=== PATIENT | male | born 1935 | race Caucasian/White ===

== ENCOUNTER 2016-04-21 09:26 | Inpatient (IN) | payer MEDICARE ==
[~2016-04-21] VITALS: Ht 172.7 cm; Wt 103.1 kg
[~2016-04-21 09:26] MED LIST: ACET-575 PO; AMLO10TA2 PO; AMLO10TA82 PO; ASP81CT PO; BENA20TA2 PO; BENA20TA72; BNZ20T PO; CARV6.252 PO; CIPR500T4 PO; CLCX200C; CLOP75TA PO; FLUT9.9S NS; FRSM40T; GLUC-116 PO; GLUC750T PO; HYDR-700 PO; LEVO50TA6 PO; LRT10T PO; LVT.05T PO; MMT17NA; MNTL10T PO; MULT-608 PO; OMEP-10 PO; PANT40TA3 PO; ROSU20TA14; ROSU20TA14 PO; SPIR1TAB PO; TAMS0.4C2 PO; TEMA30CA6; TMSL.4C PO
--- OUTSIDE RECORDS SUMMARY | 2016-04-21 09:32 | XMS REPORT | Continuity of Care Document ---
Author Author [facility] Organization [facility] Address Unknown Phone Unavailable Care Team Providers Care Food Service Helper Name Role Phone TAL MARINO MD PCP Insurance Providers Payer Name Policy Number Subscriber Name Relationship s Medicare [id number] Jose Nieto 18 Self / Same As Patient Blue Cross [facility] Supp [id number] Jose Nieto 18 Self / Same As Patient Advance Directives Directive Response Recorded Date/Time Advance Directives No 12/12/15 6:58am Organ Donor No 02/26/11 5:58am Resuscitation Status DNR-Pt Request 12/12/15 6:58am Chief Complaint and Reason for Visit Chief Complaint -Male Reason for Visit Urinary tract infection Problems Active Problems Medical Problem Onset Date Status Urinary tract infection Unknown Acute Medications Current Home Medications Medication Dose Units Route Directions Days/Qty Instructions Start Date Omeprazole 20 Mg 40 Mg Oral Daily 07/27/09 Carvedilol (Coreg) 6.25 Mg 12.5 Mg Oral Twice A Day 07/27/09 Tamsulosin Hcl 0.4 Mg 0.4 Mg Oral Bedtime 07/27/09 Mometasone Furoate 17 Gm 1 [place] Nasal As Directed 07/27/09 Aspirin 81 Mg 81 Mg Oral Bedtime 07/27/09 Hydroxyzine Hcl (Atarax) 25 Mg 25 Mg Oral Bedtime 07/27/09 Amlodipine Besylate (Norvasc 10 Mg) 10 Mg 1 Each Oral Daily 02/19/11 Montelukast Sodium 10 Mg 1 Tab Oral Daily as needed 02/19/11 Clopidogrel Bisulfate 75 Mg 1 Each Oral Daily 02/19/11 Levothyroxine Sodium (Levothroid) 50 Mcg 1 Each Oral Daily 02/19/11 Spironolact/Hydrochlorothiazid 1 Each 1 Each Oral Daily 02/19/11 Rosuvastatin Calcium 20 Mg 1 Each Oral Bedtime 02/19/11 Benazepril Hcl 20 Mg 1 Each Oral Bedtime 02/19/11 Glucosamine Sulfate 750 Mg 1,500 Mg Oral Daily 02/19/11 Multivitamins 1 Tab 1 Tab Oral Daily 02/19/11 Ciprofloxacin Hcl 500 Mg 500 Mg Oral Twice A Day 14 12/12/15 Past Home Medications Medication Directions Ordered Status Loratadine 10 Mg Tab, 1 Oral Daily 07/27/09 Discontinued Benazepril Hcl 20 Mg Tablet, Daily 07/27/09 Discontinued Celecoxib 200 Mg Capsule, Daily 07/27/09 Discontinued Furosemide 40 Mg Tab, Daily 07/27/09 Discontinued Rosuvastatin Calcium 20 Mg Tablet, Daily 07/27/09 Discontinued Temazepam 30 Mg Capsule, Bedtime 07/27/09 Discontinued Social History Social History Problem Response Recorded Date/Time Alcohol Use Denies Use 12/12/2015 6:58am Recreational Drug Use No 12/12/2015 6:58am Recent Foreign Travel No 12/12/2015 6:51am Recent Infectious Disease Exposure No 12/12/2015 6:51am Sexually Transmitted Disease No 12/12/2015 6:58am Smoking Status Never a Smoker 12/12/2015 6:58am Recent Hopitalizations No 12/12/2015 6:58am Sexually Transmitted Disease No 12/12/2015 6:58am Hx Sexually Transmitted Disorders No 02/26/2011 5:58am Query Response Start Date Stop Date Smoking Status Never a Smoker Hospital Discharge Instructions No hospital discharge instructions. Plan of Care Discharge Date 12/12/15 9:50am Disposition 01 HOME, SELF-CARE Condition at Discharge Stable Instructions/Education Provided Urinary Tract Infection in Men (ED) Forms Provided Local Medical Staff Listing Prescriptions See Medication Section Referrals TAL MARINO MD - Primary Care Physician MARLYS NEWSOME MD - Additional Instructions/Education All discharge instructions reviewed with patient and/or family. Voiced understanding. Follow-up with Dr. Newsome on Friday as scheduled. Return for worse pain, fever, vomiting, weakness, breathing problems or other concerns as needed. Take medications as directed. Functional Status No functional status results. Allergies, Adverse Reactions, Alerts Allergen Type Severity Reaction Status Last Updated SULFA Allergy Intermediate HIVES Active 07/27/09 Immunizations No immunization records. Vital Signs Acute Vital Signs Vital Response Date/Time Temperature (Fahrenheit) 98.0 degrees F (97.6 - 99.5) 12/12/2015 6:51am Temperature (Calculated Celsius) 36.09250 degrees C (36.4 - 37.5) 12/12/2015 6:51am Temperature Source Temporal 12/12/2015 6:51am Pulse Rate (adult) 88 bpm (60 - 90) 12/12/2015 6:51am Respiratory Rate 16 bpm (12 - 24) 12/12/2015 6:51am O2 Sat by Pulse Oximetry 93 % (88 - 100) 12/12/2015 6:51am Blood Pressure 178/78 mm Hg 12/12/2015 6:51am Blood Pressure Mean 111 mm Hg 12/12/2015 6:51am Pain Numeric Pain Scale 7 12/12/2015 7:18am Height (Feet) 5 feet 12/12/2015 6:51am Height (Inches) 8 inches 12/12/2015 6:51am Height (Calculated Centimeters) 172.768222 cm 12/12/2015 6:51am Weight (Pounds) 230 pounds 12/12/2015 6:51am Weight (Calculated Kilograms) 104.952905 kilograms 12/12/2015 6:51am Capillary Refill Capillary Refill Less Than 3 Seconds 12/12/2015 6:51am Height 5 ft 8 in Weight 230 lb Body Mass Index 35.0 kg/m^2 Results Laboratory Results Test Name Result Units Flags Reference Collection Date/Time Result Date/ Time Comments White Blood Count 6.8 10^3/uL 4.3-11.0 12/12/2015 7:05am 12/12/2015 7: 24am Red Blood Count 4.56 10^6/uL 4.35-5.85 12/12/2015 7:05am 12/12/2015 7: 24am Hemoglobin 14.4 G/DL 13.3-17.7 12/12/2015 7:05am 12/12/2015 7:24am Hematocrit 40 % 40-54 12/12/2015 7:05am 12/12/2015 7:24am Mean Corpuscular Volume 88 FL 80-99 12/12/2015 7:05am 12/12/2015 7: 24am Mean Corpuscular Hemoglobin 32 PG 25-34 12/12/2015 7:05am 12/12/2015 7: 24am Mean Corpuscular Hemoglobin Concent 36 G/DL 32-36 12/12/2015 7:05am 7:24am Red Cell Distribution Width 12.6 % 10.0-14.5 12/12/2015 7:05am 2015 7:24am Platelet Count 226 10^3/uL 130-400 12/12/2015 7:05am 12/12/2015 7:24am Mean Platelet Volume 8.9 FL 7.4-10.4 12/12/2015 7:05am 12/12/2015 7: 24am Neutrophils (%) (Auto) 55 % 42-75 12/12/2015 7:05am 12/12/2015 7:24am Lymphocytes (%) (Auto) 23 % 12-44 12/12/2015 7:05am 12/12/2015 7:24am Monocytes (%) (Auto) 19 % H 0-12 12/12/2015 7:05am 12/12/2015 7:24am Eosinophils (%) (Auto) 2 % 0-10 12/12/2015 7:05am 12/12/2015 7:24am Basophils (%) (Auto) 0 % 0-10 12/12/2015 7:05am 12/12/2015 7:24am Neutrophils # (Auto) 3.7 X 10^3 1.8-7.8 12/12/2015 7:05am 12/12/2015 7: 24am Lymphocytes # (Auto) 1.6 X 10^3 1.0-4.0 12/12/2015 7:05am 12/12/2015 7: 24am Monocytes # (Auto) 1.3 X 10^3 H 0.0-1.0 12/12/2015 7:05am 12/12/2015 7: 24am Eosinophils # (Auto) 0.2 10^3/uL 0.0-0.3 12/12/2015 7:05am 12/12/2015 7 :24am Basophils # (Auto) 0.0 10^3/uL 0.0-0.1 12/12/2015 7:05am 12/12/2015 7: 24am Neutrophils % (Manual) 49 % 12/12/2015 7:05am 12/12/2015 7:51am Band Neutrophils 0 % 12/12/2015 7:05am 12/12/2015 7:51am Lymphocytes % (Manual) 18 % 12/12/2015 7:05am 12/12/2015 7:51am Monocytes % (Manual) 12 % 12/12/2015 7:05am 12/12/2015 7:51am Eosinophils % (Manual) 6 % 12/12/2015 7:05am 12/12/2015 7:51am Basophils % (Manual) 0 % 12/12/2015 7:05am 12/12/2015 7:51am Reactive Lymphocytes 15 % 12/12/2015 7:05am 12/12/2015 7:51am Blood Morphology Comment NORMAL 12/12/2015 7:05am 12/12/2015 7: 51am Urine Color DANIEL * 12/12/2015 7:45am 12/12/2015 8:06am Urine Clarity CLEAR 12/12/2015 7:45am 12/12/2015 8:06am Urine pH 5 5-9 12/12/2015 7:45am 12/12/2015 8:06am Urine Specific [place] 1.020 1.016-1.022 12/12/2015 7:45am 2015 8:06am Urine Protein 3+ * NEGATIVE 12/12/2015 7:45am 12/12/2015 8:06am Urine Glucose (UA) NEGATIVE NEGATIVE 12/12/2015 7:45am 12/12/2015 8: 06am Urine RBC (Auto) 3+ * NEGATIVE 12/12/2015 7:45am 12/12/2015 8:06am Urine Ketones NEGATIVE NEGATIVE 12/12/2015 7:45am 12/12/2015 8:06am Urine Nitrite POSITIVE * NEGATIVE 12/12/2015 7:45am 12/12/2015 8:06am Urine Bilirubin 1+ * NEGATIVE 12/12/2015 7:45am 12/12/2015 8:08am ICTO TEST=NEG --- 12/12/15 0808 --- UR BILI previously reported as: 1+ * Urine Urobilinogen 1 MG/DL NORMAL 12/12/2015 7:45am 12/12/2015 8:06am Urine Leukocyte Esterase NEGATIVE NEGATIVE 12/12/2015 7:45am 2015 8:06am Urine RBC RARE /HPF 12/12/2015 7:45am 12/12/2015 8:06am Urine WBC RARE /HPF 12/12/2015 7:45am 12/12/2015 8:06am Urine Bacteria NEGATIVE /HPF 12/12/2015 7:45am 12/12/2015 8:06am Urine Squamous Epithelial Cells RARE /HPF 12/12/2015 7:45am 2015 8:06am Urine Crystals NONE /LPF 12/12/2015 7:45am 12/12/2015 8:06am Urine Casts NONE /LPF 12/12/2015 7:45am 12/12/2015 8:06am Urine Mucus NEGATIVE /LPF 12/12/2015 7:45am 12/12/2015 8:06am Urine Culture Indicated NO 12/12/2015 7:45am 12/12/2015 8:06am Sodium Level 127 MMOL/L L 135-145 12/12/2015 7:05am 12/12/2015 7:39am Potassium Level 4.4 MMOL/L 3.6-5.0 12/12/2015 7:05am 12/12/2015 7:39am Chloride Level 96 MMOL/L L 98-107 12/12/2015 7:05am 12/12/2015 7:39am Carbon Dioxide Level 20 MMOL/L L 21-32 12/12/2015 7:05am 12/12/2015 7: 39am Anion Gap 11 MMOL/L 5-14 12/12/2015 7:05am 12/12/2015 7:39am Blood Urea Nitrogen 7 MG/DL 7-18 12/12/2015 7:05am 12/12/2015 7:39am Creatinine 0.98 MG/DL 0.60-1.30 12/12/2015 7:05am 12/12/2015 7:39am BUN/Creatinine Ratio 7 12/12/2015 7:05am 12/12/2015 7:39am Estimat Glomerular Filtration Rate > 60 12/12/2015 7:05am 2015 7:39am GFR INTERPRETIVE DATA UNITS FOR ESTIMATED GFR (eGFR): mL/min/1.73 M2 REFERENCE RANGE FOR ESTIMATED GFR (eGFR) eGFR NORMAL eGFR >60 MODERATELY DECREASED eGFR 30-59 SEVERLY DECREASED eGFR 15-29 KIDNEY FAILURE <15 (OR DIALYSIS) Glucose Level 120 MG/DL H 70-105 12/12/2015 7:05am 12/12/2015 7:39am Calcium Level 9.0 MG/DL 8.5-10.1 12/12/2015 7:05am 12/12/2015 7:39am Total Bilirubin 0.6 MG/DL 0.1-1.0 12/12/2015 7:05am 12/12/2015 7:39am Alkaline Phosphatase 54 U/L 40-136 12/12/2015 7:05am 12/12/2015 7:39am Aspartate Amino Transf (AST/SGOT) 21 U/L 5-34 12/12/2015 7:05am 2015 7:39am Alanine Aminotransferase (ALT/SGPT) 17 U/L 0-55 12/12/2015 7:05am 12/11 7:39am Total Protein 5.9 G/DL L 6.4-8.2 12/12/2015 7:05am 12/12/2015 7:39am Albumin 3.7 G/DL 3.2-4.5 12/12/2015 7:05am 12/12/2015 7:39am C-Reactive Protein High Sensitivity 1.94 MG/DL H 0.00-0.50 12/12/2015 7: 05am 12/12/2015 7:39am Procedures No known history of procedures. Encounters Encounter Location Arrival/Admit Date Discharge/Depart Date Attending Provider Registered Emergency Room [facility] 12/12/15 6:47am SAM STAPLES MD Recent Diagnosis
[2016-04-21] MEDS ORDERED: VANCOMYCIN IV ADD-VANTAGE 1,000 MG in SODIUM CHLORIDE (ADD-VANTAGE) 250 ML IV ONE (10:00)
[2016-04-21] MEDS ORDERED: fentaNYL INJECTION 100 MCG/2 ML AMP IVP ONE (10:00)
--- NOTE | 2016-04-21 10:00 | ED Integumentary General ---
General Stated Complaint: R FOOT PAIN/SWELLING/REDNESS Source: patient, family Exam Limitations: no limitations History of Present Illness Time seen by provider: 09:57 Initial Comments This 81-year-old white male presents with a progressively red and swollen and painful right foot. The patient has noted ascending red streaks in his right calf. Patient has been going to wound care for the last 2 months for dressing changes. He is not on antibiotics. Patient suffers from severe peripheral vascular disease. He knows that he has essentially no effective circulation to his lower extremities despite multiple procedures. Allergies and Home Medications Allergies Uncoded Allergies: SULFA (Allergy, Intermediate, HIVES, 07/27/09) Home Medications Acetaminophen/Diphenhydramine 1 Each Tablet 1-2 TAB PO HS (Reported) Amlodipine Besylate 10 Mg Tablet 10 MG PO DAILY (Reported) Aspirin 81 Mg Chew 81 MG PO HS (Reported) Benazepril HCl 20 Mg Tablet 20 MG PO BID (Reported) Carvedilol 6.25 Mg Tablet 6.25 MG PO BID (Reported) Fluticasone Propionate 9.9 Ml [place].susp 2 SPRAYS NS DAILY PRN PRN RHINITIS ( Reported) Gluc/Josh-MSM#2/C/D3/Marcos/Born 1 Each Tablet 1 TAB PO DAILY (Reported) Levothyroxine Sodium 50 Mcg Tablet 50 MCG PO DAILY (Reported) Pantoprazole Sodium 40 Mg Tablet.dr 40 MG PO HS (Reported) Rosuvastatin Calcium 20 Mg Tablet 20 MG PO HS (Reported) Tamsulosin HCl 0.4 Mg Cap.er.24h 0.4 MG PO HS (Reported) Constitutional: chills fever EENTM: No ear pain, No vision loss Respiratory: No cough Cardiovascular: No chest pain Gastrointestinal: No abdominal pain, No diarrhea, No nausea, No vomiting Genitourinary: No dysuria, No frequency Musculoskeletal: No back pain, No gout, joint pain Skin: other (patient had erythema of his right great toe and right heel area.) Psychiatric/Neurological: No Symptoms Reported Endocrine: No Symptoms Reported Hematologic/Lymphatic: No Symptoms Reported Past Cnrobvl-Ikntxq-Mvrwvw Hx Patient Social History Recent Foreign Travel: No Contact w/Someone Who Travel: No Recent Hopitalizations: No Immunizations Up To Date Date of Pneumonia Vaccine: Nov 17, 2014 Date of Influenza Vaccine: Dec 01, 2015 Seasonal Allergies Seasonal Allergies: Yes Surgeries HX Surgeries: Yes (right carotid, right total knee, hernia repair, pvd, prostate seeds, ileost) Surgeries: Eye Surgery, Gallbladder, Orthopedic, Tonsillectomy Respiratory Hx Respiratory Disorders: Yes Respiratory Disorders: Asthma Cardiovascular Hx Cardiac Disorders: Yes Cardiac Disorders: Coronary Artery Disease, High Cholesterol, Hypertension Neurological Hx Neurological Disorders: Yes Neurological Disorders: Dementia, Neuropathy Reproductive System Hx Reproductive Disorders: No Sexually Transmitted Disease: No Genitourinary Hx Genitourinary Disorders: Yes (PROSTATE CA) Genitourinary Disorders: Prostate Problems Gastrointestinal Hx Gastrointestinal Disorders: Yes (ILEOSTOMY) Gastrointestinal Disorders: Abdominal Hernia, Colitis Musculoskeletal Hx Musculoskeletal Disorders: Yes (ARTHRITIS) Endocrine Hx Endocrine Disorders: Yes Endocrine Disorders: Hypothyroidsim, Diabetes, Non-Insulin dep HEENT HX ENT Disorders: No Cancer Hx Cancer: Yes Cancer: Prostate, Colon Psychosocial Hx Psychiatric Problems: No Integumentary HX Skin/Integumentary Disorder: No Blood Transfusions Hx Blood Disorders: No Reviewed Nursing Assessment Reviewed/Agree w Nursing PMH: Yes Family Medical History Significant Family History: No Pertinent Family Hx Family Medial History: BLOOD CLOT 19 FATHER BRAIN CANCER G8 SISTER SISTER BRAIN CANCER G8 SISTER SISTER Physical Exam Vital Signs Vital Sign - Last 12Hours 04/21/16 09:40 Temp 99.8 Pulse 102 B/P 134/102 Pulse Ox 97 Capillary Refill : General Appearance: WD/WN no apparent distress HEENT: normal ENT inspection Neck: normal inspection Cardiovascular: regular rate, rhythm other (patient demonstrates poor peripheral pulses.) Respiratory: chest non-tender lungs clear Gastrointestinal: normal bowel sounds non tender soft Extremities: inflammation (right foot and ankle with ascending lymphedema to the right calf) Neurologic/Psychiatric: no motor/sensory deficits alert Skin: other (there is marked erythema to the right great toe and right heel and there is sending lymphedema over the medial right calf.) Skin Problem Location: other (cellulitis right lower extremity) Skin Problem Character: erythema, warm Progress/Results/Core Measures Results/Orders Lab Results Laboratory Tests Test 04/21/16 10:30 Range/Units Basophils # (Auto) 0.0 0.0-0.1 10^3/uL Basophils (%) (Auto) 0 0-10 % Eosinophils # (Auto) 0.1 0.0-0.3 10^3/uL Eosinophils (%) (Auto) 1 0-10 % Hematocrit 35 L 40-54 % Hemoglobin 11.9 L 13.3-17.7 G/DL Lymphocytes # (Auto) 1.2 1.0-4.0 X 10^3 Lymphocytes (%) (Auto) 7 L 12-44 % Mean Corpuscular Hemoglobin 32 25-34 PG Mean Corpuscular Hemoglobin Concent 34 32-36 G/DL Mean Corpuscular Volume 97 80-99 FL Mean Platelet Volume 9.0 7.4-10.4 FL Monocytes # (Auto) 2.9 H 0.0-1.0 X 10^3 Monocytes (%) (Auto) 17 H 0-12 % Neutrophils # (Auto) 12.9 H 1.8-7.8 X 10^3 Neutrophils (%) (Auto) 75 42-75 % Platelet Count 239 130-400 10^3/uL Red Blood Count 3.67 L 4.35-5.85 10^6/uL Red Cell Distribution Width 14.9 H 10.0-14.5 % White Blood Count 17.2 H 4.3-11.0 10^3/uL My Orders Orders-MARBELLA MCCLAIN MD Hs C Reactive Protein (04/21/16 09:55) Cbc With Automated Diff (04/21/16 09:55) Comprehensive Metabolic Panel (04/21/16 09:55) Uric Acid (04/21/16 09:55) Foot, Right, 3 View (04/21/16 09:55) Fentanyl Injection (Sublimaze Injection (04/21/16 10:00) Vancomycin Iv Add-[place] (Vancomycin Iv (04/21/16 10:00) Ns Iv 1000 Ml (Sodium Chloride 0.9%) (04/21/16 10:00) Blood Culture (04/21/16 10:13) Lactic Acid Analyzer (04/21/16 10:13) Chest 1 View, Ap/Pa Only (04/21/16 10:37) Manual Differential (04/21/16 10:30) Vital Signs/I&O Vital Sign - Last 12Hours 04/21/16 09:40 Temp 99.8 Pulse 102 B/P 134/102 Pulse Ox 97 Progress Note : Time: 10:56 Progress Note The patient's white count was 17,000. A gram of vancomycin was ordered. Telephone consultation was undertaken with Dr. Mcclendon. Patient was admitted. Departure Communication Time/Spoke to Admitting Phy: 10:[address] Mcclendon. Impression Impression: Primary Impression: Cellulitis of right lower extremity Disposition: ADMITTED INPATIENT Condition: Improved Decision to Admit Reason: Admit from ER (General) Decision to Admit/Date: Apr 21, 2016 Time/Decision to Admit Time: 10:58 Departure-Patient Inst. Referrals: NO,LOCAL PHYSICIAN (PCP/Family) Primary Care Physician MARBELLA MCCLAIN MD Apr 21, 2016 10:00
[2016-04-21 10:42] LABS: BASOPHILS % (AUTO) 0 % (0-10); EOSINOPHILS # (AUTO) 0.1 10^3/uL (0.0-0.3); EOSINOPHILS % (AUTO) 1 % (0-10); LYMPHOCYTES # (AUTO) 1.2 X 10^3 (1.0-4.0); LYMPHOCYTES % (AUTO) 7 % (12-44); MEAN CORPUSCULAR HEMOGLOBIN 32 PG (25-34); MEAN CORPUSCULAR HGB CONC 34 G/DL (32-36); MEAN CORPUSCULAR VOLUME 97 FL (80-99); MONOCYTES # (AUTO) 2.9 X 10^3 (0.0-1.0); MONOCYTES % (AUTO) 17 % (0-12); NEUTROPHILS # (AUTO) 12.9 X 10^3 (1.8-7.8); NEUTROPHILS % (AUTO) 75 % (42-75); PLATELET COUNT 239 10^3/uL (130-400); RED BLOOD COUNT 3.67 10^6/uL (4.35-5.85); RED CELL DISTRIBUTION WIDTH 14.9 % (10.0-14.5); WHITE BLOOD COUNT 17.2 10^3/uL (4.3-11.0)
--- NOTE | 2016-04-21 10:55 | Diagnostic Imaging Report ---
EXAMINATION: Chest radiograph, portable AP view. DATE: 04/21/2016 at 1033 hours. INDICATION: 81-year-old male, fever and chills. COMPARISON: 12/16/2015. FINDINGS: Stable overall appearance of the cardiomediastinal silhouette. There are aortic calcifications. There are carotid vascular calcifications. There is stent graft material overlying the right neck and adjacent surgical clips. There is no identified pneumothorax. There is no large pleural effusion. There is nonspecific right parahilar airspace consolidation which is increased since the comparison exam. IMPRESSION: 1. Nonspecific right perihilar airspace consolidation increased since comparison exam which may relate to infiltrate and/or atelectasis. Dictated by: Dictated on workstation # [id number]
[2016-04-21 10:58] LABS: BAND NEUTROPHILS 12 %; BASOPHILS % (MANUAL) 0 %; EOSINOPHILS % (MANUAL) 1 %; LYMPHOCYTES % (MANUAL) 8 %; METAMYELOCYTES % 3 %; NEUTROPHILS % (MANUAL) 61 %
--- NOTE | 2016-04-21 10:58 | Diagnostic Imaging Report ---
EXAMINATION: Right foot, three views. COMPARISON: None. HISTORY: 81-year-old male, redness and swelling of the right foot. FINDINGS: There is a deformity of the distal diaphysis of the fifth metatarsal which appears chronic. There is at least partial bony callus bridging of the deformity. There is a calcaneal heel spur. There is pes planus. There is severe tibiotalar joint space loss. There is loss of identification of the normal morphology of the talus on the lateral view. There is mild degenerative type enthesopathy at the insertion of the Achilles tendon. The bones do appear demineralized. There is no aggressive cortical or otherwise noted bone destruction. There is no periosteal reaction. There is no radiopaque foreign body. There is a deformity of the distal fibula likely relating to sequela of prior fracture. IMPRESSION: 1. No radiographic evidence of osteomyelitis. 2. No radiopaque foreign body. 3. Chronic appearing abnormalities as described above. Dictated by: Dictated on workstation # [id number]
[2016-04-21 11:07] LABS: ALBUMIN 2.9 G/DL (3.2-4.5); BILIRUBIN,TOTAL 0.5 MG/DL (0.1-1.0); CALCIUM 9.4 MG/DL (8.5-10.1); CREATININE SERUM 1.24 MG/DL (0.60-1.30); POTASSIUM 4.5 MMOL/L (3.6-5.0); TOTAL PROTEIN 5.7 G/DL (6.4-8.2)
[2016-04-21 11:08] LABS: hs C REACTIVE PROTEIN 27.36 MG/DL (0.00-0.50)
[2016-04-21] MEDS: NS IV 1000 ML 1,000 ML IV SCH ×2 (11:58→21:32)
[2016-04-21] MEDS ORDERED: VANCOMYCIN 1 GM/NS 250 ML IVPB IV NR ×2 (15:11)
[2016-04-21] MEDS: fentaNYL INJECTION 100 MCG/2 ML AMP IV PRN (15:43)
[2016-04-21 16:00] VITALS: BP 112/56
[2016-04-21 20:00] VITALS: BP 111/54
[2016-04-21] MEDS: ACETAMINOPHEN 325 MG TABLET/CAPLET (TYLENOL) PO PRN (21:17)
[2016-04-22] VITALS (7 sets, daily range): BP systolic 110–143; BP diastolic 56–99
[2016-04-22] MEDS: NS IV 1000 ML 1,000 ML IV SCH ×2 (02:58→22:59)
[2016-04-22] MEDS: VANCOMYCIN 1 GM/NS 250 ML IVPB IV SCH ×4 (05:01→17:12)
[2016-04-22 05:16] LABS: BASOPHILS % (AUTO) 0 % (0-10); EOSINOPHILS # (AUTO) 0.1 10^3/uL (0.0-0.3); EOSINOPHILS % (AUTO) 0 % (0-10); LYMPHOCYTES # (AUTO) 1.2 X 10^3 (1.0-4.0); LYMPHOCYTES % (AUTO) 9 % (12-44); MEAN CORPUSCULAR HEMOGLOBIN 33 PG (25-34); MEAN CORPUSCULAR HGB CONC 34 G/DL (32-36); MEAN CORPUSCULAR VOLUME 97 FL (80-99); MEAN PLATELET VOLUME 8.9 FL (7.4-10.4); MONOCYTES # (AUTO) 2.2 X 10^3 (0.0-1.0); MONOCYTES % (AUTO) 16 % (0-12); NEUTROPHILS # (AUTO) 10.7 X 10^3 (1.8-7.8); NEUTROPHILS % (AUTO) 75 % (42-75); PLATELET COUNT 209 10^3/uL (130-400); RED CELL DISTRIBUTION WIDTH 14.7 % (10.0-14.5); WHITE BLOOD COUNT 14.1 10^3/uL (4.3-11.0)
[2016-04-22 05:42] LABS: ERYTHROCYTE SEDIMENTATION RATE 51 MM/HR (0-30)
[2016-04-22 05:43] LABS: ALANINE AMINOTRANSFERASE 13 U/L (0-55); ALBUMIN 2.6 G/DL (3.2-4.5); ANION GAP 10 MMOL/L (5-14); ASPARTATE AMINO TRANSFERASE 10 U/L (5-34); BILIRUBIN,TOTAL 0.5 MG/DL (0.1-1.0); BLOOD UREA NITROGEN 16 MG/DL (7-18); BUN/CREATININE RATIO 18; CALCIUM 8.9 MG/DL (8.5-10.1); CARBON DIOXIDE 17 MMOL/L (21-32); CHLORIDE 108 MMOL/L (98-107); CREATININE SERUM 0.87 MG/DL (0.60-1.30); GFR ESTIMATED > 60; GLUCOSE 117 MG/DL (70-105); POTASSIUM 4.1 MMOL/L (3.6-5.0); SODIUM 135 MMOL/L (135-145)
[2016-04-22] MEDS: fentaNYL INJECTION 100 MCG/2 ML AMP IV PRN ×2 (10:15→17:04)
[2016-04-22] MEDS ORDERED: ROSU40TA20 PO (10:59)
[2016-04-22] MEDS ORDERED: CLOP75TA69 PO (10:59)
--- NOTE | 2016-04-22 11:03 | History & Physical-Hospitalist ---
HPI History of Present Illness: HPI/Chief Complaint CC: Right foot cellulitis HPI: This is an 81yoWM pt known from prior admission for fever and UTI on with hx of severe JANIS, colitis requiring ileostomy, and prostate CA, that presents to ER with right lower extremity swelling and pain. Pt is on Vanc empirically, lab shows WBC improved from 17.2 to 14, Hgb 11, Na+ improved to 135 and Creat normal at 0.87. Pt had previous left leg surgery performed by Dr. Wright two weeks ago in [place], but developed cellulitis in right leg extremity. assistant director of security: RN states that pt is much improved. Pt has an incision in leg from previous operation. SW Review: Pt wishes to be DNR. Pt's PCP is Dr. Payan Patient Interview: Pt states that he recently had surgery on his left leg two weeks ago in [place] performed by Dr. Wright. Pt states that his toe is improved today, but still has some pain in his heel spur. Pt's heel spur has recently made it hard for pt to walk. Pt has not found a local specialist to work with heel spur. Pt sees Dr. Aguirre routinely, and sees a physician in [place] for primary care. Physical exam stable. Pt used O2 last night, but did not bring his CPAP to [facility]. Pt states that he sometimes uses the CPAP at home, but not every night. Pt has not been ambulating from bed to chair, but not more. Pt eating and drinking regularly. Plan: Stop IVF Bone scan Maintain ambulation Maintain Vanc Dr. Dover will see pt tomorrow morning Scribed by Maxim Graves under the direct supervision of Dr. Partida. Source: patient Exam Limitations: clinical condition (cognitive deficiency noted) Date Seen 04/22/16 Attending Physician Fernando Mcclendon MD PCP No,Local Physician Referring Physician Date of Admission Apr 21, 2016 at 11:23 Home Medications & Allergies Home Medications Reviewed patient Home Medication Reconciliation Form Allergies Coded Allergies: clindamycin (Verified Allergy, Unknown, 04/21/16) STATES HE CAN NOT TAKE IT Uncoded Allergies: SULFA (Allergy, Intermediate, HIVES, 07/27/09) Past Yrgpied-Kpqlax-Kwpxvx Hx Patient Social History Marrital Status: Employed/Student: retired Alcohol Use: Rarely Uses Recreational Drug Use: No Smoking Status: Never a Smoker Physical Abuse Screen: No Sexual Abuse: No Recent Foreign Travel: No Contact w/other who traveled: No Recent Hopitalizations: No Recent Infectious Disease Expo: No Immunizations Up To Date Date of Pneumonia Vaccine: Dec 12, 2015 Date of Influenza Vaccine: Dec 12, 2015 Seasonal Allergies Seasonal Allergies: Yes Surgeries HX Surgeries: Yes (right carotid, right total knee, hernia repair, pvd, prostate seeds, ileost) Surgeries: Eye Surgery, Gallbladder, Orthopedic, Tonsillectomy Respiratory Hx Respiratory Disorders: Yes Respiratory Disorders: COPD, Emphysema, Sleep Apnea Cardiovascular Hx Cardiovascular Disorders: Yes Cardiac Disorders: Coronary Artery Disease, High Cholesterol, Hypertension Neurological Hx Neurological Disorders: Yes Neurological Disorders: Dementia, Neuropathy Reproductive System Hx Reproductive Disorders: No Sexually Transmitted Disease: No HIV/AIDS: No Genitourinary Hx Genitourinary Disorders: Yes (PROSTATE CA) Genitourinary Disorders: Prostate Problems, Kidney Stones Gastrointestinal Hx Gastrointestinal Disorders: Yes (ILEOSTOMY) Gastrointestinal Disorders: Abdominal Hernia, Colitis, Gall Bladder Disease Musculoskeletal Hx Musculoskeletal Disorders: Yes (ARTHRITIS) Endocrine Hx Endocrine Disorders: Yes Endocrine Disorders: Hypothyroidsim, Diabetes, Non-Insulin dep HEENT HX ENT Disorders: No HEENT Disorders: Cataract Loss of Vision: Denies Hearing Impairment: Hard of Hearing Cancer Hx Cancer: Yes Cancer: Prostate, Stomach, Colon Psychosocial Hx Psychiatric Problems: No Integumentary HX Skin/Integumentary Disorder: No Blood Transfusions Hx Blood Disorders: No Adverse Reaction to a Blood Tr: No Reviewed Nursing Assessment Reviewed/Agree w Nursing PMH: Yes Family Medical History Significant Family History: No Pertinent Family Hx Family Hx: BLOOD CLOT 19 FATHER BRAIN CANCER G8 SISTER SISTER BRAIN CANCER G8 SISTER SISTER Review of Systems Constitutional: see HPI chills weakness EENTM: no symptoms reported Respiratory: no symptoms reported Cardiovascular: no symptoms reported Gastrointestinal: no symptoms reported Genitourinary: no symptoms reported Musculoskeletal: joint pain Skin: no symptoms reported Psychiatric/Neurological: Depressed All Other Systems Reviewed Negative Unless Noted: Yes Physical Exam Physical Exam Vital Signs Vital Sign - Last 12Hours 04/21/16 04/21/16 04/21/16 04/21/16 09:40 13:00 14:00 21:00 Temp 99.8 Pulse 102 Resp 18 B/P 134/102 Pulse Ox 97 O2 Delivery Room Air O2 Flow Rate 2.00 Capillary Refill : Less Than 3 Seconds General Appearance: No Apparent Distress WD/WN Chronically ill Eyes: Bilateral Eye Normal Inspection, Bilateral Eye PERRL HEENT: PERRL/EOMI Normal ENT Inspection Pharynx Normal Neck: Full Range of Motion Normal Inspection Non Tender Supple Carotid Bruit Respiratory: Chest Non Tender Lungs Clear Normal Breath Sounds No Accessory Muscle Use No Respiratory Distress Cardiovascular: Regular Rate, Rhythm No Edema No Gallop No JVD No Murmur Normal Peripheral Pulses Gastrointestinal: Normal Bowel Sounds No Organomegaly No Pulsatile Mass Non Tender Soft Back: Normal Inspection No CVA Tenderness No Vertebral Tenderness Extremity: Normal Capillary Refill Normal Inspection Normal Range of Motion ( except right ankle and foot with erythema that is much improved from admission but ammonia still operator to touch) Non Tender No Calf Tenderness No Pedal Edema Neurologic/Psychiatric: Alert Oriented x3 No Motor/Sensory Deficits Normal Mood/Affect Skin: Normal Color Warm/Dry Lymphatic: No Adenopathy Results Results/Procedures Lab Laboratory Tests 04/21/16 10:30 04/22/16 04:50 Assessment/Plan Admission Diagnosis Assessment: Right foot cellulitis with severe peripheral vascular disease ruling out osteomyelitis consulting podiatry w/leukocytosis History of COPD Severe sleep apnea requiring CPAP Chronic nasal congestion requiring Afrin and breathing easy strips History of prostate cancer Hypertension Hypothyroidism Cognitive decline Debility UTI hx Colitis requiring ileostomy hx Assessment and Plan Plan: Continue vancomycin since improving empirically Monitor labs Pain control Nuclear imaging scan and MRI to evaluate for OSTEOMYELITIS and consulting Dr. Dover Clinical Quality Measures DVT/VTE Risk/Contraindication: Risk Factor Score Per Nursin RFS Level Per Nursing on Admit: 3=High YAS PARTIDA DO Apr 22, 2016 11:03
[2016-04-22] MEDS: CATHETER FLUSH 10 ML SYR IV PRN (12:27)
[2016-04-22] MEDS: ENOXAPARIN 40 MG/0.4 ML (LOVENOX) SYR SC SCH (13:39)
[2016-04-22] MEDS: ACETAMINOPHEN 325 MG TABLET/CAPLET (TYLENOL) PO PRN ×2 (13:40→20:04)
[2016-04-22] MEDS ORDERED: TROUGH ORDER-PHARMACY XX NR (16:00)
[2016-04-22] MEDS ORDERED: NS IV 1000 ML 1,000 ML ONE (17:07)
[2016-04-22] MEDS: ALFUZOSIN HCL 10 MG TAB (UROXATRAL) PO SCH (18:12)
[2016-04-22] MEDS: CARVEDILOL 6.25 MG (COREG) TAB PO SCH (20:03)
[2016-04-22] MEDS: BENAZEPRIL 20 MG (LOTENSIN) TAB PO SCH (20:03)
[2016-04-22] MEDS: ASPIRIN 81 MG CHEW (CHILDREN'S ASA) PO SCH (20:04)
[2016-04-22] MEDS: PANTOPRAZOLE 40 MG (PROTONIX) TAB PO SCH (20:04)
[2016-04-22] MEDS: ATORVASTATIN 40 MG (LIPITOR) TABLET PO SCH (20:04)
[2016-04-22] MEDS ORDERED: ROSUVASTATIN 20 MG (CRESTOR) TABLET PO SCH (21:00)
[2016-04-22 22:27] LABS: BASOPHILS % (AUTO) 0 % (0-10); EOSINOPHILS # (AUTO) 0.1 10^3/uL (0.0-0.3); EOSINOPHILS % (AUTO) 1 % (0-10); LYMPHOCYTES % (AUTO) 8 % (12-44); MEAN CORPUSCULAR HEMOGLOBIN 33 PG (25-34); MEAN CORPUSCULAR HGB CONC 34 G/DL (32-36); MEAN CORPUSCULAR VOLUME 97 FL (80-99); MEAN PLATELET VOLUME 9.2 FL (7.4-10.4); MONOCYTES # (AUTO) 2.2 X 10^3 (0.0-1.0); MONOCYTES % (AUTO) 16 % (0-12); NEUTROPHILS # (AUTO) 10.2 X 10^3 (1.8-7.8); NEUTROPHILS % (AUTO) 75 % (42-75); PLATELET COUNT 206 10^3/uL (130-400); RED BLOOD COUNT 3.35 10^6/uL (4.35-5.85); RED CELL DISTRIBUTION WIDTH 14.5 % (10.0-14.5); WHITE BLOOD COUNT 13.6 10^3/uL (4.3-11.0)
[2016-04-22 22:47] LABS: ALANINE AMINOTRANSFERASE 11 U/L (0-55); ALBUMIN 2.6 G/DL (3.2-4.5); ANION GAP 11 MMOL/L (5-14); ASPARTATE AMINO TRANSFERASE 10 U/L (5-34); BILIRUBIN,TOTAL 0.4 MG/DL (0.1-1.0); BLOOD UREA NITROGEN 10 MG/DL (7-18); BUN/CREATININE RATIO 10; CALCIUM 8.7 MG/DL (8.5-10.1); CARBON DIOXIDE 16 MMOL/L (21-32); CHLORIDE 108 MMOL/L (98-107); CREATININE SERUM 1.01 MG/DL (0.60-1.30); GFR ESTIMATED > 60; GLUCOSE 163 MG/DL (70-105); SODIUM 135 MMOL/L (135-145); TOTAL PROTEIN 5.3 G/DL (6.4-8.2)
[2016-04-22] MEDS ORDERED: LEVOFLOXACIN 750 MG/150 ML IV 150 ML IV ONE (22:51)
[2016-04-22] MEDS: PIPERACILLIN SODIUM/TAZOBACTAM 4.5 GM in NS (IVPB) 100 ML IV SCH (22:55)
[2016-04-22] MEDS: IBUPROFEN TABLET 200 MG TAB PO PRN (22:56)
[2016-04-22] MEDS: RT-ALBUTEROL/IPRATROPIUM 3 ML (DUONEB) VIAL INH SCH (23:06)
[2016-04-22 23:27] LABS: BILIRUBIN,URINE NEGATIVE (NEGATIVE); KETONES,URINE NEGATIVE (NEGATIVE); LEUKOCYTE ESTERASE ,URINE NEGATIVE (NEGATIVE); NITRITE,URINE NEGATIVE (NEGATIVE); PH,URINE 5 (5-9); PROTEIN,URINE 1+ (NEGATIVE); UROBILINOGEN,URINE NORMAL (NORMAL)
[2016-04-23] MEDS: RT-ALBUTEROL/IPRATROPIUM 3 ML (DUONEB) VIAL INH SCH ×6 (02:52→22:00)
[2016-04-23 04:05] VITALS: BP 150/74
[2016-04-23] MEDS: VANCOMYCIN 1 GM/NS 250 ML IVPB IV SCH ×4 (04:13→17:00)
[2016-04-23 05:36] LABS: BASOPHILS % (AUTO) 0 % (0-10); EOSINOPHILS # (AUTO) 0.1 10^3/uL (0.0-0.3); EOSINOPHILS % (AUTO) 1 % (0-10); LYMPHOCYTES # (AUTO) 0.8 X 10^3 (1.0-4.0); LYMPHOCYTES % (AUTO) 7 % (12-44); MEAN CORPUSCULAR HEMOGLOBIN 32 PG (25-34); MEAN CORPUSCULAR HGB CONC 33 G/DL (32-36); MEAN CORPUSCULAR VOLUME 98 FL (80-99); MEAN PLATELET VOLUME 9.3 FL (7.4-10.4); MONOCYTES # (AUTO) 1.9 X 10^3 (0.0-1.0); MONOCYTES % (AUTO) 15 % (0-12); NEUTROPHILS % (AUTO) 78 % (42-75); PLATELET COUNT 191 10^3/uL (130-400); RED BLOOD COUNT 3.38 10^6/uL (4.35-5.85); RED CELL DISTRIBUTION WIDTH 14.6 % (10.0-14.5); WHITE BLOOD COUNT 12.9 10^3/uL (4.3-11.0)
[2016-04-23] MEDS: PIPERACILLIN SODIUM/TAZOBACTAM 4.5 GM in NS (IVPB) 100 ML IV SCH ×3 (06:01→21:29)
[2016-04-23 06:15] LABS: ALANINE AMINOTRANSFERASE 12 U/L (0-55); ALBUMIN 2.6 G/DL (3.2-4.5); ANION GAP 12 MMOL/L (5-14); ASPARTATE AMINO TRANSFERASE 13 U/L (5-34); BILIRUBIN,TOTAL 0.8 MG/DL (0.1-1.0); BLOOD UREA NITROGEN 10 MG/DL (7-18); BUN/CREATININE RATIO 9; CALCIUM 8.6 MG/DL (8.5-10.1); CARBON DIOXIDE 15 MMOL/L (21-32); CHLORIDE 109 MMOL/L (98-107); CREATININE SERUM 1.07 MG/DL (0.60-1.30); GFR ESTIMATED > 60; GLUCOSE 126 MG/DL (70-105); POTASSIUM 3.8 MMOL/L (3.6-5.0); SODIUM 136 MMOL/L (135-145); TOTAL PROTEIN 5.3 G/DL (6.4-8.2)
[2016-04-23 08:00] VITALS: BP 110/54
[2016-04-23] MEDS ORDERED: GADOBUTROL 10 MMOL/10 ML (GADAVIST) VIAL IV ONE (08:00)
--- NOTE | 2016-04-23 08:53 | Diagnostic Imaging Report ---
EXAMINATION: PA and lateral chest obtained at 1039h. INDICATION: Fever The heart size is at the upper limits of normal but stable when compared to 04/21/16. The previous study did show pneumonia/atelectasis in the right infrahilar region. On this exam the right infrahilar region does seem much better aerated. There is only a small amount of residual pneumonia/atelectasis still present in this area. The lateral view does suggest that there is also some fluid in each lung base. The lungs are otherwise clear. The mediastinum is not widened. The osseous structures are intact. IMPRESSION: The appearance of the chest has improved as the right lung base is better aerated. There is only a small amount of residual atelectasis/infiltrate in this area. Small bilateral pleural effusions are also noted. A followup exam should be considered for further study. Dictated by: Dictated on workstation # [id number]
--- NOTE | 2016-04-23 08:55 | Diagnostic Imaging Report ---
EXAMINATION: Three-phase Nuclear Medicine bone scan. INDICATION: Right foot pain. TECHNIQUE: The study was performed following administration of 26.7 mCi of 99M technetium MDP. Blood pool images of both feet were obtained. A delayed series was also performed. HISTORY: The plain film examination of the right foot performed on 04/21/2016 failed to show any sign of osteomyelitis. There were post traumatic changes involving the fifth metatarsal and the distal fibula. There was also severe degenerative disease of the ankle joint itself. FINDINGS: On this exam, there is intense uptake of the radiotracer about the right ankle joint. This could be secondary to the severe degenerative disease involving the ankle joint seen on the plain film exam. The possibility that there is an element of osteomyelitis present should also be considered. If further imaging is desired, then an MRI would be recommended. There is also a focal area of increased uptake involving the distal phalanx of the great toe. This also suggests osteomyelitis. There is no other abnormal uptake identified. The left foot is unremarkable. IMPRESSION: There are areas of abnormal uptake involving the ankle joint and the distal phalanx of the great toe. These findings are suspicious for osteomyelitis. An MRI would be recommended for further evaluation. Dictated by: Dictated on workstation # [id number]
[2016-04-23] MEDS ORDERED: FLUTICASONE NASAL SPRAY (FLONASE) 16 GM BTL NS PRN (09:00)
[2016-04-23] MEDS ORDERED: LEVOFLOXACIN 750 MG/150 ML IV 150 ML IV SCH (09:00)
--- NOTE | 2016-04-23 09:14 | Diagnostic Imaging Report ---
PROCEDURE: MRI right joint lower extremity with and without contrast. TECHNIQUE: A multiplanar/multisequence pre and post contrast-enhanced JEANNETTE of the right joint lower extremity was accomplished. INDICATION: Heel pain. COMPARISON: There are no previous MRI examinations available for comparison. HISTORY: The plain film examination of the right foot performed on 04/21/2016 noted severe degenerative disease involving the ankle joint. The Nuclear Medicine bone scan conducted on 04/22/2016 also noted diffusely abnormal uptake about the right ankle. FINDINGS: On the coronal T1 series of this exam, there is irregularity of the lateral aspect of the talus and there is diminished signal within the talus itself. Furthermore, there does appear to be enhancement along the lateral edge of the talus on the post contrast series and I do feel that there is an element of osteomyelitis present. There is also irregularity of the calcaneus along the medial aspect of the talonavicular articulation and I suspect that there is osteomyelitis of the calcaneus as well. A moderate joint effusion is also seen. 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 There is also subchondral cyst formation in the subarticular region of the distal tibia and distal fibula. The major ligaments and tendons appear to be intact. There is a small amount of fluid in the common peroneal sheath. This does suggest tenosynovitis. Also, there does appear to be edema/inflammation of the soft tissues along the inferior margin of the calcaneus near the attachment of the plantar fascia. The plantar fascia itself does not appear to be inflamed but the abnormal signal within the subcutaneous fat does suggest edema/inflammation. IMPRESSION: 1. The findings would be consistent with osteomyelitis of the lateral aspect of the talus and of the talocalcaneal articulation. There is also a moderate joint effusion present. 2. There is no acute bony abnormality identified. 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 There also appears to be fairly severe degenerative disease involving the ankle joint itself. 3. The major ligaments and tendons are intact. 4. There is edema/inflammation of the soft tissues along the inferior aspect of the calcaneus. There is no soft tissue mass or abscess identified in this area, however. Dictated by: Dictated on workstation # [id number]
[2016-04-23] MEDS: CLOPIDOGREL 75 MG (PLAVIX) TABLET PO SCH (09:15)
[2016-04-23] MEDS: BENAZEPRIL 20 MG (LOTENSIN) TAB PO SCH ×2 (09:15→21:23)
[2016-04-23] MEDS: CARVEDILOL 6.25 MG (COREG) TAB PO SCH ×2 (09:15→21:24)
[2016-04-23] MEDS: LEVOTHYROXINE 50 MCG (LEVOTHROID) TAB PO SCH (09:15)
[2016-04-23] MEDS: amLODIPine 10 MG (NORVASC) TAB PO SCH (09:16)
[2016-04-23] MEDS: ACETAMINOPHEN 325 MG TABLET/CAPLET (TYLENOL) PO PRN (09:20)
[2016-04-23] MEDS: NS IV 1000 ML 1,000 ML IV SCH ×2 (10:30→17:13)
--- NOTE | 2016-04-23 11:03 | Progress Note-Hospitalist ---
Progress Note HPI/CC on Admission CC: Right foot cellulitis HPI: This is an 81yoWM pt known from prior admission for fever and UTI on with hx of severe JANIS, colitis requiring ileostomy, and prostate CA, that presents to ER with right lower extremity swelling and pain. Pt is on Vanc empirically, lab shows WBC improved from 17.2 to 14, Hgb 11, Na+ improved to 135 and Creat normal at 0.87. Pt had previous left leg surgery performed by Dr. Wright two weeks ago in [place], but developed cellulitis in right leg extremity. lean manufacturing specialist: RN states that pt is much improved. Pt has an incision in leg from previous operation. SW Review: Pt wishes to be DNR. Pt's PCP is Dr. Payan Patient Interview: Pt states that he recently had surgery on his left leg two weeks ago in [place] performed by Dr. Wright. Pt states that his toe is improved today, but still has some pain in his heel spur. Pt's heel spur has recently made it hard for pt to walk. Pt has not found a local specialist to work with heel spur. Pt sees Dr. Aguirre routinely, and sees a physician in [place] for primary care. Physical exam stable. Pt used O2 last night, but did not bring his CPAP to [facility]. Pt states that he sometimes uses the CPAP at home, but not every night. Pt has not been ambulating from bed to chair, but not more. Pt eating and drinking regularly. Plan: Stop IVF Bone scan Maintain ambulation Maintain Vanc Dr. Dover will see pt tomorrow morning Scribed by Maxim Graves under the direct supervision of Dr. Partida. Progress Notes/Assess & Plan Date Seen 04/23/16 Admission Dx/Process Assessment: Right foot cellulitis with severe peripheral vascular disease ruling out osteomyelitis consulting podiatry w/leukocytosis History of COPD Severe sleep apnea requiring CPAP Chronic nasal congestion requiring Afrin and breathing easy strips History of prostate cancer Hypertension Hypothyroidism Cognitive decline Debility UTI hx Colitis requiring ileostomy hx Diagonsis/Assessment & Plan Chart Review: Ran fever last night that prompted call from RN and upon review of final CXR report and in light of fever, I assessed likely pneumonia in RLL so I broadened antibiotics and added Zosyn and Levaquin to the Vanc. MRI of the right foot showed osteomyelitis of heel. Bone scan confirmed findings of osteomyelitis matching MRI. WBC 12.9 from 17.2 CMP normal except albumin 2.6 Lactic acid normal at 1.09 last night Ua negative lean manufacturing specialist: RN states that pt is a hard stick, and requests a midline. Pt had MRI this morning. Patient Interview: Pt states that he feels much better today, and that he no longer feels feverish. Dr. Partida informs pt of osteomyelitis findings and treatment plans. Pt states that he has not seen Dr. Dover yet. Pt states that he has difficulty walking on his foot. Pt states that he has not received pain shots for his heel spur for a year, but used to receive them fairly regularly. Physical exam stable. No fever currently Pleasant, oriented 3 but poor recall, at bedside Regular rate and rhythm, clear to auscultation bilaterally but decreased in the right lower lobe No edema, improved right heel erythema Laboratory Tests 04/22/16 22:14 04/23/16 04:50 Assessment: Right foot cellulitis with severe peripheral vascular disease w/osteomyelitis on MRI and nuclear scan consulting podiatry Fever with hypoxia and progression of chest x-ray with infiltrate consistent with pneumonia placed on Zosyn and Levaquin in addition to Vanc History of COPD Severe sleep apnea requiring CPAP Chronic nasal congestion requiring Afrin and breathing easy strips History of prostate cancer Hypertension Hypothyroidism Cognitive decline Debility UTI hx Colitis requiring ileostomy hx Poor IV access requiring midline placement DVT prophylaxis with Lovenox Plan: Monitor labs Pain control Consult Dr. Dover regarding treatment of osteomyelitis Midline placement due to poor vascular access Zosyn, Levaquin, and Vanc Likely will need swing bed Scribed by Maxim Graves under the direct supervision of Dr. Partida. YAS PARTIDA DO Apr 23, 2016 11:03
[2016-04-23] MEDS: ENOXAPARIN 40 MG/0.4 ML (LOVENOX) SYR SC SCH (11:09)
[2016-04-23 12:00] VITALS: BP 122/76
[2016-04-23] MEDS: IBUPROFEN TABLET 200 MG TAB PO PRN (12:18)
[2016-04-23] MEDS: ONDANSETRON 4 MG/2 ML (SDV) Z0FRAN IVP PRN (13:12)
--- NOTE | 2016-04-23 13:21 | Physician Query ---
PQ-Intro New Diagnosis Admission/Discharge Admission Date: Apr 21, 2016 at 11:23 Discharge Date: The medical record reflects the following clinical scenario: History/Risk Factors: Osteomyelitis right heel and cellulitis right lower extremity. Clinical Findings: On admission- Chills, WBC 17.2 Bands 12, T 99.8, pulse 102. Treatment: IV Vancomycin/Podiatry consult. Question: What condition best reflects the above clinical scenario? Please document below. 1. Sepsis with acute osteomyelitis and cellulitis. 2. Sepsis with cellulitis and chronic osteomyelitis. 3. Acute osteomyelitis and cellulitis. 4. Chronic osteomyelitis and cellulits. 5. Unspecified osteomyelitis and cellulitis. 2. [list the diagnosis/condition already documented] 3. Other, with explanation of the clinical findings. 4. Clinically undetermined, no explanation for the clinical findings. PHYSICIAN RESPONSE What condition reflects above: 1 Please remember a lack of response to the above will prompt a phone page by [facility]/ coding staff. In responding to this query, please exercise your independent professional judgment. The purpose of this communication is to more accurately reflect the complexity of your patients condition. The fact that a question is asked does not imply that any particular answer is desired or expected. Thank you for your timely response to this clarification. Requestors name: Maty Hdz [facility] Phone # ext [phone] or [phone] THIS PHYSICIAN QUERY FORM IS A PERMANENT PART OF THE MEDICAL RECORD MATY HDZ Apr 23, 2016 13:21 YAS PARTIDA DO Apr 24, 2016 08:08
--- NOTE | 2016-04-23 13:39 | Physician Query ---
PQ-Further Specificity Admission/Discharge Admission Date: Apr 21, 2016 at 11:23 Discharge Date: The medical record reflects the following clinical scenario: History/Risk Factors: Severe peripheral vascular disease with history of multiple procedures. Clinical Findings: Per ED record:Poor peripheral pulse. He knows that he has essentially no effective circulation to his lower extremities despite multiple procedures. Treatment: Podiatry consult,Midline placement due to poor vascular access. Question: Can you further specify the etiology of the peripheral vascular disease per the clinical indicators above? Please document below. 1. Peripheral vascular disease due to arteriosclerosis of the extremities. 2. Peripheral vascular disease due to other etiology. Please specify. 3. Other, with explanation of the clinical findings. 4. Clinically undetermined, no explanation for the clinical findings. PHYSICIAN RESPONSE Can you specify per above: 1 Please remember a lack of response to the above will prompt a phone page by CDI/ coding staff. In responding to this query, please exercise your independent professional judgment. The purpose of this communication is to more accurately reflect the complexity of your patients condition. The fact that a question is asked does not imply that any particular answer is desired or expected. Thank you for your timely response to this clarification. Requestors name: Maty Hdz [facility] Phone # ext [phone] or [phone]. THIS PHYSICIAN QUERY FORM IS A PERMANENT PART OF THE MEDICAL RECORD MATY HDZ Apr 23, 2016 13:39 YAS PARTIDA DO Apr 24, 2016 08:08
[2016-04-23] MEDS ORDERED: TROUGH ORDER-PHARMACY XX NR (16:00)
[2016-04-23 16:43] VITALS: BP 110/67
[2016-04-23] MEDS: ALFUZOSIN HCL 10 MG TAB (UROXATRAL) PO SCH (17:13)
--- NOTE | 2016-04-23 18:37 | Consultation ---
History of Present Illness History of Present Illness Patient Consulted On(charissa/time) 04/23/16 18:30 Date of Admission History of Present Illness Pt has a chronic history of right great toe wound and then developed severe cellulitis chills and malaise. He was admitted and placed on Vancomycin. He is currently improving. Denies recent F/C/N/V. Allergies and Home Medications Allergies Coded Allergies: Sulfa (Sulfonamide Antibiotics) (Unverified Allergy, Intermediate, HIVES, 04/23/16) clindamycin (Verified Allergy, Unknown, 04/21/16) STATES HE CAN NOT TAKE IT Home Medications Acetaminophen/Diphenhydramine 1 Each Tablet 1-2 TAB PO HS PRN PRN PAIN (Reported ) Amlodipine Besylate 10 Mg Tablet 10 MG PO DAILY (Reported) Aspirin 81 Mg Chew 81 MG PO HS (Reported) Benazepril HCl 20 Mg Tablet 20 MG PO BID (Reported) Carvedilol 6.25 Mg Tablet 6.25 MG PO BID (Reported) Clopidogrel Bisulfate 75 Mg Tablet 75 MG PO DAILY (Reported) Fluticasone Propionate 9.9 Ml [place].susp 2 SPRAYS NS DAILY PRN PRN RHINITIS ( Reported) Gluc/Josh-MSM#2/C/D3/Marcos/Born 1 Each Tablet 1 TAB PO DAILY (Reported) Levothyroxine Sodium 50 Mcg Tablet 50 MCG PO DAILY (Reported) Pantoprazole Sodium 40 Mg Tablet.dr 40 MG PO HS (Reported) Rosuvastatin Calcium 40 Mg Tablet 20 MG PO HS (Reported) TAKES 1/2 (40MG) TABLET Tamsulosin HCl 0.4 Mg Cap.er.24h 0.4 MG PO HS (Reported) Past Qmccrry-Yvgnsz-Pufanj Hx Patient Social History Alcohol Use: Rarely Uses Recreational Drug Use: No Smoking Status: Never a Smoker Recent Foreign Travel: No Contact w/Someone Who Travel: No Recent Infectious Disease Expo: No Recent Hopitalizations: No Physical Abuse Screen: No Sexual Abuse: No Immunizations Up To Date PED Vaccines UTD: Yes Date of Pneumonia Vaccine: Dec 12, 2015 Date of Influenza Vaccine: Dec 12, 2015 Seasonal Allergies Seasonal Allergies: Yes Surgeries HX Surgeries: Yes (right carotid, right total knee, hernia repair, pvd, prostate seeds, ileost) Surgeries: Eye Surgery, Gallbladder, Orthopedic, Tonsillectomy Respiratory Hx Respiratory Disorders: Yes Respiratory Disorders: Asthma, Sleep Apnea Cardiovascular Hx Cardiac Disorders: Yes Cardiac Disorders: Coronary Artery Disease, High Cholesterol, Hypertension Neurological Hx Neurological Disorders: Yes Neurological Disorders: Dementia, Neuropathy Reproductive System Hx Reproductive Disorders: No Sexually Transmitted Disease: No HIV/AIDS: No Genitourinary Hx Genitourinary Disorders: Yes (PROSTATE CA) Genitourinary Disorders: Prostate Problems, Kidney Stones Gastrointestinal Hx Gastrointestinal Disorders: Yes (ILEOSTOMY) Gastrointestinal Disorders: Abdominal Hernia, Colitis, Gall Bladder Disease Musculoskeletal Hx Musculoskeletal Disorders: Yes (ARTHRITIS) Endocrine Hx Endocrine Disorders: Yes Endocrine Disorders: Hypothyroidsim, Diabetes, Non-Insulin dep HEENT HX ENT Disorders: No HEENT Disorders: Cataract Loss of Vision: Denies Hearing Impairment: Hard of Hearing Cancer Hx Cancer: Yes Cancer: Prostate, Stomach, Colon Psychosocial Hx Psychiatric Problems: No Integumentary HX Skin/Integumentary Disorder: No Blood Transfusions Hx Blood Disorders: No Adverse Reaction to a Blood Tr: No Reviewed Nursing Assessment Reviewed/Agree w Nursing PMH: Yes Family Medical History Significant Family History: No Pertinent Family Hx Family Medial History: BLOOD CLOT 19 FATHER BRAIN CANCER G8 SISTER SISTER BRAIN CANCER G8 SISTER SISTER Physical Exam-General Problems Physical Exam Vital Signs Vital Sign - Last 12Hours 04/21/16 04/21/16 04/21/16 04/21/16 09:40 13:00 14:00 21:00 Temp 99.8 Pulse 102 Resp 18 B/P 134/102 Pulse Ox 97 O2 Delivery Room Air O2 Flow Rate 2.00 Capillary Refill : Less Than 3 Seconds Extremities: other (RLE- Nonpalpable pulses noted, +erythema to the great toe and medial ankle, no pain to the ankle, severe arthritic changes noted to the ankle. ) Assessment/Plan Assessment/Plan Admission Diagnosis/Plan 1. Osteomyelitis Distal Phalanx Right Great Toe 2. 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 If cellulitis resolves consider PO vs IV abx for 4-6 weeks and wound care as out patient -If no improvement noted consider amputation of right great toe -Minimal concern for Osteomyelitis of the ankle and or calcaneus will follow - I will re-evaluate patient on AM and determine definitive plan at that time. Clinical Quality Measures DVT/VTE Risk/Contraindication: Risk Factor Score Per Nursin RFS Level Per Nursing on Admit: 3=High MIGUEL BYERS DPM Apr 23, 2016 18:37
[2016-04-23 20:50] VITALS: BP 122/68
[2016-04-23] MEDS: ATORVASTATIN 40 MG (LIPITOR) TABLET PO SCH (21:24)
[2016-04-23] MEDS: PANTOPRAZOLE 40 MG (PROTONIX) TAB PO SCH (21:25)
[2016-04-23] MEDS: ASPIRIN 81 MG CHEW (CHILDREN'S ASA) PO SCH (21:25)
[2016-04-23 23:30] VITALS: BP 121/62
[2016-04-24] MEDS: IBUPROFEN TABLET 200 MG TAB PO PRN ×2 (00:21→10:51)
[2016-04-24] MEDS: RT-ALBUTEROL/IPRATROPIUM 3 ML (DUONEB) VIAL INH SCH ×6 (02:00→22:00)
[2016-04-24 04:42] VITALS: BP 147/63
[2016-04-24 05:04] LABS: BASOPHILS % (AUTO) 0 % (0-10); EOSINOPHILS # (AUTO) 0.1 10^3/uL (0.0-0.3); EOSINOPHILS % (AUTO) 1 % (0-10); LYMPHOCYTES # (AUTO) 0.9 X 10^3 (1.0-4.0); LYMPHOCYTES % (AUTO) 7 % (12-44); MEAN CORPUSCULAR HEMOGLOBIN 33 PG (25-34); MEAN CORPUSCULAR HGB CONC 33 G/DL (32-36); MEAN CORPUSCULAR VOLUME 98 FL (80-99); MEAN PLATELET VOLUME 9.3 FL (7.4-10.4); MONOCYTES # (AUTO) 1.8 X 10^3 (0.0-1.0); MONOCYTES % (AUTO) 15 % (0-12); NEUTROPHILS # (AUTO) 9.3 X 10^3 (1.8-7.8); NEUTROPHILS % (AUTO) 77 % (42-75); PLATELET COUNT 181 10^3/uL (130-400); RED BLOOD COUNT 3.05 10^6/uL (4.35-5.85); RED CELL DISTRIBUTION WIDTH 14.5 % (10.0-14.5); WHITE BLOOD COUNT 12.1 10^3/uL (4.3-11.0)
[2016-04-24] MEDS: PIPERACILLIN SODIUM/TAZOBACTAM 4.5 GM in NS (IVPB) 100 ML IV SCH ×3 (05:10→21:45)
[2016-04-24 05:16] LABS: ALBUMIN 2.3 G/DL (3.2-4.5); BILIRUBIN,TOTAL 0.4 MG/DL (0.1-1.0); CALCIUM 8.2 MG/DL (8.5-10.1); CREATININE SERUM 1.19 MG/DL (0.60-1.30); POTASSIUM 4.1 MMOL/L (3.6-5.0); TOTAL PROTEIN 4.7 G/DL (6.4-8.2)
[2016-04-24] MEDS: NS IV 1000 ML 1,000 ML IV SCH ×2 (05:24→20:29)
[2016-04-24] MEDS: VANCOMYCIN 1 GM/NS 250 ML IVPB IV SCH ×2 (05:42)
[2016-04-24 08:00] VITALS: BP 139/73
[2016-04-24] MEDS: amLODIPine 10 MG (NORVASC) TAB PO SCH (10:41)
[2016-04-24] MEDS: LEVOTHYROXINE 50 MCG (LEVOTHROID) TAB PO SCH (10:41)
[2016-04-24] MEDS: CARVEDILOL 6.25 MG (COREG) TAB PO SCH ×2 (10:41→20:29)
[2016-04-24] MEDS: BENAZEPRIL 20 MG (LOTENSIN) TAB PO SCH ×2 (10:41→20:29)
[2016-04-24] MEDS: CLOPIDOGREL 75 MG (PLAVIX) TABLET PO SCH (10:41)
[2016-04-24] MEDS: ENOXAPARIN 40 MG/0.4 ML (LOVENOX) SYR SC SCH (10:51)
[2016-04-24] MEDS ORDERED: LEVOFLOXACIN 750 MG TAB (LEVAQUIN) PO SCH (11:00)
[2016-04-24 12:00] VITALS: BP 108/57
--- NOTE | 2016-04-24 12:02 | Progress Note-Hospitalist ---
Progress Note HPI/CC on Admission CC: Right foot cellulitis HPI: This is an 81yoWM pt known from prior admission for fever and UTI on with hx of severe JANIS, colitis requiring ileostomy, and prostate CA, that presents to ER with right lower extremity swelling and pain. Pt is on Vanc empirically, lab shows WBC improved from 17.2 to 14, Hgb 11, Na+ improved to 135 and Creat normal at 0.87. Pt had previous left leg surgery performed by Dr. Wright two weeks ago in [place], but developed cellulitis in right leg extremity. microbiology technician: RN states that pt is much improved. Pt has an incision in leg from previous operation. SW Review: Pt wishes to be DNR. Pt's PCP is Dr. Payan Patient Interview: Pt states that he recently had surgery on his left leg two weeks ago in [place] performed by Dr. Wright. Pt states that his toe is improved today, but still has some pain in his heel spur. Pt's heel spur has recently made it hard for pt to walk. Pt has not found a local specialist to work with heel spur. Pt sees Dr. Aguirre routinely, and sees a physician in [place] for primary care. Physical exam stable. Pt used O2 last night, but did not bring his CPAP to [facility]. Pt states that he sometimes uses the CPAP at home, but not every night. Pt has not been ambulating from bed to chair, but not more. Pt eating and drinking regularly. Plan: Stop IVF Bone scan Maintain ambulation Maintain Vanc Dr. Dover will see pt tomorrow morning Scribed by Maxim Graves under the direct supervision of Dr. Partida. Progress Notes/Assess & Plan Date Seen 04/24/16 Admission Dx/Process Assessment: Right foot cellulitis with severe peripheral vascular disease ruling out osteomyelitis consulting podiatry w/leukocytosis History of COPD Severe sleep apnea requiring CPAP Chronic nasal congestion requiring Afrin and breathing easy strips History of prostate cancer Hypertension Hypothyroidism Cognitive decline Debility UTI hx Colitis requiring ileostomy hx Diagonsis/Assessment & Plan Chart Review: Max fever 100.4 at midnight WBC 12.1 down from 12.9 Hgb 10 K+ 4.1 Creat 1.19 All Cx no growth including urine Pt continues on Zosyn and Vanc, on Lovenox for DVT prophylaxis Dr. Dover Review: Dr. Dover will is unsure regarding osteomyelitis test results, and will manage pt care moving forward. Patient Interview: Pt states that he feels very good today. Pt states that his pain is reduced today. Pt is breathing without complications. Physical exam stable. Pt reports having regular BMs. Dr. Partida discusses swingbed option with pt. No fever currently Pleasant, oriented 3 but poor recall Regular rate and rhythm, clear to auscultation bilaterally but decreased in the right lower lobe much improved No edema, improved right heel erythema Laboratory Tests 04/24/16 04:18 Assessment: Right foot cellulitis with severe peripheral vascular disease w/osteomyelitis on MRI and nuclear scan consulting podiatry Fever with hypoxia and progression of chest x-ray with infiltrate consistent with pneumonia placed on Zosyn and Levaquin in addition to Vanc History of COPD Severe sleep apnea requiring CPAP Chronic nasal congestion requiring Afrin and breathing easy strips History of prostate cancer Hypertension Hypothyroidism Cognitive decline Debility UTI hx Colitis requiring ileostomy hx Poor IV access requiring midline placement DVT prophylaxis with Lovenox Plan: Monitor labs Pain control Zosyn abx w/Vanc Likely will need swing bed Scribed by Maxim Graves under the direct supervision of Dr. Partida. YAS PARTIDA DO Apr 24, 2016 12:01 Scribed by Maxim Graves under the direct supervision of Dr. Partida. YAS PARTIDA DO Apr 24, 2016 12:01
[2016-04-24] MEDS: ONDANSETRON 4 MG/2 ML (SDV) Z0FRAN IVP PRN (12:57)
--- NOTE | 2016-04-24 13:44 | Pulmonary Consultation ---
History of Present Illness History of Present Illness Date of Consultation 04/24/16 13:43 Date of Admission History of Present Illness 81yo with hx of severe JANIS, colitis requiring ileostomy, and prostate CA presented to ED with RLE edema. I am consulted for pulmonary management. Allergies and Home Medications Allergies Coded Allergies: Sulfa (Sulfonamide Antibiotics) (Unverified Allergy, Intermediate, HIVES, 04/23/16) clindamycin (Verified Allergy, Unknown, 04/21/16) STATES HE CAN NOT TAKE IT Home Medications Acetaminophen/Diphenhydramine 1 Each Tablet, 1-2 TAB PO HS PRN for PAIN, ( Reported) Alprazolam 0.5 Mg Tablet, 0.5 MG PO Q6H PRN for anxiety for 30 Days Prescribed by: YAS PARTIDA on 04/29/16 1011 Amlodipine Besylate 10 Mg Tablet, 10 MG PO DAILY, (Reported) Aspirin 81 Mg Chew, 81 MG PO HS, (Reported) Carvedilol 6.25 Mg Tablet, 6.25 MG PO BID, (Reported) Clopidogrel Bisulfate 75 Mg Tablet, 75 MG PO DAILY, (Reported) Fentanyl Citrate 100 Mcg/2 Ml Soln, 50 MCG IV Q3H PRN for SEVERE PAIN, #30 Prescribed by: YAS PARTIDA on 04/29/16 1011 Fluticasone Propionate 9.9 Ml Davilla.susp, 2 SPRAYS NS DAILY PRN for RHINITIS, ( Reported) Gluc/Josh-MSM#2/C/D3/Marcos/Born 1 Each Tablet, 1 TAB PO DAILY, (Reported) Heparin Sodium,Porcine 5,000 Unit/1 Ml Vial, 5,000 UNITS SC Q8H for 90 Days, #90 Prescribed by: TK DELEON on 05/08/16 0833 Hydrocodone/Acetaminophen 1 Each Tablet, 1-2 TAB PO Q6HR PRN for MODERATE PAIN, #30 Prescribed by: YAS PARTIDA on 04/29/16 1011 Ipratropium/Albuterol Sulfate 3 Ml Ampul.neb, 3 ML INH RTQ4HR for 30 Days Prescribed by: YAS PARTIDA on 04/29/16 1011 Levothyroxine Sodium 50 Mcg Tablet, 50 MCG PO DAILY, (Reported) Magnesium Oxide 400 Mg Tablet, 400 MG PO BIDPC for 30 Days, #60 Prescribed by: TK DELEON on 05/08/16 0833 Pantoprazole Sodium 40 Mg Tablet.dr, 40 MG PO HS, (Reported) Tamsulosin HCl 0.4 Mg Cap.er.24h, 0.4 MG PO HS, (Reported) Past Wptmipd-Hdjgmu-Solgha Hx Patient Social History Alcohol Use: Rarely Uses Recreational Drug Use: No Smoking Status: Never a Smoker Recent Foreign Travel: No Contact w/Someone Who Travel: No Recent Infectious Disease Expo: No Recent Hopitalizations: No Physical Abuse Screen: No Sexual Abuse: No Immunizations Up To Date PED Vaccines UTD: Yes Date of Pneumonia Vaccine: Dec 12, 2015 Date of Influenza Vaccine: Dec 12, 2015 Seasonal Allergies Seasonal Allergies: Yes Surgeries HX Surgeries: Yes (right carotid, right total knee, hernia repair, pvd, prostate seeds, ileost) Surgeries: Eye Surgery, Gallbladder, Orthopedic, Tonsillectomy Respiratory Hx Respiratory Disorders: Yes Respiratory Disorders: Asthma, Sleep Apnea Cardiovascular Hx Cardiac Disorders: Yes Cardiac Disorders: Coronary Artery Disease, High Cholesterol, Hypertension Neurological Hx Neurological Disorders: Yes Neurological Disorders: Dementia, Neuropathy Reproductive System Hx Reproductive Disorders: No Sexually Transmitted Disease: No HIV/AIDS: No Genitourinary Hx Genitourinary Disorders: Yes (PROSTATE CA) Genitourinary Disorders: Prostate Problems, Kidney Stones Gastrointestinal Hx Gastrointestinal Disorders: Yes (ILEOSTOMY) Gastrointestinal Disorders: Abdominal Hernia, Colitis, Gall Bladder Disease Musculoskeletal Hx Musculoskeletal Disorders: Yes (ARTHRITIS) Endocrine Hx Endocrine Disorders: Yes Endocrine Disorders: Hypothyroidsim, Diabetes, Non-Insulin dep HEENT HX ENT Disorders: No HEENT Disorders: Cataract Loss of Vision: Denies Hearing Impairment: Hard of Hearing Cancer Hx Cancer: Yes Cancer: Prostate, Stomach, Colon Psychosocial Hx Psychiatric Problems: No Integumentary HX Skin/Integumentary Disorder: No Blood Transfusions Hx Blood Disorders: No Adverse Reaction to a Blood Tr: No Reviewed Nursing Assessment Reviewed/Agree w Nursing PMH: Yes Family Medical History Significant Family History: No Pertinent Family Hx Family Medial History: BLOOD CLOT 19 FATHER BRAIN CANCER G8 SISTER SISTER BRAIN CANCER G8 SISTER SISTER Exam Exam Vital Signs Date Time Temp Pulse Resp B/P Pulse Ox O2 Delivery O2 Flow Rate FiO2 04/24/16 10:28 95 04/24/16 08:00 98.2 74 20 139/73 96 Room Air 04/24/16 06:59 96 2.00 04/24/16 04:42 98.9 83 20 147/63 97 Nasal Cannula 2.00 04/24/16 01:23 99.8 04/24/16 01:23 99.8 04/24/16 00:21 100.4 04/24/16 00:21 100.4 04/23/16 23:30 99.7 85 22 121/62 95 Room Air 04/23/16 22:14 99.6 04/23/16 20:50 100.0 83 18 122/68 94 Room Air 04/23/16 20:50 Nasal Cannula 2.00 04/23/16 19:10 96 2.00 04/23/16 16:43 99.0 77 18 110/67 97 Room Air 04/23/16 14:56 96 2.00 I & O 04/24/16 07:00 Intake Total 3230 ml Output Total 2220 ml Balance 1010 ml General Appearance: No Apparent Distress, WD/WN, Chronically ill HEENT: PERRL/EOMI, Normal ENT Inspection, Pharynx Normal Neck: Full Range of Motion, Normal Inspection, Non Tender, Supple, Carotid Bruit Respiratory: Chest Non Tender, Lungs Clear, Normal Breath Sounds, No Accessory Muscle Use, No Respiratory Distress Cardiovascular: Regular Rate, Rhythm, No Edema, No Gallop, No JVD, No Murmur, Normal Peripheral Pulses Capillary Refill: Less Than 3 Seconds Gastrointestinal: normal bowel sounds, non tender, soft Extremity: Normal Capillary Refill, Normal Inspection, Normal Range of Motion ( except right ankle and foot with erythema that is much improved from admission but monitor and storage bin tender to touch), Non Tender, No Calf Tenderness, No Pedal Edema Neurologic/Psychiatric: Alert, Oriented x3, No Motor/Sensory Deficits, Normal Mood/Affect Skin: Normal Color, Warm/Dry Lymphatic: No Adenopathy Results Lab Laboratory Tests 04/22/16 22:14 04/23/16 04:50 04/24/16 04:18 Assessment/Plan Assessment/Plan Right foot cellulitis with PVD and osteomyelitis -Zosyn vancomycin COPD hx JANIS Clinical Quality Measures DVT/VTE Risk/Contraindication: Risk Factor Score Per Nursin RFS Level Per Nursing on Admit: 3=High PEBBLES BARRAZA DO Apr 24, 2016 13:44
[2016-04-24] MEDS: ACETAMINOPHEN 325 MG TABLET/CAPLET (TYLENOL) PO PRN (14:37)
[2016-04-24 16:29] VITALS: BP 115/58
[2016-04-24] MEDS: fentaNYL INJECTION 100 MCG/2 ML AMP IV PRN (17:30)
[2016-04-24] MEDS: ALFUZOSIN HCL 10 MG TAB (UROXATRAL) PO SCH (18:11)
[2016-04-24 20:28] VITALS: BP 131/65
[2016-04-24] MEDS: PANTOPRAZOLE 40 MG (PROTONIX) TAB PO SCH (20:29)
[2016-04-24] MEDS: ATORVASTATIN 40 MG (LIPITOR) TABLET PO SCH (20:29)
[2016-04-24] MEDS: ASPIRIN 81 MG CHEW (CHILDREN'S ASA) PO SCH (20:29)
[2016-04-25] VITALS: BP 121/58
[2016-04-25] MEDS: IBUPROFEN TABLET 200 MG TAB PO PRN ×2 (00:47→23:04)
[2016-04-25] MEDS: RT-ALBUTEROL/IPRATROPIUM 3 ML (DUONEB) VIAL INH SCH ×6 (02:00→22:00)
[2016-04-25] MEDS: ONDANSETRON 4 MG/2 ML (SDV) Z0FRAN IVP PRN ×2 (03:21→12:10)
[2016-04-25] MEDS: fentaNYL INJECTION 100 MCG/2 ML AMP IV PRN (03:21)
[2016-04-25] MEDS: ACETAMINOPHEN 325 MG TABLET/CAPLET (TYLENOL) PO PRN (03:38)
[2016-04-25 04:00] VITALS: BP 123/59
[2016-04-25] MEDS: VANCOMYCIN 1 GM/NS 250 ML IVPB IV SCH ×2 (05:24)
[2016-04-25] MEDS: PIPERACILLIN SODIUM/TAZOBACTAM 4.5 GM in NS (IVPB) 100 ML IV SCH ×3 (06:37→22:51)
[2016-04-25 06:53] LABS: BASOPHILS % (AUTO) 0 % (0-10); EOSINOPHILS # (AUTO) 0.1 10^3/uL (0.0-0.3); EOSINOPHILS % (AUTO) 1 % (0-10); LYMPHOCYTES # (AUTO) 0.9 X 10^3 (1.0-4.0); LYMPHOCYTES % (AUTO) 7 % (12-44); MEAN CORPUSCULAR HEMOGLOBIN 33 PG (25-34); MEAN CORPUSCULAR HGB CONC 33 G/DL (32-36); MEAN CORPUSCULAR VOLUME 99 FL (80-99); MEAN PLATELET VOLUME 8.5 FL (7.4-10.4); MONOCYTES # (AUTO) 1.7 X 10^3 (0.0-1.0); MONOCYTES % (AUTO) 13 % (0-12); NEUTROPHILS # (AUTO) 10.1 X 10^3 (1.8-7.8); NEUTROPHILS % (AUTO) 79 % (42-75); PLATELET COUNT 166 10^3/uL (130-400); RED BLOOD COUNT 2.94 10^6/uL (4.35-5.85); RED CELL DISTRIBUTION WIDTH 14.5 % (10.0-14.5); WHITE BLOOD COUNT 12.9 10^3/uL (4.3-11.0)
[2016-04-25 07:21] LABS: ALBUMIN 2.3 G/DL (3.2-4.5); BILIRUBIN,TOTAL 0.4 MG/DL (0.1-1.0); CALCIUM 8.4 MG/DL (8.5-10.1); CREATININE SERUM 1.19 MG/DL (0.60-1.30); TOTAL PROTEIN 4.8 G/DL (6.4-8.2)
--- NOTE | 2016-04-25 08:22 | Podiatry Progress Note ---
Standard Progress Note Progress Notes/Assess & Plan Progress/Assessment & Plan Pt doing well at Bedside. NAD, denies F/C/N/V, denies CP/SOB, Pt bumped 2nd toe and had bleeding from the wound last night RLE- right foot with wound to the distal aspect and +purulence noted, +probe to bone Final Diagnosis 1- Osteomyelitis RIght Great toe -Plan for amputation of the right great toe tomorrow AM. -Cont IV abx -NPO after midnight -Consent for amputation Right Great Toe MIGUEL BYERS DPM Apr 25, 2016 08:21
[2016-04-25] MEDS: amLODIPine 10 MG (NORVASC) TAB PO SCH (08:42)
[2016-04-25] MEDS: CARVEDILOL 6.25 MG (COREG) TAB PO SCH ×2 (08:42→21:02)
[2016-04-25] MEDS: CLOPIDOGREL 75 MG (PLAVIX) TABLET PO SCH (08:42)
[2016-04-25] MEDS: LEVOTHYROXINE 50 MCG (LEVOTHROID) TAB PO SCH (08:42)
[2016-04-25] MEDS: BENAZEPRIL 20 MG (LOTENSIN) TAB PO SCH ×2 (08:56→21:06)
[2016-04-25] MEDS: NS IV 1000 ML 1,000 ML IV SCH ×2 (10:43→22:52)
--- NOTE | 2016-04-25 10:55 | Pulmonary Progress Note ---
Subjective Subjective/Events-last exam No complications noted. Exam Exam Vital Signs Date Time Temp Pulse Resp B/P Pulse Ox O2 Delivery O2 Flow Rate FiO2 04/25/16 10:35 93 2.00 04/25/16 08:44 97.4 04/25/16 07:11 94 04/25/16 04:00 98.5 87 20 123/59 93 Nasal Cannula 2.00 04/25/16 02:47 98.5 04/25/16 00:47 100.5 04/25/16 00:00 100.3 90 20 121/58 95 NIV/CPAP 04/24/16 20:30 Nasal Cannula 2.00 04/24/16 20:28 99.3 85 20 131/65 94 Room Air 04/24/16 19:01 92 04/24/16 16:29 99.0 68 18 115/58 94 Room Air 04/24/16 12:00 98.4 79 20 108/57 93 Room Air I & O 04/25/16 07:00 Intake Total 2330 ml Output Total 2225 ml Balance 105 ml General Appearance: No Apparent Distress, WD/WN, Chronically ill HEENT: PERRL/EOMI, Normal ENT Inspection, Pharynx Normal Neck: Full Range of Motion, Normal Inspection, Non Tender, Supple, Carotid Bruit Respiratory: Chest Non Tender, Lungs Clear, Normal Breath Sounds, No Accessory Muscle Use, No Respiratory Distress Cardiovascular: Regular Rate, Rhythm, No Edema, No Gallop, No JVD, No Murmur, Normal Peripheral Pulses Capillary Refill: Less Than 3 Seconds Gastrointestinal: normal bowel sounds, non tender, soft Extremity: Normal Capillary Refill, Normal Inspection, Normal Range of Motion ( except right ankle and foot with erythema that is much improved from admission but [employer] to touch), Non Tender, No Calf Tenderness, No Pedal Edema Neurologic/Psychiatric: Alert, Oriented x3, No Motor/Sensory Deficits, Normal Mood/Affect Skin: Normal Color, Warm/Dry Lymphatic: No Adenopathy Results Lab Laboratory Tests 04/24/16 04:18 04/25/16 06:48 Assessment/Plan Assessment/Plan Right foot cellulitis with PVD and osteomyelitis and PNA -Zosyn vancomycin COPD hx -SVNs JANIS Clinical Quality Measures DVT/VTE Risk/Contraindication: Risk Factor Score Per Nursin RFS Level Per Nursing on Admit: 3=High PEBBLES BARRAZA 9, 2017 10:55
--- NOTE | 2016-04-25 11:11 | Progress Note-Hospitalist ---
Progress Note HPI/CC on Admission CC: Right foot cellulitis HPI: This is an 81yoWM pt known from prior admission for fever and UTI on with hx of severe JANIS, colitis requiring ileostomy, and prostate CA, that presents to ER with right lower extremity swelling and pain. Pt is on Vanc empirically, lab shows WBC improved from 17.2 to 14, Hgb 11, Na+ improved to 135 and Creat normal at 0.87. Pt had previous left leg surgery performed by Dr. Wright two weeks ago in [place], but developed cellulitis in right leg extremity. 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 Pt has an incision in leg from previous operation. SW Review: Pt wishes to be DNR. Pt's PCP is Dr. Payan Patient Interview: Pt states that he recently had surgery on his left leg two weeks ago in [place] performed by Dr. Wright. Pt states that his toe is improved today, but still has some pain in his heel spur. Pt's heel spur has recently made it hard for pt to walk. Pt has not found a local specialist to work with heel spur. Pt sees Dr. Aguirre routinely, and sees a physician in [place] for primary care. Physical exam stable. Pt used O2 last night, but did not bring his CPAP to [facility]. Pt states that he sometimes uses the CPAP at home, but not every night. Pt has not been ambulating from bed to chair, but not more. Pt eating and drinking regularly. Plan: Stop IVF Bone scan Maintain ambulation Maintain Vanc Dr. Dover will see pt tomorrow morning Scribed by Maxim Graves under the direct supervision of Dr. Partida. Progress Notes/Assess & Plan Date Seen 04/25/16 Admission Dx/Process Assessment: Right foot cellulitis with severe peripheral vascular disease ruling out osteomyelitis consulting podiatry w/leukocytosis History of COPD Severe sleep apnea requiring CPAP Chronic nasal congestion requiring Afrin and breathing easy strips History of prostate cancer Hypertension Hypothyroidism Cognitive decline Debility UTI hx Colitis requiring ileostomy hx Diagonsis/Assessment & Plan Chart Review: Max fever 100.3 WBC 12.[address] Dover will take pt to surgery to remove right great toe and flush. Patient Interview: Dr. Partida discusses toe amputation with pt. Pt states that he is breathing well. Physical exam stable. Pt reports having regular BMs. No fever currently Pleasant, oriented 3 but poor recall Regular rate and rhythm, clear to auscultation bilaterally but decreased in the right lower lobe much improved No edema, improved right heel erythema Laboratory Tests 04/25/16 06:48 Assessment: Right foot cellulitis with severe peripheral vascular disease w/osteomyelitis on MRI and nuclear scan consulting podiatry and he will remove right great toe and flush and I&D Fever with hypoxia and progression of chest x-ray with infiltrate consistent with pneumonia placed on Zosyn and Levaquin in addition to Vanc History of COPD Severe sleep apnea requiring CPAP Chronic nasal congestion requiring Afrin and breathing easy strips History of prostate cancer Hypertension Hypothyroidism Cognitive decline Debility UTI hx Colitis requiring ileostomy hx Poor IV access requiring midline placement DVT prophylaxis with Lovenox Plan: Right great toe amputation to be performed by Dr. Dover tomorrow Monitor labs Pain control Zosyn abx w/Vanc Likely will need swing bed Scribed by Maxim Graves under the direct supervision of Dr. Partida. YAS PARTIDA DO Apr 25, 2016 11:11
[2016-04-25 12:00] VITALS: BP 143/65
[2016-04-25] MEDS: ENOXAPARIN 40 MG/0.4 ML (LOVENOX) SYR SC SCH (12:09)
[2016-04-25] MEDS ORDERED: LIDOCAINE 1% 10 MG/ML 0.2 ML SYR (FOR IV START) IJ ONE (14:15)
[2016-04-25 16:05] VITALS: BP 130/73
[2016-04-25] MEDS: HYDROcodone/APAP 5 MG/325 MG (LORTAB) TAB PO PRN (16:18)
[2016-04-25] MEDS: ALFUZOSIN HCL 10 MG TAB (UROXATRAL) PO SCH (18:10)
[2016-04-25 20:00] VITALS: BP_SYST 116; BP_SYST 122; BP_DIAS 61; BP_DIAS 74
[2016-04-25] MEDS: PANTOPRAZOLE 40 MG (PROTONIX) TAB PO SCH (21:02)
[2016-04-25] MEDS: ASPIRIN 81 MG CHEW (CHILDREN'S ASA) PO SCH (21:02)
[2016-04-25] MEDS: ATORVASTATIN 40 MG (LIPITOR) TABLET PO SCH (21:02)
[2016-04-26] VITALS: BP 124/68
[2016-04-26] MEDS: RT-ALBUTEROL/IPRATROPIUM 3 ML (DUONEB) VIAL INH SCH ×6 (02:00→22:00)
[2016-04-26 04:00] VITALS: BP 127/75
[2016-04-26 05:19] LABS: BASOPHILS % (AUTO) 0 % (0-10); EOSINOPHILS # (AUTO) 0.1 10^3/uL (0.0-0.3); EOSINOPHILS % (AUTO) 1 % (0-10); LYMPHOCYTES % (AUTO) 9 % (12-44); MEAN CORPUSCULAR HEMOGLOBIN 33 PG (25-34); MEAN CORPUSCULAR HGB CONC 33 G/DL (32-36); MEAN CORPUSCULAR VOLUME 99 FL (80-99); MONOCYTES # (AUTO) 1.6 X 10^3 (0.0-1.0); MONOCYTES % (AUTO) 13 % (0-12); NEUTROPHILS # (AUTO) 9.3 X 10^3 (1.8-7.8); NEUTROPHILS % (AUTO) 77 % (42-75); PLATELET COUNT 186 10^3/uL (130-400); RED BLOOD COUNT 2.98 10^6/uL (4.35-5.85); RED CELL DISTRIBUTION WIDTH 14.5 % (10.0-14.5); WHITE BLOOD COUNT 12.1 10^3/uL (4.3-11.0)
[2016-04-26 05:38] LABS: ALBUMIN 2.2 G/DL (3.2-4.5); BILIRUBIN,TOTAL 0.3 MG/DL (0.1-1.0); CALCIUM 8.6 MG/DL (8.5-10.1); CREATININE SERUM 1.27 MG/DL (0.60-1.30); TOTAL PROTEIN 4.9 G/DL (6.4-8.2)
[2016-04-26] MEDS ORDERED: VANCOMYCIN 1 GM/NS 250 ML IVPB IV SCH ×2 (06:00)
[2016-04-26] MEDS ORDERED: VANCOMYCIN 1000 MG/VIAL ONE (06:35)
[2016-04-26] MEDS ORDERED: NS (IVPB) 250 ML ONE (06:36)
[2016-04-26] MEDS: PIPERACILLIN SODIUM/TAZOBACTAM 4.5 GM in NS (IVPB) 100 ML IV SCH ×3 (06:47→21:21)
[2016-04-26] MEDS: CARVEDILOL 6.25 MG (COREG) TAB PO SCH ×2 (06:49→21:21)
[2016-04-26] MEDS: CATHETER FLUSH 10 ML SYR IV PRN (07:03)
[2016-04-26] MEDS ORDERED: BUPIVACAINE 0.5% 30 ML (SENSORCAINE) VIAL ONE (07:11)
[2016-04-26] MEDS ORDERED: fentaNYL INJECTION 100 MCG/2 ML AMP ONE (07:25)
[2016-04-26] MEDS ORDERED: VANCOMYCIN 500 MG/NS 100 ML IVPB IV NR ×2 (07:29)
[2016-04-26 08:00] VITALS: BP 145/68
[2016-04-26] MEDS ORDERED: LACTATED RINGERS 1,000 ML IV PRN (08:00)
[2016-04-26] MEDS ORDERED: FAMOTIDINE 20MG/2ML IV (PEPCID) IV ONE (08:00)
[2016-04-26] MEDS ORDERED: proPOfol 200 MG/20 ML (DIPRIVAN) VIAL IV ONE (08:14)
[2016-04-26] MEDS: amLODIPine 10 MG (NORVASC) TAB PO SCH (08:23)
[2016-04-26] MEDS: BENAZEPRIL 20 MG (LOTENSIN) TAB PO SCH ×2 (08:23→21:21)
[2016-04-26] MEDS: CLOPIDOGREL 75 MG (PLAVIX) TABLET PO SCH (08:23)
[2016-04-26] MEDS: LEVOTHYROXINE 50 MCG (LEVOTHROID) TAB PO SCH (08:23)
--- NOTE | 2016-04-26 08:42 | Progress Note-Post Operative ---
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
--- NOTE | 2016-04-26 10:08 | OPERATIVE REPORT ---
PROCEDURE PHYSICIAN: MIGUEL BYERS DATE OF PROCEDURE: 04/26/2016 SURGEON: [employer] THERAPEUTIC MENTOR: None PREOPERATIVE DIAGNOSIS: Osteomyelitis of the right great toe. POSTOPERATIVE DIAGNOSIS: Osteomyelitis of the right great toe. PROCEDURE PERFORMED: Amputation of right great toe. ANESTHESIA: Monitored anesthetic care with local anesthesia HEMOSTASIS: Pneumatic ankle tourniquet at 250 mmHg BLOOD LOSS: Minimal. MATERIALS USED: 3-0 nylon. PREOPERATIVE INJECTABLES: 10 mL 0.50% Marcaine plain. COMPLICATIONS: None. INDICATIONS FOR THE PROCEDURE: The patient Caleb Nieto is an 81-year-old male with history of osteomyelitis of the distal phalanx of his right great toe. He has exhausted all conservative measures and now surgical intervention. He signed a consent prior to be being taken back to OR. DESCRIPTION OF THE PROCEDURE: Under mild sedation, the patient was brought to the operating room and placed on the operating table in the supine position. Following administration of general anesthesia a pneumatic tourniquet was placed on the right lower extremity. The right lower extremity was scrubbed, prepped and draped in an aseptic manner. A proper timeout was performed. The right lower extremity was identified as surgical site. Next, two similar elliptical incisions were made around the great toe. The incision was dissected down to the level of metatarsophalangeal joint and the metatarsophalangeal joint was disarticulated. The toe was passed from surgical field. The wound was flushed with copious amounts of normal saline and the skin was reapproximated and closed using 3-0 nylon. The patient tolerated the procedure and anesthesia well. He was transferred from OR to recovery with vital signs stable, neurovascular status intact to right lower extremity. Job ID: [id number] Dictated Date: 04/26/2016 08:20:22 [employer]rop Farm Workers Date: 04/26/2016 09:58:38 / frieda
[2016-04-26] MEDS: HYDROcodone/APAP 5 MG/325 MG (LORTAB) TAB PO PRN (10:13)
[2016-04-26 12:00] VITALS: BP 153/70
[2016-04-26] MEDS: ENOXAPARIN 40 MG/0.4 ML (LOVENOX) SYR SC SCH (12:53)
[2016-04-26] MEDS: NS IV 1000 ML 1,000 ML IV SCH (13:30)
--- NOTE | 2016-04-26 13:46 | Progress Note-Hospitalist ---
Progress Note HPI/CC on Admission CC: Right foot cellulitis HPI: This is an 81yoWM pt known from prior admission for fever and UTI on with hx of severe JANIS, colitis requiring ileostomy, and prostate CA, that presents to ER with right lower extremity swelling and pain. Pt is on Vanc empirically, lab shows WBC improved from 17.2 to 14, Hgb 11, Na+ improved to 135 and Creat normal at 0.87. Pt had previous left leg surgery performed by Dr. Wright two weeks ago in [place], but developed cellulitis in right leg extremity. 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 Pt has an incision in leg from previous operation. SW Review: Pt wishes to be DNR. Pt's PCP is Dr. Payan Patient Interview: Pt states that he recently had surgery on his left leg two weeks ago in [place] performed by Dr. Wright. Pt states that his toe is improved today, but still has some pain in his heel spur. Pt's heel spur has recently made it hard for pt to walk. Pt has not found a local specialist to work with heel spur. Pt sees Dr. Aguirre routinely, and sees a physician in [place] for primary care. Physical exam stable. Pt used O2 last night, but did not bring his CPAP to [facility]. Pt states that he sometimes uses the CPAP at home, but not every night. Pt has not been ambulating from bed to chair, but not more. Pt eating and drinking regularly. Plan: Stop IVF Bone scan Maintain ambulation Maintain Vanc Dr. Dover will see pt tomorrow morning Scribed by Maxim Graves under the direct supervision of Dr. Partida. Progress Notes/Assess & Plan Date Seen 04/26/16 Admission Dx/Process Assessment: Right foot cellulitis with severe peripheral vascular disease ruling out osteomyelitis consulting podiatry w/leukocytosis History of COPD Severe sleep apnea requiring CPAP Chronic nasal congestion requiring Afrin and breathing easy strips History of prostate cancer Hypertension Hypothyroidism Cognitive decline Debility UTI hx Colitis requiring ileostomy hx Diagonsis/Assessment & Plan Patient had an uneventful right great toe amputation and flushing And she is on antibiotics Updated patient and family regarding the plan for disposition on Friday rehabilitation versus home health Vitals stable Pleasant, oriented 3 but poor recall Regular rate and rhythm, clear to auscultation bilaterally improved No edema, right foot dressing intact Laboratory Tests 04/26/16 05:01 Assessment: Right foot cellulitis with severe peripheral vascular disease w/osteomyelitis on MRI and nuclear scan consulting podiatry and s/p Amputation of right great toe today POD #0 Fever with hypoxia and progression of chest x-ray with infiltrate consistent with pneumonia placed on Zosyn and Levaquin in addition to Vanc History of COPD Severe sleep apnea requiring CPAP Chronic nasal congestion requiring Afrin and breathing easy strips History of prostate cancer Hypertension Hypothyroidism Cognitive decline Debility UTI hx Colitis requiring ileostomy hx Poor IV access requiring midline placement DVT prophylaxis with Lovenox Plan: s/p right great toe amputation by Dr. Dover t Monitor labs Pain control Zosyn abx w/Vanc Likely will need swing bed Scribed by Maxim Graves under the direct supervision of Dr. Partida. YAS PARTIDA DO Apr 26, 2016 13:46
[2016-04-26] MEDS: ONDANSETRON 4 MG/2 ML (SDV) Z0FRAN IVP PRN (14:26)
[2016-04-26 16:25] VITALS: BP 161/92
[2016-04-26] MEDS: ALFUZOSIN HCL 10 MG TAB (UROXATRAL) PO SCH (18:30)
[2016-04-26 20:10] VITALS: BP 146/67
[2016-04-26] MEDS: ATORVASTATIN 40 MG (LIPITOR) TABLET PO SCH (21:21)
[2016-04-26] MEDS: ASPIRIN 81 MG CHEW (CHILDREN'S ASA) PO SCH (21:21)
[2016-04-26] MEDS: PANTOPRAZOLE 40 MG (PROTONIX) TAB PO SCH (21:22)
[2016-04-26] MEDS: ACETAMINOPHEN 325 MG TABLET/CAPLET (TYLENOL) PO PRN (21:22)
[2016-04-27] VITALS: BP 124/60
[2016-04-27] MEDS: RT-ALBUTEROL/IPRATROPIUM 3 ML (DUONEB) VIAL INH SCH ×5 (02:00→22:00)
[2016-04-27 04:00] VITALS: BP 133/64
[2016-04-27] MEDS: PIPERACILLIN SODIUM/TAZOBACTAM 4.5 GM in NS (IVPB) 100 ML IV SCH ×3 (05:21→21:02)
[2016-04-27] MEDS: NS IV 1000 ML 1,000 ML IV SCH (05:21)
[2016-04-27 05:35] LABS: BASOPHILS % (AUTO) 0 % (0-10); EOSINOPHILS # (AUTO) 0.1 10^3/uL (0.0-0.3); EOSINOPHILS % (AUTO) 1 % (0-10); LYMPHOCYTES # (AUTO) 1.2 X 10^3 (1.0-4.0); LYMPHOCYTES % (AUTO) 8 % (12-44); MEAN CORPUSCULAR HEMOGLOBIN 32 PG (25-34); MEAN CORPUSCULAR HGB CONC 33 G/DL (32-36); MEAN CORPUSCULAR VOLUME 98 FL (80-99); MEAN PLATELET VOLUME 9.1 FL (7.4-10.4); MONOCYTES # (AUTO) 1.6 X 10^3 (0.0-1.0); MONOCYTES % (AUTO) 11 % (0-12); NEUTROPHILS # (AUTO) 11.5 X 10^3 (1.8-7.8); NEUTROPHILS % (AUTO) 80 % (42-75); PLATELET COUNT 200 10^3/uL (130-400); RED BLOOD COUNT 3.01 10^6/uL (4.35-5.85); RED CELL DISTRIBUTION WIDTH 14.4 % (10.0-14.5); WHITE BLOOD COUNT 14.3 10^3/uL (4.3-11.0)
[2016-04-27 05:52] LABS: ALBUMIN 2.2 G/DL (3.2-4.5); BILIRUBIN,TOTAL 0.3 MG/DL (0.1-1.0); CALCIUM 8.5 MG/DL (8.5-10.1); CREATININE SERUM 1.23 MG/DL (0.60-1.30); POTASSIUM 5.6 MMOL/L (3.6-5.0); TOTAL PROTEIN 5.5 G/DL (6.4-8.2)
[2016-04-27 08:00] VITALS: BP 160/81
--- NOTE | 2016-04-27 08:38 | Anesthesia-General Post-Op ---
MAC Patient Condition Mental Status/LOC: Same as Preop Cardiovascular: Satisfactory Nausea/Vomiting: Absent Respiratory: Satisfactory Pain: Controlled Complications: Absent Post Op Complications Complications None Follow Up Care/Instructions Patient Instructions None needed. Anesthesiology Discharge Order Discharge Order Patient is doing well, no complaints, stable vital signs, no apparent adverse anesthesia problems. No complications reported per nursing. PEDRO LUIS GUZMAN CRNA Apr 27, 2016 08:38
[2016-04-27] MEDS: CARVEDILOL 6.25 MG (COREG) TAB PO SCH ×2 (08:47→21:04)
[2016-04-27] MEDS: LEVOTHYROXINE 50 MCG (LEVOTHROID) TAB PO SCH (08:47)
[2016-04-27] MEDS: CLOPIDOGREL 75 MG (PLAVIX) TABLET PO SCH (08:47)
[2016-04-27] MEDS: BENAZEPRIL 20 MG (LOTENSIN) TAB PO SCH (08:47)
[2016-04-27] MEDS: amLODIPine 10 MG (NORVASC) TAB PO SCH (08:48)
[2016-04-27] MEDS: VANCOMYCIN 1250 MG/NS 250 ML IVPB IV SCH ×2 (08:48)
[2016-04-27] MEDS ORDERED: SOD POLYSTERENE 15 GM/60 ML (KAYEXALATE) UNIT DOSE PO NR (10:45)
--- NOTE | 2016-04-27 10:47 | Progress Note-Hospitalist ---
Progress Note HPI/CC on Admission CC: Right foot cellulitis HPI: This is an 81yoWM pt known from prior admission for fever and UTI on with hx of severe JANIS, colitis requiring ileostomy, and prostate CA, that presents to ER with right lower extremity swelling and pain. Pt is on Vanc empirically, lab shows WBC improved from 17.2 to 14, Hgb 11, Na+ improved to 135 and Creat normal at 0.87. Pt had previous left leg surgery performed by Dr. Wright two weeks ago in [place], but developed cellulitis in right leg extremity. 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 Pt has an incision in leg from previous operation. SW Review: Pt wishes to be DNR. Pt's PCP is Dr. Payan Patient Interview: Pt states that he recently had surgery on his left leg two weeks ago in [place] performed by Dr. Wright. Pt states that his toe is improved today, but still has some pain in his heel spur. Pt's heel spur has recently made it hard for pt to walk. Pt has not found a local specialist to work with heel spur. Pt sees Dr. Aguirre routinely, and sees a physician in [place] for primary care. Physical exam stable. Pt used O2 last night, but did not bring his CPAP to [facility]. Pt states that he sometimes uses the CPAP at home, but not every night. Pt has not been ambulating from bed to chair, but not more. Pt eating and drinking regularly. Plan: Stop IVF Bone scan Maintain ambulation Maintain Vanc Dr. Dover will see pt tomorrow morning Scribed by Maxim Graves under the direct supervision of Dr. Partida. Progress Notes/Assess & Plan Date Seen 04/27/16 Admission Dx/Process Assessment: Right foot cellulitis with severe peripheral vascular disease ruling out osteomyelitis consulting podiatry w/leukocytosis History of COPD Severe sleep apnea requiring CPAP Chronic nasal congestion requiring Afrin and breathing easy strips History of prostate cancer Hypertension Hypothyroidism Cognitive decline Debility UTI hx Colitis requiring ileostomy hx Diagonsis/Assessment & Plan Patient doing well overall and is at the bedside Overall his severe debility preclude a very poor prognosis long-term but will support this patient anyway we possibly can to improve outcome Having no pain and willing to get up and around in a wheelchair We'll plan for disposition on Friday Noted elevated potassium of unknown source so will hold NAVI inhibitor and give one dose of Kayexalate Vitals stable Pleasant, oriented 3 but poor recall Regular rate and rhythm, clear to auscultation bilaterally improved No edema, right foot dressing intact Laboratory Tests 04/27/16 05:25 Assessment: Right foot cellulitis with severe peripheral vascular disease w/osteomyelitis on MRI and nuclear scan consulting podiatry and s/p Amputation of right great toe today POD #0 Fever with hypoxia and progression of chest x-ray with infiltrate consistent with pneumonia placed on Zosyn and Levaquin in addition to Vanc History of COPD Severe sleep apnea requiring CPAP Chronic nasal congestion requiring Afrin and breathing easy strips History of prostate cancer Hypertension Hypothyroidism Cognitive decline Debility UTI hx Colitis requiring ileostomy hx Poor IV access requiring midline placement DVT prophylaxis with Lovenox Peripheral vascular disease requiring Plavix after stents placed Hyperkalemia of unknown source holding NAVI inhibitor and giving one dose of Kayexalate Plan: s/p right great toe amputation by Dr. Dover POD #1 Monitor labs Pain control Zosyn abx w/Vanc Likely will need swing bed versus inpatient rehabilitation versus [place] YAS PARTIDA DO Apr 27, 2016 10:47
[2016-04-27] MEDS: ENOXAPARIN 40 MG/0.4 ML (LOVENOX) SYR SC SCH (11:30)
[2016-04-27 12:00] VITALS: BP 145/69
[2016-04-27 16:00] VITALS: BP 156/79
[2016-04-27] MEDS: ALFUZOSIN HCL 10 MG TAB (UROXATRAL) PO SCH (17:38)
[2016-04-27] MEDS: ACETAMINOPHEN 325 MG TABLET/CAPLET (TYLENOL) PO PRN ×2 (17:38→23:57)
[2016-04-27] MEDS: HYDROcodone/APAP 5 MG/325 MG (LORTAB) TAB PO PRN (19:02)
[2016-04-27 20:00] VITALS: BP 132/74
[2016-04-27] MEDS: IBUPROFEN TABLET 200 MG TAB PO PRN (21:03)
[2016-04-27] MEDS: PANTOPRAZOLE 40 MG (PROTONIX) TAB PO SCH (21:04)
[2016-04-27] MEDS: ASPIRIN 81 MG CHEW (CHILDREN'S ASA) PO SCH (21:04)
[2016-04-27] MEDS: ATORVASTATIN 40 MG (LIPITOR) TABLET PO SCH (21:04)
[2016-04-28] VITALS: BP 132/74
[2016-04-28] MEDS: RT-ALBUTEROL/IPRATROPIUM 3 ML (DUONEB) VIAL INH SCH ×6 (01:40→22:00)
[2016-04-28 05:34] LABS: BASOPHILS % (AUTO) 0 % (0-10); EOSINOPHILS # (AUTO) 0.1 10^3/uL (0.0-0.3); EOSINOPHILS % (AUTO) 1 % (0-10); LYMPHOCYTES % (AUTO) 7 % (12-44); MEAN CORPUSCULAR HEMOGLOBIN 32 PG (25-34); MEAN CORPUSCULAR HGB CONC 33 G/DL (32-36); MEAN CORPUSCULAR VOLUME 98 FL (80-99); MONOCYTES # (AUTO) 1.5 X 10^3 (0.0-1.0); MONOCYTES % (AUTO) 10 % (0-12); NEUTROPHILS % (AUTO) 82 % (42-75); PLATELET COUNT 199 10^3/uL (130-400); RED BLOOD COUNT 3.04 10^6/uL (4.35-5.85); RED CELL DISTRIBUTION WIDTH 14.3 % (10.0-14.5); WHITE BLOOD COUNT 14.6 10^3/uL (4.3-11.0)
[2016-04-28] MEDS: PIPERACILLIN SODIUM/TAZOBACTAM 4.5 GM in NS (IVPB) 100 ML IV SCH ×3 (05:37→23:31)
[2016-04-28 05:57] LABS: ALBUMIN 2.2 G/DL (3.2-4.5); BILIRUBIN,TOTAL 0.4 MG/DL (0.1-1.0); CALCIUM 8.7 MG/DL (8.5-10.1); CREATININE SERUM 1.32 MG/DL (0.60-1.30); POTASSIUM 3.7 MMOL/L (3.6-5.0); TOTAL PROTEIN 4.8 G/DL (6.4-8.2)
[2016-04-28 08:00] VITALS: BP 138/60
[2016-04-28] MEDS: amLODIPine 10 MG (NORVASC) TAB PO SCH (08:12)
[2016-04-28] MEDS: LEVOTHYROXINE 50 MCG (LEVOTHROID) TAB PO SCH (08:12)
[2016-04-28] MEDS: VANCOMYCIN 1250 MG/NS 250 ML IVPB IV SCH ×2 (08:12)
[2016-04-28] MEDS: CARVEDILOL 6.25 MG (COREG) TAB PO SCH ×2 (08:13→21:10)
[2016-04-28] MEDS: CLOPIDOGREL 75 MG (PLAVIX) TABLET PO SCH (08:13)
--- NOTE | 2016-04-28 13:03 | Progress Note-Hospitalist ---
Progress Note HPI/CC on Admission CC: Right foot cellulitis HPI: This is an 81yoWM pt known from prior admission for fever and UTI on with hx of severe JANIS, colitis requiring ileostomy, and prostate CA, that presents to ER with right lower extremity swelling and pain. Pt is on Vanc empirically, lab shows WBC improved from 17.2 to 14, Hgb 11, Na+ improved to 135 and Creat normal at 0.87. Pt had previous left leg surgery performed by Dr. Wright two weeks ago in [place], but developed cellulitis in right leg extremity. 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 Pt has an incision in leg from previous operation. SW Review: Pt wishes to be DNR. Pt's PCP is Dr. Payan Patient Interview: Pt states that he recently had surgery on his left leg two weeks ago in [place] performed by Dr. Wright. Pt states that his toe is improved today, but still has some pain in his heel spur. Pt's heel spur has recently made it hard for pt to walk. Pt has not found a local specialist to work with heel spur. Pt sees Dr. Aguirre routinely, and sees a physician in [place] for primary care. Physical exam stable. Pt used O2 last night, but did not bring his CPAP to [facility] [place]. Pt states that he sometimes uses the CPAP at home, but not every night. Pt has not been ambulating from bed to chair, but not more. Pt eating and drinking regularly. Plan: Stop IVF Bone scan Maintain ambulation Maintain Vanc Dr. Dover will see pt tomorrow morning Scribed by Maxim Graves under the direct supervision of Dr. Partida. Progress Notes/Assess & Plan Date Seen 04/28/16 Admission Dx/Process Assessment: Right foot cellulitis with severe peripheral vascular disease ruling out osteomyelitis consulting podiatry w/leukocytosis History of COPD Severe sleep apnea requiring CPAP Chronic nasal congestion requiring Afrin and breathing easy strips History of prostate cancer Hypertension Hypothyroidism Cognitive decline Debility UTI hx Colitis requiring ileostomy hx Diagonsis/Assessment & Plan Patient doing well overall and is at the bedside Overall his severe debility preclude a very poor prognosis long-term but will support this patient anyway we possibly can to improve outcome Having no pain and willing to get up and around in a wheelchair We'll plan for disposition on Friday to inpatient rehabilitation or [place]? Noted elevated potassium of unknown source so will hold NAVI inhibitor and give one dose of Kayexalate yesterday Vitals stable Pleasant, oriented 3 but poor recall Regular rate and rhythm, clear to auscultation bilaterally improved, diminished BS No edema, right foot dressing intact Laboratory Tests 04/28/16 04:52 Assessment: Right foot cellulitis with severe peripheral vascular disease w/osteomyelitis on MRI and nuclear scan consulting podiatry and s/p Amputation of right great toe Friday POD #2 Fever with hypoxia and progression of chest x-ray with infiltrate consistent with pneumonia placed on Zosyn and Levaquin in addition to Vanc History of COPD Severe sleep apnea requiring CPAP Chronic nasal congestion requiring Afrin and breathing easy strips History of prostate cancer Hypertension Hypothyroidism Cognitive decline Debility UTI hx Colitis requiring ileostomy hx Poor IV access requiring midline placement DVT prophylaxis with Lovenox Peripheral vascular disease requiring Plavix after stents placed Hyperkalemia of unknown source holding NAVI inhibitor and giving one dose of Kayexalate Plan: s/p right great toe amputation by Dr. Dover POD #3 Monitor labs Pain control Zosyn abx w/Vanc Likely will need swing bed versus inpatient rehabilitation versus [place] Prognosis is poor YAS PARTIDA DO Apr 28, 2016 13:02
[2016-04-28] MEDS: ENOXAPARIN 40 MG/0.4 ML (LOVENOX) SYR SC SCH (13:04)
[2016-04-28 14:00] VITALS: BP 174/71
[2016-04-28] MEDS ORDERED: ALPRAZolam 0.5 MG (XANAX) TAB ONE (14:49)
[2016-04-28] MEDS: ACETAMINOPHEN 325 MG TABLET/CAPLET (TYLENOL) PO PRN (14:54)
[2016-04-28] MEDS ORDERED: ALPRAZolam 0.5 MG (XANAX) TAB PO PRN (15:00)
[2016-04-28 16:00] VITALS: BP 146/67
--- NOTE | 2016-04-28 17:06 | Progress Note-Standard ---
Standard Progress Note Progress Notes/Assess & Plan Progress/Assessment & Plan Ortho / Podiatry progress note. Nursing called re activity, dressing and bathing orders. I Ok'ed cover dressing and shower, ambulate with walker touch wt bear on right. S- no complaint O- dressing off, rt great toe incision well approximated, slight sanguinous drainage, no gross infection. Plantar and medial heel with edema and ecchymosis , likely post op. A- Stable after rt great toe amputation. P- start daily dressing changes, adaptic and Kerlix and one 2 or 3 inch lisa. Note: I was on this unit yesterday and asked if there were any patients to see and the nurse said they checked and there were none. I discussed patient rounding coverage with Livan Bright and we will set up a more efficient system in the future. CARROLL REYNA MD Apr 28, 2016 17:06
[2016-04-28] MEDS: ALFUZOSIN HCL 10 MG TAB (UROXATRAL) PO SCH (18:35)
[2016-04-28 20:00] VITALS: BP 142/74
[2016-04-28] MEDS: ATORVASTATIN 40 MG (LIPITOR) TABLET PO SCH (21:10)
[2016-04-28] MEDS: ASPIRIN 81 MG CHEW (CHILDREN'S ASA) PO SCH (21:10)
[2016-04-28] MEDS: PANTOPRAZOLE 40 MG (PROTONIX) TAB PO SCH (21:10)
[2016-04-29] VITALS: BP 143/74
[2016-04-29] MEDS: RT-ALBUTEROL/IPRATROPIUM 3 ML (DUONEB) VIAL INH SCH ×3 (01:56→10:59)
[2016-04-29 04:00] VITALS: BP 135/64
[2016-04-29] MEDS: PIPERACILLIN SODIUM/TAZOBACTAM 4.5 GM in NS (IVPB) 100 ML IV SCH (05:37)
[2016-04-29] MEDS ORDERED: TROUGH ORDER-PHARMACY XX ONE (07:00)
[2016-04-29 07:11] LABS: BASOPHILS % (AUTO) 0 % (0-10); EOSINOPHILS # (AUTO) 0.1 10^3/uL (0.0-0.3); EOSINOPHILS % (AUTO) 1 % (0-10); LYMPHOCYTES # (AUTO) 1.5 X 10^3 (1.0-4.0); LYMPHOCYTES % (AUTO) 8 % (12-44); MEAN CORPUSCULAR HEMOGLOBIN 32 PG (25-34); MEAN CORPUSCULAR HGB CONC 33 G/DL (32-36); MEAN CORPUSCULAR VOLUME 98 FL (80-99); MEAN PLATELET VOLUME 9.1 FL (7.4-10.4); MONOCYTES # (AUTO) 1.6 X 10^3 (0.0-1.0); MONOCYTES % (AUTO) 8 % (0-12); NEUTROPHILS # (AUTO) 16.1 X 10^3 (1.8-7.8); NEUTROPHILS % (AUTO) 83 % (42-75); PLATELET COUNT 239 10^3/uL (130-400); RED BLOOD COUNT 3.35 10^6/uL (4.35-5.85); RED CELL DISTRIBUTION WIDTH 14.5 % (10.0-14.5); WHITE BLOOD COUNT 19.3 10^3/uL (4.3-11.0)
[2016-04-29 07:26] LABS: ALBUMIN 2.5 G/DL (3.2-4.5); BILIRUBIN,TOTAL 0.3 MG/DL (0.1-1.0); CALCIUM 8.9 MG/DL (8.5-10.1); CREATININE SERUM 1.31 MG/DL (0.60-1.30); POTASSIUM 3.9 MMOL/L (3.6-5.0); TOTAL PROTEIN 5.3 G/DL (6.4-8.2)
[2016-04-29 07:42] LABS: ANISOCYTOSIS SLIGHT; BAND NEUTROPHILS 3 %; BASOPHILS % (MANUAL) 0 %; EOSINOPHILS % (MANUAL) 0 %; LYMPHOCYTES % (MANUAL) 13 %; NEUTROPHILS % (MANUAL) 75 %
[2016-04-29 08:00] VITALS: BP 126/58
[2016-04-29] MEDS: CLOPIDOGREL 75 MG (PLAVIX) TABLET PO SCH (08:30)
[2016-04-29] MEDS: CARVEDILOL 6.25 MG (COREG) TAB PO SCH (08:30)
[2016-04-29] MEDS: amLODIPine 10 MG (NORVASC) TAB PO SCH (08:30)
[2016-04-29] MEDS: LEVOTHYROXINE 50 MCG (LEVOTHROID) TAB PO SCH (08:30)
[2016-04-29] MEDS: HYDROcodone/APAP 5 MG/325 MG (LORTAB) TAB PO PRN (08:31)
--- NOTE | 2016-04-29 09:27 | Physical Therapy Evaluation ---
PT Evaluation-General Medical Diagnosis Admission Date Apr 21, 2016 at 11:23 Medical Diagnosis: Cellulitis right foot Onset Date: Apr 21, 2016 Therapy Diagnosis Therapy Diagnosis: generalized weakness and debility Height/Weight Height (Feet): 5 Height (Inches): 8.00 Weight (Pounds): 227 Weight (Ounces): 6.0 Precautions Precautions/Isolations: Fall Prevention, Standard Precautions Weight Bear Status Weight Bearing Restriction: Touch Toe Bearing Location Restriction: RT FOOT Comments surgical shoe in place Medical History Pertinent Medical History: Arthritis, CAD, COPD, DM, Dementia, HTN, Hypothroidism, Neuropathy Additional Medical History heel spur right foot; uses CPAP at home Current History s/p right great toe amputation Reviewed History: Yes Social History Home: Single Level Current Living Status: Spouse Entry Into Home: Level Entry Prior/Core FIM Prior Level of Function Functional [place] Measure 0=Not Assessed/NA 4=Minimal Assistance 1=Total Assistance 5=Supervision or Setup 2=Maximal Assistance 6=Modified [place] 3=Moderate Assistance 7=Complete [place] Bed Mobility: 5 Transfers (B,C,W/C) (FIM): 5 Gait: 5 spouse is primary caregiver PT Evaluation-Current Subjective Patient is in bed and spouse is present. Patient agrees to PT. Pain Numeric Pain Scale: 5-Moderate Pain Location: Right Location Body Site: Foot Pain Description: Ache, Pressure Objective Patient Orientation: Confused Problem Solving: Poor Attachments: IV ROM/Strength ROM Lower Extremities bilateral LE WFL Strenght Lower Extremities right knee flexion/extension 3/5; hip flexion 3/5 ankle dorsi/plantarflexion 2/ 5 (due to pain and immobility PLOF) left knee flexion/extension 4/5; hip flexion 4/5; ankle dorsi/plantarflexion 4/5 Integumentary/Posture Integumentary right great toe amputation Bowel Incontinence: No Bladder Incontinence: No Posture WNL Neuromuscular (Tone, Coordination, Reflexes) diminished coordination due to diminished proprioception from neuropathy Sensory Vision: Wears Glasses Hearing: Functional Sensation Right Lower Extremit: Impaired Sensation Left Lower Extremity: Impaired Transfers Functional [place] Measure 0=Not Assessed/NA 4=Minimal Assistance 1=Total Assistance 5=Supervision or Setup 2=Maximal Assistance 6=Modified [place] 3=Moderate Assistance 7=Complete [place] Transfers (B, C, W/C) (FIM): 4 Scootin Rollin Supine to/from Sit: 4 Sit to/from Stand: 4 Gait Mode of Locomotion: Walk Anticipated Mode of Locomotion: Walk Gait (FIM): 1 Distance (FIM): 1=up to 49 ft Distance: 25' x 2 Gait Level of Assist: 4 Gait Persons Needed: 1 Gait Assistive Device: FWW Comments/Gait Description difficulty maintaining TTWB right foot Balance Sitting Static: Fair Sitting Dynamic: Fair Standing Static: Fair Standing Dynamic: Fair Assessment/Needs 81 y.o. male, will benefit from skilled PT to address functional strength and mobility to improve current LOF. Patient is limited by right foot pain, decreases strength and mobility, and confusion. Rehab Potential: Fair Post Rehab Potential-Barriers: infection PT Fdc Goals Fdc Goals PT Auto Roller Goals Time Frame: May 13, 2016 Transfers (B,C,W/C) (FIM): 5 Gait (FIM): 2 Gait distance (FIM): 7=509-42 ft Distance: 125' Gait Level of Assist: 5 Gait Assistive Device: FWW (TTWB right foot) PT Plan Problem List Problem List: Activity Tolerance, Functional Strength, Safety, Balance, Gait, Transfer, Bed Mobility Treatment/Plan Treatment Plan: Continue Plan of Care Treatment Plan: Bed Mobility, Education, Functional Activity [place], Functional Strength, Gait, Safety, Therapeutic Exercise, Transfers Treatment Duration: May 13, 2016 # of days/week 5-6 Visits Per Week: 5-6 Pt/Family Agrees w/Plan: Yes Safety Risks/Education Patient Education: Gait Training (TTWB right foot), Safety Issues Teaching Recipient: Patient, Family Teaching Methods: Discussion Response to Teaching: Verbalize Understanding, Return Demonstration, Reinforcement Needed Discharge Recommendations Therapy D/C Recommendations: Snf (TCU/NH) Time/GCodes Time In: 830 Time Out: 855 Total Billed Treatment Time: 25 Total Billed Treatment 1 visit EVHigh 25 min CLAUDIA MAYFIELD PT Apr 29, 2016 09:27
[2016-04-29] MEDS: VANCOMYCIN 1250 MG/NS 250 ML IVPB IV SCH ×2 (10:02)
[2016-04-29] MEDS ORDERED: FNT.05A2 IV (10:11)
[2016-04-29] MEDS ORDERED: ALPR0.5T7 PO (10:11)
[2016-04-29] MEDS ORDERED: ENOX40DI8 SC (10:11)
[2016-04-29] MEDS ORDERED: IPRA3AMP INH (10:11)
[2016-04-29] MEDS ORDERED: HYDR-3812 PO (10:11)
--- NOTE | 2016-04-29 10:16 | Discharge Summary-Hospitalist ---
Diagnosis/Chief Complaint Date of Admission Apr 21, 2016 at 11:23 Date of Discharge Discharge Date: Apr 29, 2016 Admission Diagnosis Assessment: Right foot cellulitis with severe peripheral vascular disease ruling out osteomyelitis consulting podiatry w/leukocytosis History of COPD Severe sleep apnea requiring CPAP Chronic nasal congestion requiring Afrin and breathing easy strips History of prostate cancer Hypertension Hypothyroidism Cognitive decline Debility UTI hx Colitis requiring ileostomy hx Discharge Diagnosis Assessment: Right foot cellulitis with severe peripheral vascular disease w/osteomyelitis on MRI and nuclear scan consulting podiatry and s/p Amputation of right great toe Friday POD #3 Fever with hypoxia and progression of chest x-ray with infiltrate consistent with pneumonia placed on Zosyn and Levaquin in addition to Vanc completed antibiotics History of COPD Severe sleep apnea requiring CPAP Chronic nasal congestion requiring Afrin and breathing easy strips History of prostate cancer Hypertension Hypothyroidism Cognitive decline Debility UTI hx Colitis requiring ileostomy hx Poor IV access requiring midline placement DVT prophylaxis with Lovenox Peripheral vascular disease requiring Plavix after stents placed Hyperkalemia of unknown source holding NAVI inhibitor and giving one dose of Kayexalate Patient doing well overall and is at the bedside Overall his severe debility preclude a very poor prognosis long-term but will support this patient anyway we possibly can to improve outcome Having no pain and willing to get up and around in a wheelchair We'll plan for disposition on Friday to inpatient rehabilitation or [place]? Noted elevated potassium of unknown source so will hold NAVI inhibitor and give one dose of Kayexalate yesterday Vitals stable Pleasant, oriented 3 but poor recall Regular rate and rhythm, clear to auscultation bilaterally improved, diminished BS No edema, right foot dressing intact Laboratory Tests 04/28/16 04:52 Assessment: Right foot cellulitis with severe peripheral vascular disease w/osteomyelitis on MRI and nuclear scan consulting podiatry and s/p Amputation of right great toe Friday POD #2 Fever with hypoxia and progression of chest x-ray with infiltrate consistent with pneumonia placed on Zosyn and Levaquin in addition to Vanc History of COPD Severe sleep apnea requiring CPAP Chronic nasal congestion requiring Afrin and breathing easy strips History of prostate cancer Hypertension Hypothyroidism Cognitive decline Debility UTI hx Colitis requiring ileostomy hx Poor IV access requiring midline placement DVT prophylaxis with Lovenox Peripheral vascular disease requiring Plavix after stents placed Hyperkalemia of unknown source holding NAVI inhibitor and giving one dose of Kayexalate Plan: s/p right great toe amputation by Dr. Dover POD #3 Monitor labs Pain control Zosyn abx w/Vanc Likely will need swing bed versus inpatient rehabilitation versus [place] Prognosis is poor Reason Hospital Visit/Course CC: Right foot cellulitis HPI: This is an 81yoWM pt known from prior admission for fever and UTI on with hx of severe JANIS, colitis requiring ileostomy, and prostate CA, that presents to ER with right lower extremity swelling and pain. Pt is on Vanc empirically, lab shows WBC improved from 17.2 to 14, Hgb 11, Na+ improved to 135 and Creat normal at 0.87. Pt had previous left leg surgery performed by Dr. Wright two weeks ago in [place], but developed cellulitis in right leg extremity. 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 Pt has an incision in leg from previous operation. SW Review: Pt wishes to be DNR. Pt's PCP is Dr. Payan Patient Interview: Pt states that he recently had surgery on his left leg two weeks ago in [place] performed by Dr. Wright. Pt states that his toe is improved today, but still has some pain in his heel spur. Pt's heel spur has recently made it hard for pt to walk. Pt has not found a local specialist to work with heel spur. Pt sees Dr. Aguirre routinely, and sees a physician in [place] for primary care. Physical exam stable. Pt used O2 last night, but did not bring his CPAP to [facility]. Pt states that he sometimes uses the CPAP at home, but not every night. Pt has not been ambulating from bed to chair, but not more. Pt eating and drinking regularly. Plan: Stop IVF Bone scan Maintain ambulation Maintain Vanc Dr. Dover will see pt tomorrow morning Scribed by Maxim Graves under the direct supervision of Dr. Partida. Note from 04/29/16: Patient doing as well as he can although low-grade fever and elevated white count is concerning but I have no source and at this time we are at a crossroads and inpatient rehabilitation is a reasonable option but if he feels that and continues to decline he will be a hospice candidate. Family and patient seemed to be reasonable but unable to really solve all of his medical issues in order to improve his prognosis which remains poor long-term. He is tolerating albuterol treatments in addition to maintaining DVT prophylaxis and pain is controlled. Alprazolam was required due to severe anxiety and agitation and that'll calm yesterday with good results. Overall his prognosis is poor but unable to improve upon any of his medical issues at this current time. Antibiotics monitor labs monitor fever and if continues to decline will deem hospice candidate. Fever 100.9, pleasant, up in chair, at bedside, chronically ill Regular rate and rhythm, coarse breath sounds but improved from prior exam No edema Laboratory Tests 04/29/16 07:01 Hospital course: Patient was admitted for right foot cellulitis that resulted in osteomyelitis diagnosed of the great toe the podiatry amputated without difficulty. He was maintained on vancomycin and Zosyn for fever that resulted in chest x-ray revealing infiltrate with exacerbation of COPD the responded to breathing treatments and oxygen supplementation. Overall his prognosis remains very poor long-term but inpatient rehabilitation was willing to accept him to try to improve his status but if do declines he will be a hospice candidate. Discharge Summary Discharge Physical Examination Allergies: Coded Allergies: Sulfa (Sulfonamide Antibiotics) (Unverified Allergy, Intermediate, HIVES, 04/23/16) clindamycin (Verified Allergy, Unknown, 04/21/16) STATES HE CAN NOT TAKE IT Vitals & I&Os Vital Signs Date Time Temp Pulse Resp B/P Pulse Ox O2 Delivery O2 Flow Rate FiO2 04/29/16 09:10 99.1 04/29/16 08:00 90 20 126/58 93 Room Air 04/29/16 04:00 3.00 Hospital Course Labs (last 24 hrs) Laboratory Tests 04/29/16 07:01: Alanine Aminotransferase (ALT/SGPT) 9, Albumin 2.5L, Alkaline Phosphatase 52, Anion Gap 12, Anisocytosis SLIGHT, Aspartate Amino Transf (AST/SGOT) 14, BUN/ Creatinine Ratio 11, Band Neutrophils 3, Basophils # (Auto) 0.0, Basophils % ( Manual) 0, Basophils (%) (Auto) 0, Blood Urea Nitrogen 14, Calcium Level 8.9, Carbon Dioxide Level 17L, Chloride Level 106, Creatinine 1.31H, Eosinophils # ( Auto) 0.1, Eosinophils % (Manual) 0, Eosinophils (%) (Auto) 1, Estimat Glomerular Filtration Rate 52, Glucose Level 108H, Hematocrit 33L, Hemoglobin 10.8L, Lymphocytes # (Auto) 1.5, Lymphocytes % (Manual) 13, Lymphocytes (%) ( Auto) 8L, Mean Corpuscular Hemoglobin 32, Mean Corpuscular Hemoglobin Concent 33 , Mean Corpuscular Volume 98, Mean Platelet Volume 9.1, Monocytes # (Auto) 1.6H , Monocytes % (Manual) 9, Monocytes (%) (Auto) 8, Neutrophils # (Auto) 16.1H, Neutrophils % (Manual) 75, Neutrophils (%) (Auto) 83H, Platelet Count 239, Potassium Level 3.9, Red Blood Count 3.35L, Red Cell Distribution Width 14.5, Sodium Level 135, Total Bilirubin 0.3, Total Protein 5.3L, Vancomycin Level Trough 19.4, White Blood Count 19.3H Microbiology 04/22/16 Blood Culture - Final, Complete No growth 04/26/16 MRSA Screen - Final, Complete MRSA not isolated 04/22/16 Urine Culture - Final, Complete NO GROWTH Pending Labs Laboratory Tests 04/29/16 07:01: Alanine Aminotransferase (ALT/SGPT) 9, Albumin 2.5, Alkaline Phosphatase 52, Anion Gap 12, Anisocytosis SLIGHT, Aspartate Amino Transf (AST/SGOT) 14, BUN/ Creatinine Ratio 11, Band Neutrophils 3, Basophils # (Auto) 0.0, Basophils % ( Manual) 0, Basophils (%) (Auto) 0, Blood Urea Nitrogen 14, Calcium Level 8.9, Carbon Dioxide Level 17, Chloride Level 106, Creatinine 1.31, Eosinophils # ( Auto) 0.1, Eosinophils % (Manual) 0, Eosinophils (%) (Auto) 1, Estimat Glomerular Filtration Rate 52, Glucose Level 108, Hematocrit 33, Hemoglobin 10.8 , Lymphocytes # (Auto) 1.5, Lymphocytes % (Manual) 13, Lymphocytes (%) (Auto) 8 , Mean Corpuscular Hemoglobin 32, Mean Corpuscular Hemoglobin Concent 33, Mean Corpuscular Volume 98, Mean Platelet Volume 9.1, Monocytes # (Auto) 1.6, Monocytes % (Manual) 9, Monocytes (%) (Auto) 8, Neutrophils # (Auto) 16.1, Neutrophils % (Manual) 75, Neutrophils (%) (Auto) 83, Platelet Count 239, Potassium Level 3.9, Red Blood Count 3.35, Red Cell Distribution Width 14.5, Sodium Level 135, Total Bilirubin 0.3, Total Protein 5.3, Vancomycin Level Trough 19.4, White Blood Count 19.3 Discharge Home Medications: Active Scripts Active Alprazolam 0.5 Mg Tablet 0.5 Mg PO Q6H PRN 30 Days Hydrocodon -Acetaminophen 5-325 (Hydrocodone/Acetaminophen) 1 Each Tablet 1-2 Tab PO Q6HR PRN Fentanyl 0.05 mg/ml Ampul (Fentanyl Citrate) 100 Mcg/2 Ml Soln 50 Mcg IV Q3H PRN Enoxaparin Sodium 40 Mg/0.4 Ml Syringe 40 Mg SC Q24H 30 Days Iprat-Albut 0.5-3(2.5) mg/3 ml (Ipratropium/Albuterol Sulfate) 3 Ml Ampul.neb 3 Ml INH RTQ4HR 30 Days Reported Plavix (Clopidogrel Bisulfate) 75 Mg Tablet 75 Mg PO DAILY Rosuvastatin Calcium 40 Mg Tablet 20 Mg PO HS TAKES 1/2 (40MG) TABLET Acetaminophen Pm Caplet (Acetaminophen/Diphenhydramine) 1 Each Tablet 1-2 Tab PO HS PRN Tamsulosin HCl 0.4 Mg Cap.er.24h 0.4 Mg PO HS Pantoprazole Sodium 40 Mg Tablet.dr 40 Mg PO HS Levothyroxine Sodium 50 Mcg Tablet 50 Mcg PO DAILY Flonase Allergy Relief (Fluticasone Propionate) 9.9 Ml [place].susp 2 Sprays NS DAILY PRN Carvedilol 6.25 Mg Tablet 6.25 Mg PO BID Benazepril HCl 20 Mg Tablet 20 Mg PO BID Amlodipine Besylate 10 Mg Tablet 10 Mg PO DAILY Vaohgydtya-Ydqlhgdhptf-FYM Tab (Gluc/Josh-MSM#2/C/D3/Marcos/Born) 1 Each Tablet 1 Tab PO DAILY Aspirin 81 Mg Chew Tab (Aspirin) 81 Mg Chew 81 Mg PO HS Instructions to patient/family Please see electonic discharge instructions given to patient. Clinical Quality Measures DVT/VTE Risk/Contraindication: Risk Factor Score Per Nursin RFS Level Per Nursing on Admit: 3=High YAS PARTIDA DO Apr 29, 2016 10:16
[2016-04-29] MEDS: ENOXAPARIN 40 MG/0.4 ML (LOVENOX) SYR SC SCH (11:38)
[2016-04-29 12:00] VITALS: BP 119/57
[2016-04-29 14:05] VITALS: BP 119/57
[2016-05-08] MEDS ORDERED: HEPA500017 SC (08:33)
[2016-05-08] MEDS ORDERED: MAGN400T6 PO (08:33)
[2016-06-20] MEDS ORDERED: HYDR-3812 PO (08:31)
[2016-06-20] MEDS ORDERED: DOXY100T2 PO (08:31)
== END 2016-04-29 13:00 | DRG 853 ==
LOC: EDUNIT# 09:26 → ER 09:28 → 4TH 11:23
PROVIDERS: ADMIT Internal Medicine; ATTEND Internal Medicine
PROC: 0Y6P0Z0 Detachment at Right 1st Toe, Complete, Open Approach (ICD-10-PCS; principal; 2016-04-26 07:45)
DX: A41.9 Sepsis, unspecified organism (principal); E11.69 Type 2 diabetes mellitus with other specified complication; M86.171 Other acute osteomyelitis, right ankle and foot; L03.115 Cellulitis of right lower limb; L03.031 Cellulitis of right toe; I70.203 Unspecified atherosclerosis of native arteries of extremities, bilateral legs; J44.0 Chronic obstructive pulmonary disease with (acute) lower respiratory infection; J18.9 Pneumonia, unspecified organism; Z66 Do not resuscitate; C18.9 Malignant neoplasm of colon, unspecified; C16.9 Malignant neoplasm of stomach, unspecified; E87.5 Hyperkalemia; M19.071 Primary osteoarthritis, right ankle and foot; E11.40 Type 2 diabetes mellitus with diabetic neuropathy, unspecified; G47.33 Obstructive sleep apnea (adult) (pediatric); J45.909 Unspecified asthma, uncomplicated; C61 Malignant neoplasm of prostate; I25.10 Atherosclerotic heart disease of native coronary artery without angina pectoris; I10 Essential (primary) hypertension; I89.0 Lymphedema, not elsewhere classified; F32.9 Major depressive disorder, single episode, unspecified; E03.9 Hypothyroidism, unspecified; F03.90 Unspecified dementia, unspecified severity, without behavioral disturbance, psychotic disturbance, mood disturbance, and anxiety; E78.00 Pure hypercholesterolemia, unspecified; Z93.2 Ileostomy status; Z96.651 Presence of right artificial knee joint
CPT/HCPCS: 36415; 71010; 71020; 73630; 73723; 78315; 80053; 80202; 81000; 83605; 84550; 85007; 85025; 85027; 85652; 86141; 87040; 87081; 87088; 87804; 94640; 94664; 94760; 96361; 96365; 96375

== ENCOUNTER 2016-04-29 12:35 | Inpatient (IN) | payer MEDICARE ==
[~2016-04-29] VITALS: Ht 172.7 cm; Wt 102.1 kg
[~2016-04-29 12:35] MED LIST changes: +ALPR0.5T7 PO; +CLOP75TA69 PO; +ENOX40DI8 SC; +FNT.05A2 IV; +HYDR-3812 PO; +IPRA3AMP INH; +ROSU40TA20 PO
--- OUTSIDE RECORDS SUMMARY | 2016-04-29 14:18 | XMS REPORT | Continuity of Care Document ---
Author Author [facility] Organization [facility] Address Unknown Phone Unavailable Care Team Providers Care Home Service Demonstrator Name Role Phone NO, LOCAL PHYSICIAN PCP Unavailable Insurance Providers Payer Name Policy Number Subscriber Name Relationship s Medicare [id number] Jose Nieto 18 Self / Same As Patient [employer] [facility] Supp [id number] Jose Nieto 18 Self / Same As Patient Advance Directives Directive Response Recorded Date/Time Advance Directives Yes 04/29/16 1:36pm Health Care Power of Pig Lead Melter Helper Robby CORDERO-- 04/29/16 1:36pm Organ Donor No 04/29/16 1:36pm Resuscitation Status DNR-Pt Request 04/21/16 1:25pm Chief Complaint and Reason for Visit Chief Complaint CELLULITUS RIGHT LOWER EXTREMIDY Reason for Visit Urinary tract infection Problems Active Problems Medical Problem Onset Date Status Cellulitis of right lower extremity Unknown Acute Hyponatremia Unknown Acute Prostatitis syndrome Unknown Acute RESPIRATORY FAILURE, UNSP, UNSP W HYPOXIA OR HYPERCAPNIA Unknown Acute Urinary tract infection Unknown Acute Medications Current Home Medications Medication Dose Units Route Directions Days/Qty Instructions Start Date Aspirin 81 Mg 81 Mg Oral Bedtime 07/27/09 Gluc/Josh-Msm#2/C/D3/Marcos/Born 1 Each 1 Tab Oral Daily 12/15/15 Amlodipine Besylate 10 Mg 10 Mg Oral Daily 12/15/15 Carvedilol 6.25 Mg 6.25 Mg Oral Twice A Day 12/15/15 Fluticasone Propionate 9.9 Ml 2 Sprays Nasal Daily as needed for Rhinitis 12/15/15 Levothyroxine Sodium 50 Mcg 50 Mcg Oral Daily 12/15/15 Pantoprazole Sodium 40 Mg 40 Mg Oral Bedtime 12/15/15 Tamsulosin Hcl 0.4 Mg 0.4 Mg Oral Bedtime 12/15/15 Acetaminophen/Diphenhydramine 1 Each 1-2 Tab Oral Bedtime as needed for Pain 12/15/15 Rosuvastatin Calcium 40 Mg 20 Mg Oral Bedtime TAKES 1/2 (40MG) TABLET 04/22/16 Clopidogrel Bisulfate 75 Mg 75 Mg Oral Daily 04/22/16 Ipratropium/Albuterol Sulfate (Duoneb) 3 Ml 3 Ml Inhalation Respiratory Every Four Hours 30 Days 04/29/16 Enoxaparin Sodium 40 Mg/0.4 Ml 40 Mg Subcutaneously Every 24 Hours 30 Days 04/29/16 Fentanyl Citrate 100 Mcg/2 Ml 50 Mcg Intraven Every 3 Hours as needed for Severe Pain 30 04/29/16 Hydrocodone/Acetaminophen 1 Each 1-2 Tab Oral Give Every 6 Hr On Schedule as needed for Moderate Pain 30 04/29/16 Alprazolam 0.5 Mg 0.5 Mg Oral Every 6 Hours as needed for Anxiety 30 Days 04/29/16 Past Home Medications Medication Directions Ordered Status Omeprazole 20 Mg Capsule.dr, 40 Mg Oral Daily 07/27/09 Discontinued Carvedilol (Coreg) 6.25 Mg Tablet, 12.5 Mg Oral Twice A Day 07/27/09 Discontinued Loratadine 10 Mg Tab, 1 Oral Daily 07/27/09 Discontinued Benazepril Hcl 20 Mg Tablet, Daily 07/27/09 Discontinued Celecoxib 200 Mg Capsule, Daily 07/27/09 Discontinued Furosemide 40 Mg Tab, Daily 07/27/09 Discontinued Rosuvastatin Calcium 20 Mg Tablet, Daily 07/27/09 Discontinued Tamsulosin Hcl 0.4 Mg Cap, 0.4 Mg Oral Bedtime 07/27/09 Discontinued Temazepam 30 Mg Capsule, Bedtime 07/27/09 Discontinued Mometasone Furoate 17 Gm [place], 1 [place] Nasal As Directed 07/27/09 Discontinued Hydroxyzine Hcl (Atarax) 25 Mg Tablet, 25 Mg Oral Bedtime 07/27/09 Discontinued Amlodipine Besylate (Norvasc 10 Mg) 10 Mg Tablet, 1 Each Oral Daily 02/19/11 Discontinued Montelukast Sodium 10 Mg Tablet, 1 Tab Oral Daily as needed 02/19/11 Discontinued Clopidogrel Bisulfate 75 Mg Tablet, 1 Each Oral Daily 02/19/11 Discontinued Levothyroxine Sodium (Levothroid) 50 Mcg Tablet, 1 Each Oral Daily 02/19/11 Discontinued Spironolact/Hydrochlorothiazid 1 Each Tablet, 1 Each Oral Daily 02/19/11 Discontinued Rosuvastatin Calcium 20 Mg Tablet, 20 Mg Oral Bedtime 02/19/11 Discontinued Benazepril Hcl 20 Mg Tablet, 1 Each Oral Bedtime 02/19/11 Discontinued Glucosamine Sulfate 750 Mg Tablet, 1500 Mg Oral Daily 02/19/11 Discontinued Multivitamins 1 Tab Tablet, 1 Tab Oral Daily 02/19/11 Discontinued Ciprofloxacin Hcl 500 Mg Tablet, 500 Mg Oral Twice A Day 12/12/15 Discontinued Ciprofloxacin Hcl 500 Mg Tablet, 500 Mg Oral Twice A Day 12/15/15 Discontinued Benazepril Hcl 20 Mg Tablet, 20 Mg Oral Twice A Day 12/15/15 Discontinued Social History Social History Problem Response Recorded Date/Time Alcohol Use Rarely Uses 04/21/2016 1:09pm Recreational Drug Use No 04/21/2016 1:09pm Recent Foreign Travel No 04/21/2016 1:28pm Recent Infectious Disease Exposure No 04/21/2016 1:28pm Sexually Transmitted Disease No 04/21/2016 1:09pm HIV/AIDS No 04/21/2016 1:09pm Smoking Status Never a Smoker 04/21/2016 1:08pm Recent Hopitalizations No 04/21/2016 1:09pm Sexually Transmitted Disease No 04/21/2016 1:09pm Hx Sexually Transmitted Disorders No 02/26/2011 5:58am Query Response Start Date Stop Date Smoking Status Never a Smoker Hospital Discharge Instructions No hospital discharge instructions. Plan of Care Discharge Date 04/29/16 1:00pm Disposition 09 ADMITTED INPATIENT Instructions/Education Provided Hospital-Acquired Pneumonia Prescriptions See Medication Section Care Plan and Goals Functional Status Query Response Date Recorded Patient Orientation Confused April 29, 2016 9:31am Patient Orientation Person Place Time Situation April 29, 2016 2:08pm Comprehension Ability Understands Concepts April 25, 2016 8:45am Allergies, Adverse Reactions, Alerts Allergen Type Severity Reaction Status Last Updated Sulfa (Sulfonamide Antibiotics) ([id number]) Allergy Intermediate HIVES Active 04/23/16 Clindamycin Allergy Unknown Active 04/21/16 Immunizations No immunization records. Vital Signs Acute Vital Signs Vital Response Date/Time Temperature (Fahrenheit) 97.5 degrees F (97.6 - 99.5) 04/29/2016 2:05pm Temperature (Calculated Celsius) 36.94895 degrees C (36.4 - 37.5) 04/29/2016 12:00pm Temperature Source Tympanic 04/29/2016 2:05pm Pulse Rate (adult) 85 bpm (60 - 90) 04/29/2016 2:05pm Respiratory Rate 20 bpm (12 - 24) 04/29/2016 2:05pm O2 Sat by Pulse Oximetry 36 % (88 - 100) 04/29/2016 2:05pm Blood Pressure 119/57 mm Hg 04/29/2016 2:05pm Blood Pressure Mean 77 mm Hg 04/29/2016 12:00pm Pain Numeric Pain Scale 3 04/29/2016 2:05pm Height (Feet) 5 feet 04/29/2016 2:00pm Height (Inches) 8.00 inches 04/29/2016 2:00pm Height (Calculated Centimeters) 172.071262 cm 04/29/2016 2:00pm Weight (Pounds) 225 pounds 04/29/2016 2:00pm Weight (Ounces) 0.0 oz 04/29/2016 2:00pm Weight (Calculated Grams) 603519.28 gm 04/29/2016 2:00pm Weight (Calculated Kilograms) 102.250237 kilograms 04/29/2016 2:00pm Calculated BMI 34.2 04/29/2016 2:00pm Capillary Refill Capillary Refill Less Than 3 Seconds 04/29/2016 8:30am Results Laboratory Results Test Name Result Units Flags Reference Collection Date/Time Result Date/ Time Comments White Blood Count 19.3 10^3/uL H 4.3-11.0 04/29/2016 7:01am 04/29/2016 7: 17am Red Blood Count 3.35 10^6/uL L 4.35-5.85 04/29/2016 7:01am 04/29/2016 7: 17am Hemoglobin 10.8 G/DL L 13.3-17.7 04/29/2016 7:01am 04/29/2016 7:17am Hematocrit 33 % L 40-54 04/29/2016 7:04/29/2016 7:17am Mean Corpuscular Volume 98 FL 80-99 04/29/2016 7:04/29/2016 7: 17am Mean Corpuscular Hemoglobin 32 PG 25-34 04/29/2016 7:04/29/2016 7: 17am Mean Corpuscular Hemoglobin Concent 33 G/DL 32-36 04/29/2016 7: 7:17am Red Cell Distribution Width 14.5 % 10.0-14.5 04/29/2016 7:2016 7:17am Platelet Count 239 10^3/uL 130-400 04/29/2016 7:04/29/2016 7:17am Mean Platelet Volume 9.1 FL 7.4-10.4 04/29/2016 7:04/29/2016 7: 17am Neutrophils (%) (Auto) 83 % H 42-75 04/29/2016 7:04/29/2016 7:17am Lymphocytes (%) (Auto) 8 % L 12-44 04/29/2016 7:04/29/2016 7:17am Monocytes (%) (Auto) 8 % 0-12 04/29/2016 7:04/29/2016 7:17am Eosinophils (%) (Auto) 1 % 0-10 04/29/2016 7:04/29/2016 7:17am Basophils (%) (Auto) 0 % 0-10 04/29/2016 7:04/29/2016 7:17am Neutrophils # (Auto) 16.1 X 10^3 H 1.8-7.8 04/29/2016 7:04/29/2016 7 :17am Lymphocytes # (Auto) 1.5 X 10^3 1.0-4.0 04/29/2016 7:04/29/2016 7: 17am Monocytes # (Auto) 1.6 X 10^3 H 0.0-1.0 04/29/2016 7:04/29/2016 7: 17am Eosinophils # (Auto) 0.1 10^3/uL 0.0-0.3 04/29/2016 7:2017 7 :17am Basophils # (Auto) 0.0 10^3/uL 0.0-0.1 04/29/2016 7:01am 04/29/2016 7: 17am Neutrophils % (Manual) 75 % 04/29/2016 7:01am 04/29/2016 7:42am Band Neutrophils 3 % 04/29/2016 7:01am 04/29/2016 7:42am Lymphocytes % (Manual) 13 % 04/29/2016 7:01am 04/29/2016 7:42am Monocytes % (Manual) 9 % 04/29/2016 7:01am 04/29/2016 7:42am Eosinophils % (Manual) 0 % 04/29/2016 7:04/29/2016 7:42am Basophils % (Manual) 0 % 04/29/2016 7:04/29/2016 7:42am Metamyelocytes % 3 % 04/21/2016 10:30am 04/21/2016 10:59am Blood Morphology Comment NORMAL 04/21/2016 10:30am 04/21/2016 10: 59am Anisocytosis SLIGHT 04/29/2016 7:01am 04/29/2016 7:42am Erythrocyte Sedimentation Rate 51 MM/HR H 0-30 04/22/2016 4:50am 2016 5:42am Urine Color YELLOW 04/22/2016 11:20pm 04/22/2016 11:38pm Urine Clarity VERY CLOUDY * 04/22/2016 11:20pm 04/22/2016 11:38pm Urine pH 5 5-9 04/22/2016 11:20pm 04/22/2016 11:38pm Urine Specific [place] 1.020 1.016-1.022 04/22/2016 11:20pm 2016 11:38pm Urine Protein 1+ * NEGATIVE 04/22/2016 11:20pm 04/22/2016 11:38pm Urine Glucose (UA) NEGATIVE NEGATIVE 04/22/2016 11:20pm 04/22/2016 11 :38pm Urine RBC (Auto) 1+ * NEGATIVE 04/22/2016 11:20pm 04/22/2016 11:38pm Urine Ketones NEGATIVE NEGATIVE 04/22/2016 11:20pm 04/22/2016 11: 38pm Urine Nitrite NEGATIVE NEGATIVE 04/22/2016 11:20pm 04/22/2016 11: 38pm Urine Bilirubin NEGATIVE NEGATIVE 04/22/2016 11:20pm 04/22/2016 11: 38pm Urine Urobilinogen NORMAL MG/DL NORMAL 04/22/2016 11:20pm 04/22/2016 11 :38pm Urine Leukocyte Esterase NEGATIVE NEGATIVE 04/22/2016 11:20pm 2016 11:38pm Urine RBC RARE /HPF 04/22/2016 11:20pm 04/22/2016 11:38pm Urine WBC 2-5 /HPF 04/22/2016 11:20pm 04/22/2016 11:38pm Urine Bacteria LARGE /HPF * 04/22/2016 11:20pm 04/22/2016 11:38pm Urine Squamous Epithelial Cells NONE /HPF 04/22/2016 11:20pm 2016 11:38pm Urine Crystals PRESENT /LPF * 04/22/2016 11:20pm 04/22/2016 11:38pm Urine Amorphous Sediment MOD INOCENCIA URATES /LPF * 04/22/2016 11:20pm 07/2016 11:38pm Urine Casts PRESENT /LPF 04/22/2016 11:20pm 04/22/2016 11:38pm Urine Granular Casts 5-10 /LPF * 04/22/2016 11:20pm 04/22/2016 11:38pm Urine Mucus SMALL /LPF * 04/22/2016 11:20pm 04/22/2016 11:38pm Urine Culture Indicated YES 04/22/2016 11:20pm 04/22/2016 11:38pm Sodium Level 135 MMOL/L 135-145 04/29/2016 7:01am 04/29/2016 7:30am Potassium Level 3.9 MMOL/L 3.6-5.0 04/29/2016 7:01am 04/29/2016 7:30am Chloride Level 106 MMOL/L 98-107 04/29/2016 7:01am 04/29/2016 7:30am Carbon Dioxide Level 17 MMOL/L L 21-32 04/29/2016 7:01am 04/29/2016 7: 30am Anion Gap 12 MMOL/L 5-14 04/29/2016 7:01am 04/29/2016 7:30am Blood Urea Nitrogen 14 MG/DL 7-18 04/29/2016 7:0104/29/2016 7:30am Creatinine 1.31 MG/DL H 0.60-1.30 04/29/2016 7:0104/29/2016 7:30am BUN/Creatinine Ratio 11 04/29/2016 7:0104/29/2016 7:30am Estimat Glomerular Filtration Rate 52 04/29/2016 7:0104/29/2016 7:30am GFR INTERPRETIVE DATA UNITS FOR ESTIMATED GFR (eGFR): mL/min/1.73 M2 REFERENCE RANGE FOR ESTIMATED GFR (eGFR) eGFR NORMAL eGFR >60 MODERATELY DECREASED eGFR 30-59 SEVERLY DECREASED eGFR 15-29 KIDNEY FAILURE <15 (OR DIALYSIS) Glucose Level 108 MG/DL H 70-105 04/29/2016 7:0104/29/2016 7:30am Uric Acid 9.0 MG/DL H 2.6-7.2 04/21/2016 10:30am 04/21/2016 11:08am Calcium Level 8.9 MG/DL 8.5-10.1 04/29/2016 7:04/29/2016 7:30am Total Bilirubin 0.3 MG/DL 0.1-1.0 04/29/2016 7:0104/29/2016 7:30am Alkaline Phosphatase 52 U/L 40-136 04/29/2016 7:04/29/2016 7:30am Aspartate Amino Transf (AST/SGOT) 14 U/L 5-34 04/29/2016 7:012016 7:30am Alanine Aminotransferase (ALT/SGPT) 9 U/L 0-55 04/29/2016 7:2016 7:30am Total Protein 5.3 G/DL L 6.4-8.2 04/29/2016 7:0104/29/2016 7:30am Albumin 2.5 G/DL L 3.2-4.5 04/29/2016 7:0104/29/2016 7:30am Lactic Acid Level 1.09 MMOL/L 0.50-2.00 04/22/2016 10:14pm 04/22/2016 10:44pm Lactic acid levels can appear lower than actual values in patients receiving NAC (N-Acetyl Cysteine). C-Reactive Protein High Sensitivity 27.36 MG/DL H 0.00-0.50 04/21/2016 10: 30am 04/21/2016 11:08am Vancomycin Level Trough 19.4 UG/ML 10.0-20.0 04/29/2016 7:01am 2016 7:32am Microbiology Results Procedure Source Result Collection Date/Time Result Date/Time Blood Culture Peripheral, Lt Hand No growth 04/21/2016 10:30am 04/22/2016 2 :45pm Blood Culture Peripheral, Rt Hand No growth 04/21/2016 10:50am 04/22/2016 2 :45pm Blood Culture Peripheral, Lt Ac No growth 04/22/2016 10:20pm 04/23/2016 10: 37am Blood Culture Peripheral, Rt Ac No growth 04/22/2016 10:14pm 04/23/2016 10: 37am Urine Culture Urine, Clean Catch NO GROWTH 04/22/2016 11:20pm 04/23/2016 2: 07pm MRSA Screen Nasal MRSA not isolated 04/26/2016 1:00am 04/27/2016 12:41pm Procedures Procedure Status Date Provider(s) Amputation of toe Completed 04/26/16 MIGUEL BYERS DPM Tracing only of electrocardiogram Active 04/25/16 TRACY AUSTIN CRNA Encounters Encounter Location Arrival/Admit Date Discharge/Depart Date Attending Provider Discharged Inpatient [facility] 04/21/16 11:23am 1:00pm ELIDIA LOVE MD Recent Diagnosis Urinary tract infection
[2016-04-29] MEDS ORDERED: ACETAMINOPHEN 325 MG TABLET/CAPLET (TYLENOL) PO PRN (14:45)
[2016-04-29] MEDS ORDERED: FLUTICASONE NASAL SPRAY (FLONASE) 16 GM BTL NS PRN (14:45)
[2016-04-29] MEDS ORDERED: ALPRAZolam 0.5 MG (XANAX) TAB PO PRN (14:45)
[2016-04-29] MEDS ORDERED: IBUPROFEN TABLET 200 MG TAB PO PRN (14:45)
[2016-04-29] MEDS ORDERED: diphenhydrAMINE 25 MG TAB (BENADRYL) PO PRN (14:45)
--- NOTE | 2016-04-29 14:53 | Occupational Therapy Eval ---
OT Evaluation-General/PLF Medical Diagnosis Admission Date Apr 29, 2016 at 13:00 Medical Diagnosis: Amputation R great toe, osteomyelitis Onset Date: Apr 21, 2016 Therapy Diagnosis Therapy Diagnosis: weakness, decr self care, decr act tolerance, decr funct mobility Height/Weight Height (Feet): 5 Height (Inches): 8.00 Weight (Pounds): 225 Weight (Ounces): 0.0 Precautions Precautions/Isolations: Fall Prevention, Standard Precautions, Pressure Ulcer Weight Bear Status Weight Bearing Restriction: Touch Toe Bearing Location Restriction: R LE Referral Physician: Rigo Referral Reason: Evaluation/Treatment Medical History Pertinent Medical History: Arthritis, CAD, COPD, DM, Dementia, HTN, Hypothroidism, Neuropathy, Prostate CA, PVD Additional Medical History R carotid surgery, R TKA, iliostomy, prostate surgery, asthma, emphysema, sleep apnea, cognitive decline, colon cancer, abdominal hernia, colitis, [place] Current History Admitted with R foot pain and swelling, cellulitis. Dx with osteomyelitis R great toe. Great toe amputated 04-26-16 Social History Home: Single Level Current Living Status: Spouse Entry Into Home: Level Entry ADL-Prior Level of Function ADL PLOF Comments Pt reported that he had been able to manage all of his basic self care needs prior to admission except that his has been putting sock and shoe on his R foot for some time. 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 Pain in R foot reported as 6/ 10 but not described. Appearance Alert, cooperative Mental Status/Objective Patient Orientation: Person, Place, Situation Comprehension: 5 Expression: 5 Social Interaction: 5 Problem Solvin (Difficulty managing oxygen when donning shirt) Attachments: Central Line, Colostomy/Ileostomy, Oxygen, Other-See Comments ( walker shoe R ) Current Glasses/Contacts: Yes Hearing Aids: Yes (R ear) Dentures/Partials: Yes (wears uppers regularly) Hand Dominance: Right Upper Extremity ROM Grossly WFL bilat Upper Extremity Coordination Grossly WFL Upper Extremity Strength Grossly 4/5 bilat Edema: No UE edema noted ADL-Treatment ADL-Current Pt's ileostomy bag leaked and he needed help to wash pamela area and bottom. Skin in front pamela was red, raw and scrotum was edematous and red. Also with red rash on bottom up to waist. Nursing notified and looked at areas. Zinc oxide applied to raw areas with nursing OK. Pt's changed his ileostomy bag. Pt was able to stand at least 1 minutes when transferring from bed to w/c and pulling pants up, using FWW Functional [place] Measure 0=Not Assessed/NA 4=Minimal Assistance 1=Total Assistance 5=Supervision or Setup 2=Maximal Assistance 6=Modified [place] 3=Moderate Assistance 7=Complete IndependenceIRFPAI Quality Coding Scale 6 Independent with activity with or without an assistive device 5 Patient requires set up or clean up by helper. Patient completes activity by themselves 4 Supervision or touching assist (CGA). [place] provide cues , steadying assist 3 The helper provides less than half the effort to complete the activity 2 The helper provides more than half the effort to complete the activity 1 Dependent. The helper does all the effort to complete an activity 7 Patient refused to complete or attempt activity 9 The patient did not perform the activity before the current illness or injury 88 Not attempted due to Medical conditions or safety concerns Eating (FIM): 6 (There are foods he cannot eat if he doesn't have his dentures in. Able to open packages and get food to mouth without help) Eating (QC): 6 Upper Body Dressing (FIM): 5 (Skilled cues to manage oxygen tubing, supervision ) Upper Body Dressing (QC): 4 (supervision) Lower Body Dressing (FIM): 3 (Help to get both feet into pants and to pull pants up over feet. SBA to pull pants up over hips while standing, FWW. ) Lower Body Dressing (QC): 3 On/Off Footwear (QC): 1 Transfers (B, C, W/C) (FIM): 4 (Physical assist for hand placement, for sit to stand and stand to sit, FWW. Pt educ for modified technique of rolling toward side and pushing up with arm to get out of bed. Pt walked CGA, FWW a few steps to w/c from bed and he may be putting too much weight on R foot. ) Pt has ileostomy and doesn't use toilet much except to empty ileostomy bag. Has been using urinal. Other Treatments Pt and education on rehab process and goals for OT, with their agreement. Education OT Patient Education: Modified ADL techniques, Purpose of tx/functional activities, Reviewed precautions, Rehab process, Safety issues, Transfer techniques, Use of adapted equipment Teaching Recipient: Patient, Family Teaching Methods: Demonstration, Discussion Response to Teaching: Verbalize Understanding, Return Demonstration, Reinforcement Needed OT Short Term Goals Short Term Goals Time Frame: May 06, 2016 Lower Body Dressing(FIM): 4 Toilet/Commode Transfer(FIM): 5 Shower Transfer(FIM): 5 1=Demonstrate adherence to instructed precautions during ADL tasks. 2=Patient will verbalize/demonstrate understanding of assistive devices/ modifications for ADL. 3=Patient will improve strength/tolerance for activity to enable patient to perform ADL's. OT Railroad Track Mechanic Goals Detention Goals Time Frame: May 20, 2016 Eating (FIM): 6 Eating (QC): 6 Groomin Oral Hygiene (QC): 6 Bathing(FIM): 6 Shower/Bathe Self (QC): 6 Upper Body Dressing(FIM): 6 Upper Body Dressing (QC): 6 Lower Body Dressing(FIM): 6 Lower Body Dressing (QC): 6 On/Off Footwear (QC): 6 Toileting(FIM): 6 Toileting Hygiene (QC): 6 Toilet/Commode Transfer(FIM): 6 Toilet/Commode Transfer (QC): 6 Shower Transfer(FIM): 6 Pt will increase bilat UE strength to 5/5 as needed for self care and transfers Additional Goals: 2-Verbalize Understanding, 3-ImproveStrength/[place] 1=Demonstrate adherence to instructed precautions during ADL tasks. 2=Patient will verbalize/demonstrate understanding of assistive devices/ modifications for ADL. 3=Patient will improve strength/tolerance for activity to enable patient to perform ADL's. OT Education/Plan Problem List/Assessment Assessment: Decreased Activ Tolerance (O2 at night but on at 2L/min today), Decreased Safety Aware, Decreased UE Strength, Dependent Transfers, Impaired Bed Mobility, Impaired Cognition, Impaired Funct Balance, Impaired Self-Care Skills Pt would benefit from skilled OT to increase his independence in basic self care to allow him to return to his home safely after R great toe amputation. Discharge Recommendations Plan/Recommendations: Continue POC Therapy D/C Recommendations: Home w/ Family Support Treatment Plan/Plan of Care Treatment,Training & Education: Yes Patient would benefit from OT for education, treatment and training to promote independence in ADL's, mobility, safety and/or upper extremity function for ADL' s. Plan of Care: ADL Retraining, Functional Mobility, Group Exercise/Act as Ind ( educaiton, exercise, activity tolerance, memory, problem solving), UE Funct Exercise/Act, UE Neuromus Re-Ed/Coord Treatment Duration: May 20, 2016 # of days/week 5-6 Visits Per Week: 10-11 Minutes/Day (M-F): 75-90 Minutes/Day (Sat/Gu[place]): PRN Agreement: Yes Rehab Potential: Good Time/GCodes Start Time: 13:00 Stop Time: 14:25 Total Time Billed (hr/min): 85 Billed Treatment Time visit, 15 evaluation high intensity, ADL 70 minutes CRISTA BARBOSA OT Apr 29, 2016 14:53
--- NOTE | 2016-04-29 15:06 | ST Cognitive Linguistic Eval ---
Speech Evaluation-General Therapy Diagnosis Therapy Diagnosis: Mild Cognitive Impairment Precautions Precautions/Isolations: Fall Prevention, Standard Precautions, Pressure Ulcer Referral Referring Physician: Dr. Elvis Sierra Reason for Referral: Evaluation/Treatment Cognitive Evaluation Medical History Pertinent Medical History: Arthritis, CAD, COPD, DM, Dementia, HTN, Hypothroidism, Neuropathy Reviewed History: Yes Speech PLF-Current Status Prior Level of Function The patient reported baseline difficulties with word-finding and memory. The patient denied changes of these difficulties throughout his hospitalization, however, stated he would be interested in learning strategies for improvement of these areas. Subjective The patient was recently admitted to [facility] following an amputation. The patient greeted the clinician appropriately and agreed to participate in the cognitive screen on this date. Language Eval: Auditory Comprehends Simple Yes/No Ques: Functional Indent/Objects Multiple Barger: Functional Ident/Pics in Multiple Barger: Functional Follows 1-Step Commands: Functional Follows Complex Directions: Mild (Repetition required for increased accuracy.) Follows General Conversations: Mild (Intermittent repetition required which may be secondary to reduced hearing.) Language Eval: Verbal Language Completes Spontaneous Greeting: Functional Produces Auto, Serial Info: Mild Imitates Simple Words/Phrases: Functional Word Finding: Mild Requests Basic Needs: Functional States Basic Personal Info: Functional Expresses Complex Ideas: Mild Cognitive Patient Orientation The patient was oriented to month, day, date, year, and location. Objective Cognitive Domain Attention: WNL Memory: Mild Problem Solving: Mild Objective Impression The patient demonstrated a mild cognitive impairment, specifically in the area of memory (immediate and delayed recall). While the patient reported his cognitive functions are at baseline, he is interested in learning new strategies for functional improvement. Communication/Social Cognition Comprehension: 3 Expression: 4 Social Interaction: 5 Problem Solvin Memory: 3 Speech Patient Assess Expression of Ideas/Wants: Exhibits (3) Understanding Vebal Content: Usually Understands (3) Brief Interview-Mental Status: Yes Repetition of Three Words: Three (3) Temporal Orientation: Year: Correct (3) Temporal Orientation: Month: Accurate within 5 days(2) Temporal Orientation: Day: Correct (1) Recall : Wear to say "Sock": No, could not recall (0) Recall : Color: Yes, no cue required (2) Recall : Bed: No, could not recall (0) Speech Short Term Goals Short Term Goals Short Term Goals 1. The patient will demonstrate and recall two functional memory strategies for use at home, independently. 2. The patient will demonstrate 90% accuracy with functional safety problem solving, independently. 3. The patient will demonstrated 80% accuracy with structured word-finding tasks. Time Frame-STG: Two Weeks Speech Options Advisor Goals Intermediate Goals 1. The patient will demonstrated improved cognitive linguistic function for increased safety and function with ADL's. Time Frame: Three Weeks Comprehension: 4 Expression: 4 Social Interaction: 5 Problem Solvin Memory: 4 Speech-Plan Treatment Plan Speech Therapy Treatment Plan: Continue Plan of Care Continue skilled speech therapy to target functional memory strategies and word- finding. Treatment Duration: May 27, 2016 # of days/week Four to Five. Visits Per Week: Four to five. Rehab Potential: Guarded Safety Risks/Education Teaching Recipient: Patient, Significant Other Teaching Methods: Discussion Response to Teaching: Verbalize Understanding Education Topics Provided: Plan of Care, Results, Recommendations Time Speech Therapy Time In: 14:27 Speech Therapy Time Out: 14:42 Total Billed Time: 15 Billed Treatment Time 1, CADEN CARDOZA Apr 29, 2016 15:06
[2016-04-29 16:00] VITALS: BP 135/75
--- NOTE | 2016-04-29 16:06 | Physical Therapy Evaluation ---
PT Evaluation-General Medical Diagnosis Admission Date Apr 29, 2016 at 13:00 Medical Diagnosis: Amputation R great toe, osteomyelitis Onset Date: Apr 21, 2016 Therapy Diagnosis Therapy Diagnosis: impaired mobility, strength, enduance, balance Height/Weight Height (Feet): 5 Height (Inches): 8.00 Weight (Pounds): 225 Weight (Ounces): 0.0 Precautions Precautions/Isolations: Fall Prevention, Standard Precautions, Pressure Ulcer Weight Bear Status Weight Bearing Restriction: Touch Toe Bearing Location Restriction: R LE Referral Physician: Rigo Reason for Referral: Evaluation/Treatment Medical History Pertinent Medical History: Arthritis, CAD, COPD, DM, Dementia, HTN, Hypothroidism, Neuropathy, Prostate CA, PVD Additional Medical History heel spur right foot; uses CPAP at home Current History amputation of right great toe Reviewed History: Yes Social History Home: Single Level Current Living Status: Spouse Entry Into Home: Level Entry Prior/Core FIM Prior Level of Function Functional [place] Measure 0=Not Assessed/NA 4=Minimal Assistance 1=Total Assistance 5=Supervision or Setup 2=Maximal Assistance 6=Modified [place] 3=Moderate Assistance 7=Complete [place] Bed Mobility: 5 Transfers (B,C,W/C) (FIM): 5 Gait: 5 spouse is primary caregiver, uses both a single point cane and walker but primarily the cane PT Evaluation-Current Subjective Patient sitting in wheelchair pre tx, agrees to PT, states he has pain of 7/10 in right foot due to amputation. Pt/Family Goals to be able to go home and help take care of himself Objective Patient Orientation: Person, Place, Situation Attachments: Oxygen ROM/Strength ROM Lower Extremities generally limited Strenght Lower Extremities right lower extremity hip flexion 3/5, knee flexion 3+/5, knee extension 3+/5, ankle not tested - left lower extremity hip flexion 4-/5, knee flexion 4/5, knee extension 4/5, dorsiflexion 4/5 Integumentary/Posture Bowel Incontinence: No Bladder Incontinence: No Neuromuscular (Tone, Coordination, Reflexes) decreased coordination in both lower extremities Sensory Vision: Wears Glasses Hand Dominance: Right Sensation Right Lower Extremit: Impaired Sensation Left Lower Extremity: Impaired Sensation Lower Extremities Patient has no light touch sensation in right foot and decreased in the lower leg, left leg has decreased sensation Transfers Functional [place] Measure 0=Not Assessed/NA 4=Minimal Assistance 1=Total Assistance 5=Supervision or Setup 2=Maximal Assistance 6=Modified [place] 3=Moderate Assistance 7=Complete IndependenceIRFPAI Quality Coding Scale 6 Independent with activity with or without an assistive device 5 Patient requires set up or clean up by helper. Patient completes activity by themselves 4 Supervision or touching assist (CGA). Fleming provide cues , steadying assist 3 The helper provides less than half the effort to complete the activity 2 The helper provides more than half the effort to complete the activity 1 Dependent. The helper does all the effort to complete an activity 7 Patient refused to complete or attempt activity 9 The patient did not perform the activity before the current illness or injury 88 Not attempted due to Medical conditions or safety concerns Transfers (B, C, W/C) (FIM): 3 Scootin Rollin Roll Left to Right (QC): 4 Supine to/from Sit: 3 Sit to/from Stand: 4 bed t/f WC(FIM only if WC use): 3 Sit to Lying (QC): 4 Lying to Sitting/Side of Bed(Q: 3 Sit to Stand (QC): 4 Chair/Xea-dg-Vfnjf Xfer(QC): 3 Car Transfer (QC): 88 Patient performs bed mobility with SBA except for supine to sit which he needs min assist, he performs a stand pivot transfer with min assist, and needs min assist to stand from low surfaces Gait Does the Patient Walk?: Yes Mode of Locomotion: Walk Anticipated Mode of Locomotion: Walk Gait (FIM): 1 Walk 10 feet (QC): 4 Walk 50 ft with 2 Turns(QC): 88 Walk 150 ft (QC): 88 Walking 10ft/uneven surface-QC: 88 Distance: 10'x2 Gait Level of Assist: 4 Gait Persons Needed: 1 Gait Assistive Device: FWW Comments/Gait Description Patient ambulates 10' with a rolling walker with CGA, cues for safety and direction, slow, antalgic, not compliant with his weight bearing status Wheelchair Training Does the Pt Use a Wheelchair?: Yes Wheelchair (FIM): 4 Distance: 150'x2 Wheelchair Level of Assist: 4 Wheel 50 ft with 2 turns (QC): 3 Wheel 150 ft (QC): 3 Type of Wheelchair: Manual Patient is min assist for wheelchair mobility due to occasionally needing assist when turning around obstacles or doors Stairs If not tested on admit;explain Not performed due to safety reasons, patient is not strong enough to even attempt one step. Balance Sitting Static: Normal Sitting Dynamic: Normal Standing Static: Poor Standing Dynamic: Poor Picking up an Object (QC): 88 Treatment NuStep 10 min level 3 Assessment/Needs Patient has impairments in general mobility, strength, endurance, balance. He gets SOB very easily and needs frequent rest breaks to recover. Rehab Potential: Poor Post Rehab Potential-Barriers: Patient's pulmonary function is going to be a large barrier to progressing PT Short Term Goals Short Term Goals Time Frame: May 06, 2016 Transfers (B,C,W/C) (FIM): 4 (CGA) Gait (FIM): 2 Gait Distance Comment: 50' Gait Level of Assist: 4 (CGA) Gait Assistive Device: FWW PT [place] Goals Group Home Goals PT Group Home Goals Time Frame: May 20, 2016 Transfers (B,C,W/C) (FIM): 5 Sit to Lying (QC): 4 Lying-Sitting on Side/Bed(QC): 4 Sit to Stand (QC): 4 Rollin Roll Left to Right (QC): 4 Chair/Jby-jc-Zwgik Xfer(QC): 4 Car Transfer (QC): 4 Gait (FIM): 5 Distance: 150' Walk 10 feet (QC): 4 Walk 10ft-Uneven Surface(QC): 4 Walk 50ft with 2 Turns (QC): 4 Walk 150 ft (QC): 4 Gait Level of Assist: 5 Gait Assistive Device: FWW Wheelchair (FIM): 6 Distance: 150' Wheel 50 feet with 2 turns (QC: 6 PT Plan Problem List Problem List: Activity Tolerance, Functional Strength, Safety, Balance, Gait, Transfer, Bed Mobility, ROM Treatment/Plan Treatment Plan: Continue Plan of Care Treatment Plan: Bed Mobility, Education, Functional Activity [place], Functional Strength, Group Therapy, Gait, Safety, Therapeutic Exercise, Transfers Treatment Duration: May 20, 2016 # of days/week 5-6 Visits Per Week: 10-11 Minutes/Day (M-F): 60-90 Minutes/Day (Sat/Guerrero): 15-30 Pt/Family Agrees w/Plan: Yes Safety Risks/Education Patient Education: Gait Training, Transfer Techniques, Correct Positioning, W/ C Management, Safety Issues Teaching Recipient: Patient Teaching Methods: Demonstration, Discussion Response to Teaching: Reinforcement Needed Discharge Recommendations Plan Patient will perform bed mobility and transfer training, balance and endurance training, functional strengthening, stair training, gait training, education, to improve functional mobility and independence at home. Therapy D/C Recommendations: Home w/ Family Support, [facility] (TCU/[facility]) Time/GCodes Time In: 1442 Time Out: 1602 Total Billed Treatment Time: 80 Total Billed Treatment 1 visit EVM 15 min [facility] 15 min FA 15 min GT 35 min SHUN MULLINS PT Apr 29, 2016 16:06
[2016-04-29] MEDS: ALFUZOSIN HCL 10 MG TAB (UROXATRAL) PO SCH (17:31)
[2016-04-29] MEDS: HYDROcodone/APAP 5 MG/325 MG (LORTAB) TAB PO PRN (17:32)
[2016-04-29] MEDS: RT-ALBUTEROL/IPRATROPIUM 3 ML (DUONEB) VIAL INH SCH ×2 (18:00→22:00)
[2016-04-29] MEDS ORDERED: VANCOMYCIN INJECTION 1,000 MG in NS (IVPB) 250 ML IV SCH (18:15)
--- NOTE | 2016-04-29 18:19 | Podiatry Progress Note ---
Standard Progress Note Progress Notes/Assess & Plan Progress/Assessment & Plan Pt seen at BS, increased erythema and pain to the Right ankle. Complains of low grade fevers today. Increased WBC today. RLE- wound edges well intact to the amputation site, hyperemia noted to the incision, increased erythema to the medial ankle noted with skin sloughing and serous drainage, + fluctuance noted to medial ankle Final Diagnosis POD #3 Right Great Toe Amputation Cellulitis right ankle -Restart Vancomycin -Repeat MRI Right Ankle -Consider I&D Right Ankle pending MRI results -Pt made aware that he is very high risk and may require BK amputation if he is nonhealing. MIGUEL BYERS DPM Apr 29, 2016 18:19
[2016-04-29 18:34] VITALS: BP 123/72
[2016-04-29] MEDS: CARVEDILOL 6.25 MG (COREG) TAB PO SCH (20:23)
[2016-04-29] MEDS: ATORVASTATIN 40 MG (LIPITOR) TABLET PO SCH (20:23)
[2016-04-29] MEDS: BENAZEPRIL 20 MG (LOTENSIN) TAB PO SCH (20:23)
[2016-04-29] MEDS: PANTOPRAZOLE 40 MG (PROTONIX) TAB PO SCH (20:23)
[2016-04-29] MEDS: ASPIRIN 81 MG CHEW (CHILDREN'S ASA) PO SCH (20:23)
[2016-04-30] MEDS: RT-ALBUTEROL/IPRATROPIUM 3 ML (DUONEB) VIAL INH SCH ×6 (02:00→22:00)
[2016-04-30 05:20] VITALS: BP 111/69
[2016-04-30 06:04] LABS: BASOPHILS % (AUTO) 0 % (0-10); EOSINOPHILS # (AUTO) 0.3 10^3/uL (0.0-0.3); EOSINOPHILS % (AUTO) 1 % (0-10); LYMPHOCYTES # (AUTO) 1.7 X 10^3 (1.0-4.0); LYMPHOCYTES % (AUTO) 8 % (12-44); MEAN CORPUSCULAR HEMOGLOBIN 32 PG (25-34); MEAN CORPUSCULAR HGB CONC 33 G/DL (32-36); MEAN CORPUSCULAR VOLUME 97 FL (80-99); MEAN PLATELET VOLUME 9.1 FL (7.4-10.4); MONOCYTES % (AUTO) 9 % (0-12); NEUTROPHILS # (AUTO) 17.8 X 10^3 (1.8-7.8); NEUTROPHILS % (AUTO) 82 % (42-75); PLATELET COUNT 328 10^3/uL (130-400); RED BLOOD COUNT 2.74 10^6/uL (4.35-5.85); RED CELL DISTRIBUTION WIDTH 14.3 % (10.0-14.5); WHITE BLOOD COUNT 21.8 10^3/uL (4.3-11.0)
[2016-04-30] MEDS: LEVOTHYROXINE 50 MCG (LEVOTHROID) TAB PO SCH ×2 (06:17→20:54)
[2016-04-30] MEDS: HYDROcodone/APAP 5 MG/325 MG (LORTAB) TAB PO PRN ×3 (06:18→22:14)
[2016-04-30 06:30] LABS: ALBUMIN 2.4 G/DL (3.2-4.5); BILIRUBIN,TOTAL 0.4 MG/DL (0.1-1.0); CALCIUM 8.9 MG/DL (8.5-10.1); CREATININE SERUM 1.93 MG/DL (0.60-1.30)
[2016-04-30] MEDS: BENAZEPRIL 20 MG (LOTENSIN) TAB PO SCH ×2 (08:27→20:35)
[2016-04-30] MEDS: amLODIPine 10 MG (NORVASC) TAB PO SCH (08:27)
[2016-04-30] MEDS: CARVEDILOL 6.25 MG (COREG) TAB PO SCH ×2 (08:27→20:35)
[2016-04-30] MEDS: CLOPIDOGREL 75 MG (PLAVIX) TABLET PO SCH (08:27)
[2016-04-30] MEDS: fluCOnazole (DIFLUCAN) 100 MG TAB PO SCH (08:27)
[2016-04-30] MEDS: VANCOMYCIN INJECTION 1,250 MG in NS (IVPB) 250 ML IV SCH (08:27)
--- NOTE | 2016-04-30 08:45 | Diagnostic Imaging Report ---
PROCEDURE: MRI right joint lower extremity without contrast. TECHNIQUE: A multiplanar/multisequence noncontrast enhanced MRI of the right lower extremity was accomplished. INDICATION: Followup for abscess. COMPARISON: 04/23/2016. FINDINGS: The chronic end-stage degenerative changes along the talotibial joint and the talocalcaneal joint are again noted. Edema along the lateral aspect of the talus is unchanged. The marrow signal throughout has not changed since the previous exam. There has been development of diffuse subcutaneous edema, consistent with cellulitis. There is a fluid collection now present in the soft tissues along the posterior calcaneus on the plantar surface. This measures approximately 3 x 1.5 cm. The adjacent calcaneal marrow signal is normal. The tendons and ligaments remain intact. IMPRESSION: 1. Development of subcutaneous edema, consistent with cellulitis, throughout the ankle. There is a loculated fluid collection developing posterior to the calcaneus on the plantar surface measuring 3 x 1.5 cm. 2. The marrow signal is unchanged within the ankle. The edematous changes along the lateral talus are unchanged. These may represent chronic degenerative osteoarthritic changes as opposed to osteomyelitis. Clinical correlation and followup are recommended. Dictated by: Dictated on workstation # [id number]
--- NOTE | 2016-04-30 09:10 | Progress Note-Hospitalist ---
Progress Note Progress Notes/Assess & Plan Date Seen 04/30/16 Diagonsis/Assessment & Plan I did speak to podiatry last night in depth and vancomycin was restarted due to the elevated white count and fever. MRI noted with loculated fluid patient likely needs a BKA I had an in-depth conversation with the outside the room after I saw the patient in the prognosis is so dismal that I will have palliative care nurse see him evaluate the case because patient is a hospice candidate with or without BKA Patient is unable to really surmount any type of effort to overcome and recover Acute renal failure is complicating the issue in addition he just completed antibiotics for the pneumonia for 7 days of aggressive IV antibiotic therapy and that is only going to be temporary Very difficult situation and considering his dementia is quite severe and worsening to the point that the is resolved that this will be the end of his life and they agreed for fci placement regardless of which direction we go DO NOT RESUSCITATE will be maintained Febrile 100.4, Chronically ill, decline, recall very poor Regular rate and rhythm, coarse breath sounds all taylor but no tachypnea Right foot dressing in place Laboratory Tests 04/30/16 05:50 Assessment: Right foot cellulitis with severe peripheral vascular disease w/osteomyelitis on MRI and nuclear scan podiatry on board and s/p Amputation of right great toe Friday POD #4 but now w/fever and loculation on MRI likely will need BKA to resolve but now end of life with ARF likely unrecoverable Fever with hypoxia and progression of chest x-ray with infiltrate consistent with pneumonia placed on Zosyn and Levaquin in addition to Vanc completed antibiotics History of COPD Severe sleep apnea requiring CPAP Chronic nasal congestion requiring Afrin and breathing easy strips History of prostate cancer Hypertension Hypothyroidism Cognitive decline Debility UTI hx Colitis requiring ileostomy hx Poor IV access requiring midline placement DVT prophylaxis with Lovenox Peripheral vascular disease requiring Plavix after stents placed Hyperkalemia of unknown source holding NAVI inhibitor and giving one dose of Kayexalate Plan: Patient status is unrecoverable after extensive an in-depth evaluation of the case Palliative care consult Likely will need discharge to fci on hospice for end-of-life care I think it's futile for the discomfort of a BKA if the end result is not been to be any much more improved than a hospice candidate that he is currently I will confer with podiatry YAS PARTIDA DO Apr 30, 2016 09:10
[2016-04-30] MEDS: ENOXAPARIN 40 MG/0.4 ML (LOVENOX) SYR SC SCH (10:33)
--- NOTE | 2016-04-30 11:03 | HISTORY AND PHYSICAL ---
DATE OF ADMISSION: 04/29/2016 CHIEF COMPLAINT: Difficulty with walking. HISTORY OF PRESENT ILLNESS: The patient is an 81-year-old male who presented at [facility] ED on 04/21 with complaints of redness, swelling, pain, right foot. The patient went on to have amputation of the right toe with Dr. Jazzmine DPM secondary to osteomyelitis of the distal phalanx. 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 The patient had been modified independent with a roll aid or walker prior to this but now requires assistance for his ADLs and mobility skills and is referred to Inpatient Rehabilitation Unit at this time. 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 He has a bath chair, grab bars, after school coordinator, shower hose mine surveyor and toilet riser at home. He has an ileostomy and he needs help to wash his pamela area. He is modified independent for her eating. Min assist for upper body dressing. Mod assist for lower body dressing. Min assist for transfers. He is min assist for ambulation short distances with a front wheel walker. Dr. Dover has reassess him this evening due to leukocytosis associated with low-grade fever and increased tenderness in the right ankle; an MRI has been ordered of the right leg in the a.m. PAST MEDICAL HISTORY: 1. Obstructive sleep apnea. 2. Prostate cancer. 3. Coronary artery disease. 4. Lymphedema. 5. Depression. 6. Hypercholesteremia. 7. Hypertension. 8. Colitis. PAST SURGICAL HISTORY: 1. Status post ileostomy, remote for treatment of colitis. 2. Abdominal hernia repair. 3. He has had prostate seeds implanted for prostate cancer. 4. Cataract extraction. 5. Cholecystectomy. 6. Tonsillectomy. 7. Multiple interventions peripheral vascular disease. He has had a stent recently for circulatory issues of the left lower extremity with DR Del Foss. 8. Coronary stent ALLERGIES: 1. SULFA. 2. CLINDAMYCIN. FAMILY HISTORY: Noncontributory. SOCIAL HISTORY: Retired, lives with spouse in [place], [place]. Dr. Brina Persaud was his PCP. He is to see Dr. Kevin Payan as a new patient upon discharge from here. Hospitalist service has been managing the patient here along with Dr. Dover. REVIEW OF SYSTEMS: Ten-point review of systems significant for tenderness. Pain right foot, numbness both feet. MEDICATIONS: 1. Lovenox 40 mg subcutaneous daily. 2. Plavix 75 mg p.o. daily. 3. Amlodipine 10 mg p.o. daily. 4. Diflucan 100 mg p.o. daily for perineal rash. 5. The patient also has a rash on his back and Benadryl p.r.n. hydrocortisone cream has been ordered. 6. Levothyroxine 50 mcg p.o. daily. 7. Vancomycin IV daily started by Dr. Dover today. 8. Coreg 6.25 mg p.o. b.i.d. 9. Protonix 40 mg p.o. at bedtime. 10. ASA 81 mg p.o. at bedtime. 11. Lotensin 20 mg p.o. b.i.d. 12. Lipitor 40 mg p.o. at bedtime. 13. Uroxatral 10 mg p.o. daily. 14. DuoNeb treatments q. 4 hours . 15. Lortab 5, 1 to 2 tablets p.o. q.6 hours p.r.n. moderate pain. 16. Tylenol 650 mg p.o. 650 mg q.4 hours p.r.n. fever or mild pain. 17. Ibuprofen 400 mg p.o. q.6 hours p.r.n. mild pain. 18. Xanax 0.5 mg p.o. q.6 hours p.r.n. anxiety. 19. Flonase 2 sprays daily p.r.n. rhinitis 20. Benadryl 25 mg ordered today q.6 hours p.r.n. itch. PHYSICAL EXAMINATION: Physical examination is significant for a pleasant male, appearing his stated age, sitting in wheelchair in no acute distress. VITAL SIGNS: Blood pressure is 123/72, respirations 16, pulse 78, temperature of 100.1, O2 sat 94% on 2 liters of O2 by nasal cannula. HEENT: Vision, speech, hearing, grossly intact. O2 by nasal cannula in place. No oral lesion is noted. NECK: Supple without mass. HEART: Regular rhythm. CHEST: Clear. ABDOMEN: Obese, soft, nontender. Bowel sounds present ileostomy is functioning. EXTREMITIES: The patient has the right foot NAVI wrapped, left foot trace edema. There is mild tenderness and swelling in the right ankle and calf with associated erythema. MUSCULOSKELETAL: The patient has functional active range of motion in both upper extremities. Left lower extremity. The right lower extremity functional proximally. Distal limited due to swelling and pain. NEUROLOGICAL: He has a decreased sensation to touch both feet, right more than left. Cognition grossly intact. SKIN: He has an erythematous rash over the back. He has a fungal appearing rash in the perineal area. IMPRESSION: 1. Ambulatory dysfunction secondary to diabetic foot ulcer, status post amputation right great with apparent worsening of symptoms associated with low-grade fever and leukocytosis with a white count today is 19.3; awaiting further imaging studies and treatment by podiatry in a.m. 2. Fever associated with above. 3. Postoperative anemia. 4. Peripheral neuropathy. 5. History of diabetes mellitus. 6. COPD on inhalers. 7. Hypothyroidism on replacement. 8. History of prostate cancer, status post treatment with seeds. 9. Status post stenting left leg for peripheral vascular disease outside facility. 10. Obstructive sleep apnea. 11. Primary osteoarthritis, right ankle and foot. 12. Atherosclerotic heart disease. 13. Depression, on medication. 14. Hypercholesteremia, on statin. 15. Ileostomy status due to history of colitis. 16. Dermatitis involving the back. 17. Fungal groin rash. PLAN: The patient will comprehensive program of inpatient rehabilitation with a goal of maximizing level of functional dependence prior to discharge home with spouse and home health care. The patient will have PT/OT 90 minutes per day, each discipline 5 days week for gait strengthening, conditioning, ADLs, any patient/family/caregiver training necessary, any adaptive equipment and training necessary. Speech therapy do cognitive assessment and treat as indicated. Rehabilitation nursing assist with bowel, bladder, skin, wound care, medication administration, pain management. Follow-up labs in a.m. follow-up Dr. Dover and hospitalist service as per their schedules. Follow-up regarding MRI of the right lower extremity in a.m. tare worker to assist with discharge planning, community reentry. Follow-up with respiratory therapy regarding treatments and monitoring O2 sats and O2 administration. ESTIMATED LENGTH OF STAY: Two weeks. PROGNOSIS: Rehab prognosis appears guarded somewhat at this point due to possible revision surgery of the right lower extremity due to his low-grade fever possible cellulitis/osteomyelitis. Continue current antibiotics. DIET: Regular for now. Check to see what his fasting blood sugar is in a.m. CODE STATUS: Do Not Resuscitate. His fasting blood glucose this morning was only mildly elevated at 108, although his creatinine was 1.31 C-reactive protein 27.36 on 04/21/16, elevated. Magnesium was low at 1.4. POST ADMISSION PHYSICIAN ASSESSMENT: The preadmission screen unfortunately does not entirely correlate with the post admission assessment due to the patient's leukocytosis associated with low grade fever and apparent worsening of his right lower extremity infection. The patient appears to be willing to participate in 3 hours of therapy a day. I am uncertain if he will be able to tolerate it from a medical and surgical standpoint due to the above. Hopefully the situation will be resolved quickly and we were able to move, the patient will be able to more fully benefit from the 3 hours of therapy a day. He has a reasonable discharge plan thus far, a supportive family and reasonable discharge rehabilitation goals which would be for him to be modified independent to supervision for ADLs and mobility skills at the wheelchair level as necessary if he is unable to tolerate or unable to bear weight on his right lower extremity. He has various comorbidities that need to be closely monitored with medications and treatments adjusted on a daily basis as needed. These include his apparent worsening infection in his right lower extremity, his peripheral vascular disease, his obstructive sleep apnea and coronary artery disease. Barriers for discharge for this patient who is reported to have been modified independent prior to all this are for him to be modified independent to supervision for ADLs and mobility skills prior to discharge home with family and home health services with good wound healing and viable residual limb. Risks for this patient include: 1. Prior amputation level for this patient. The patient may require vascular surgery consult to outside hospital. 2. Falls. 3. Fracture. 4. DVT. 5. Pulmonary embolism. 6. Urinary retention. 7. UTI. 8. Respiratory infection. 9. Aspiration. We will continue Lovenox for now, for DVT prophylaxis. Will most likely have to be held if the patient has revision surgery. Job ID: [id number] Dictated Date: 04/29/2016 20:39:37 Respiratory Care Technician Date: 04/30/2016 10:25:11/frieda SALAS
--- NOTE | 2016-04-30 13:06 | PM & R (SOAP) Progress Note ---
Subjective Subjective/Events-last exam Patient was seen in his room earlier today Case discussed with RN Appreciate DR Alex foster and DR France note Patients family has requested a consult with DR Meg leyva further recs in treatment of cellulitis,Patients fever down with with Antibiotics Patient missing some therapies today due to medical issues. Review of Systems Musculoskeletal: : foot pain Neurological: : Numbness: Weakness Objective Exam Last Set of Vital Signs Vital Signs Date Time Temp Pulse Resp B/P Pulse Ox O2 Delivery O2 Flow Rate FiO2 04/30/16 10:11 95 2.00 04/30/16 09:20 Nasal Cannula 04/30/16 05:20 99.8 89 16 111/69 Capillary Refill : I&O Bad tableGeneral: Alert, Cooperative, No Acute Distress HEENT: Atraumatic, PERRLA, EOMI, Mucous Memb Moist/[place] Neck: Supple, No JVD Lungs: Clear to Auscultation Heart: Regular Rate Abdomen: Normal Bowel Sounds, Soft, No Tenderness Extremities: Other (rt foot wrapped) Neuro: Other (mild cognitive impairment in memory as per ST Apparently chronic) Results Lab Laboratory Tests 04/30/16 05:50: Alanine Aminotransferase (ALT/SGPT) 8, Albumin 2.4L, Alkaline Phosphatase 60, Anion Gap 12, Aspartate Amino Transf (AST/SGOT) 16, BUN/Creatinine Ratio 11, Basophils # (Auto) 0.0, Basophils (%) (Auto) 0, Blood Urea Nitrogen 22H, Calcium Level 8.9, Carbon Dioxide Level 19L, Chloride Level 102, Creatinine 1.93H, Eosinophils # (Auto) 0.3, Eosinophils (%) (Auto) 1, Estimat Glomerular Filtration Rate 33, Glucose Level 94, Hematocrit 27L, Hemoglobin 8.7L, Lymphocytes # (Auto) 1.7, Lymphocytes (%) (Auto) 8L, Mean Corpuscular Hemoglobin 32, Mean Corpuscular Hemoglobin Concent 33, Mean Corpuscular Volume 97, Mean Platelet Volume 9.1, Monocytes # (Auto) 2.0H, Monocytes (%) (Auto) 9, Neutrophils # (Auto) 17.8H, Neutrophils (%) (Auto) 82H, Platelet Count 328, Potassium Level 4.0, Red Blood Count 2.74L, Red Cell Distribution Width 14.3, Sodium Level 133L, Total Bilirubin 0.4, Total Protein 5.0L, White Blood Count 21.8H Assessment/Plan Assessment s/p rt great toe amputation DR Dover DPM due to PVD with associated Infection Low grade fever due to cellulitis responding to antibiotics JANIS Mild cognitive impairment DNR status HTN S/P ileostomy remote for treatment of colitis Depression Plan Awaiting DR Milian opinion Patient may best be served by going to a OSH that has A vascular Surgeon and an Infectious Disease Specialist available. Discussed case with PRIMITIVO HUDSON and Gas Cutter RONI ISLAS MD Apr 30, 2016 13:06
--- NOTE | 2016-04-30 14:43 | Physical Therapy Daily Note ---
PT Daily Note-Current Subjective Pt is recliner back in recliner with feet up and propped on pillow upon arrival. Dr. Dover has arrived and is visiting with nurse and family in regards to what they want to do in regards to medical concerns. Pt reluctantly agrees to PT. Pt does state he doesn't really want to but I will if he has to. PT explained pt's right to refuse as well as benefit of Therapy. Pain Numeric Pain Scale: 8 Location: Right Location Body Site: Foot Pain Description: Stabbing Mental Status Patient Orientation: Person Attachments: Oxygen Transfers Functional [place] Measure 0=Not Assessed/NA 4=Minimal Assistance 1=Total Assistance 5=Supervision or Setup 2=Maximal Assistance 6=Modified [place] 3=Moderate Assistance 7=Complete IndependenceIRFPAI Quality Coding Scale 6 Independent with activity with or without an assistive device 5 Patient requires set up or clean up by helper. Patient completes activity by themselves 4 Supervision or touching assist (CGA). [place] provide cues , steadying assist 3 The helper provides less than half the effort to complete the activity 2 The helper provides more than half the effort to complete the activity 1 Dependent. The helper does all the effort to complete an activity 7 Patient refused to complete or attempt activity 9 The patient did not perform the activity before the current illness or injury 88 Not attempted due to Medical conditions or safety concerns Weight Bearing Weight Bearing Restriction: Touch Toe Bearing Location Restriction: R LE Exercises Supine Ex: Ankle pumps, Straight leg raise (Assisted pt in lifting to reposition legs on pillow) Supine Reps: 20 Treatments Pt was hard to keep awake during tx but gave permission to PT to talk to pt's son. PT was asked the benefit for Therapy if pt was to have all "these medical issues". PT explained finding balance between Quality of Life and Prolonging Life based on what family decided to do medically. PT attempted to lower pt's legs to put pt in seated position but pt voiced sharp increase in pain and asked to raise legs back up. Pt attempted AP & SLR in supine although hard to keep pt awake. Pt and family are awaiting Dr Weaver consult for 2nd opion to decide what to do next. Pt is left with all needs met at end of tx. Assessment Current Status: Poor Progress Pt is not motivated and ongoing medical concerns hampering tx. Pt just wants to sleep and is hard to keep awake. Per Gluing Pressman after Dr Weaver visit, Pt will have surgery tomorrow with Dr Dover to address ongoing medical concern with R foot. PT Short Term Goals Short Term Goals Time Frame: May 06, 2016 Transfers (B,C,W/C) (FIM): 4 (CGA) Gait (FIM): 2 Gait Distance Comment: 50' Gait Level of Assist: 4 (CGA) Gait Assistive Device: FWW Wheelchair Distance: 150'x2 PT Intermediate Goals Intermediate Goals PT Quantitative Consultant Goals Time Frame: May 20, 2016 Transfers (B,C,W/C) (FIM): 5 Sit to Lying (QC): 4 Lying-Sitting on Side/Bed(QC): 4 Sit to Stand (QC): 4 Rollin Roll Left to Right (QC): 4 Chair/Iaz-wy-Rcbmd Xfer(QC): 4 Car Transfer (QC): 4 Gait (FIM): 5 Distance: 150' Walk 10 feet (QC): 4 Walk 10ft-Uneven Surface(QC): 4 Walk 50ft with 2 Turns (QC): 4 Walk 150 ft (QC): 4 Gait Level of Assist: 5 Gait Assistive Device: FWW Wheelchair (FIM): 6 Distance: 150' Wheel 50 feet with 2 turns (QC: 6 PT Plan Problem List Problem List: Activity Tolerance, Functional Strength, Safety, Balance, Gait, Transfer Treatment/Plan Treatment Plan: Continue Plan of Care Treatment Plan: Bed Mobility, Education, Functional Activity [place], Functional Strength, Group Therapy, Gait, Safety, Therapeutic Exercise, Transfers Treatment Duration: May 20, 2016 Visits Per Week: 10-11 Minutes/Day (M-F): 60-90 Minutes/Day (Sat/Gu[place]ro): 15-30 Safety Risks/Education Patient Education: Correct Positioning, Safety Issues Teaching Recipient: Patient, Family Teaching Methods: Discussion Response to Teaching: Verbalize Understanding Time/GCodes Time In: 1115 Time Out: 1145 Total Billed Treatment Time: 30 Total Billed Treatment visit, EX (10m) & FA (20m) LJ FINK PTA Apr 30, 2016 14:43
--- NOTE | 2016-04-30 14:45 | Speech Therapy Daily Note ---
Speech Daily Progress Note Subjective The patient was seated upright in recliner upon entrance. The patient greeted the clinician and agreed to participate in language therapy on this date. Objective Word-Finding: The patient was provided a letter and cues for the patient to identify the specific word. The patient demonstrated moderate difficulty with this task, demonstrating 60% accuracy and requiring moderate clinician verbal cueing throughout. To note, the patient displayed fatigue throughout the session , intermittently closing eyes and requiring gentle verbal prompts for alertness. Assessment Assessment Current Status: Fair Progress Treatment Plan Continue Plan of Care Communication Comprehension: 3 Expression: 4 Social Cognition Social Interaction: 4 Problem Solvin Memory: 3 Speech Short Term Goals Short Term Goals Short Term Goals 1. The patient will demonstrate and recall two functional memory strategies for use at home, independently. 2. The patient will demonstrate 90% accuracy with functional safety problem solving, independently. 3. The patient will demonstrated 80% accuracy with structured word-finding tasks. Time Frame-STG: Two Weeks Speech Assisted Goals Assisted Goals 1. The patient will demonstrated improved cognitive linguistic function for increased safety and function with ADL's. Time Frame: Three Weeks Comprehension: 4 Expression: 4 Social Interaction: 5 Problem Solvin Memory: 4 Speech-Plan Treatment Plan Speech Therapy Treatment Plan: Continue Plan of Care Continue skilled speech therapy to target functional word-finding, problem solving and memory. Treatment Duration: May 27, 2016 # of days/week Four to five. Visits Per Week: Four to five. Rehab Potential: Poor Safety Risks/Education Teaching Recipient: Patient Teaching Methods: Discussion Response to Teaching: Verbalize Understanding Education Topics Provided: Plan of Care Time Speech Therapy Time In: 10:30 Speech Therapy Time Out: 11:00 Total Billed Time: 30 Billed Treatment Time JoséPARAM ELIZABETH [facility]Apr 30, 2016 14:45
--- NOTE | 2016-04-30 14:49 | Occupational Ther Daily Note ---
OT Current Status-Daily Note Subjective Pt seen in room, up in bed, distracted by medical issues and decisions. No pain mentioned. Appearance Alert, cooperative, distracted Mental Status/Objective Patient Orientation: Person Functional [place] Measure 0=Not Assessed/NA 4=Minimal Assistance 1=Total Assistance 5=Supervision or Setup 2=Maximal Assistance 6=Modified [place] 3=Moderate Assistance 7=Complete [place] ADL-Treatment Pt and making decisions regarding medical care of R foot. Functional [place] Measure 0=Not Assessed/NA 4=Minimal Assistance 1=Total Assistance 5=Supervision or Setup 2=Maximal Assistance 6=Modified [place] 3=Moderate Assistance 7=Complete IndependenceIRFPAI Quality Coding Scale 6 Independent with activity with or without an assistive device 5 Patient requires set up or clean up by helper. Patient completes activity by themselves 4 Supervision or touching assist (CGA). [place] provide cues , steadying assist 3 The helper provides less than half the effort to complete the activity 2 The helper provides more than half the effort to complete the activity 1 Dependent. The helper does all the effort to complete an activity 7 Patient refused to complete or attempt activity 9 The patient did not perform the activity before the current illness or injury 88 Not attempted due to Medical conditions or safety concerns Grooming (FIM): 5 (Setup to shave and comb hair, clean dentures, wash face and hands. In w/c at sink) Oral Hygiene (QC): 5 Bathing (FIM): 4 (Sponge bath. pt stood to have pamela and bottom cleaned and barrier cream aplied, FWW. Skinis less today.) Bathing Location: L Arm, R Arm, L Upper Leg, R Upper Leg, L Lower Leg ( including foot), R Lower Leg (including foot) (foot is wrapped), Chest, Abdomen Shower/Bathe Self (QC): 3 Upper Body (FIM): 5 Lower Body Dressing (FIM): 3 (Able to remove and apply slipper sock on L foot with much difficulty, becoming SOA. Not able to put newman shoe on R foot. Able to get pants up and down over bottom, standing SBA FWW.) Toileting (FIM): 4 (Pt uses urinal but is not able to empty it. His typically empties his ileostomy bag and changes it. ) Toileting Hygiene (QC): 3 Toilet/Commode Transfer (FIM): 0 (Does not occur. He has iliostomy bag and uses urinal) Toilet Transfer (QC): 9 Shower Transfer(FIM): 0 (Pt declined shower today due to distraction from medical issues) Pt transferred back to recliner, CGA, FWW. Skilled cues to be sure walker is in correct position before sitting down. More difficulty getting out of bed than recliner due to gel mattress. At end of tx, pt left up in recliner, legs elevated, all needs met. Education OT Patient Education: Purpose of tx/functional activities, Reviewed precautions , Safety issues, Transfer techniques Teaching Recipient: Patient, Family Teaching Methods: Discussion Response to Teaching: Verbalize Understanding, Return Demonstration, Reinforcement Needed OT Short Term Goals Short Term Goals Time Frame: May 06, 2016 Lower Body Dressing(FIM): 4 Transfers (B,C,W/C) (FIM): 4 (CGA) Toilet/Commode Transfer(FIM): 5 Shower Transfer(FIM): 5 1=Demonstrate adherence to instructed precautions during ADL tasks. 2=Patient will verbalize/demonstrate understanding of assistive devices/ modifications for ADL. 3=Patient will improve strength/tolerance for activity to enable patient to perform ADL's. OT Usp Goals Usp Goals Time Frame: May 20, 2016 Eating (FIM): 6 Eating (QC): 6 Groomin Oral Hygiene (QC): 6 Bathing(FIM): 6 Shower/Bathe Self (QC): 6 Upper Body Dressing(FIM): 6 Upper Body Dressing (QC): 6 Lower Body Dressing(FIM): 6 Lower Body Dressing (QC): 6 On/Off Footwear (QC): 6 Toileting(FIM): 6 Toileting Hygiene (QC): 6 Toilet/Commode Transfer(FIM): 6 Toilet/Commode Transfer (QC): 6 Shower Transfer(FIM): 6 Comprehension(FIM): 4 Expression (FIM): 4 Social Interaction(FIM): 5 Problem Solving(FIM): 4 Memory(FIM): 4 Pt will increase bilat UE strength to 5/5 as needed for self care and transfers Additional Goals: 2-Verbalize Understanding, 3-ImproveStrength/[place] 1=Demonstrate adherence to instructed precautions during ADL tasks. 2=Patient will verbalize/demonstrate understanding of assistive devices/ modifications for ADL. 3=Patient will improve strength/tolerance for activity to enable patient to perform ADL's. OT Education/Plan Problem List/Assessment Pt would benefit from skilled OT to increase his independence in basic self care to allow him to return to his home safely after R great toe amputation. Discharge Recommendations Plan/Recommendations: Continue POC Treatment Plan/Plan of Care Patient would benefit from OT for education, treatment and training to promote independence in ADL's, mobility, safety and/or upper extremity function for ADL' s. Plan of Care: ADL Retraining, Functional Mobility, Group Exercise/Act as Ind ( educaiton, exercise, activity tolerance, memory, problem solving), UE Funct Exercise/Act, UE Neuromus Re-Ed/Coord Treatment Duration: May 20, 2016 Visits Per Week: 10-11 Minutes/Day (M-F): 75-90 Minutes/Day (Sat/Gu[place]ro): PRN Agreement: Yes Rehab Potential: Poor Time/GCodes Start Time: 08:30 Stop Time: 09:30 Total Time Billed (hr/min): 60 Billed Treatment Time laura maloney, 60 minutes ADL CRISTA BARBOSA OT Apr 30, 2016 14:49
--- NOTE | 2016-04-30 15:53 | Therapy Group Daily Note ---
Therapy Daily Group Note Exercises LE Seated Exercise, UE Exercise, Other (Memorization) Other/Notes Pt was brought to Group in recliner due to ongoing medical concerns. Pt participated in PT/OT group which consists of Introduction (Name, Where you are from & Favorite Place to Visit), Socialization, Memorization Activity, UE/LE Seated Ex as well as Words of [place] and Encouragement. Pt had difficulty staying awake during Group due to his lack of rest/sleep last night and stress from ongoing medical decisions. Pt would participate when asked but hard to keep awake while others sharing during Group. Pt returned to room to rest at end of tx with all needs met. Start Time: 13:00 Stop Time: 14:10 Total Billed Treatment Time: 70 Total Billed Treatment 1,GRP ALEKSLJ DANDY OPERATOR Apr 30, 2016 15:53
[2016-04-30] MEDS: ALFUZOSIN HCL 10 MG TAB (UROXATRAL) PO SCH (17:10)
[2016-04-30 18:14] VITALS: BP 122/68
[2016-04-30] MEDS: ATORVASTATIN 40 MG (LIPITOR) TABLET PO SCH (20:35)
[2016-04-30] MEDS: HYDROCORTISONE/PRAM 1% CREAM 30 GM TUBE TOP SCH (20:35)
[2016-04-30] MEDS: PANTOPRAZOLE 40 MG (PROTONIX) TAB PO SCH (20:35)
[2016-04-30] MEDS: ASPIRIN 81 MG CHEW (CHILDREN'S ASA) PO SCH (20:53)
[2016-05-01] MEDS: RT-ALBUTEROL/IPRATROPIUM 3 ML (DUONEB) VIAL INH SCH ×4 (02:00→14:00)
[2016-05-01 05:23] VITALS: BP 116/68
--- NOTE | 2016-05-01 07:26 | Progress Note-Hospitalist ---
Progress Note Progress Notes/Assess & Plan Date Seen 05/01/16 Diagonsis/Assessment & Plan PATIENT SCHEDULED FOR DRAINAGE OF LOCULATED FLUID BY PODIATRY TODAY WHICH SEEMS REASONABLE BUT LIKELY WILL REQUIRE BKA ULTIMATELY PATIENT VERY COARSE AND WHEEZING EVEN NOW ON BREATHING TREATMENTS SO SUSPECT RESPIRATORY INSUFFICIENCY POSTOP WI'LL PLACE HIM ON HOSPITALIST SERVICE ON FOURTH FLOOR POSTOP AND THEN ORGANIZED [facility] AT DISCHARGE Febrile 99, Chronically ill, decline, recall very poor, at bedside Regular rate and rhythm, coarse breath sounds all taylor but no tachypnea Right foot dressing in place Assessment: Right foot cellulitis with severe peripheral vascular disease w/osteomyelitis on MRI and nuclear scan podiatry on board and s/p Amputation of right great toe POD #5 but now w/fever and loculation on MRI so I&D today attempting to resolve before BKA entertained Fever with hypoxia and progression of chest x-ray with infiltrate consistent with pneumonia placed on Zosyn and Levaquin in addition to Vanc completed antibiotics now w/continued coarse BS History of COPD Severe sleep apnea requiring CPAP Chronic nasal congestion requiring Afrin and breathing easy strips History of prostate cancer Hypertension Hypothyroidism Cognitive decline Debility UTI hx Colitis requiring ileostomy hx Poor IV access requiring midline placement DVT prophylaxis with Lovenox Peripheral vascular disease requiring Plavix after stents placed Hyperkalemia of unknown source holding NAVI inhibitor and giving one dose of Kayexalate Plan: Patient status is unrecoverable after extensive an in-depth evaluation of the case but still will proceed with I&D today then move to 4th floor to begin process of NH placement on skilled for slow recovery is able to recover Palliative care consult Likely will need discharge to [facility] on hospice for end-of-life care Check labs in YAS Perkins DO May 01, 2016 07:26
--- NOTE | 2016-05-01 07:50 | CONSULTATION REPORT ---
DATE OF CONSULTATION: 04/30/2016 REFERRING PHYSICIAN: REASON FOR CONSULTATION: A second opinion for right foot abscess. HISTORY: The patient is an 81-year-old gentleman with multiple medical problems who underwent a right great toe amputation by Dr. Dover late last week. He was found to have increasing erythema and fluctuance. MRI revealed a fluid collection in the right heel region. PAST MEDICAL HISTORY: Significant for vascular occlusion of the right lower extremity; although, I do not have that report available. The patient also has had pneumonia with acute renal failure and has dementia. I was asked to provide a second opinion by the family with understanding of the providers as well as the family that I would not take over care of this patient. They understood this. His right foot demonstrates ecchymosis diffusely. His suture line is intact family history though erythematous. No gross discharge is noted. There was fluctuance about the right heel. He has poor capillary refill. IMPRESSION: Dysvascular right lower extremity with soft tissue abscess. PLAN: I had a lengthy discussion with the patient's and son. As I see it, there were 3 options which are to do nothing as option 1. I explained the risk of this is that he could develop sepsis. Option 2, would be to do what Dr. Dover as scheduled, which is an irrigation and debridement of the soft tissue fluid collection with a wound VAC placement. The advantages of this are it is less stress for the patient surgically. This can address has localized infection but will not address the dysvascular nature of his foot. They understood that in addition, if this did not heal, then a higher amputation would be required, which would be the 3rd option of a below-knee amputation. The risk of that is that the healing of the wound, as well as the large amount of blood loss and stressful surgery as compared to a localized irrigation and debridement. Explained to them that there are no easily answers in this situation, that due to his multiple medical problems, that there are risks and benefits of all 3 options. I believe they are going to continue with the plan for irrigation and debridement tomorrow. The son asked about a vascular procedure and I explained at this point that there is nothing that would be of benefit in that regard. Thank you for the consultation. Job ID: [id number] Dictated Date: 04/30/2016 14:31:19 Entry Specialist Date: 05/01/2016 07:43:30/bhavna
--- NOTE | 2016-05-01 08:56 | PM & R (SOAP) Progress Note ---
Subjective Subjective/Events-last exam Patient was seen in his room with family bedside. Appreciate DR Johnson note Patient to have I&D rt foot and then have disposition from there Objective Exam Last Set of Vital Signs Vital Signs Date Time Temp Pulse Resp B/P Pulse Ox O2 Delivery O2 Flow Rate FiO2 05/01/16 06:23 93 2.00 05/01/16 05:23 99.2 84 16 116/68 Nasal Cannula Capillary Refill : I&O Intake and Output 05/01/16 00:00 Intake Total 1210 ml Output Total 850 ml Balance 360 ml Intake Oral 1210 ml Stool Total 850 ml # Voids 3 General: Alert, Cooperative, No Acute Distress HEENT: Atraumatic, PERRLA, EOMI, Mucous Memb Moist/Anselmo Neck: Supple, No JVD Lungs: Clear to Auscultation Heart: Regular Rate Abdomen: Normal Bowel Sounds, Soft, No Tenderness Extremities: Other ( and quite tender) Neuro: Other (mild cognitive impairment in memory as per ST Apparently chronic) Results Lab Laboratory Tests 04/30/16 05:50: Alanine Aminotransferase (ALT/SGPT) 8, Albumin 2.4L, Alkaline Phosphatase 60, Anion Gap 12, Aspartate Amino Transf (AST/SGOT) 16, BUN/Creatinine Ratio 11, Basophils # (Auto) 0.0, Basophils (%) (Auto) 0, Blood Urea Nitrogen 22H, Calcium Level 8.9, Carbon Dioxide Level 19L, Chloride Level 102, Creatinine 1.93H, Eosinophils # (Auto) 0.3, Eosinophils (%) (Auto) 1, Estimat Glomerular Filtration Rate 33, Glucose Level 94, Hematocrit 27L, Hemoglobin 8.7L, Lymphocytes # (Auto) 1.7, Lymphocytes (%) (Auto) 8L, Mean Corpuscular Hemoglobin 32, Mean Corpuscular Hemoglobin Concent 33, Mean Corpuscular Volume 97, Mean Platelet Volume 9.1, Monocytes # (Auto) 2.0H, Monocytes (%) (Auto) 9, Neutrophils # (Auto) 17.8H, Neutrophils (%) (Auto) 82H, Platelet Count 328, Potassium Level 4.0, Red Blood Count 2.74L, Red Cell Distribution Width 14.3, Sodium Level 133L, Total Bilirubin 0.4, Total Protein 5.0L, White Blood Count 21.8H Assessment/Plan Assessment s/p rt great toe amputation DR Dover DPM due to PVD with associated Infection Low grade fever due to cellulitis responding to antibiotics JANIS Mild cognitive impairment DNR status HTN S/P ileostomy remote for treatment of colitis Depression Plan F/U with Hospitalist and DPM re plan-I believe that the patient is still scheduled for I&D /revision of rt great toe amputation Patient may best be served by going to a OSH that has A vascular Surgeon and an Infectious Disease Specialist available.unless family /patient requesting palliative care only Discussed case with IIRU SW today Patient most likely be discharged from IRU today either way. RONI ISLAS MD May 01, 2016 08:56
[2016-05-01] MEDS: HYDROCORTISONE/PRAM 1% CREAM 30 GM TUBE TOP SCH ×2 (09:00→09:48)
[2016-05-01] MEDS: amLODIPine 10 MG (NORVASC) TAB PO SCH (09:00)
[2016-05-01] MEDS: BENAZEPRIL 20 MG (LOTENSIN) TAB PO SCH (09:00)
[2016-05-01] MEDS: fluCOnazole (DIFLUCAN) 100 MG TAB PO SCH (09:00)
[2016-05-01] MEDS: CLOPIDOGREL 75 MG (PLAVIX) TABLET PO SCH (09:00)
[2016-05-01] MEDS ORDERED: morphine INJ 4 MG/ML 1 ML (VIAL/SYRINGE) ONE (09:11)
[2016-05-01] MEDS ORDERED: morphine INJ 4 MG/ML 1 ML (VIAL/SYRINGE) IVP PRN (09:15)
[2016-05-01] MEDS: VANCOMYCIN INJECTION 1,250 MG in NS (IVPB) 250 ML IV SCH (09:24)
--- NOTE | 2016-05-01 09:25 | Occ Therapy Progress Note ---
Therapy Progress Note 0920 Pt was getting morphine for pain control and nursing suggested OT try back later this am when pt won't be so sleepy and pain will be better under control. visit CRISTA BARBOSA OT May 01, 2016 09:25
[2016-05-01 09:26] VITALS: BP 111/58
--- NOTE | 2016-05-01 10:22 | Speech Therapy Progress Note ---
Therapy Progress Note The patient's therapy is currently on hold pending an upcoming surgery procedure. If appropriate, therapy may be resumed following. Thank you. CADEN MORENO May 01, 2016 10:22
[2016-05-01] MEDS: ENOXAPARIN 40 MG/0.4 ML (LOVENOX) SYR SC SCH (11:00)
[2016-05-01] MEDS: CARVEDILOL 6.25 MG (COREG) TAB PO SCH (11:52)
--- NOTE | 2016-05-01 13:14 | Occupational Ther Daily Note ---
OT Current Status-Daily Note Subjective Pt seen in room, up in bed, agreeable to OT. Awake and pain managed Mental Status/Objective Functional [place] Measure 0=Not Assessed/NA 4=Minimal Assistance 1=Total Assistance 5=Supervision or Setup 2=Maximal Assistance 6=Modified [place] 3=Moderate Assistance 7=Complete [place] ADL-Treatment Pt transitioned from supine to sit EOB with min assist (skilled cues for sequencing and technique). Difficulty scooting to edge but was able to do it. Pt stood min assist, FWW, to push pants down and needed min help to take them off. Pt washed and dried all parts except lower legs, pamela and bottom (due to surgical prep, he was assisted in cleaning pamela area to get barrier cream off). Pt also rolled side to side to assist with changing pad in bed. Pt left up in bed, all needs met. Functional [place] Measure 0=Not Assessed/NA 4=Minimal Assistance 1=Total Assistance 5=Supervision or Setup 2=Maximal Assistance 6=Modified [place] 3=Moderate Assistance 7=Complete IndependenceIRFPAI Quality Coding Scale 6 Independent with activity with or without an assistive device 5 Patient requires set up or clean up by helper. Patient completes activity by themselves 4 Supervision or touching assist (CGA). [place] provide cues , steadying assist 3 The helper provides less than half the effort to complete the activity 2 The helper provides more than half the effort to complete the activity 1 Dependent. The helper does all the effort to complete an activity 7 Patient refused to complete or attempt activity 9 The patient did not perform the activity before the current illness or injury 88 Not attempted due to Medical conditions or safety concerns Bathing (FIM): 3 Lower Body Dressing (FIM): 4 Transfers (B, C, W/C) (FIM): 4 OT Short Term Goals Short Term Goals Time Frame: May 06, 2016 Lower Body Dressing(FIM): 4 Transfers (B,C,W/C) (FIM): 4 (CGA) Toilet/Commode Transfer(FIM): 5 Shower Transfer(FIM): 5 1=Demonstrate adherence to instructed precautions during ADL tasks. 2=Patient will verbalize/demonstrate understanding of assistive devices/ modifications for ADL. 3=Patient will improve strength/tolerance for activity to enable patient to perform ADL's. OT Chief Pharmacist Goals Chief Pharmacist Goals Time Frame: May 20, 2016 Eating (FIM): 6 Eating (QC): 6 Groomin Oral Hygiene (QC): 6 Bathing(FIM): 6 Shower/Bathe Self (QC): 6 Upper Body Dressing(FIM): 6 Upper Body Dressing (QC): 6 Lower Body Dressing(FIM): 6 Lower Body Dressing (QC): 6 On/Off Footwear (QC): 6 Toileting(FIM): 6 Toileting Hygiene (QC): 6 Toilet/Commode Transfer(FIM): 6 Toilet/Commode Transfer (QC): 6 Shower Transfer(FIM): 6 Comprehension(FIM): 4 Expression (FIM): 4 Social Interaction(FIM): 5 Problem Solving(FIM): 4 Memory(FIM): 4 Pt will increase bilat UE strength to 5/5 as needed for self care and transfers Additional Goals: 2-Verbalize Understanding, 3-ImproveStrength/[place] 1=Demonstrate adherence to instructed precautions during ADL tasks. 2=Patient will verbalize/demonstrate understanding of assistive devices/ modifications for ADL. 3=Patient will improve strength/tolerance for activity to enable patient to perform ADL's. OT Education/Plan Problem List/Assessment Pt would benefit from skilled OT to increase his independence in basic self care to allow him to return to his home safely after R great toe amputation. Discharge Recommendations Plan/Recommendations: Continue POC Treatment Plan/Plan of Care Patient would benefit from OT for education, treatment and training to promote independence in ADL's, mobility, safety and/or upper extremity function for ADL' s. Plan of Care: ADL Retraining, Functional Mobility, Group Exercise/Act as Ind ( educaiton, exercise, activity tolerance, memory, problem solving), UE Funct Exercise/Act, UE Neuromus Re-Ed/Coord Treatment Duration: May 20, 2016 Visits Per Week: 10-11 Minutes/Day (M-F): 75-90 Minutes/Day (Sat/Guerrero): PRN Agreement: Yes Rehab Potential: Poor Time/GCodes Start Time: 11:45 Stop Time: 12:13 Total Time Billed (hr/min): 28 Billed Treatment Time visit, 28 minutes ADL CRISTA BARBOSA OT May 01, 2016 13:14
[2016-05-01 13:58] VITALS: BP 116/67
[2016-05-01] MEDS ORDERED: fentaNYL INJECTION 100 MCG/2 ML AMP ONE (14:11)
[2016-05-01] MEDS ORDERED: SEVOFLURANE (ULTANE) 15 ML INHAL SOLN ONE (14:49)
[2016-05-01] MEDS ORDERED: PHENYLEPHRINE 100 MCG/ML 10 ML (ANESTHESIA) SYR ONE ×2 (14:49→15:01)
[2016-05-01] MEDS ORDERED: ONDANSETRON 4 MG/2 ML (SDV) Z0FRAN ONE (14:49)
[2016-05-01] MEDS ORDERED: LIDOCAINE PF 2% 10 ML (XYLOCAINE) AMP ONE (14:49)
[2016-05-01] MEDS ORDERED: LACTATED RINGERS 1,000 ML IV ONE (14:49)
[2016-05-01] MEDS ORDERED: proPOfol 200 MG/20 ML (DIPRIVAN) VIAL IV ONE (14:49)
--- NOTE | 2016-05-01 15:25 | Progress Note-Post Operative ---
Post-Operative Progess Note Group Leader [employer] Processing none Pre-Operative Diagnosis Abscess Right Foot Post-Operative Diagnosis same Post-Op Procedure Note Date of Procedure: May 01, 2016 Name of Procedure: I&D Right Foot Anesthesia Type General Estimated blood loss (mL): 50cc Packing: Iodoform Packing Specimen(s) collected Cultures taken purulence RLE Approx 20cc purulence expressed from the RLE. MIGUEL BYERS DPM May 01, 2016 15:24
--- NOTE | 2016-05-01 15:28 | Therapy Team Discharge Summary ---
Therapy Discharge Summary Discharge Recommendations Date of Discharge Therapy D/C Recommendations: Home w/ Family Support, Custodial (TCU/NH) Physical Therapy Patient came to rehab following amputation R great toe, osteomyelitis. Upon evaluation patient performed bed mobility with SBA except for supine to sit which was min assist, ambulated 10' with a rolling walker with CGA, and could propel a manual wheelchair 150' with min assist. Patient has not met any of his custodial goals and has had no changes in functional mobility. He has barely been able to participate in therapy at all. Patient had to go back to surgery due to medical complications and will be discharged from this facility due to those same complications. Patient will be discharged from PT at this time. PT Usp Goals Usp Goals PT Usp Goals Time Frame: May 20, 2016 Transfers (B,C,W/C) (FIM): 5 Roll Left to Right (QC): 4 Sit to Lying (QC): 4 Lying-Sitting on Side/Bed(QC): 4 Sit to Stand (QC): 4 Chair/Qnw-uw-Ottta Xfer(QC): 4 Car Transfer (QC): 4 Gait (FIM): 5 Distance: 150' Walk 10 feet (QC): 4 Walk 10ft-Uneven Surface(QC): 4 Walk 50ft with 2 Turns (QC): 4 Walk 150 ft (QC): 4 Gait Level of Assist: 5 Gait Assistive Device: FWW Wheelchair (FIM): 6 Distance: 150' Wheel 50 feet with 2 turns (QC: 6 OT Usp Goals Usp Goals Time Frame: May 20, 2016 Eating (FIM): 6 Eating (QC): 6 Oral Hygiene (QC): 6 Grooming(FIM): 6 Bathing(FIM): 6 Shower/Bathe Self (QC): 6 Upper Body Dressing(FIM): 6 Upper Body Dressing (QC): 6 Lower Body Dressing(FIM): 6 Lower Body Dressing (QC): 6 On/Off Footwear (QC): 6 Toileting(FIM): 6 Toileting Hygiene (QC): 6 Toilet/Commode Transfer(FIM): 6 Toilet/Commode Transfer (QC): 6 Shower Transfer(FIM): 6 Comprehension(FIM): 4 Expression (FIM): 4 Social Interaction(FIM): 5 Problem Solving(FIM): 4 Memory(FIM): 4 Pt will increase bilat UE strength to 5/5 as needed for self care and transfers Additional Goals: 2-Verbalize Understanding, 3-ImproveStrength/[place] 1=Demonstrate adherence to instructed precautions during ADL tasks. 2=Patient will verbalize/demonstrate understanding of assistive devices/ modifications for ADL. 3=Patient will improve strength/tolerance for activity to enable patient to perform ADL's. Speech Usp Goals Usp Goals 1. The patient will demonstrated improved cognitive linguistic function for increased safety and function with ADL's. Time Frame: Three Weeks Comprehension: 4 Expression: 4 Social Interaction: 5 Problem Solvin Memory: 4 SHUN MULLINS PT May 01, 2016 15:28
[2016-05-01] MEDS ORDERED: PIPERACILLIN/TAZOBACTAM 4.5 GM/NS 100 ML IV NR ×2 (15:45)
--- NOTE | 2016-05-01 19:04 | Individualized Plan of Care ---
Individualized Plan of Care Rehab Nursing IPOC Order Admission Date Apr 29, 2016 at 13:00 Current Orders Nursing Communication (Pt.Care (05/01/16 07:26) Consult Physician (05/01/16 08:26) Social Service (05/01/16 08:26) Morphine Injection (Morphine Injection (05/01/16 09:15) Morphine Injection (Morphine Injection (05/01/16 09:11) Trough Order (Trough Order-Pharmacy Orde (05/02/16 07:00) Vancomycin,Trough (05/02/16 07:00) Nursing Communication (Pt.Care (05/01/16 11:41) Fentanyl Injection (Sublimaze Injection (05/01/16 14:11) Propofol Injection (Diprivan Injection) (05/01/16 14:49) Ondansetron Injection (Zofran Injectio (05/01/16 14:49) Lidocaine 2% Pf 10 Ml (Xylocaine 2% Pf) (05/01/16 14:49) Phenylephrine Anesthesia Syr (Raman-Syneph (05/01/16 14:49) Sevoflurane (15 Min) Inhal Jasmina (Ultane ( (05/01/16 14:49) Lactated Ringers (Lr 1000 Ml Iv Solution (05/01/16 14:49) Phenylephrine Anesthesia Syr (Raman-Syneph (05/01/16 15:01) Piperacillin Sodium/Tazobactam (Zosyn Vi (05/01/16 22:00) Heart Healthy (05/01/16 Dinner) Piperacillin Sodium/Tazobactam (Zosyn Vi (05/01/16 15:45) Rehab Nursing Orders: Diseage Management, Edu in Press Rel Techn, Hydration Management, Nutrition Management, Pain Management Toilet every (bladder): (hrs): q2 hours while awake Other Nursing Orders: Pain management IV med administration PT IPOC Problem List: Activity Tolerance, Functional Strength, Safety, Balance, Gait, Transfer Treatment Plan: Modify Plan, see comments Bed Mobility, Education, Functional Activity [place], Functional Strength, Group Therapy, Gait, Safety, Therapeutic Exercise, Transfers Treatment Duration: May 20, 2016 Visits Per Week: 10-11 Minutes/Day (M-F): 60-90 Minutes/Day (Sat/Guerrero): 15-30 OT IPOC Problems: Decreased Activ Tolerance (O2 at night but on at 2L/min today), Decreased Safety Aware, Decreased UE Strength, Dependent Transfers, Impaired Bed Mobility, Impaired Cognition, Impaired Funct Balance, Impaired Self-Care Skills OT Problems Pt would benefit from skilled OT to increase his independence in basic self care to allow him to return to his home safely after R great toe amputation. Plan of Care: ADL Retraining, Functional Mobility, Group Exercise/Act as Ind ( educaiton, exercise, activity tolerance, memory, problem solving), UE Funct Exercise/Act, UE Neuromus Re-Ed/Coord Treatment Duration: May 20, 2016 Visits Per Week: 10-11 Minutes/Day (M-F): 75-90 Minutes/Day (Sat/Guerrero): PRN ST IPOC Speech Therapy Treatment Plan: Continue Plan of Care Treatment Duration: May 27, 2016 Visits Per Week: Four to five. Minutes/Day (M-F): 30-45 Physician IPOC Medical Issues being managed closely and that require the 24 hour availability of a physician: cellulitis rt leg Medical Issues: DVT Prophylaxis, Falls Precautions, Fluid/Electrolyte/ Nutrition Balance, Infection Protection, Pain Management, Wound Care, Other ( List) (as per above) Brief Synthesis of Preadmission Screen, Post-Admission Evaluation, and Therapy Evaluations:81 yo male with severe PVD rt leg s/p grt toe amputation referred to IRU who unfortunately developed cellulitis and worsening pain more proximally in that leg Case discussed with patients family and DPM has arranged for I&D rt foot with wound vac placed Family has decide on placemnt at [facility] for ongoing conservative care.The patient is a DNR and has mild dementia and he has various comorbidities which might make major surgery such as a RT BKA high risk.Thus the patient discharged from IRU today and postop will go to 4TH floor prior to transfer to a SNU for ongoing care. Medical Prognosis: Guarded Anticipated Length of Stay: 3-15-17 Rehab Goals Therapies d/cd at this time until further eval postop for which he may have ongoing therapies at receiving SNU as indicated Anticipated discharge destinat: Back to Surgical floor and then to [place] RONI ISLAS MD May 01, 2016 19:04
[2016-05-01] MEDS ORDERED: PIPERACILLIN SODIUM/TAZOBACTAM 4.5 GM in NS (IVPB) 100 ML IV SCH (22:00)
[2016-05-02] MEDS ORDERED: TROUGH ORDER-PHARMACY XX NR (07:00)
--- NOTE | 2016-05-02 11:38 | Therapy Team Discharge Summary ---
Therapy Discharge Summary Discharge Recommendations Date of Discharge May 01, 2016 at 14:00 Therapy D/C Recommendations: Home w/ Family Support, Longterm (TCU/NH) Speech-Language Pathology The patient was recently admitted to [facility] Rehabilitation Unit following the amputation of his right toe. Upon admission, the patient demonstrated mild to moderate cognitive impairments, as well as, intermittent word-finding difficulties. Skilled speech therapy focused on functional memory strategies and word-finding exercises. Due to complications, the patient was required to return to surgery from a debridement procedure and transferred to the acute floor. As the patient spent a limited time on the rehabilitation floor, the goals placed by speech pathology were not met. The patient will be discharged from speech services at this time. PT Fpc Goals Pony Roll Finisher Goals PT Pony Roll Finisher Goals Time Frame: May 20, 2016 Transfers (B,C,W/C) (FIM): 5 Roll Left to Right (QC): 4 Sit to Lying (QC): 4 Lying-Sitting on Side/Bed(QC): 4 Sit to Stand (QC): 4 Chair/Jyi-dd-Ctikb Xfer(QC): 4 Car Transfer (QC): 4 Gait (FIM): 5 Distance: 150' Walk 10 feet (QC): 4 Walk 10ft-Uneven Surface(QC): 4 Walk 50ft with 2 Turns (QC): 4 Walk 150 ft (QC): 4 Gait Level of Assist: 5 Gait Assistive Device: FWW Wheelchair (FIM): 6 Distance: 150' Wheel 50 feet with 2 turns (QC: 6 OT Pony Roll Finisher Goals Pony Roll Finisher Goals Time Frame: May 20, 2016 Eating (FIM): 6 Eating (QC): 6 Oral Hygiene (QC): 6 Grooming(FIM): 6 Bathing(FIM): 6 Shower/Bathe Self (QC): 6 Upper Body Dressing(FIM): 6 Upper Body Dressing (QC): 6 Lower Body Dressing(FIM): 6 Lower Body Dressing (QC): 6 On/Off Footwear (QC): 6 Toileting(FIM): 6 Toileting Hygiene (QC): 6 Toilet/Commode Transfer(FIM): 6 Toilet/Commode Transfer (QC): 6 Shower Transfer(FIM): 6 Comprehension(FIM): 4 Expression (FIM): 4 Social Interaction(FIM): 5 Problem Solving(FIM): 4 Memory(FIM): 4 Pt will increase bilat UE strength to 5/5 as needed for self care and transfers Additional Goals: 2-Verbalize Understanding, 3-ImproveStrength/[place] 1=Demonstrate adherence to instructed precautions during ADL tasks. 2=Patient will verbalize/demonstrate understanding of assistive devices/ modifications for ADL. 3=Patient will improve strength/tolerance for activity to enable patient to perform ADL's. Speech Pony Roll Finisher Goals Pony Roll Finisher Goals 1. The patient will demonstrated improved cognitive linguistic function for increased safety and function with ADL's. Time Frame: Three Weeks Comprehension: 4 (NOT MET) Expression: 4 (NOT MET) Social Interaction: 5 (NOT MET) Problem Solvin (NOT MET) Memory: 4 (NOT MET) CADEN MORENO May 02, 2016 11:38
[2016-05-08] MEDS ORDERED: MAGN400T6 PO (08:33)
[2016-05-08] MEDS ORDERED: HEPA500017 SC (08:33)
--- NOTE | 2016-05-14 13:26 | DISCHARGE SUMMARY ---
DATE OF ADMISSION: 04/29/2016 DATE OF DISCHARGE: 05/01/2016 HISTORY OF PRESENT ILLNESS: The patient is an 81-year-old male who presented to [facility] ED on 04/21 with complaints of redness, swelling, pain right foot. The patient went on to have amputation of the right great toe with Dr. Jazzmine DPM secondary to osteomyelitis of the distal phalanx. 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 The patient had been modified independent with a Rollator walker prior to this but now requires assistance for his ADLs and mobility skills and was referred to Inpatient Rehabilitation Unit. 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 He has various DME at home. He has a supportive family. 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 He has mild memory impairment. His PCP had been Dr. Gonsalves in [place], who has since moved. Hospital service has been managing his care here along with Dr. Dover. He is a DNR. PAST MEDICAL HISTORY: 1. JANIS. 2. Prostate cancer. 3. Coronary artery disease. 4. Lymphedema. 5. Depression. 6. Hypercholesterolemia. 7. Hypertension. 8. Colitis, status post ileostomy remote for treatment of colitis. 9. Abdominal hernia repair. 10. He has had prostate seeds implanted for prostate cancer. 11. Cataract extraction. 12. Cholecystectomy. 13. Tonsillectomy. 14. Multiple interventions for peripheral vascular disease. 15. He has had a stent recently for circulatory issues of the left leg with Cori Orantesplin. 16. He has had coronary stent apparently Dr. Mathis has told him and the family in the past that his right leg is not appropriate for any further stenting, to improve the circulation. MEDICAL COURSE: The patient had a fever upon admission to rehab unit, unfortunately with leukocytosis. The patient was seen by Dr. Dover and Dr. Danielle. The patient was started on IV antibiotics. MRI of the right leg revealed findings suggestive of cellulitis. Dr. Dover and Dr. Danielle discussed the case with the patient and his family. The patient's family member requested Dr. Weaver to assess patient as well. Dr. Weaver did so and recommended 3 options; he could do nothing or to the go ahead with incision and drainage and wound VAC placement Dr. Dover or possible higher amputation with a surgeon. The patient's family elected for the incision and drainage with Dr. Dover and application of wound VAC more conservative care. It might be difficult for patient to tolerate a major surgery, at this time. On 05/01, the patient was transferred back to medical floor. Temperature was 99, pulse 103, respirations 20, blood pressure 116/67. O2 sat 97% on 2 liters of O2. CBC on 04/30 showed WBC elevated at 21.4, RBC 2.74, hemoglobin and hematocrit 8.7/27, platelet count 328,000. Chemistry on 04/30 showed serum sodium 133, carbon dioxide 19, BUN 22, creatinine 1.93, total protein 5, albumin 2.4. Dr. Danielle noted on 04/30 the fever and hypoxia and progression of chest x-ray with infiltrate consistent with pneumonia. The patient placed on Zosyn and Levaquin in addition to vancomycin. Also severe sleep apnea requiring CPAP with a history of COPD, chronic nasal congestion requiring Afrin and breathing easy strips. as well as his other multiple comorbidities, with poor IV access requiring mid line placement. The patient was on Lovenox for DVT prophylaxis and remained on Plavix after having stents placed for peripheral vascular disease. He was also noted to have hypokalemia of unknown source with the NAVI inhibitor now being inhibited and one dose of Kayexalate provided with normalized serum potassium on 4.0 on 04/30. The patient was noted to have a rash on his back and was provided with Benadryl capsules and hydrocortisone cream for that. REHABILITATION COURSE: The patient's brief stay and medical complications limited his progress with therapies. Speech therapy noted upon admission, the patient demonstrated mild to moderate cognitive impairments associated with intermittent word finding difficulties. As the patient's spent a limited time of the rehab floor, the goals placed by speech therapy were not met. PT notes upon evaluation, the patient performed bed mobility with standby assist to min assist, ambulate 10 feet with a wheeled walker with contact guard and could propel the manual wheelchair 50 feet with min assist. He has not been any of his long-term goals and has had no change of functional ability to do his brevity of his stay and medical complications. OT notes that he remains set up for grooming. Min assist for bathing, set up for upper body dressing. Mod assist for lower body dressing. DISCHARGE INSTRUCTIONS: The patient is discharged back to medical floor for I\T\D and wound VAC placement Dr. Dover, right great toe. The patient will follow-up with Dr. Dover and Dr. Danielle as per their schedules. Continue current diet. The patient was provided with morphine IV for enhanced pain control prior to transfer. DISCHARGE MEDICATIONS: 1. Continue with piperacillin, vancomycin and morphine. 2. Lovenox is on hold. 3. Plavix 75 mg p.o. daily, on hold. 4. Amlodipine 10 mg p.o. daily. 5. Levothyroxine 50 mcg p.o. daily. 6. Coreg 6.25 mg p.o. b.i.d. 7. Protonix 40 mg at bedtime. 8. ASA 81 mg p.o. daily. 9. Lotensin 20 mg p.o. b.i.d. 10. Uroxatral 10 mg p.o. daily. 11. Duo-neb treatments q.4 hours. 12. O2 by nasal cannula 2 L/min to maintain stats more than 92%. 13. Lortab 5, 1 to 2 tablets p.o. hours p.r.n. moderate pain. 14. Xanax 0.5 mg p.o. q.6 hours p.r.n. anxiety. 15. Flonase 2 sprays daily p.r.n. rhinitis. DISCHARGE DIAGNOSES: 1. Rehabilitation ambulatory dysfunction secondary to diabetic foot ulcer status post amputation right great toe. 2. Spreading cellulitis possibly osteomyelitis, right foot and ankle now on IV antibiotics to have I\T\D of right foot with wound VAC placed with associated low-grade fever and leukocytosis. 3. Postoperative anemia. 4. Peripheral neuropathy. 5. COPD on inhalers. 6. Hypothyroidism on replacement. 7. History of prostate cancer, status post treatment with seeds. 8. Status post stenting left leg for peripheral vascular disease outside facility. 9. Severe peripheral vascular disease, right leg. 10. Obstructive sleep apnea on CPAP. 11. Primary osteoarthritis right ankle and foot. 12. Atherosclerotic heart disease. 13. Depression, on medication. 14. Hypercholesteremia, on statin. 15. Ileostomy status due to history of colitis. 16. Dermatitis involving the back, treated. 17. Fungal groin rash, treated. 18. Hypokalemia, treated. 19. Mild hyponatremia. 20. Hypoalbuminemia. 21. Probable mild dementia. 22. DVT prophylaxis on Lovenox subcutaneous, now on hold due to pending surgery. 23. Chronic nasal congestion requiring Afrin and breathing easy strips. 24. Hypoxia with pneumonic infiltrate consistent with pneumonia placed on antibiotics, improving. CONDITION AT DISCHARGE: Unimproved but stable. PROGNOSIS: Rehab prognosis appears somewhat guarded at this point. Hopefully the current plan of care will treat, at least temporarily, until he is stabilized for consideration of more major surgery at a later time for limb salvage. Job ID: [id number] Dictated Date: 05/14/2016 11:34:02 [employer] Manager Consultant Date: 05/14/2016 13:01:57/indigo
[2016-06-20] MEDS ORDERED: HYDR-3812 PO (08:31)
[2016-06-20] MEDS ORDERED: DOXY100T2 PO (08:31)
== END 2016-05-01 14:00 | disposition short-term general hospital (02) | DRG 559 ==
PROVIDERS: ADMIT Physical Medicine & Rehabilitation; ATTEND Physical Medicine & Rehabilitation
DX: Z47.81 Encounter for orthopedic aftercare following surgical amputation (principal); Z89.411 Acquired absence of right great toe; L03.115 Cellulitis of right lower limb; E11.51 Type 2 diabetes mellitus with diabetic peripheral angiopathy without gangrene; N17.9 Acute kidney failure, unspecified; J18.9 Pneumonia, unspecified organism; Z66 Do not resuscitate; G31.84 Mild cognitive impairment of uncertain or unknown etiology; J44.9 Chronic obstructive pulmonary disease, unspecified; G47.33 Obstructive sleep apnea (adult) (pediatric); I25.10 Atherosclerotic heart disease of native coronary artery without angina pectoris; I10 Essential (primary) hypertension; E78.00 Pure hypercholesterolemia, unspecified; F32.9 Major depressive disorder, single episode, unspecified; D64.9 Anemia, unspecified; E03.9 Hypothyroidism, unspecified; M19.071 Primary osteoarthritis, right ankle and foot; L30.9 Dermatitis, unspecified; B36.9 Superficial mycosis, unspecified; Z95.820 Peripheral vascular angioplasty status with implants and grafts; Z85.46 Personal history of malignant neoplasm of prostate; Z93.2 Ileostomy status
CPT/HCPCS: 36415; 73721; 80053; 85025; 94640; 94760

== ENCOUNTER 2016-05-01 13:30 | Inpatient (IN) | payer MEDICARE ==
[~2016-05-01] VITALS: Ht 172.7 cm; Wt 102.1 kg
[2016-05-01] MEDS ORDERED: fentaNYL INJECTION 100 MCG/2 ML AMP INJ ONE (14:11)
--- NOTE | 2016-05-01 14:30 | Progress Note-Pre Operative ---
Pre-Operative Progress Note H&P Reviewed The H&P was reviewed, patient examined and no changes noted. Date H&P Reviewed: May 01, 2016 Time H&P Reviewed: 02:29 Pre-Operative Diagnosis: Abscess Right Foot MIGUEL BYERS DPM May 01, 2016 14:30
[2016-05-01] MEDS ORDERED: ONDANSETRON 4 MG/2 ML (SDV) Z0FRAN IV ONE (14:49)
[2016-05-01] MEDS ORDERED: proPOfol 200 MG/20 ML (DIPRIVAN) VIAL IV ONE (14:49)
[2016-05-01] MEDS ORDERED: PHENYLEPHRINE 100 MCG/ML 10 ML (ANESTHESIA) SYR IV ONE (14:49)
[2016-05-01] MEDS ORDERED: SEVOFLURANE (ULTANE) 15 ML INHAL SOLN INH ONE (14:49)
[2016-05-01] MEDS ORDERED: LIDOCAINE PF 2% 10 ML (XYLOCAINE) AMP INJ ONE (14:49)
[2016-05-01] MEDS ORDERED: LACTATED RINGERS 1,000 ML IV ONE (14:49)
--- OUTSIDE RECORDS SUMMARY | 2016-05-01 15:15 | XMS REPORT | Continuity of Care Document ---
Author Author [facility] Organization [facility] Address Unknown Phone Unavailable Care Team Providers Care Advertising Copywriter Name Role Phone NO, LOCAL PHYSICIAN PCP Unavailable Insurance Providers Payer Name Policy Number Subscriber Name Relationship s Medicare [id number] Jose Nieto 18 Self / Same As Patient [employer] [facility] Supp [id number] Jose Nieto 18 Self / Same As Patient Advance Directives Directive Response Recorded Date/Time Advance Directives Yes 04/29/16 1:36pm Health Care Power of Hide Worker Robby CORDERO-- 04/29/16 1:36pm Organ Donor No [...] Bedtime 07/27/09 Discontinued Mometasone Furoate 17 Gm [place], 1 [place] Nasal As Directed 07/27/09 Discontinued Hydroxyzine Hcl [...] Reaction Status Last Updated Sulfa (Sulfonamide Antibiotics) ([id number]) Allergy Intermediate HIVES Active 04/23/16 Clindamycin Allergy Unknown Active 04/21/16 Immunizations No immunization records. Vital Signs Acute Vital Signs Vital Response Date/Time Temperature (Fahrenheit) 97.5 degrees F (97.6 - 99.5) 04/29/2016 2:05pm Temperature (Calculated Celsius) 36.74477 degrees C (36.4 - 37.5) 04/29/2016 12:00pm [...] 8.00 inches 04/29/2016 2:00pm Height (Calculated Centimeters) 172.712803 cm 04/29/2016 2:00pm Weight (Pounds) 225 pounds 04/29/2016 2:00pm Weight (Ounces) 0.0 oz 04/29/2016 2:00pm Weight (Calculated Grams) 588252.28 gm 04/29/2016 2:00pm Weight (Calculated Kilograms) 102.489741 kilograms 04/29/2016 2:00pm Calculated BMI 34.2 04/29/2016 [...] 5-9 04/22/2016 11:20pm 04/22/2016 11:38pm Urine Specific [place] 1.020 1.016-1.022 04/22/2016 11:20pm 2016 11:38pm Urine [...] Discharge/Depart Date Attending Provider Discharged Inpatient [facility] 04/21/16 11:23am 1:00pm ELIDIA LOVE MD Recent Diagnosis Urinary tract infection
--- OUTSIDE RECORDS SUMMARY | 2016-05-01 15:16 | XMS REPORT | Continuity of Care Document ---
Author Author [facility] Organization [facility] Address Unknown Phone Unavailable Care Team Providers Care Boom Truck Driver Name Role Phone NO, LOCAL PHYSICIAN PCP Unavailable Insurance Providers Payer Name Policy Number Subscriber Name Relationship s Medicare [id number] Jose Nieto 18 Self / Same As Patient Blue Cross [facility] Supp [id number] Jose Nieto 18 Self / Same As Patient Advance Directives Directive Response Recorded Date/Time Advance Directives Yes 04/29/16 1:36pm Health Care Power of Foundry Worker Robby CORDERO-- 04/29/16 1:36pm Organ Donor [...] Bedtime 07/27/09 Discontinued Mometasone Furoate 17 Gm [place], 1 [place] Nasal As Directed 07/27/09 Discontinued Hydroxyzine Hcl [...] Reaction Status Last Updated Sulfa (Sulfonamide Antibiotics) ([id number]) Allergy Intermediate HIVES Active 04/23/16 Clindamycin Allergy Unknown Active 04/21/16 Immunizations No immunization records. Vital Signs Acute Vital Signs Vital Response Date/Time Temperature (Fahrenheit) 97.5 degrees F (97.6 - 99.5) 04/29/2016 2:05pm Temperature (Calculated Celsius) 36.76335 degrees C (36.4 - 37.5) 04/29/2016 12:00pm [...] 8.00 inches 04/29/2016 2:00pm Height (Calculated Centimeters) 172.359122 cm 04/29/2016 2:00pm Weight (Pounds) 225 pounds 04/29/2016 2:00pm Weight (Ounces) 0.0 oz 04/29/2016 2:00pm Weight (Calculated Grams) 032425.28 gm 04/29/2016 2:00pm Weight (Calculated Kilograms) 102.294460 kilograms 04/29/2016 2:00pm Calculated BMI 34.2 04/29/2016 [...] 5-9 04/22/2016 11:20pm 04/22/2016 11:38pm Urine Specific [place] 1.020 1.016-1.022 04/22/2016 11:20pm 2016 11:38pm Urine [...] Discharge/Depart Date Attending Provider Discharged Inpatient [facility] 04/21/16 11:23am 1:00pm ELIDIA LOVE MD Recent Diagnosis Urinary tract infection
[2016-05-01] MEDS ORDERED: morphine INJ 10 MG/ML 1ML (SYR OR VIAL) IVP PRN (15:30)
[2016-05-01] MEDS ORDERED: MEPERIDINE (DEMEROL) INJ 50 MG/ML IVP PRN (15:30)
[2016-05-01] MEDS ORDERED: ONDANSETRON 4 MG/2 ML (SDV) Z0FRAN ONE (15:41)
[2016-05-01] MEDS ORDERED: ONDANSETRON 4 MG/2 ML (SDV) Z0FRAN IVP PRN (16:00)
[2016-05-01] MEDS ORDERED: morphine INJ 10 MG/ML 1ML (SYR OR VIAL) ONE (16:04)
[2016-05-01 16:50] VITALS: BP 124/84
[2016-05-01] MEDS ORDERED: CATHETER FLUSH 10 ML SYR IV PRN (18:00)
[2016-05-01] MEDS ORDERED: morphine INJ 4 MG/ML 1 ML (VIAL/SYRINGE) IV PRN (18:00)
[2016-05-01] MEDS ORDERED: RX-HYDROCODONE/APAP 5/325 MG #4 TAB PK PO PRN (18:45)
[2016-05-01] MEDS ORDERED: ACETAMINOPHEN 325 MG TABLET/CAPLET (TYLENOL) PO PRN (18:45)
[2016-05-01] MEDS: NS IV 1000 ML 1,000 ML IV SCH (18:52)
[2016-05-01] MEDS: RT-ALBUTEROL/IPRATROPIUM 3 ML (DUONEB) VIAL INH SCH (19:02)
[2016-05-01] MEDS ORDERED: HYDROcodone/APAP 5 MG/325 MG (LORTAB) TAB PO PRN (19:30)
[2016-05-01] MEDS ORDERED: PIPERACILLIN/TAZOBACTAM 4.5 GM/NS 100 ML IV NR ×2 (19:30)
[2016-05-01 20:00] VITALS: BP 83/47
[2016-05-01 21:00] VITALS: BP 94/52
[2016-05-01] MEDS ORDERED: TAMSULOSIN 0.4 MG (FLOMAX) CAP PO SCH (21:00)
[2016-05-01] MEDS: CARVEDILOL 6.25 MG (COREG) TAB PO SCH (21:00)
[2016-05-01] MEDS: PANTOPRAZOLE 40 MG (PROTONIX) TAB PO SCH (21:39)
[2016-05-01] MEDS: ASPIRIN 81 MG CHEW (CHILDREN'S ASA) PO SCH (21:39)
[2016-05-02] VITALS: BP 89/54
[2016-05-02] MEDS: RT-ALBUTEROL/IPRATROPIUM 3 ML (DUONEB) VIAL INH SCH ×7 (00:39→22:00)
[2016-05-02] MEDS: CATHETER FLUSH 10 ML SYR IV SCH ×4 (01:25→22:00)
[2016-05-02] MEDS: HYDROcodone/APAP 5 MG/325 MG (LORTAB) TAB PO PRN ×4 (01:28→19:07)
[2016-05-02 04:00] VITALS: BP 116/69
[2016-05-02] MEDS ORDERED: PIPERACILLIN SODIUM/TAZOBACTAM 4.5 GM in NS (IVPB) 100 ML IV SCH (04:00)
[2016-05-02] MEDS ORDERED: NS IV 1000 ML 1,000 ML IV ONE (04:15)
[2016-05-02] MEDS: NS IV 1000 ML 1,000 ML IV SCH ×2 (04:45→11:21)
[2016-05-02] MEDS: LEVOTHYROXINE 50 MCG (LEVOTHROID) TAB PO SCH (06:29)
[2016-05-02] MEDS ORDERED: TROUGH ORDER-PHARMACY XX NR (07:00)
[2016-05-02 07:46] LABS: BASOPHILS # (AUTO) 0.1 10^3/uL (0.0-0.1); BASOPHILS % (AUTO) 0 % (0-10); EOSINOPHILS # (AUTO) 0.2 10^3/uL (0.0-0.3); EOSINOPHILS % (AUTO) 2 % (0-10); LYMPHOCYTES # (AUTO) 1.3 X 10^3 (1.0-4.0); LYMPHOCYTES % (AUTO) 9 % (12-44); MEAN CORPUSCULAR HEMOGLOBIN 32 PG (25-34); MEAN CORPUSCULAR HGB CONC 32 G/DL (32-36); MEAN CORPUSCULAR VOLUME 99 FL (80-99); MEAN PLATELET VOLUME 9.1 FL (7.4-10.4); MONOCYTES # (AUTO) 1.8 X 10^3 (0.0-1.0); MONOCYTES % (AUTO) 12 % (0-12); NEUTROPHILS # (AUTO) 11.7 X 10^3 (1.8-7.8); NEUTROPHILS % (AUTO) 78 % (42-75); PLATELET COUNT 401 10^3/uL (130-400); RED BLOOD COUNT 2.76 10^6/uL (4.35-5.85); RED CELL DISTRIBUTION WIDTH 14.6 % (10.0-14.5); WHITE BLOOD COUNT 15.1 10^3/uL (4.3-11.0)
[2016-05-02 08:00] VITALS: BP 108/68
[2016-05-02] MEDS ORDERED: VANCOMYCIN INJECTION 1,250 MG in NS (IVPB) 250 ML IV SCH (08:00)
[2016-05-02 08:12] LABS: ALBUMIN 2.3 G/DL (3.2-4.5); BILIRUBIN,TOTAL 0.2 MG/DL (0.1-1.0); CALCIUM 8.4 MG/DL (8.5-10.1); CREATININE SERUM 2.96 MG/DL (0.60-1.30); POTASSIUM 4.3 MMOL/L (3.6-5.0)
--- NOTE | 2016-05-02 08:21 | Podiatry Progress Note ---
Standard Progress Note Progress Notes/Assess & Plan Progress/Assessment & Plan Pt doing well at BS feeling much better today, decreased pain to the RLE. Right foot improving flushed and packed today decrease swelling decrease erythema no purulence today Final Diagnosis POD #1 I&D Right foot -cont broad spectrum abx -await final cultures -Plan 6 weeks IV abx on D/C -Flush and pack daily -NWB RLE MIGUEL BYERS DPM May 02, 2016 08:21
[2016-05-02] MEDS: CLOPIDOGREL 75 MG (PLAVIX) TABLET PO SCH (08:42)
[2016-05-02] MEDS: CARVEDILOL 6.25 MG (COREG) TAB PO SCH ×2 (08:43→21:00)
[2016-05-02] MEDS: amLODIPine 10 MG (NORVASC) TAB PO SCH (08:43)
[2016-05-02] MEDS: fentaNYL INJECTION 100 MCG/2 ML AMP IV PRN ×2 (10:04→19:06)
--- NOTE | 2016-05-02 10:23 | Progress Note-Hospitalist ---
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 RN help BP meds this morning. Patient Interview: Pt received pain medicine around 9am, but is in pain currently at 10am. Dr. Danielle discusses creatinine levels and kidney function with pt and family. Physical exam stable. Plan: Pain management Scribed by Maxim Graves under the direct supervision of Dr. Danielle. YAS DANIELLE DO May 02, 2016 10:23
[2016-05-02] MEDS ORDERED: ENOXAPARIN 40 MG/0.4 ML (LOVENOX) SYR SC SCH (11:00)
[2016-05-02] MEDS ORDERED: ENOXAPARIN 30 MG/0.3 ML (LOVENOX) SYR SC SCH (11:00)
--- NOTE | 2016-05-02 11:02 | History & Physical-Hospitalist ---
HPI History of Present Illness: HPI/Chief Complaint CC: Debility following right foot surgery with acute renal failure and respiratory insufficiency HPI: This is an 81-year-old white male that was transferred from acute rehabilitation after undergoing exploration of the right foot by podiatry yesterday for IV antibiotics and close monitoring. He did have hypotension last night that resolved with 1 L of fluid given we'll maintain normal saline at 100 mL an hour. Patient remains having a very poor prognosis long-term but it appears that the family felt like I presented everything into much of the dire status so they would like to transfer care to Dr. Kevin serrano whom they were going to establish with once discharged home but he is had a very long recovery and long hospital course precluding him from establish with him as an outpatient so we will work through that and provide any support the patient needs in order to please him with their choice of medical provider. His creatinine rise has caused renal dosed antibiotics and will closely monitor in the meantime. 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 RN help BP meds this morning. Patient Interview: Pt received pain medicine around 9am, but is in pain currently at 10am. Dr. Partida discusses creatinine levels and kidney function with pt and family. Physical exam stable. Plan: Pain management Scribed by Maxim Graves under the direct supervision of Dr. Partida. Source: patient, family, RN/MD Date Seen 05/02/16 Attending Physician Pio Dover Dpm PCP No,Local Physician Referring Physician Date of Admission May 02, 2016 at 08:39 Home Medications & Allergies Home Medications Reviewed patient Home Medication Reconciliation Form Allergies Coded Allergies: Sulfa (Sulfonamide Antibiotics) (Unverified Allergy, Intermediate, HIVES, 04/23/16) clindamycin (Verified Allergy, Unknown, 04/21/16) STATES HE CAN NOT TAKE IT Past Fvbevix-Bvnecg-Kshtaf Hx Patient Social History Marrital Status: Employed/Student: retired Alcohol Use: Denies Use Recreational Drug Use: No Smoking Status: Former Smoker Physical Abuse Screen: No Sexual Abuse: No Recent Foreign Travel: No Contact w/other who traveled: No Recent Hopitalizations: No Recent Infectious Disease Expo: No Immunizations Up To Date Date of Pneumonia Vaccine: Dec 12, 2015 Date of Influenza Vaccine: Dec 12, 2015 Seasonal Allergies Seasonal Allergies: Yes Surgeries HX Surgeries: Yes (right carotid, right total knee, hernia repair, pvd, prostate seeds, ileost) Surgeries: Eye Surgery, Gallbladder, Orthopedic, Tonsillectomy Respiratory Hx Respiratory Disorders: Yes Respiratory Disorders: COPD, Emphysema, Pneumonia, Sleep Apnea Cardiovascular Hx Cardiovascular Disorders: Yes Cardiac Disorders: Coronary Artery Disease, High Cholesterol, Hypertension Neurological Hx Neurological Disorders: Yes Neurological Disorders: Dementia, Neuropathy Reproductive System Hx Reproductive Disorders: No Sexually Transmitted Disease: No HIV/AIDS: No Genitourinary Hx Genitourinary Disorders: Yes (PROSTATE CA) Genitourinary Disorders: Prostate Problems, Kidney Stones, Renal Failure Gastrointestinal Hx Gastrointestinal Disorders: Yes (ILEOSTOMY) Gastrointestinal Disorders: Abdominal Hernia, Colitis, Gall Bladder Disease Musculoskeletal Hx Musculoskeletal Disorders: Yes (ARTHRITIS) Musculoskeletal Disorders: Chronic Back Pain Endocrine Hx Endocrine Disorders: Yes Endocrine Disorders: Hypothyroidsim, Diabetes, Non-Insulin dep HEENT HX ENT Disorders: No HEENT Disorders: Cataract Loss of Vision: Denies Hearing Impairment: Hard of Hearing Cancer Hx Cancer: Yes Cancer: Prostate, Stomach, Colon Psychosocial Hx Psychiatric Problems: No Integumentary HX Skin/Integumentary Disorder: No Blood Transfusions Hx Blood Disorders: No Adverse Reaction to a Blood Tr: No Family Medical History Significant Family History: No Pertinent Family Hx Family Hx: BLOOD CLOT 19 FATHER BRAIN CANCER G8 SISTER SISTER BRAIN CANCER G8 SISTER SISTER Review of Systems Constitutional: see HPI weakness EENTM: no symptoms reported Respiratory: cough Cardiovascular: no symptoms reported Gastrointestinal: nausea Genitourinary: no symptoms reported Musculoskeletal: back pain joint pain Skin: no symptoms reported Psychiatric/Neurological: Depressed All Other Systems Reviewed Negative Unless Noted: Yes Physical Exam Physical Exam Vital Signs Vital Sign - Last 12Hours 05/01/16 16:50 Temp 100.4 Pulse 89 Resp 16 B/P 124/84 Pulse Ox 98 O2 Delivery Nasal Cannula O2 Flow Rate 4.00 Capillary Refill : General Appearance: WD/WN Chronically ill Moderate Distress (due to pain and right foot) Obese Other (end-stage appearance) Eyes: Bilateral Eye Normal Inspection, Bilateral Eye PERRL HEENT: PERRL/EOMI Normal ENT Inspection Pharynx Normal Neck: Full Range of Motion Normal Inspection Non Tender Supple Carotid Bruit Respiratory: Chest Non Tender No Accessory Muscle Use No Respiratory Distress Crackles Decreased Breath Sounds Wheezing Cardiovascular: Regular Rate, Rhythm No Edema No Gallop No JVD No Murmur Normal Peripheral Pulses Gastrointestinal: Normal Bowel Sounds No Organomegaly No Pulsatile Mass Non Tender Soft Back: Normal Inspection No CVA Tenderness No Vertebral Tenderness Extremity: Normal Capillary Refill Normal Inspection Normal Range of Motion ( Limited due to right foot surgery) Non Tender No Calf Tenderness No Pedal Edema Neurologic/Psychiatric: Alert No Motor/Sensory Deficits Normal Mood/Affect Other (confusion noted but subtle) Skin: Normal Color Warm/Dry Lymphatic: No Adenopathy Results Results/Procedures Lab Laboratory Tests 05/02/ 07:37 Assessment/Plan Admission Diagnosis Assessment: Right foot cellulitis with severe peripheral vascular disease w/osteomyelitis on MRI s/p podiatry consultation and s/p amputation of right great toe POD #4 now s/p I&D Dr Dover POD # 1 Acute hypotension resolved with 1 L of IV fluid bolus last night Fever with hypoxia and progression of chest x-ray with infiltrate consistent with pneumonia placed on Zosyn in addition to Vanc completed antibiotics for that ailment but then required same antibiotic coverage for foot issue History of COPD Severe sleep apnea requiring CPAP Chronic nasal congestion requiring Afrin and breathing easy strips History of prostate cancer Hypertension Hypothyroidism Cognitive decline Debility UTI hx Colitis requiring ileostomy hx Poor IV access requiring midline placement DVT prophylaxis with Lovenox Peripheral vascular disease requiring Plavix after stents placed Hyperkalemia due to acute renal insufficiency holding NAVI inhibitor and s/p one dose of Kayexalate Assessment and Plan Plan: Inquire with Dr. Kevin Payan whether he accepts the patient on his service to establish care since his hospital course is been some lengthy is precluded him from doing this as an outpatient Monitor renal function closely along with pulmonary status considering both have declined significantly even though patient maintain on aggressive and partial antibiotics Continue breathing treatments DVT prophylaxis with Lovenox Plavix for severe PVD Poor prognosis but will support the patient in anyway possible but family does not feel status is as dire as presented so will support with all means possible Clinical Quality Measures DVT/VTE Risk/Contraindication: Risk Factor Score Per Nursin RFS Level Per Nursing on Admit: 4+=Very High YAS PARTIDA DO May 02, 2016 11:02
[2016-05-02 12:00] VITALS: BP 102/46
[2016-05-02] MEDS: ALPRAZolam 0.5 MG (XANAX) TAB PO PRN (12:54)
--- NOTE | 2016-05-02 14:48 | Anesthesia-General Post-Op ---
General Patient Condition Mental Status/LOC: Same as Preop Cardiovascular: Satisfactory Nausea/Vomiting: Absent Respiratory: Satisfactory Pain: Controlled Complications: Absent Post Op Complications Complications None Follow Up Care/Instructions Patient Instructions None needed. Anesthesia/Patient Condition Patient Condition Patient is doing well, no complaints, stable vital signs, no apparent adverse anesthesia problems. No complications reported per nursing. LUZ MARIA BOWENS CRNA May 02, 2016 14:48
[2016-05-02 16:20] VITALS: BP 111/67
[2016-05-02] MEDS: PIPERACILLIN SODIUM/TAZOBACTAM 4.5 GM in NS (IVPB) 100 ML IV SCH (16:42)
[2016-05-02] MEDS: ALFUZOSIN HCL 10 MG TAB (UROXATRAL) PO SCH (18:04)
[2016-05-02 19:40] VITALS: BP 135/70
[2016-05-02] MEDS ORDERED: methylPREDNISolone 40 MG/ML (Solu-MEDROL) VIAL IV ONE (20:45)
[2016-05-02] MEDS: PANTOPRAZOLE 40 MG (PROTONIX) TAB PO SCH (21:28)
[2016-05-02] MEDS: ASPIRIN 81 MG CHEW (CHILDREN'S ASA) PO SCH (21:28)
[2016-05-03] VITALS: BP 102/66
[2016-05-03] MEDS: NS IV 1000 ML 1,000 ML IV SCH ×3 (01:13→20:41)
[2016-05-03] MEDS: RT-ALBUTEROL/IPRATROPIUM 3 ML (DUONEB) VIAL INH SCH ×6 (02:00→22:00)
[2016-05-03 04:00] VITALS: BP 100/55
[2016-05-03] MEDS: PIPERACILLIN SODIUM/TAZOBACTAM 4.5 GM in NS (IVPB) 100 ML IV SCH ×2 (04:16→16:10)
[2016-05-03] MEDS: CATHETER FLUSH 10 ML SYR IV SCH ×3 (04:24→21:51)
[2016-05-03] MEDS: LEVOTHYROXINE 50 MCG (LEVOTHROID) TAB PO SCH (05:52)
[2016-05-03] MEDS ORDERED: TROUGH ORDER-PHARMACY XX NR (06:00)
[2016-05-03 06:30] LABS: BASOPHILS % (AUTO) 0 % (0-10); EOSINOPHILS % (AUTO) 0 % (0-10); LYMPHOCYTES # (AUTO) 0.5 X 10^3 (1.0-4.0); LYMPHOCYTES % (AUTO) 3 % (12-44); MEAN CORPUSCULAR HEMOGLOBIN 32 PG (25-34); MEAN CORPUSCULAR HGB CONC 33 G/DL (32-36); MEAN CORPUSCULAR VOLUME 98 FL (80-99); MEAN PLATELET VOLUME 9.1 FL (7.4-10.4); MONOCYTES # (AUTO) 0.3 X 10^3 (0.0-1.0); MONOCYTES % (AUTO) 2 % (0-12); NEUTROPHILS % (AUTO) 96 % (42-75); PLATELET COUNT 472 10^3/uL (130-400); RED BLOOD COUNT 2.84 10^6/uL (4.35-5.85); RED CELL DISTRIBUTION WIDTH 14.2 % (10.0-14.5); WHITE BLOOD COUNT 17.8 10^3/uL (4.3-11.0)
[2016-05-03 06:43] LABS: NEUTROPHILS % (MANUAL) 90 %
[2016-05-03 06:44] LABS: ANISOCYTOSIS SLIGHT; BAND NEUTROPHILS 4 %; BASOPHILS % (MANUAL) 0 %; CRENATED RBC SLIGHT; EOSINOPHILS % (MANUAL) 0 %; LYMPHOCYTES % (MANUAL) 3 %; POIKILOCYTOSIS SLIGHT; POLYCHROMASIA SLIGHT
[2016-05-03 07:10] LABS: ALBUMIN 2.4 G/DL (3.2-4.5); BILIRUBIN,TOTAL 0.2 MG/DL (0.1-1.0); CALCIUM 8.5 MG/DL (8.5-10.1); CREATININE SERUM 2.63 MG/DL (0.60-1.30); MAGNESIUM 1.2 MG/DL (1.8-2.4); POTASSIUM 4.9 MMOL/L (3.6-5.0); TOTAL PROTEIN 5.4 G/DL (6.4-8.2)
[2016-05-03 08:00] VITALS: BP 106/63
[2016-05-03] MEDS: MAGNESIUM 1 GM/100 ML IVPB 100 ML IV SCH ×2 (08:41→09:54)
[2016-05-03] MEDS: CLOPIDOGREL 75 MG (PLAVIX) TABLET PO SCH (08:41)
[2016-05-03] MEDS: CARVEDILOL 6.25 MG (COREG) TAB PO SCH ×2 (09:00→20:42)
[2016-05-03] MEDS: amLODIPine 10 MG (NORVASC) TAB PO SCH (09:00)
[2016-05-03 12:00] VITALS: BP 95/52
[2016-05-03] MEDS: HYDROcodone/APAP 5 MG/325 MG (LORTAB) TAB PO PRN ×2 (12:09→20:48)
--- NOTE | 2016-05-03 12:10 | Podiatry Progress Note ---
Standard Progress Note Progress Notes/Assess & Plan Progress/Assessment & Plan Pt doing well at BS feeling much better today, decreased pain to the RLE. Right foot improving flushed and packed today decrease swelling decrease erythema no purulence today Final Diagnosis POD # 2 I&D Right Foot -increased Leucocytosis noted, clinically foot is improved no evidence of further abscess formation. -Increased Creat today- elevated Vanco Trough, defer to medicine for abx mgt -Cultures +MRSA, will need 6 weeks of IV abx -NWB RLE -Cont flush/pack daily. MIGUEL BYERS DPM May 03, 2016 12:10
[2016-05-03 15:45] VITALS: BP 125/59
[2016-05-03 16:13] LABS: ALBUMIN 2.2 G/DL (3.2-4.5); CALCIUM 8.2 MG/DL (8.5-10.1); CREATININE SERUM 2.36 MG/DL (0.60-1.30); PHOSPHORUS 3.7 MG/DL (2.3-4.7); POTASSIUM 4.4 MMOL/L (3.6-5.0)
[2016-05-03] MEDS: ALFUZOSIN HCL 10 MG TAB (UROXATRAL) PO SCH (17:31)
[2016-05-03] MEDS ORDERED: MAGNESIUM 1 GM/100 ML IVPB 100 ML IV ONE (19:00)
[2016-05-03 19:20] VITALS: BP 112/66
--- NOTE | 2016-05-03 19:30 | Progress Note (SOAP) ---
Subjective Subjective 81-year-old male being treated for right great toe osteomyelitis and right foot infection. Patient's stay is complicated by acute respiratory distress secondary to pneumonia and COPD. Also patient has acute kidney failure with associated hyponatremia and hypomagnesemia. Complicating his kidney function is patient's osteomyelitis and right foot infection is due to MRSA requiring vancomycin. Patient was originally admitted on 04.22.2016 for the right foot infection. He was transferred to rehabilitation earlier this week but developed a fever and appeared to acutely worsen so he is back to inpatient status. On 05/02/16, Patient's family was dissatisfied with their care and requested transfer of care from the Hospitalist service. The patient and family members are hopeful for a recovery back to baseline. Case management is involved for placement as patient will need rehab as well as 6 weeks of IV antibiotics. Patient reports he feels better compared to yesterday and agrees. I switch patient's Lovenox to heparin yesterday to decrease kidney insult. We'll continue inpatient status for further management and will keep family updated of new findings. It is possible hospice is warranted given all of his comorbidities. Will continue to care for patient. Review of Systems General: No Chills, No Night Sweats HEENT: No Head Aches, No Visual Changes Pulmonary: No Dyspnea, No Cough Cardiovascular: No: Chest Pain, Palpitations Gastrointestinal: No: Abdominal Pain, Nausea, Vomiting Genitourinary: No Dysuria Musculoskeletal: No: neck pain, other Neurological: : WeaknessNo: Numbness All Other Systems Reviewed All Other Systems Reviewed: Yes Objective Exam Vital Signs Vital Signs Date Time Temp Pulse Resp B/P Pulse Ox O2 Delivery O2 Flow Rate FiO2 05/03/16 15:45 98.8 82 18 125/59 92 Nasal Cannula 4.00 05/03/16 14:17 91 4.00 05/03/16 12:00 98.1 70 20 95/52 95 Nasal Cannula 4.00 05/03/16 11:18 93 4.00 05/03/16 08:45 91 Nasal Cannula 4.00 05/03/16 08:00 97.6 91 20 106/63 95 Nasal Cannula 4.00 05/03/16 06:32 91 4.00 05/03/16 04:00 97.4 103 20 100/55 94 Nasal Cannula 4.00 05/03/16 02:35 4.00 05/03/16 00:00 98.4 79 24 102/66 96 NIV/CPAP 05/02/16 22:35 97 4.00 05/02/16 20:00 Nasal Cannula 4.00 I & O 05/03/16 07:00 Intake Total 889 ml Output Total 1825 ml Balance -936 ml General Appearance: No Apparent Distress WD/WN Chronically ill (improved today.) Obese Eyes: Bilateral Eye Normal Inspection, Bilateral Eye PERRL HEENT: PERRL/EOMI Neck: Full Range of Motion Normal Inspection Non Tender Supple Respiratory: Chest Non Tender No Accessory Muscle Use No Respiratory Distress Decreased Breath Sounds Cardiovascular: Regular Rate, Rhythm Gastrointestinal: Normal Bowel Sounds Non Tender (right ileostomy) Soft Rectal: Deferred Back: No Vertebral Tenderness Extremity: Normal Capillary Refill Non Tender No Calf Tenderness Pedal Edema ( trace) Other (right foot wrapped) Neurologic/Psychiatric: Alert Normal Mood/Affect Other (confusion noted but subtle) Skin: Normal Color Warm/Dry Lymphatic: No Adenopathy Results Lab Laboratory Tests 05/03/16 06:14: Alanine Aminotransferase (ALT/SGPT) 6, Albumin 2.4L, Alkaline Phosphatase 68, Anion Gap 12, Anisocytosis SLIGHT, Aspartate Amino Transf (AST/SGOT) 17, BUN/ Creatinine Ratio 14, Band Neutrophils 4, Basophils # (Auto) 0.0, Basophils % ( Manual) 0, Basophils (%) (Auto) 0, Blood Urea Nitrogen 36H, Calcium Level 8.5, Carbon Dioxide Level 14L, Chloride Level 104, Creatinine 2.63H, Crenated Cell SLIGHT, Eosinophils # (Auto) 0.0, Eosinophils % (Manual) 0, Eosinophils (%) ( Auto) 0, Estimat Glomerular Filtration Rate 23, Glucose Level 150H, Hematocrit 28L, Hemoglobin 9.1L, Lymphocytes # (Auto) 0.5L, Lymphocytes % (Manual) 3, Lymphocytes (%) (Auto) 3L, Magnesium Level 1.2L, Mean Corpuscular Hemoglobin 32 , Mean Corpuscular Hemoglobin Concent 33, Mean Corpuscular Volume 98, Mean Platelet Volume 9.1, Monocytes # (Auto) 0.3, Monocytes % (Manual) 3, Monocytes ( %) (Auto) 2, Neutrophils # (Auto) 17.0H, Neutrophils % (Manual) 90, Neutrophils (%) (Auto) 96H, Platelet Count 472H, Poikilocytosis SLIGHT, Polychromasia SLIGHT , Potassium Level 4.9, Red Blood Count 2.84L, Red Cell Distribution Width 14.2, Sodium Level 130L, Total Bilirubin 0.2, Total Protein 5.4L, Toxic Granulation 1+ , Vancomycin Level Trough 26.7*H, White Blood Count 17.8H 05/03/16 15:53: Albumin 2.2L, Anion Gap 10, BUN/Creatinine Ratio 17, Blood Urea Nitrogen 39H, Calcium Level 8.2L, Carbon Dioxide Level 15L, Chloride Level 104, Creatinine 2.36H, Estimat Glomerular Filtration Rate 26, Glucose Level 218H, Magnesium Level 1.6L, Potassium Level 4.4, Sodium Level 129L, Phosphorus Level 3.7 Microbiology 05/01/16 Gram Stain - Final, Resulted 05/01/16 Anaerobic Culture - Preliminary, Resulted No anaerobes isolated 05/01/16 Surgical Culture - Preliminary, Resulted Staphylococcus Aureus Assessment/Plan Assessment/Plan Assessment/Plan 81 yo M MRSA right foot infection- vancomycin- trough is high- holding- repeating trough --s/p amputation of right great toe for osteomyelitis- 04/26/16, now s/p I&D 05/02/16 -Dr Dover Podiatry- notes improvement today in his right foot. Acute Kidney failure- Cr improved, IVF NS- monitor lytes and Cr/GFR- low threshold for transfer if dialysis looks imminent. - avoid nephrotoxic agents (NSAIDS, contrast) - unfortunately pt has MRSA- on vancomycin. 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 Acute hypoxic respiratory failure-due to COPD, pneumonia- baseline oxygen 2L, currently on 4L- stable. on zosyn- peripheral vascular disease- plavix hypothyroidism- cont levothyroxine hypomagnesemia- replacing prn h/o colitis-- requiring ileostomy- stable- DVT ppx heparin (stopped lovenox due to kidney failure) Dispo: monitoring kidney function- starting to improve- checking Urine Na if >20 , FeNa >1 likely hypovolemic hypotonic hyponatremia- should improve as kidneys recover- continue NS IVF. Problems: Clinical Quality Measures DVT/VTE Risk/Contraindication: Risk Factor Score Per Nursin RFS Level Per Nursing on Admit: 4+=Very High TK DELEON MD May 03, 2016 19:29 TK DELEON MD May 03, 2016 19:29 TK DELEON MD May 03, 2016 19:29
[2016-05-03] MEDS: PANTOPRAZOLE 40 MG (PROTONIX) TAB PO SCH (20:41)
[2016-05-03] MEDS: ASPIRIN 81 MG CHEW (CHILDREN'S ASA) PO SCH (20:42)
[2016-05-04] VITALS (7 sets, daily range): BP systolic 103–126; BP diastolic 51–60
[2016-05-04] MEDS: RT-ALBUTEROL/IPRATROPIUM 3 ML (DUONEB) VIAL INH SCH ×6 (02:00→22:00)
[2016-05-04] MEDS: PIPERACILLIN SODIUM/TAZOBACTAM 4.5 GM in NS (IVPB) 100 ML IV SCH ×2 (03:33→16:40)
[2016-05-04] MEDS: LEVOTHYROXINE 50 MCG (LEVOTHROID) TAB PO SCH (06:15)
[2016-05-04] MEDS: CATHETER FLUSH 10 ML SYR IV SCH ×3 (06:15→22:00)
[2016-05-04] MEDS: NS IV 1000 ML 1,000 ML IV SCH ×3 (07:47→20:44)
[2016-05-04 08:24] LABS: BASOPHILS % (AUTO) 0 % (0-10); EOSINOPHILS # (AUTO) 0.1 10^3/uL (0.0-0.3); EOSINOPHILS % (AUTO) 0 % (0-10); LYMPHOCYTES # (AUTO) 0.6 X 10^3 (1.0-4.0); LYMPHOCYTES % (AUTO) 5 % (12-44); MEAN CORPUSCULAR HEMOGLOBIN 32 PG (25-34); MEAN CORPUSCULAR HGB CONC 33 G/DL (32-36); MEAN CORPUSCULAR VOLUME 96 FL (80-99); MEAN PLATELET VOLUME 9.2 FL (7.4-10.4); MONOCYTES # (AUTO) 0.9 X 10^3 (0.0-1.0); MONOCYTES % (AUTO) 8 % (0-12); NEUTROPHILS # (AUTO) 10.2 X 10^3 (1.8-7.8); NEUTROPHILS % (AUTO) 86 % (42-75); PLATELET COUNT 552 10^3/uL (130-400); WHITE BLOOD COUNT 11.9 10^3/uL (4.3-11.0)
[2016-05-04 08:39] LABS: BAND NEUTROPHILS 5 %; LYMPHOCYTES % (MANUAL) 6 %; NEUTROPHILS % (MANUAL) 87 %
[2016-05-04 08:42] LABS: CALCIUM 8.6 MG/DL (8.5-10.1); CREATININE SERUM 2.01 MG/DL (0.60-1.30); MAGNESIUM 1.8 MG/DL (1.8-2.4); POTASSIUM 4.1 MMOL/L (3.6-5.0)
[2016-05-04] MEDS: ALPRAZolam 0.5 MG (XANAX) TAB PO PRN (08:57)
[2016-05-04] MEDS: CARVEDILOL 6.25 MG (COREG) TAB PO SCH ×2 (08:58→20:45)
[2016-05-04] MEDS: HYDROcodone/APAP 5 MG/325 MG (LORTAB) TAB PO PRN ×2 (08:58→18:07)
[2016-05-04] MEDS: amLODIPine 10 MG (NORVASC) TAB PO SCH (08:58)
[2016-05-04] MEDS: CLOPIDOGREL 75 MG (PLAVIX) TABLET PO SCH (08:58)
--- NOTE | 2016-05-04 11:17 | Progress Note (SOAP) ---
Subjective Subjective/Events-last exam Fwup right foot osteomyelitis with MRSA, acute renal failure, acute respiratory failure with COPD/Pneumonia. Resting comfortably. Denies shortness of air. Objective Exam Vital Signs Date Time Temp Pulse Resp B/P Pulse Ox O2 Delivery O2 Flow Rate FiO2 05/04/16 11:05 91 4.00 05/04/16 08:00 95 Nasal Cannula 4.00 05/04/16 08:00 97.5 80 18 122/58 95 Nasal Cannula 4.00 05/04/16 06:46 96 4.00 05/04/16 04:00 97.0 79 20 112/56 95 Nasal Cannula 4.00 05/04/16 00:00 97.7 82 20 105/51 92 Nasal Cannula 4.00 05/03/16 20:00 Nasal Cannula 4.00 05/03/16 19:26 95 3.50 05/03/16 19:20 97.0 84 20 112/66 95 Nasal Cannula 3.50 05/03/16 15:45 98.8 82 18 125/59 92 Nasal Cannula 4.00 05/03/16 14:17 91 4.00 05/03/16 12:00 98.1 70 20 95/52 95 Nasal Cannula 4.00 05/03/16 11:18 93 4.00 I & O 05/04/16 07:00 Intake Total 4710 ml Output Total 1300 ml Balance 3410 ml Capillary Refill : General Appearance: No Apparent Distress Neck: Supple Respiratory: Lungs Clear Cardiovascular: Regular Rate, Rhythm Gastrointestinal: normal bowel sounds non tender soft other (ostomy RLQ) Extremity: Non Tender No Calf Tenderness No Pedal Edema Other (right foot with dry dressing in place) Neurologic/Psychiatric: Alert Oriented x3 Results Lab Laboratory Tests 05/03/16 15:53: Albumin 2.2L, Anion Gap 10, BUN/Creatinine Ratio 17, Blood Urea Nitrogen 39H, Calcium Level 8.2L, Carbon Dioxide Level 15L, Chloride Level 104, Creatinine 2.36H, Estimat Glomerular Filtration Rate 26, Glucose Level 218H, Magnesium Level 1.6L, Phosphorus Level 3.7, Potassium Level 4.4, Sodium Level 129L 05/03/16 20:02: Urine Creatinine 101, Urine Random Sodium < 20L 05/04/16 07:40: Anion Gap 10, BUN/Creatinine Ratio 18, Blood Urea Nitrogen 36H, Calcium Level 8.6, Carbon Dioxide Level 17L, Chloride Level 106, Creatinine 2.01H, Estimat Glomerular Filtration Rate 32, Glucose Level 136H, Magnesium Level 1.8, Potassium Level 4.1, Sodium Level 133L, Band Neutrophils 5, Basophils # (Auto) 0.0, Basophils (%) (Auto) 0, Blood Morphology Comment NORMAL, Eosinophils # ( Auto) 0.1, Eosinophils (%) (Auto) 0, Hematocrit 26L, Hemoglobin 8.6L, Lymphocytes # (Auto) 0.6L, Lymphocytes % (Manual) 6, Lymphocytes (%) (Auto) 5L, Mean Corpuscular Hemoglobin 32, Mean Corpuscular Hemoglobin Concent 33, Mean Corpuscular Volume 96, Mean Platelet Volume 9.2, Monocytes # (Auto) 0.9, Monocytes % (Manual) 2, Monocytes (%) (Auto) 8, Neutrophils # (Auto) 10.2H, Neutrophils % (Manual) 87, Neutrophils (%) (Auto) 86H, Platelet Count 552H, Red Blood Count 2.70L, Red Cell Distribution Width 14.0, White Blood Count 11.9H Microbiology 05/01/16 Gram Stain - Final, Resulted 05/01/16 Anaerobic Culture - Preliminary, Resulted No anaerobes isolated 05/01/16 Surgical Culture - Preliminary, Resulted Staphylococcus Aureus Assessment/Plan Assessment/Plan Assess & Plan/Chief Complaint 1. Right Foot Osteomyelitis with MRSA--continue Vancomycin 2. Acute Renal Failure--creatinine improving daily, continue to monitor 3. Acute Respiratory Failure with COPD and Pneumonia--on CA and zon Clinical Quality Measures DVT/VTE Risk/Contraindication: Risk Factor Score Per Nursin RFS Level Per Nursing on Admit: 4+=Very High MONICA WILD DO May 04, 2016 11:17
--- NOTE | 2016-05-04 11:47 | Podiatry Progress Note ---
Standard Progress Note Progress Notes/Assess & Plan Progress/Assessment & Plan Pt doing well at BS feeling much better today, decreased pain to the RLE. RLE- erythema and edema much improved at this time, no purulent drainage, however there is increased necrosis to the medial ankle and dorsal foot due to Arterial Disease, calves supple nontender Final Diagnosis POD #3 I7D Right Foot Gangrene Right Foot -At this time the patient is responding to antibiotics and infection is under control, kidney function is improving -RECOMMEND D/C TO REHAB WITH 6 WEEKS ABX. WOULD RECOMMEND ZYVOX IF COVERED DUE TO ACUTE KIDNEY INJURY. ADVISE AGAINST DAPTOMYCIN FOR CORRECTION USE WITH RISK OF RHABDOMYOLYSIS. -WILL NEED TO FOLLOW WITH DR GRIMES ([facility] SURGEON HE IS KNOWN TO) OUTPATIENT TO ALLOW THE RLE TO DEMARCATE, AND CONCERN FOR NEED OF BKA VS AKA AT FUTURE DATE -CONTINUE FLUSH AND PACK WOUND DAILY -MIGUEL COELHO DPM May 04, 2016 11:47
[2016-05-04] MEDS: ALFUZOSIN HCL 10 MG TAB (UROXATRAL) PO SCH (17:51)
[2016-05-04] MEDS: ASPIRIN 81 MG CHEW (CHILDREN'S ASA) PO SCH (20:45)
[2016-05-04] MEDS: PANTOPRAZOLE 40 MG (PROTONIX) TAB PO SCH (20:45)
[2016-05-05] MEDS: RT-ALBUTEROL/IPRATROPIUM 3 ML (DUONEB) VIAL INH SCH ×7 (02:00→22:10)
[2016-05-05] MEDS: PIPERACILLIN SODIUM/TAZOBACTAM 4.5 GM in NS (IVPB) 100 ML IV SCH ×2 (03:15→15:34)
[2016-05-05] MEDS: CATHETER FLUSH 10 ML SYR IV SCH ×3 (05:19→20:14)
[2016-05-05] MEDS: LEVOTHYROXINE 50 MCG (LEVOTHROID) TAB PO SCH (05:37)
[2016-05-05 06:34] LABS: BASOPHILS % (AUTO) 1 % (0-10); EOSINOPHILS # (AUTO) 0.3 10^3/uL (0.0-0.3); EOSINOPHILS % (AUTO) 4 % (0-10); LYMPHOCYTES # (AUTO) 0.8 X 10^3 (1.0-4.0); LYMPHOCYTES % (AUTO) 11 % (12-44); MEAN CORPUSCULAR HEMOGLOBIN 32 PG (25-34); MEAN CORPUSCULAR HGB CONC 33 G/DL (32-36); MEAN CORPUSCULAR VOLUME 98 FL (80-99); MEAN PLATELET VOLUME 8.9 FL (7.4-10.4); MONOCYTES % (AUTO) 13 % (0-12); NEUTROPHILS # (AUTO) 5.4 X 10^3 (1.8-7.8); NEUTROPHILS % (AUTO) 72 % (42-75); PLATELET COUNT 556 10^3/uL (130-400); RED BLOOD COUNT 2.73 10^6/uL (4.35-5.85); RED CELL DISTRIBUTION WIDTH 14.3 % (10.0-14.5); WHITE BLOOD COUNT 7.5 10^3/uL (4.3-11.0)
[2016-05-05 06:54] LABS: CALCIUM 8.6 MG/DL (8.5-10.1); CREATININE SERUM 1.6 MG/DL (0.60-1.30); POTASSIUM 4.3 MMOL/L (3.6-5.0)
[2016-05-05] MEDS: NS IV 1000 ML 1,000 ML IV SCH ×2 (06:56→17:27)
[2016-05-05 08:00] VITALS: BP 132/61
[2016-05-05] MEDS: CARVEDILOL 6.25 MG (COREG) TAB PO SCH ×2 (08:21→20:14)
[2016-05-05] MEDS: CLOPIDOGREL 75 MG (PLAVIX) TABLET PO SCH (08:21)
[2016-05-05] MEDS: amLODIPine 10 MG (NORVASC) TAB PO SCH (08:21)
[2016-05-05] MEDS: HYDROcodone/APAP 5 MG/325 MG (LORTAB) TAB PO PRN ×2 (10:00→15:34)
--- NOTE | 2016-05-05 11:15 | Progress Note (SOAP) ---
Subjective Subjective/Events-last exam Fwup right foot osteomyelitis with MRSA, acute renal failure, acute respiratory failure with COPD/Pneumonia. Sitting up in chair with nursing changing right foot wound dressing--nursing states little more eschar looking tissue to medial ankle area. Objective Exam Vital Signs Date Time Temp Pulse Resp B/P Pulse Ox O2 Delivery O2 Flow Rate FiO2 05/05/16 10:25 93 05/05/16 08:10 93 Room Air 05/05/16 08:00 97.5 76 16 132/61 93 Nasal Cannula 4.00 05/04/16 23:30 97.5 70 18 120/60 93 Nasal Cannula 4.00 05/04/16 20:35 97.9 85 20 103/52 98 Nasal Cannula 4.00 05/04/16 20:00 Nasal Cannula 3.50 05/04/16 16:26 98.0 81 20 126/58 97 Nasal Cannula 4.00 05/04/16 14:16 94 4.00 05/04/16 12:00 98.0 83 20 120/58 97 Nasal Cannula 4.00 I & O 05/05/16 07:00 Intake Total 3300 ml Output Total 2550 ml Balance 750 ml Capillary Refill : General Appearance: No Apparent Distress Respiratory: Lungs Clear Cardiovascular: Regular Rate, Rhythm Gastrointestinal: normal bowel sounds non tender soft Extremity: Non Tender No Calf Tenderness No Pedal Edema Neurologic/Psychiatric: Alert Oriented x3 Skin: Other (right foot with eschar medially to ankle/foot area and open area low being packed with iodoform gauze) Results Lab Laboratory Tests 05/05/16 06:10: Anion Gap 8, BUN/Creatinine Ratio 20, Basophils # (Auto) 0.0, Basophils (%) ( Auto) 1, Blood Urea Nitrogen 32H, Calcium Level 8.6, Carbon Dioxide Level 17L, Chloride Level 112H, Creatinine 1.60H, Eosinophils # (Auto) 0.3, Eosinophils (% ) (Auto) 4, Estimat Glomerular Filtration Rate 41, Glucose Level 94, Hematocrit 27L, Hemoglobin 8.7L, Lymphocytes # (Auto) 0.8L, Lymphocytes (%) (Auto) 11L, Mean Corpuscular Hemoglobin 32, Mean Corpuscular Hemoglobin Concent 33, Mean Corpuscular Volume 98, Mean Platelet Volume 8.9, Monocytes # (Auto) 1.0, Monocytes (%) (Auto) 13H, Neutrophils # (Auto) 5.4, Neutrophils (%) (Auto) 72, Platelet Count 556H, Potassium Level 4.3, Red Blood Count 2.73L, Red Cell Distribution Width 14.3, Sodium Level 137, White Blood Count 7.5 Microbiology 05/01/16 Gram Stain - Final, Resulted 05/01/16 Anaerobic Culture - Preliminary, Resulted No anaerobes isolated 05/01/16 Surgical Culture - Preliminary, Resulted Staphylococcus Aureus Assessment/Plan Assessment/Plan Assess & Plan/Chief Complaint 1. Right Foot Osteomyelitis with MRSA--continue Vancomycin and podiatry will re -evaluate wound tomorrow, WBC down today 2. Acute Renal Failure--creatinine improving daily, continue to monitor 3. Acute Respiratory Failure with COPD and Pneumonia--on PA and zosyn Clinical Quality Measures DVT/VTE Risk/Contraindication: Risk Factor Score Per Nursin RFS Level Per Nursing on Admit: 4+=Very High MONICA WILD DO May 05, 2016 11:15 am
[2016-05-05 15:35] VITALS: BP 132/66
[2016-05-05] MEDS: ALFUZOSIN HCL 10 MG TAB (UROXATRAL) PO SCH (17:25)
[2016-05-05] MEDS: ASPIRIN 81 MG CHEW (CHILDREN'S ASA) PO SCH (20:14)
[2016-05-05] MEDS: PANTOPRAZOLE 40 MG (PROTONIX) TAB PO SCH (20:14)
[2016-05-06] VITALS: BP 117/65
[2016-05-06] MEDS: RT-ALBUTEROL/IPRATROPIUM 3 ML (DUONEB) VIAL INH SCH ×6 (02:00→22:22)
[2016-05-06] MEDS: NS IV 1000 ML 1,000 ML IV SCH ×2 (03:24→18:25)
[2016-05-06] MEDS: PIPERACILLIN SODIUM/TAZOBACTAM 4.5 GM in NS (IVPB) 100 ML IV SCH ×3 (03:45→21:21)
[2016-05-06] MEDS: CATHETER FLUSH 10 ML SYR IV SCH ×3 (05:13→22:00)
[2016-05-06] MEDS: LEVOTHYROXINE 50 MCG (LEVOTHROID) TAB PO SCH (05:37)
[2016-05-06] MEDS: HYDROcodone/APAP 5 MG/325 MG (LORTAB) TAB PO PRN ×3 (05:58→17:40)
[2016-05-06] MEDS ORDERED: TROUGH ORDER-PHARMACY XX NR (06:00)
[2016-05-06 06:02] LABS: BASOPHILS # (AUTO) 0.1 10^3/uL (0.0-0.1); BASOPHILS % (AUTO) 1 % (0-10); EOSINOPHILS # (AUTO) 0.6 10^3/uL (0.0-0.3); EOSINOPHILS % (AUTO) 6 % (0-10); LYMPHOCYTES # (AUTO) 0.9 X 10^3 (1.0-4.0); LYMPHOCYTES % (AUTO) 10 % (12-44); MEAN CORPUSCULAR HEMOGLOBIN 32 PG (25-34); MEAN CORPUSCULAR HGB CONC 32 G/DL (32-36); MEAN CORPUSCULAR VOLUME 99 FL (80-99); MEAN PLATELET VOLUME 8.7 FL (7.4-10.4); MONOCYTES # (AUTO) 1.2 X 10^3 (0.0-1.0); MONOCYTES % (AUTO) 13 % (0-12); NEUTROPHILS # (AUTO) 6.4 X 10^3 (1.8-7.8); NEUTROPHILS % (AUTO) 70 % (42-75); PLATELET COUNT 619 10^3/uL (130-400); RED BLOOD COUNT 2.74 10^6/uL (4.35-5.85); RED CELL DISTRIBUTION WIDTH 14.4 % (10.0-14.5); WHITE BLOOD COUNT 9.1 10^3/uL (4.3-11.0)
[2016-05-06 06:22] LABS: ALBUMIN 2.2 G/DL (3.2-4.5); BILIRUBIN,TOTAL 0.2 MG/DL (0.1-1.0); CALCIUM 8.6 MG/DL (8.5-10.1); CREATININE SERUM 1.47 MG/DL (0.60-1.30); POTASSIUM 4.7 MMOL/L (3.6-5.0)
[2016-05-06 07:52] LABS: OSMOLALITY URINE PT 307 mOsm/kg (250-1200)
[2016-05-06 08:00] VITALS: BP 150/80
[2016-05-06] MEDS: amLODIPine 10 MG (NORVASC) TAB PO SCH (08:03)
[2016-05-06] MEDS: CLOPIDOGREL 75 MG (PLAVIX) TABLET PO SCH (08:03)
[2016-05-06] MEDS: CARVEDILOL 6.25 MG (COREG) TAB PO SCH ×2 (08:03→20:30)
--- NOTE | 2016-05-06 08:35 | Progress Note (SOAP) ---
Subjective Subjective 81-year-old male being treated for right lower extremity foot infection. He is doing better WBC down, kidney function improving, but his right foot, lower leg is not improving looking more necrotic per report. -Pt did have some confusion overnight but this AM- he was alert and oriented x 3. Review of Systems General: No Chills, No Night Sweats HEENT: No Head Aches, No Visual Changes Pulmonary: No Dyspnea, No Cough Cardiovascular: No: Chest Pain, Palpitations Gastrointestinal: No: Abdominal Pain, Nausea, Vomiting Genitourinary: No Dysuria Musculoskeletal: No: neck pain, other Neurological: : WeaknessNo: Numbness All Other Systems Reviewed All Other Systems Reviewed: Yes Objective Exam Vital Signs Vital Signs Date Time Temp Pulse Resp B/P Pulse Ox O2 Delivery O2 Flow Rate FiO2 05/06/16 08:00 97.5 75 18 150/80 97 Nasal Cannula 4.00 05/06/16 06:44 98 3.00 05/06/16 00:00 96.0 83 16 117/65 97 Nasal Cannula 4.00 05/05/16 20:05 Nasal Cannula 3.00 05/05/16 15:35 97.0 89 16 132/66 94 05/05/16 10:25 93 I & O 05/06/16 07:00 Intake Total 4010 ml Output Total 2575 ml Balance 1435 ml General Appearance: No Apparent Distress Eyes: Bilateral Eye Normal Inspection, Bilateral Eye PERRL HEENT: PERRL/EOMI Neck: Full Range of Motion Normal Inspection Non Tender Supple Respiratory: Lungs Clear Cardiovascular: Regular Rate, Rhythm Gastrointestinal: Normal Bowel Sounds Non Tender (right ileostomy) Soft Rectal: Deferred Back: No Vertebral Tenderness Extremity: Non Tender No Calf Tenderness No Pedal Edema Neurologic/Psychiatric: Alert Oriented x3 Skin: Other (right foot wrapped with gauze.) Lymphatic: No Adenopathy Results Lab Laboratory Tests 05/06/16 05:50: Alanine Aminotransferase (ALT/SGPT) 12, Albumin 2.2L, Alkaline Phosphatase 53, Anion Gap 9, Aspartate Amino Transf (AST/SGOT) 25, BUN/Creatinine Ratio 18, Basophils # (Auto) 0.1, Basophils (%) (Auto) 1, Blood Urea Nitrogen 27H, Calcium Level 8.6, Carbon Dioxide Level 15L, Chloride Level 114H, Creatinine 1.47H, Eosinophils # (Auto) 0.6H, Eosinophils (%) (Auto) 6, Estimat Glomerular Filtration Rate 46, Glucose Level 112H, Hematocrit 27L, Hemoglobin 8.8L, Lymphocytes # (Auto) 0.9L, Lymphocytes (%) (Auto) 10L, Mean Corpuscular Hemoglobin 32, Mean Corpuscular Hemoglobin Concent 32, Mean Corpuscular Volume 99, Mean Platelet Volume 8.7, Monocytes # (Auto) 1.2H, Monocytes (%) (Auto) 13H , Neutrophils # (Auto) 6.4, Neutrophils (%) (Auto) 70, Platelet Count 619H, Potassium Level 4.7, Red Blood Count 2.74L, Red Cell Distribution Width 14.4, Sodium Level 138, Total Bilirubin 0.2, Total Protein 5.0L, Vancomycin Level Trough 12.5, White Blood Count 9.1 Microbiology 05/01/16 Gram Stain - Final, Complete 05/01/16 Anaerobic Culture - Final, Complete No anaerobes isolated 05/01/16 Surgical Culture - Final, Complete Staphylococcus Aureus Assessment/Plan Assessment/Plan Assessment/Plan 81 yo M MRSA right foot infection- vancomycin-continue --s/p amputation of right great toe for osteomyelitis- 04/26/16, now s/p I&D 05/02/16 -Dr Dover Podiatry-following Acute Kidney failure- Cr improved, IVF NS- monitor lytes and Cr/GFR- - avoid nephrotoxic agents (NSAIDS, contrast) - unfortunately pt has MRSA- on vancomycin hyponatremia- IVF NS- resolved Acute hypoxic respiratory failure-due to COPD, pneumonia- on baseline oxygen 2L requirement on zosyn- will need 1 more day 05/07/16 peripheral vascular disease- plavix hypothyroidism- cont levothyroxine hypomagnesemia- replacing prn HTN- amlodipine 10mg, carvedilol 6.25mg h/o colitis-- requiring ileostomy- stable- DVT ppx heparin (stopped lovenox due to kidney failure) Dispo: monitoring kidney function-improving- Case management involved. Pt needs follow up with Dr. Jean-Baptiste in 1-2 weeks as he likely will need below knee amputation. Follow with Dr. Dover in 1-2 weeks. -will need IV vancomycin x 6 weeks Problems: Clinical Quality Measures DVT/VTE Risk/Contraindication: Risk Factor Score Per Nursin RFS Level Per Nursing on Admit: 4+=Very High TK DELEON MD May 06, 2016 08:35
[2016-05-06 12:00] VITALS: BP 117/72
[2016-05-06 15:40] VITALS: BP 153/76
[2016-05-06] MEDS: ALFUZOSIN HCL 10 MG TAB (UROXATRAL) PO SCH (17:40)
[2016-05-06 20:25] VITALS: BP 133/70
[2016-05-06] MEDS: PANTOPRAZOLE 40 MG (PROTONIX) TAB PO SCH (20:30)
[2016-05-06] MEDS: ASPIRIN 81 MG CHEW (CHILDREN'S ASA) PO SCH (20:30)
[2016-05-07] VITALS: BP 139/68
[2016-05-07] MEDS: NS IV 1000 ML 1,000 ML IV SCH (01:12)
[2016-05-07] MEDS: RT-ALBUTEROL/IPRATROPIUM 3 ML (DUONEB) VIAL INH SCH ×6 (02:16→21:57)
[2016-05-07 05:14] LABS: BASOPHILS # (AUTO) 0.1 10^3/uL (0.0-0.1); BASOPHILS % (AUTO) 1 % (0-10); EOSINOPHILS # (AUTO) 0.8 10^3/uL (0.0-0.3); EOSINOPHILS % (AUTO) 7 % (0-10); LYMPHOCYTES # (AUTO) 1.1 X 10^3 (1.0-4.0); LYMPHOCYTES % (AUTO) 9 % (12-44); MEAN CORPUSCULAR HEMOGLOBIN 32 PG (25-34); MEAN CORPUSCULAR HGB CONC 32 G/DL (32-36); MEAN CORPUSCULAR VOLUME 99 FL (80-99); MEAN PLATELET VOLUME 8.8 FL (7.4-10.4); MONOCYTES # (AUTO) 1.4 X 10^3 (0.0-1.0); MONOCYTES % (AUTO) 11 % (0-12); NEUTROPHILS # (AUTO) 8.9 X 10^3 (1.8-7.8); NEUTROPHILS % (AUTO) 73 % (42-75); PLATELET COUNT 689 10^3/uL (130-400); RED BLOOD COUNT 3.05 10^6/uL (4.35-5.85); RED CELL DISTRIBUTION WIDTH 14.8 % (10.0-14.5); WHITE BLOOD COUNT 12.2 10^3/uL (4.3-11.0)
[2016-05-07 05:41] LABS: ALBUMIN 2.4 G/DL (3.2-4.5); CALCIUM 9.2 MG/DL (8.5-10.1); CREATININE SERUM 1.47 MG/DL (0.60-1.30); MAGNESIUM 1.2 MG/DL (1.8-2.4); PHOSPHORUS 2.8 MG/DL (2.3-4.7); POTASSIUM 4.9 MMOL/L (3.6-5.0)
[2016-05-07] MEDS: LEVOTHYROXINE 50 MCG (LEVOTHROID) TAB PO SCH (05:45)
[2016-05-07] MEDS: PIPERACILLIN SODIUM/TAZOBACTAM 4.5 GM in NS (IVPB) 100 ML IV SCH ×3 (05:45→19:03)
[2016-05-07] MEDS: CATHETER FLUSH 10 ML SYR IV SCH ×3 (05:46→22:09)
[2016-05-07 08:00] VITALS: BP 139/68
--- NOTE | 2016-05-07 08:20 | Progress Note (SOAP) ---
Subjective Subjective 81-year-old male being treated for right lower extremity foot infection. Overnight reports he gets more winded with exertion such as rolling over in the bed for the nursing staff to change bedding. CPAP helped him sleep last night. Wheezing noted. Breathing treatments helped. Vanc trough was 12; vancomycin was not given due to how it was restarted- apparently when a medication is on hold- clicking resume does not restart it. It has to be ordered again. Will give 1.25gram vancomycin this AM. Review of Systems General: No Chills, No Night Sweats HEENT: No Head Aches, No Visual Changes Pulmonary: Dyspnea (with exertion)No Cough Cardiovascular: No: Chest Pain, Palpitations Gastrointestinal: No: Abdominal Pain, Nausea, Vomiting Genitourinary: No Dysuria, Incontinence (urine) Musculoskeletal: No: neck pain, other Neurological: : WeaknessNo: Numbness All Other Systems Reviewed All Other Systems Reviewed: Yes Objective Exam Vital Signs Vital Signs Date Time Temp Pulse Resp B/P Pulse Ox O2 Delivery O2 Flow Rate FiO2 05/07/16 06:38 2.00 95 05/07/16 02:16 94 2.00 05/07/16 00:00 98.2 93 22 139/68 95 Nasal Cannula 4.00 05/06/16 22:22 92 05/06/16 20:25 97.6 91 20 133/70 94 Nasal Cannula 4.00 05/06/16 18:31 93 05/06/16 15:40 97.8 81 20 153/76 97 Nasal Cannula 4.00 05/06/16 14:52 94 05/06/16 12:00 97.8 72 20 117/72 97 Nasal Cannula 4.00 05/06/16 11:18 95 2.00 I & O 05/07/16 07:00 Intake Total 2280 ml Output Total 2100 ml Balance 180 ml General Appearance: No Apparent Distress Eyes: Bilateral Eye Normal Inspection, Bilateral Eye PERRL HEENT: PERRL/EOMI Neck: Full Range of Motion Normal Inspection Non Tender Supple Respiratory: Lungs Clear Cardiovascular: Regular Rate, Rhythm Gastrointestinal: Normal Bowel Sounds Non Tender (right ileostomy) Soft Rectal: Deferred Back: No Vertebral Tenderness Extremity: Non Tender No Calf Tenderness No Pedal Edema (on lateral dependent side of left leg.) Pedal Edema Neurologic/Psychiatric: Alert Oriented x3 Skin: Other (right foot wrapped with NAVI wrap) Lymphatic: No Adenopathy Results Lab Laboratory Tests 05/07/16 04:50: Albumin 2.4L, Anion Gap 11, BUN/Creatinine Ratio 16, Basophils # (Auto) 0.1, Basophils (%) (Auto) 1, Blood Urea Nitrogen 24H, Calcium Level 9.2, Carbon Dioxide Level 16L, Chloride Level 114H, Creatinine 1.47H, Eosinophils # (Auto) 0.8H, Eosinophils (%) (Auto) 7, Estimat Glomerular Filtration Rate 46, Glucose Level 99, Hematocrit 30L, Hemoglobin 9.6L, Lymphocytes # (Auto) 1.1, Lymphocytes (%) (Auto) 9L, Magnesium Level 1.2L, Mean Corpuscular Hemoglobin 32 , Mean Corpuscular Hemoglobin Concent 32, Mean Corpuscular Volume 99, Mean Platelet Volume 8.8, Monocytes # (Auto) 1.4H, Monocytes (%) (Auto) 11, Neutrophils # (Auto) 8.9H, Neutrophils (%) (Auto) 73, Phosphorus Level 2.8, Platelet Count 689H, Potassium Level 4.9, Red Blood Count 3.05L, Red Cell Distribution Width 14.8H, Sodium Level 141, White Blood Count 12.2H Microbiology 05/01/16 Gram Stain - Final, Complete 05/01/16 Anaerobic Culture - Final, Complete No anaerobes isolated 05/01/16 Surgical Culture - Final, Complete Staphylococcus Aureus Assessment/Plan Assessment/Plan Assessment/Plan 81 yo M MRSA right foot infection- vancomycin-continue --s/p amputation of right great toe for osteomyelitis- 04/26/16, now s/p I&D 05/02/16 -Dr Dover Podiatry-following Acute Kidney failure- Cr improved, monitor lytes and Cr/GFR- - avoid nephrotoxic agents (NSAIDS, contrast) - unfortunately pt has MRSA- on vancomycin hyponatremia- IVF NS- resolved Acute hypoxic respiratory failure-due to COPD, pneumonia- on baseline oxygen 2L requirement on zosyn-will d/c on 05/07/16 peripheral vascular disease- plavix hypothyroidism- cont levothyroxine hypomagnesemia- replacing prn HTN- amlodipine 10mg, carvedilol 6.25mg h/o colitis-- requiring ileostomy- stable- DVT ppx heparin (stopped lovenox due to kidney failure) Dispo: monitoring kidney function-improving- Case management involved. Pt needs follow up with Dr. Jean-Baptiste in 1-2 weeks as he likely will need below knee amputation. Follow with Dr. Dover in 1-2 weeks. -will need IV vancomycin x 6 weeks -Working on getting a PICC line today, CM working on transfer to [facility]. If not [facility], 's next choice is [place]. Problems: Clinical Quality Measures DVT/VTE Risk/Contraindication: Risk Factor Score Per Nursin RFS Level Per Nursing on Admit: 4+=Very High TK DELEON MD May 07, 2016 08:20
[2016-05-07] MEDS ORDERED: VANCOMYCIN INJECTION 1,000 MG in NS (IVPB) 250 ML IV NR (09:00)
[2016-05-07] MEDS ORDERED: ALPRAZolam 0.5 MG (XANAX) TAB PO PRN (09:00)
[2016-05-07] MEDS: MAGNESIUM 1 GM/100 ML IVPB 100 ML IV SCH ×3 (09:07→17:02)
[2016-05-07] MEDS: amLODIPine 10 MG (NORVASC) TAB PO SCH (09:08)
[2016-05-07] MEDS: CARVEDILOL 6.25 MG (COREG) TAB PO SCH ×2 (09:08→20:48)
[2016-05-07] MEDS: MAGNESIUM OXIDE (MAG-OX)400 MG TAB PO SCH ×2 (09:08→17:39)
[2016-05-07] MEDS: CLOPIDOGREL 75 MG (PLAVIX) TABLET PO SCH (09:08)
--- NOTE | 2016-05-07 09:43 | Physical Therapy Evaluation ---
PT Evaluation-General Medical Diagnosis Admission Date May 02, 2016 at 08:39 Medical Diagnosis: Right foot osteomyelitis Onset Date: May 02, 2016 Therapy Diagnosis Therapy Diagnosis: weakness Height/Weight Height (Feet): 5 Height (Inches): 8.00 Weight (Pounds): 225 Weight (Ounces): 0.0 Precautions Precautions/Isolations: Contact Isolation, Fall Prevention, Pressure Ulcer Weight Bear Status Weight Bearing Restriction: Non Weight Bearing Location Restriction: RT FOOT Comments Pt to be non wt bearing on the (R) foot. Medical History Pertinent Medical History: Arthritis, CAD, COPD, DM, Dementia, HTN, Hypothroidism, Neuropathy, Prostate CA, PVD Additional Medical History Right total knee replacement Social History Home: Single Level Current Living Status: Spouse Prior/Core FIM Prior Level of Function Functional [place] Measure 0=Not Assessed/NA 4=Minimal Assistance 1=Total Assistance 5=Supervision or Setup 2=Maximal Assistance 6=Modified [place] 3=Moderate Assistance 7=Complete [place] Bed Mobility: 6 Transfers (B,C,W/C) (FIM): 6 Gait: 6 PT Evaluation-Current Subjective Pt reports that he is getting weak from being in bed. He indicates that he will be having the right leg amputated soon. He is in agreement to participate in therapy to improve strength. Pt currently has (R) foot infection. He underwent right great toe amputation 04/26. he had debridement of the foot on . He has acute hypoxic respiratory faiure with chronic COPD and pneumonia. He is in Acute Kidney failure. Pt/Family Goals Transfer from this facility to a residential home to finish antibiotics and begin rehab following amputation. Objective Patient Orientation: Person, Place, Situation, [place] Problem Solving: Fair Attachments: Colostomy/Ileostomy, Oxygen, IV ROM/Strength ROM Upper Extremities WFL ROM Lower Extremities WFL Strength Upper Extremities Gross 4/5 Strenght Lower Extremities Hip flex 3+/5 (B), hip abd 3/5 (B), Quads 4/5 (B), Integumentary/Posture Integumentary necrotic wounds right foot that are being managed by nursing Sensory Vision: Wears Glasses Hearing: Functional Transfers Functional [place] Measure 0=Not Assessed/NA 4=Minimal Assistance 1=Total Assistance 5=Supervision or Setup 2=Maximal Assistance 6=Modified [place] 3=Moderate Assistance 7=Complete [place] Transfers (B, C, W/C) (FIM): 3 (stand pivot with hand held assist and chair placed immediatly beside bed. Transfers to the left in order to pivot on the uninvolved extremity.) Scootin Supine to/from Sit: 4 Sit to/from Stand: 4 Balance Sitting Static: Good Sitting Dynamic: Good Standing Static: Poor Standing Dynamic: Poor Special Test Comments Standing balance is poor which results in patient placing weight through the right leg. He was not able to maintain full non wt bearing status during transfers. Assessment/Needs Rehab Potential: Guarded Post Rehab Potential-Barriers: complex medcial condition Equipment Needs wheel chair PT [employer] Goals Custodial Goals PT Custodial Goals Time Frame: May 17, 2016 Transfers (B,C,W/C) (FIM): 4 Wheelchair (FIM): 2 Wheelchair distance (FIM): 5=958-56 ft Distance: 25 Wheelchair Level of Assist: 5 PT Plan Problem List Problem List: Activity Tolerance, Functional Strength, Transfer Treatment/Plan Treatment Plan: Continue Plan of Care Treatment Plan: Bed Mobility, Functional Activity [place], Functional Strength, Transfers Instruction and practice on transfer maintaining NWB on the right. Treatment Duration: May 17, 2016 # of days/week 6 Visits Per Week: 11 Pt/Family Agrees w/Plan: Yes Safety Risks/Education Safety Risk Comments: failure to maintain wt bearing Patient Education: Transfer Techniques, W/C Management Teaching Recipient: Patient Teaching Methods: Demonstration, Discussion Discharge Recommendations Barriers to Progress complex medical condition Time/GCodes Time In: 900 Time Out: 950 Total Billed Treatment Time: 50 Total Billed Treatment visit, evaluation high complexity 50 minutes REMA MCCULLOUGH PT May 07, 2016 09:43
--- NOTE | 2016-05-07 13:13 | Diagnostic Imaging Report ---
INDICATION: PICC line placement. DISCUSSION: Single portable upright view of the chest was obtained, comparison 04/22/2016. New left upper extremity PICC line with tip in distal SVC in good position. Stable normal heart size. No focal consolidation, pleural fluid, or pneumothorax. IMPRESSION: 1. Left upper extremity PICC line with tip in the distal SVC in good position. Dictated by: Dictated on workstation # [id number]
--- NOTE | 2016-05-07 13:35 | Occupational Therapy Eval ---
OT Evaluation-General/PLF Medical Diagnosis Admission Date May 02, 2016 at 08:39 Medical Diagnosis: Right foot osteomyelitis Onset Date: May 02, 2016 Therapy Diagnosis Therapy Diagnosis: Debility following foot surgery Height/Weight Height (Feet): 5 Height (Inches): 8.00 Weight (Pounds): 225 Weight (Ounces): 0.0 Precautions Precautions/Isolations: Contact Isolation, Fall Prevention, Pressure Ulcer Safety Interventions: Reorient-PRN Weight Bear Status Weight Bearing Restriction: Non Weight Bearing Location Restriction: RT FOOT Referral Physician: Dr. Payan Referral Reason: Activity Tolerance, Self Care, Evaluation/Treatment Medical History Pertinent Medical History: Arthritis, CAD, COPD, DM, Dementia, HTN, Hypothroidism, Neuropathy, Prostate CA, PVD Additional Medical History right carotid, ileostomy Current History Pt. has had a difficulty history recently. Had foot surgery and then went into acute renal failure, and respiratory insufficiency. Spouse states that pt. is transferring to a skilled unit in [place] today. Reviewed History: Yes Social History Home: Single Level Current Living Status: Spouse Entry Into Home: Level Entry ADL-Prior Level of Function ADL PLOF Comments Originally, before pt. had complicated foot issues, he was independent with daily tasks. DME/Equipment: Bath Chair, Grab Bars, Shower DME/Equipment Comments Pt. uses a cane at home but does have a walker. OT Current Status Subjective Pt. does not report pain. Spouse states that he is leaving today. Appearance Pt. is up in chair. Spouse states that he pivoted there on good foot with physical therapy. Pt. declines getting up again. Pt. in and out of sleep during evaluation. Spouse answered most questions for him. Mental Status/Objective Patient Orientation: Unable to Assess Current Glasses/Contacts: Yes Hand Dominance: Right Upper Extremity ROM Pt. demonstrates approximately 100 degrees bilateral shoulder flexion. Pt. required max cues to perform this task. Other joints not tested due to pt's lethargy. Upper Extremity Coordination impaired. Upper Extremity Strength Pt. able to squeeze therapists' hands bilaterally, but only demonstrated approximately 3/5 hand strength. Edema: Pt. demonstrates edema throughout bilateral UE. Noted pitting with pressure. Also noted bilateral UE red and hot. Spouse is aware of this. ADL-Treatment Functional [place] Measure 0=Not Assessed/NA 4=Minimal Assistance 1=Total Assistance 5=Supervision or Setup 2=Maximal Assistance 6=Modified [place] 3=Moderate Assistance 7=Complete IndependenceIRFPAI Quality Coding Scale 6 Independent with activity with or without an assistive device 5 Patient requires set up or clean up by helper. Patient completes activity by themselves 4 Supervision or touching assist (CGA). [place] provide cues , steadying assist 3 The helper provides less than half the effort to complete the activity 2 The helper provides more than half the effort to complete the activity 1 Dependent. The helper does all the effort to complete an activity 7 Patient refused to complete or attempt activity 9 The patient did not perform the activity before the current illness or injury 88 Not attempted due to Medical conditions or safety concerns Eating (FIM): 2 (Pt. requires max assist per spouse. States that he will attempt to feed self, but is too lethargic and will just ask her to do it.) Lower Body Dressing (FIM): 1 (Pt. is dependent. Pt. is asked to reach for feet while they are elevated in chair. Pt. will not attempt this.) Other Treatments Pt. declines getting up at this time. Spouse states that she has been feeding him. Pt. is educated to do bilateral UE ROM throughout the day if possible. Pt. is able to demonstrate hand squeezes, bicep flexion. Nods his head that he will do this. Pt. and spouse also encouraged for pt. to attempt to eat at least half of his lunch today on his own. Both verbalize understanding. Pt. is encouraged that if he does not attempt to move UE or feed self, that he will not become stronger. Pt. nods yes, that he understands. Education OT Patient Education: Correct positioning, Exercise program, Modified ADL techniques, Progress toward Goal/Update tx plan, Purpose of tx/functional activities, Reviewed precautions, Rehab process Teaching Recipient: Patient, Significant Other Teaching Methods: Demonstration, Discussion Response to Teaching: Verbalize Understanding, Return Demonstration OT Short Term Goals Short Term Goals Time Frame: May 14, 2016 Eating(FIM): 3 Grooming(FIM): 3 Upper Body Dressing(FIM): 3 Lower Body Dressing(FIM): 3 Toileting(FIM): 3 Transfers (B,C,W/C) (FIM): 3 Toilet/Commode Transfer(FIM): 3 Additional Short Term Goals: 1-Demonstrate ADL Tasks, 2-Verbalize Understanding , 3-ImproveStrength/[place] 1=Demonstrate adherence to instructed precautions during ADL tasks. 2=Patient will verbalize/demonstrate understanding of assistive devices/ modifications for ADL. 3=Patient will improve strength/tolerance for activity to enable patient to perform ADL's. OT Fci Goals Fci Goals Time Frame: May 21, 2016 Eating (FIM): 5 Grooming(FIM): 5 Upper Body Dressing(FIM): 4 Lower Body Dressing(FIM): 4 Toileting(FIM): 4 Transfers (B,C,W/C) (FIM): 4 Toilet/Commode Transfer(FIM): 4 Additional Goals: 1-Demonstrate ADL Tasks, 2-Verbalize Understanding, 3- ImproveStrength/[place] 1=Demonstrate adherence to instructed precautions during ADL tasks. 2=Patient will verbalize/demonstrate understanding of assistive devices/ modifications for ADL. 3=Patient will improve strength/tolerance for activity to enable patient to perform ADL's. Goals reflect if pt. continues as pt. in this facility. OT Education/Plan Problem List/Assessment Assessment: Decreased Activ Tolerance, Decreased Safety Aware, Decreased UE Strength, Dependent Transfers, Impaired Bed Mobility, Impaired Cognition, Impaired Coordination, Impaired Funct Balance, Impaired I ADL's, Impaired Self- Care Skills, Restricted Funct UE ROM Discharge Recommendations Plan/Recommendations: Continue POC Therapy D/C Recommendations: 24 hr Supervision Barriers to Progress Lethargy Target Placement Spouse states that pt. is discharging today to skilled unit. Goals will continue if pt. does indeed not discharge. Treatment Plan/Plan of Care Treatment,Training & Education: Yes Patient would benefit from OT for education, treatment and training to promote independence in ADL's, mobility, safety and/or upper extremity function for ADL' s. Plan of Care: ADL Retraining, Caregiver Training, Cognitive Retraining, Functional Mobility, Group Exercise/Act as Ind, UE Funct Exercise/Act Treatment Duration: May 21, 2016 # of days/week 5-6 Visits Per Week: 5-6 Agreement: Yes Rehab Potential: Guarded Time/GCodes Start Time: 10:55 Stop Time: 11:10 Total Time Billed (hr/min): 15 Billed Treatment Time 1, EVhigh complexity CASEANDREAS OT May 07, 2016 13:35
[2016-05-07] MEDS ORDERED: MAGNESIUM 1 GM/100 ML IVPB 200 ML IV ONE (13:54)
[2016-05-07] MEDS ORDERED: ONDANSETRON 4 MG/2 ML (SDV) Z0FRAN IVP PRN (15:00)
[2016-05-07 16:25] VITALS: BP 145/72
[2016-05-07] MEDS: ALFUZOSIN HCL 10 MG TAB (UROXATRAL) PO SCH (17:39)
[2016-05-07] MEDS: ASPIRIN 81 MG CHEW (CHILDREN'S ASA) PO SCH (20:48)
[2016-05-07] MEDS: PANTOPRAZOLE 40 MG (PROTONIX) TAB PO SCH (20:48)
[2016-05-07 23:36] VITALS: BP 156/72
[2016-05-08] MEDS: RT-ALBUTEROL/IPRATROPIUM 3 ML (DUONEB) VIAL INH SCH ×4 (02:40→14:22)
[2016-05-08 05:30] LABS: BASOPHILS # (AUTO) 0.1 10^3/uL (0.0-0.1); BASOPHILS % (AUTO) 1 % (0-10); EOSINOPHILS # (AUTO) 0.8 10^3/uL (0.0-0.3); EOSINOPHILS % (AUTO) 7 % (0-10); LYMPHOCYTES # (AUTO) 1.2 X 10^3 (1.0-4.0); LYMPHOCYTES % (AUTO) 11 % (12-44); MEAN CORPUSCULAR HEMOGLOBIN 32 PG (25-34); MEAN CORPUSCULAR HGB CONC 32 G/DL (32-36); MEAN CORPUSCULAR VOLUME 99 FL (80-99); MEAN PLATELET VOLUME 8.7 FL (7.4-10.4); MONOCYTES # (AUTO) 1.4 X 10^3 (0.0-1.0); MONOCYTES % (AUTO) 13 % (0-12); NEUTROPHILS # (AUTO) 7.4 X 10^3 (1.8-7.8); NEUTROPHILS % (AUTO) 68 % (42-75); PLATELET COUNT 685 10^3/uL (130-400); RED BLOOD COUNT 2.91 10^6/uL (4.35-5.85); RED CELL DISTRIBUTION WIDTH 14.9 % (10.0-14.5); WHITE BLOOD COUNT 10.9 10^3/uL (4.3-11.0)
[2016-05-08] MEDS: CATHETER FLUSH 10 ML SYR IV SCH ×2 (05:40→13:47)
[2016-05-08] MEDS: LEVOTHYROXINE 50 MCG (LEVOTHROID) TAB PO SCH (05:40)
[2016-05-08 05:50] LABS: CALCIUM 9.1 MG/DL (8.5-10.1); CREATININE SERUM 1.37 MG/DL (0.60-1.30); MAGNESIUM 1.6 MG/DL (1.8-2.4); POTASSIUM 4.6 MMOL/L (3.6-5.0)
--- NOTE | 2016-05-08 08:07 | Progress Note (SOAP) ---
Subjective Subjective HPI/Summary of events : 81-year-old male being treated for right great toe osteomyelitis and right foot infection. Patient's stay is complicated by acute respiratory distress secondary to pneumonia and COPD. Also patient has acute kidney failure with associated hyponatremia and hypomagnesemia. Complicating his kidney function is patient's osteomyelitis and right foot infection is due to MRSA requiring vancomycin. Patient was originally admitted on 04.22.2016 for the right foot infection. He was transferred to rehabilitation earlier this week but developed a fever and appeared to acutely worsen so he is back to inpatient status. On 05/02/16, Patient's family was dissatisfied with their care and requested transfer of care from the Hospitalist service. The patient and family members are hopeful for a recovery back to baseline. Case management is involved for placement as patient will need rehab as well as 6 weeks of IV antibiotics. Patient reports he feels better compared to yesterday and agrees. I switch patient's Lovenox to heparin yesterday to decrease kidney insult. We'll continue inpatient status for further management and will keep family updated of new findings. It is possible hospice is warranted given all of his comorbidities. Will continue to care for patient. 05/08/16- No overnight events. Patient has dyspnea with minimal exertion. On home oxygen requirement of 2L. Renal function is improving, creatinine decreasing and eGFR increasing. [place] to evaluate patient today. He will need more intense care than a local nursing facility can provide. Left PICC line placed 05/07/16- nursing notes increased swelling in his upper arms- dependent edema. Review of Systems General: No Chills, No Night Sweats HEENT: No Head Aches, No Visual Changes Pulmonary: Dyspnea (with exertion), No Cough Cardiovascular: No: Chest Pain, Palpitations Gastrointestinal: No: Abdominal Pain, Nausea, Vomiting Genitourinary: No Dysuria, Incontinence (urine) Musculoskeletal: No: neck pain, other Neurological: Weakness, No: Numbness All Other Systems Reviewed All Other Systems Reviewed: Yes Objective Exam Vital Signs Vital Sign - Last 12Hours 05/02/16 00:00 Temp 98.5 Pulse 88 Resp 17 B/P (MAP) 89/54 Pulse Ox 91 O2 Delivery NIV/CPAP O2 Flow Rate 4.00 Capillary Refill : General Appearance: No Apparent Distress (improved breathing from yesterday. Not as much wheezing this AM.) Eyes: Bilateral Eye Normal Inspection, Bilateral Eye PERRL HEENT: PERRL/EOMI Neck: Full Range of Motion, Normal Inspection, Non Tender, Supple Respiratory: Lungs Clear (some wheezing, quieter in bases.) Cardiovascular: Regular Rate, Rhythm Gastrointestinal: Normal Bowel Sounds, Non Tender (right ileostomy), Soft Rectal: Deferred Back: No Vertebral Tenderness Extremity: Non Tender, No Calf Tenderness, Pedal Edema (on lateral dependent side of left leg.) Neurologic/Psychiatric: Alert, Oriented x3 Skin: Other (right foot wrapped with NAVI wrap) Lymphatic: No Adenopathy Results Lab Laboratory Tests 05/08/16 04:45: White Blood Count 10.9, Red Blood Count 2.91L, Hemoglobin 9.2L, Hematocrit 29L, Mean Corpuscular Volume 99, Mean Corpuscular Hemoglobin 32, Mean Corpuscular Hemoglobin Concent 32, Red Cell Distribution Width 14.9H, Platelet Count 685H, Mean Platelet Volume 8.7, Neutrophils (%) (Auto) 68, Lymphocytes (%) (Auto) 11L , Monocytes (%) (Auto) 13H, Eosinophils (%) (Auto) 7, Basophils (%) (Auto) 1, Neutrophils # (Auto) 7.4, Lymphocytes # (Auto) 1.2, Monocytes # (Auto) 1.4H, Eosinophils # (Auto) 0.8H, Basophils # (Auto) 0.1, Sodium Level 141, Potassium Level 4.6, Chloride Level 113H, Carbon Dioxide Level 18L, Anion Gap 10, Blood Urea Nitrogen 18, Creatinine 1.37H, Estimat Glomerular Filtration Rate 50, BUN/ Creatinine Ratio 13, Glucose Level 106H, Calcium Level 9.1, Magnesium Level 1.6L Microbiology 05/01/16 Gram Stain - Final, Complete 05/01/16 Anaerobic Culture - Final, Complete No anaerobes isolated 05/01/16 Surgical Culture - Final, Complete Staphylococcus Aureus Assessment/Plan Assessment/Plan Assessment/Plan 81 yo M MRSA right foot infection- vancomycin-continue 750mg IV daily- will need 6 weeks- stop date June 12, 2016- Left arm PICC placed 05/07/16 --s/p amputation of right great toe for osteomyelitis- 04/26/16, now s/p I&D 05/02/16 -Dr Dover Podiatry- Acute Kidney failure- Cr improved, monitor lytes and Cr/GFR- - avoid nephrotoxic agents (NSAIDS, contrast) - unfortunately pt has MRSA- on vancomycin - needs a vancomycin trough 05/09/16- and vanc adjusted accordingly. hyponatremia- IVF NS- resolved Acute hypoxic respiratory failure-due to COPD, pneumonia- on baseline oxygen 2L requirement completed zosyn 05/07/16 peripheral vascular disease- plavix Dr. David Mathis, Vascular Surgeon at [facility] -needs to see patient hypothyroidism- cont levothyroxine hypomagnesemia- replacing 400mg BID HTN- amlodipine 10mg, carvedilol 6.25mg h/o colitis-- requiring ileostomy- stable- DVT ppx heparin Dispo: Overall patient has improved, WBC are down, we are monitoring kidney function-which isimproving- Case management involved. Pt needs follow up with Dr. David Wright later this week or early next week as he needs evaluated for RIGHT below knee amputation. -otherwise will need IV vancomycin x 6 weeks (STOP date: June 12) -[place] to evaluate pt today- Problems: Clinical Quality Measures DVT/VTE Risk/Contraindication: Risk Factor Score Per Nursin RFS Level Per Nursing on Admit: 4+=Very High TK DELEON MD May 08, 2016 08:07
[2016-05-08] MEDS: CARVEDILOL 6.25 MG (COREG) TAB PO SCH (08:20)
[2016-05-08] MEDS: amLODIPine 10 MG (NORVASC) TAB PO SCH (08:20)
[2016-05-08] MEDS: CLOPIDOGREL 75 MG (PLAVIX) TABLET PO SCH (08:20)
[2016-05-08] MEDS: MAGNESIUM OXIDE (MAG-OX)400 MG TAB PO SCH (08:20)
[2016-05-08 08:30] VITALS: BP 129/66
[2016-05-08] MEDS ORDERED: MAGN400T6 PO (08:33)
[2016-05-08] MEDS ORDERED: HEPA500017 SC (08:33)
--- NOTE | 2016-05-08 08:41 | Discharge Inst-Simple/Standard ---
Discharge Inst-Standard Discharge Medications New, Converted or Re-Newed RX: RX on Chart Patient Instructions/Follow Up Plan of Care/Instructions/FU: Transfer to [facility] Vancomycin trough 05/09/16, adjust dosage accordingly Daily BMP, CBC Needs appt with Dr. David Wright, Vascular surgeon Activity as Tolerated: Yes (NWB on right leg) Discharge Diet: Low Sodium Diet TK DELEON MD May 08, 2016 08:41
[2016-05-08] MEDS ORDERED: VANCOMYCIN 750 MG/NS 250 ML IVPB IV SCH ×2 (09:00)
--- NOTE | 2016-05-08 10:12 | Physical Therapy Daily Note ---
PT Daily Note-Current Subjective Pt agreeable to sit EOB; did not want to try to stand. Transfers Functional [place] Measure 0=Not Assessed/NA 4=Minimal Assistance 1=Total Assistance 5=Supervision or Setup 2=Maximal Assistance 6=Modified [place] 3=Moderate Assistance 7=Complete IndependenceIRFPAI Quality Coding Scale 6 Independent with activity with or without an assistive device 5 Patient requires set up or clean up by helper. Patient completes activity by themselves 4 Supervision or touching assist (CGA). [place] provide cues , steadying assist 3 The helper provides less than half the effort to complete the activity 2 The helper provides more than half the effort to complete the activity 1 Dependent. The helper does all the effort to complete an activity 7 Patient refused to complete or attempt activity 9 The patient did not perform the activity before the current illness or injury 88 Not attempted due to Medical conditions or safety concerns Pt transferred sup to sit EOB with min assist and skilled cues to sequence. Pt transferred EOB to supine with SBA. Pt was able to scoot up and over in bed with skilled cues to sequence and problem solve but no touch assist. Exercises Supine Ex: Ankle pumps, Glut sets, Heel Slides, Straight leg raise Supine Reps: 10 Seated Therapy Exercises: Long arc quads, Hip flexion Seated Reps: 10 Treatments Seated EOB x 10 minutes and worked on breathing and exercise; LE ther ex. All to promote deep breathing, functional activity tolerance and facilitate muscle strength for functional mobility. Assessment Current Status: Good Progress Transferred fairly well. cooperative and compliant. PT Short Term Goals Short Term Goals Transfers (B,C,W/C) (FIM): 3 PT Chcf Goals Chcf Goals PT Weather Anchor Goals Time Frame: May 17, 2016 Transfers (B,C,W/C) (FIM): 4 Wheelchair (FIM): 2 Wheelchair distance (FIM): 8=020-36 ft Distance: 25 Wheelchair Level of Assist: 5 PT Plan Problem List Problem List: Activity Tolerance, Functional Strength, Gait, Transfer, Bed Mobility Treatment/Plan Treatment Plan: Continue Plan of Care Treatment Plan: Bed Mobility, Functional Activity [place], Functional Strength, Transfers Treatment Duration: May 17, 2016 Visits Per Week: 11 Safety Risks/Education Patient Education: Safety Issues Teaching Recipient: Patient Teaching Methods: Discussion Response to Teaching: Reinforcement Needed Time/GCodes Time In: 930 Time Out: 955 Total Billed Treatment Time: 25 Total Billed Treatment visit FA 15 EX 10 CARLEEN LAMAR PT May 08, 2016 10:12
[2016-05-08] MEDS: HYDROcodone/APAP 5 MG/325 MG (LORTAB) TAB PO PRN (10:24)
[2016-05-08 17:45] VITALS: BP 127/66
[2016-05-09] MEDS ORDERED: TROUGH ORDER-PHARMACY XX NR (08:00)
--- NOTE | 2016-05-09 08:59 | Discharge Summary ---
Diagnosis/Chief Complaint Date of Admission May 02, 2016 at 08:39 Date of Discharge May 08, 2016 at 18:07 Discharge Date: May 08, 2016 Discharge Time: 1500 Admission Diagnosis Admission Diagnosis MRSA right foot infection- Acute Kidney failure- hyponatremia- Acute hypoxic respiratory failure-due to COPD, pneumonia- peripheral vascular disease- hypothyroidism- hypomagnesemia- HTN- h/o colitis-- Discharge Diagnosis MRSA right foot infection- Acute Kidney failure- hyponatremia- Acute hypoxic respiratory failure-due to COPD, pneumonia- peripheral vascular disease- hypothyroidism- hypomagnesemia- HTN- h/o colitis-- Reason Hospital Visit HPI/Summary of events : 81-year-old male being treated for right great toe osteomyelitis and right foot infection. Patient's stay is complicated by acute respiratory distress secondary to pneumonia and COPD. Also patient has acute kidney failure with associated hyponatremia and hypomagnesemia. Complicating his kidney function is patient's osteomyelitis and right foot infection is due to MRSA requiring vancomycin. Patient was originally admitted on 04.22.2016 for the right foot infection. He was transferred to rehabilitation earlier this week but developed a fever and appeared to acutely worsen so he is back to inpatient status. On 05/02/16, Patient's family was dissatisfied with their care and requested transfer of care from the Hospitalist service. The patient and family members are hopeful for a recovery back to baseline. Case management is involved for placement as patient will need rehab as well as 6 weeks of IV antibiotics. Patient reports he feels better compared to yesterday and agrees. I switched patient's Lovenox to heparin yesterday to decrease kidney insult. We'll continue inpatient status for further management and will keep family updated of new findings. It is possible hospice is warranted given all of his comorbidities. Will continue to care for patient. Discharge Summary Hospital Course Hospital Course Patient was treated as below: In summary -Patient did continue to improve but did continue to have dyspnea with minimal exertion. On home oxygen requirement of 2L. Renal function is improving, creatinine decreasing and eGFR increasing. He will need more intense care than a local nursing facility can provide. Left PICC line placed 05/07/16- nursing notes increased swelling in his upper arms- dependent edema, post PICC placement- Xray was normal for PICC placement and PICC functioning. Dr. Dover recommends follow up with Dr. Mathis in 1-2weeks. Patient and understand that he has a long road to recovery and that amputation is still a likely result. Caleb was transferred to [facility] for further evaluation and care- He is to follow up with Dr. Mathis- vascular surgeon after discharge from [facility]- or sooner if condition warrants. Care as follows MRSA right foot infection- vancomycin-continue 750mg IV daily- will need 6 weeks- stop date June 12, 2016- Left arm PICC placed 05/07/16 --s/p amputation of right great toe for osteomyelitis- 04/26/16, now s/p I&D 05/02/16 -Dr [facility] Podiatry- Acute Kidney failure- Cr improved, monitor lytes and Cr/GFR- - avoid nephrotoxic agents (NSAIDS, contrast) - unfortunately pt has MRSA- on vancomycin - needs a vancomycin trough 05/09/16- and vanc adjusted accordingly. hyponatremia- IVF NS- resolved Acute hypoxic respiratory failure-due to COPD, pneumonia- on baseline oxygen 2L requirement completed zosyn 05/07/16 peripheral vascular disease- plavix Dr. David Mathis, Vascular Surgeon at [facility] -needs to see patient in 1-2 weeks hypothyroidism- cont levothyroxine hypomagnesemia- replacing 400mg BID HTN- amlodipine 10mg, carvedilol 6.25mg h/o colitis-- requiring ileostomy- stable- DVT ppx heparin Dispo: Overall patient had improved, WBC are down, we are monitoring kidney function-which is improving- Case management was involved in coordinating care. -will need IV vancomycin x 6 weeks Labs see chart for imaging reports. Procedures None. Consultations Dr. Dover Discharge Physical Examination Allergies: Coded Allergies: Sulfa (Sulfonamide Antibiotics) (Unverified Allergy, Intermediate, HIVES, 04/23/16) clindamycin (Verified Allergy, Unknown, 04/21/16) STATES HE CAN NOT TAKE IT Vitals & I&Os Vital Signs Date Time Temp Pulse Resp B/P (MAP) Pulse Ox O2 Delivery O2 Flow Rate FiO2 05/08/16 18:07 05/08/16 17:45 98.6 95 24 98 Nasal Cannula 2.00 05/07/16 06:38 General Appearance: Alert, Oriented X3 HEENT: Atraumatic Respiratory: Clear to Auscultation Cardiovascular: Regular Rate Abdominal: Normal Bowel Sounds, Soft, Other (rlq ostomy) Extremities: Other (edema- right leg wrapped up.) Neuro: Normal Speech Psych/Mental Status: Mental Status NL, Mood NL Discharge Home Medications Reviewed and agree with Discharge Medication list on patient's Discharge Instruction sheet Condition at Discharge stable, improving- care turned over to [facility] for further evaluation and recommendations. Instructions to Patient/Family Please see electronic discharge instructions given to patient. Clinical Quality Measures DVT/VTE Risk/Contraindication: Risk Factor Score Per Nursin RFS Level Per Nursing on Admit: 4+=Very High TK DELEON MD May 09, 2016 08:59
--- NOTE | 2016-06-05 13:13 | OPERATIVE REPORT ---
PROCEDURE PHYSICIAN: MIGUEL BYERS DATE OF PROCEDURE: 05/01/2016 SURGEON: [employer] CANAL DRIVER: None. PREOPERATIVE DIAGNOSIS: Abscess right foot. POSTOPERATIVE DIAGNOSIS: Abscess right foot. PROCEDURE PERFORMED: Incision and drainage of right foot abscess. ANESTHESIA: General anesthesia. HEMOSTASIS: Locally controlled. BLOOD LOSS: 25 mL. MATERIALS USED: Iodoform packing, 3-0 nylon. INTRAOPERATIVE INJECTABLES: None. COMPLICATIONS: None. INDICATIONS FOR THE PROCEDURE: The patient Caleb Nieto has a history of an abscess to his right foot that was noted on MRI. He also has extensive cellulitis. He was in rehab and is now being admitted to the hospital for surgery for incision and drainage of his right foot abscess. The patient's family signed consent prior to being taken back to the OR and they were made aware of all risks and benefits of surgery as well as alternatives to undergoing it. DESCRIPTION OF THE PROCEDURE: Under mild sedation the patient was brought to the OR, placed on the operating table in the supine position. Following administration of general anesthesia the right lower extremity was scrubbed, prepped and draped in an aseptic manner. An appropriate timeout was performed. The right lower extremity was identified as the surgical site. Next, approximately a 3 cm incision was made to the plantar medial aspect of the heel where there is noted an area of fluctuance. This was made full-thickness and it was noted the purulence drained out; approximally 10 mL of purulence were expressed from the wound. There also a stab incision was made over the medial aspect of the ankle. This incision was made over area of fluctuance, however, it is noted this was bluntly probed and there was no abscess noted to the medial ankle. The wound did track laterally across the plantar heel and did probe down to the level of bone. The wound was then flushed with copious amounts of saline under pulse lavage. The wound was then packed with half inch iodoform packing and the foot was dressed with a dry sterile dressing, consisting of 4 x 4's, web roll, and Ba wrap. The patient tolerated the procedure and anesthesia well. He was transferred from OR to recovery with vital signs stable and neurovascular status intact to the right lower extremity. Job ID: [id number] Dictated Date: 06/04/2016 10:30:00 Solutions Analyst Date: 06/05/2016 13:04:50 / frieda
[2016-06-07] MEDS ORDERED: GABA-488 PO (09:24)
[2016-06-07] MEDS ORDERED: RT-ALBUINH IH (09:24)
[2016-06-07] MEDS ORDERED: MICO90PO TOP (09:24)
[2016-06-07] MEDS ORDERED: LISI-556 PO (09:24)
[2016-06-07] MEDS ORDERED: HYDR-3812 PO (09:24)
== END 2016-05-08 18:07 | DRG 602 ==
LOC: DELPENDDIS → SDC 13:30 → 4TH 17:08 → SDC 05-02 08:39
PROVIDERS: ADMIT Family Medicine; ATTEND Podiatrist
PROC: 02HV33Z Insertion of Infusion Device into Superior Vena Cava, Percutaneous Approach (ICD-10-PCS; principal; 2016-05-07)
DX: L03.115 Cellulitis of right lower limb (principal); E11.69 Type 2 diabetes mellitus with other specified complication; M86.9 Osteomyelitis, unspecified; E11.52 Type 2 diabetes mellitus with diabetic peripheral angiopathy with gangrene; N17.9 Acute kidney failure, unspecified; J44.0 Chronic obstructive pulmonary disease with (acute) lower respiratory infection; J18.9 Pneumonia, unspecified organism; J96.01 Acute respiratory failure with hypoxia; Z66 Do not resuscitate; E22.2 Syndrome of inappropriate secretion of antidiuretic hormone; I25.10 Atherosclerotic heart disease of native coronary artery without angina pectoris; I10 Essential (primary) hypertension; G47.30 Sleep apnea, unspecified; E78.00 Pure hypercholesterolemia, unspecified; D64.9 Anemia, unspecified; E03.9 Hypothyroidism, unspecified; B95.62 Methicillin resistant Staphylococcus aureus infection as the cause of diseases classified elsewhere; Z93.2 Ileostomy status; Z85.46 Personal history of malignant neoplasm of prostate; Z96.651 Presence of right artificial knee joint; Z87.891 Personal history of nicotine dependence
CPT/HCPCS: 36415; 36569; 71010; 76937; 80048; 80053; 80069; 80202; 82570; 83735; 83930; 83935; 84300; 85007; 85025; 85027; 87070; 87075; 87077; 87186; 87205; 94640; 94760

== ENCOUNTER 2016-06-01 18:47 | Inpatient (IN) | payer MEDICARE ==
[~2016-06-01] VITALS: Ht 172.7 cm; Wt 102.3 kg
[~2016-06-01 18:47] MED LIST changes: -ACET-168 PO; -ALBU2.5V4 NEB; -BENA10TA2 PO; -DOXY100T2 PO; -GABA-488 PO; -GLUC-173 PO; -LISI-556 PO; -MELA1TAB10 PO; -MESA4ENE4 RC; -METO-333 PO; -MICO90PO TOP; -MICO90PO TP; -ONDN4T PO; -RIFA550T PO; -ROSU20TA PO; -RT-ALBUINH IH; -WARF5TAB PO
--- NOTE | 2016-06-01 19:16 | ED General ---
General Chief Complaint: Dizziness/Syncope Stated Complaint: SYNCOPAL Nursing Triage Note: [facility] the [facility]. He had a knee left aka and recently discharged from [facility] yesterday. 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 Fever reported. Pt awake but mildly confused. Nursing Sepsis Screen: Possible Severe Sepsis Risk Source of Information: Patient Exam Limitations: No Limitations History of Present Illness Time Seen by Provider: 18:45 Initial Comments Here by EMS with report of syncopal episode today. Apparently he was at the prison and they were trying to move him and he passed out. Reportedly he does this H time he sits up. He was at [facility] and released to the prison yesterday for the same thing. 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 He has been on antibiotics. He currently is febrile. He is mentating well and laying flat but is hypotensive on arrival. EMS initiated normal saline 1 L bolus which is currently running. Apparently had an episode of vomiting earlier and does have nausea when sitting up. Timing/Duration: 1 Hour, Changing Over Time Severity: Moderate Associated Systoms: No Chest Pain, No Cough, Fever/Chills, Nausea/Vomiting, No Shortness of Air, Syncope, Weakness Allergies and Home Medications Allergies Coded Allergies: Sulfa (Sulfonamide Antibiotics) (Unverified Allergy, Intermediate, HIVES, 04/23/16) clindamycin (Verified Allergy, Unknown, 04/21/16) STATES HE CAN NOT TAKE IT Home Medications Acetaminophen/Diphenhydramine 1 Each Tablet, 1-2 TAB PO HS PRN for PAIN, ( Reported) Alprazolam 0.5 Mg Tablet, 0.5 MG PO Q6H PRN for anxiety for 30 Days Prescribed by: YAS PARTIDA on 04/29/16 1011 Amlodipine Besylate 10 Mg Tablet, 10 MG PO DAILY, (Reported) Aspirin 81 Mg Chew, 81 MG PO HS, (Reported) Carvedilol 6.25 Mg Tablet, 6.25 MG PO BID, (Reported) Clopidogrel Bisulfate 75 Mg Tablet, 75 MG PO DAILY, (Reported) Fentanyl Citrate 100 Mcg/2 Ml Soln, 50 MCG IV Q3H PRN for SEVERE PAIN, #30 Prescribed by: YAS PARTIDA on 04/29/16 1011 Fluticasone Propionate 9.9 Ml [place].susp, 2 SPRAYS NS DAILY PRN for RHINITIS, ( Reported) Gluc/Josh-MSM#2/C/D3/Marcos/Born 1 Each Tablet, 1 TAB PO DAILY, (Reported) Heparin Sodium,Porcine 5,000 Unit/1 Ml Vial, 5,000 UNITS SC Q8H for 90 Days, #90 Prescribed by: TK DELEON on 05/08/16 0833 Hydrocodone/Acetaminophen 1 Each Tablet, 1-2 TAB PO Q6HR PRN for MODERATE PAIN, #30 Prescribed by: YAS PARTIDA on 04/29/16 1011 Ipratropium/Albuterol Sulfate 3 Ml Ampul.neb, 3 ML INH RTQ4HR for 30 Days Prescribed by: YAS PARTIDA on 04/29/16 1011 Levothyroxine Sodium 50 Mcg Tablet, 50 MCG PO DAILY, (Reported) Magnesium Oxide 400 Mg Tablet, 400 MG PO BIDPC for 30 Days, #60 Prescribed by: TK DELEON on 05/08/16 0833 Pantoprazole Sodium 40 Mg Tablet.dr, 40 MG PO HS, (Reported) Tamsulosin HCl 0.4 Mg Cap.er.24h, 0.4 MG PO HS, (Reported) Constitutional: see HPI, No chills, fever, weakness EENTM: No nose congestion, No throat pain Respiratory: No cough, No short of breath Cardiovascular: No chest pain, syncope Gastrointestinal: No abdominal pain, nausea, vomiting Genitourinary: no symptoms reported Musculoskeletal: see HPI, muscle pain (right lower extremity near amputation site) Skin: no symptoms reported Psychiatric/Neurological: See HPI, Weakness Hematologic/Lymphatic: No Symptoms Reported All Other Systems Reviewed Negative Unless Noted: Yes Past Ysuvtxi-Hoooob-Sstkub Hx Patient Social History Alcohol Use: Denies Use Recreational Drug Use: No Recent Foreign Travel: No Contact w/Someone Who Travel: No Recent Infectious Disease Expo: Yes (MRSA) Recent Hopitalizations: No Immunizations Up To Date PED Vaccines UTD: Yes Date of Pneumonia Vaccine: Dec 12, 2015 Date of Influenza Vaccine: Dec 12, 2015 Seasonal Allergies Seasonal Allergies: Yes Surgeries HX Surgeries: Yes (right carotid, right total knee, hernia repair, pvd, prostate seeds, ileost) Surgeries: Eye Surgery, Gallbladder, Orthopedic, Tonsillectomy Respiratory Hx Respiratory Disorders: Yes Respiratory Disorders: Asthma, Sleep Apnea Cardiovascular Hx Cardiac Disorders: Yes (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) Cardiac Disorders: Coronary Artery Disease, High Cholesterol, Hypertension Neurological Hx Neurological Disorders: Yes Neurological Disorders: Dementia, Neuropathy Reproductive System Hx Reproductive Disorders: No Sexually Transmitted Disease: No HIV/AIDS: No Genitourinary Hx Genitourinary Disorders: Yes (PROSTATE CA) Genitourinary Disorders: Prostate Problems, Kidney Stones, Renal Failure Gastrointestinal Hx Gastrointestinal Disorders: Yes (ILEOSTOMY) Gastrointestinal Disorders: Abdominal Hernia, Colitis, Gall Bladder Disease Musculoskeletal Hx Musculoskeletal Disorders: Yes (ARTHRITIS) Musculoskeletal Disorders: Chronic Back Pain Endocrine Hx Endocrine Disorders: Yes (DIABETIC FEET-TOLD DM/NO MEDS FOR IT) Endocrine Disorders: Hypothyroidsim, Diabetes, Non-Insulin dep HEENT HX ENT Disorders: No HEENT Disorders: Cataract Loss of Vision: Denies Hearing Impairment: Hard of Hearing Cancer Hx Cancer: Yes Cancer: Prostate, Stomach, Colon Psychosocial Hx Psychiatric Problems: No Integumentary HX Skin/Integumentary Disorder: No Blood Transfusions Hx Blood Disorders: No Adverse Reaction to a Blood Tr: No Reviewed Nursing Assessment Reviewed/Agree w Nursing PMH: Yes Family Medical History Significant Family History: No Pertinent Family Hx Family Medial History: BLOOD CLOT 19 FATHER BRAIN CANCER G8 SISTER SISTER BRAIN CANCER G8 SISTER SISTER Physical Exam-Suspected Sepsis Physical Exam Vital Signs Vital Sign - Last 12Hours 06/01/16 06/01/16 18:50 19:00 Temp 99.6 Pulse 90 Resp 22 B/P (MAP) 78/42 Pulse Ox 95 O2 Delivery Nasal Cannula O2 Flow Rate 2.00 Capillary Refill : Less Than 3 Seconds Blood Pressure Mean: 54 General Appearance: No Apparent Distress, WD/WN HEENT: PERRL/EOMI, Pharynx Normal Neck: Non Tender, Supple Respiratory: Lungs Clear, Normal Breath Sounds Cardiovascular: Regular Rate, Rhythm, No Murmur Gastrointestinal: Non Tender, Soft Back: Normal Inspection, No CVA Tenderness, No Vertebral Tenderness Extremity: Non Tender (left side), No Calf Tenderness (left side), Other ( right AKA) Neurologic/Psychiatric: Alert, Oriented x3, Normal Mood/Affect Skin: normal color, warm/dry Focused Exam Lactic Acid Level Laboratory Tests Test 06/01/16 19:08 06/01/16 21:28 Lactic Acid Level 3.87 MMOL/L (0.50-2.00) *H Lumen: triple Central Line Procedure: betadine prep, sterile drapes applied, sterile dressing applied Position: internal jugular (R) Anesthesia: Lidocaine Volume Anesthetic (ccs): 5 Complications: none Post Position: sutured, good blood return, position confirmed w/ CXR Progress Placed via ultrasound guidance. Once today. No complications. Tolerated procedure well. Progress/Results/Core Measures Suspected Sepsis Recent Fever Within 48 Hours: Yes Infection Criteria Present: Documented Infection New/Unexplained Altered Menta: No Sepsis Screen: Possible Severe Sepsis Risk Sepsis Diagnosis: SIRS Temperature:99.6 Pulse: 90 Respiratory Rate: 22 Laboratory Tests 06/01/16 19:08: White Blood Count 6.9 Blood Pressure 78 /42 Mean: 54 Laboratory Tests 06/01/16 19:08: Creatinine 2.06H, INR Comment 1.0, Platelet Count 203, Total Bilirubin 0.4 Results/Orders Lab Results Laboratory Tests Test 06/01/16 19:08 06/01/16 21:21 06/01/16 21:28 Range/Units White Blood Count 6.9 4.3-11.0 10^3/uL Red Blood Count 3.31 L 4.35-5.85 10^6/uL Hemoglobin 9.8 L 13.3-17.7 G/DL Hematocrit 30 L 40-54 % Mean Corpuscular Volume 92 80-99 FL Mean Corpuscular Hemoglobin 30 25-34 PG Mean Corpuscular Hemoglobin Concent 32 32-36 G/DL Red Cell Distribution Width 19.4 H 10.0-14.5 % Platelet Count 203 130-400 10^3/uL Mean Platelet Volume 9.5 7.4-10.4 FL Neutrophils (%) (Auto) 59 42-75 % Lymphocytes (%) (Auto) 19 12-44 % Monocytes (%) (Auto) 17 H 0-12 % Eosinophils (%) (Auto) 4 0-10 % Basophils (%) (Auto) 1 0-10 % Neutrophils # (Auto) 4.1 1.8-7.8 X 10^3 Lymphocytes # (Auto) 1.3 1.0-4.0 X 10^3 Monocytes # (Auto) 1.2 H 0.0-1.0 X 10^3 Eosinophils # (Auto) 0.3 0.0-0.3 10^3/uL Basophils # (Auto) 0.1 0.0-0.1 10^3/uL Prothrombin Time 13.2 12.2-14.7 SEC INR Comment 1.0 0.8-1.4 Activated Partial Thromboplast Time 26 24-35 SEC Sodium Level 130 L 135-145 MMOL/L Potassium Level 3.9 3.6-5.0 MMOL/L Chloride Level 91 L 98-107 MMOL/L Carbon Dioxide Level 25 21-32 MMOL/L Anion Gap 14 5-14 MMOL/L Blood Urea Nitrogen 20 H 7-18 MG/DL Creatinine 2.06 H 0.60-1.30 MG/DL Estimat Glomerular Filtration Rate 31 BUN/Creatinine Ratio 10 Glucose Level 138 H 70-105 MG/DL Lactic Acid Level 3.87 *H 0.50-2.00 MMOL/L Calcium Level 8.6 8.5-10.1 MG/DL Total Bilirubin 0.4 0.1-1.0 MG/DL Aspartate Amino Transf (AST/SGOT) 194 H 5-34 U/L Alanine Aminotransferase (ALT/SGPT) 56 H 0-55 U/L Alkaline Phosphatase 114 40-136 U/L Troponin I < 0.30 <0.30 NG/ML Total Protein 5.4 L 6.4-8.2 G/DL Albumin 2.7 L 3.2-4.5 G/DL Urine Color YELLOW Urine Clarity CLEAR Urine pH 6 5-9 Urine Specific [place] 1.010 L 1.016-1.022 Urine Protein 1+ H NEGATIVE Urine Glucose (UA) NEGATIVE NEGATIVE Urine Ketones NEGATIVE NEGATIVE Urine Nitrite NEGATIVE NEGATIVE Urine Bilirubin NEGATIVE NEGATIVE Urine Urobilinogen NORMAL NORMAL MG/DL Urine Leukocyte Esterase 1+ H NEGATIVE Urine RBC (Auto) 5+ H NEGATIVE Urine RBC 10-25 H /HPF Urine WBC 5-10 H /HPF Urine Squamous Epithelial Cells 10-25 H /HPF Urine Crystals NONE /LPF Urine Bacteria TRACE /HPF Urine Casts PRESENT /LPF Urine Hyaline Casts 0-2 H /LPF Urine Mucus NEGATIVE /LPF Urine Culture Indicated YES My Orders Orders - SAM STAPLES MD Cbc With Automated Diff (06/01/16 18:52) Comprehensive Metabolic Panel (06/01/16 18:52) Lactic Acid Analyzer (06/01/16 18:52) Blood Culture (06/01/16 18:52) Sputum Culture (06/01/16 18:52) Ua Culture If Indicated (06/01/16 18:52) Protime With Inr (06/01/16 18:52) Partial Thromboplastin Time (06/01/16 18:52) Chest 1 View, Ap/Pa Only (06/01/16 18:52) O2 (06/01/16 18:52) Saline Lock/Iv-Start (06/01/16 18:52) Ekg Tracing (06/01/16 18:52) Troponin I (06/01/16 18:52) Vital Signs Adult Sepsis Patie Q1HR (06/01/16 18:52) Remove Rings In Anticipation O (06/01/16 18:52) Saline Lock/Iv-Start (06/01/16 19:16) Ns Iv 1000 Ml (Sodium Chloride 0.9%) (06/01/16 19:30) D5w 250 Ml (Ivpb) (Dextrose 5% Water Iv (06/01/16 20:50) Norepinephrine (Levophed) (06/01/16 20:50) Chest 1 View, Ap/Pa Only (06/01/16 20:57) D5w 250 Ml (Ivpb) (... W/Norepinephrine (06/01/16 21:00) Ceftriaxone Injection (Rocephin Injectio (06/01/16 21:15) Vancomycin Injection (Vancomycin Injecti (06/01/16 21:30) Urine Culture (06/01/16 21:21) Medications Given in ED Current Medications Medications Dose Ordered Sig/Veto Route Start Time Stop Time Status Last Admin Dose Admin Ceftriaxone Sodium 1000 mg/ Sodium Chloride 50 ml @ 100 mls/hr ONCE ONCE IV 06/01/16 21:15 06/01/16 21:44 DC 06/01/16 21:30 100 MLS/HR Sodium Chloride 2,500 ml @ 1,250 mls/hr PRN PRN IV 06/01/16 19:30 06/01/16 20:40 1,250 MLS/HR Vancomycin HCl 1000 mg/Sodium Chloride 250 ml @ 250 mls/hr ONCE ONCE IV 06/01/16 21:30 06/01/16 22:29 06/01/16 21:33 250 MLS/HR Vital Signs/I&O Vital Sign - Last 12Hours 06/01/16 06/01/16 18:50 19:00 Temp 99.6 Pulse 90 Resp 22 B/P (MAP) 78/42 Pulse Ox 95 100 O2 Delivery Nasal Cannula Nasal Cannula O2 Flow Rate 2.00 Capillary Refill : Less Than 3 Seconds Blood Pressure Mean: 54 Progress Note : Progress Note Seen and evaluated. IV by EMS. Labs, EKG, chest x-ray, UA, blood cultures and lactic acid ordered. Monitor patient. 30 mL/kg fluid bolus initiated due to hypotension. Chest x-ray complete and does not show pneumonia. Right lower extremity amputation does not appear infected. Unsure of focus but patient does have fever. We will attempt to improve blood pressure through fluid administration. 2100: We are unable to improve blood pressure via fluids. Central line placed by me without complications. Levophed administered to improve blood pressure. 2119: Patient to be admitted. Case discussed with Dr. Sarmiento and he accepts the patient for Dr. Deleon, inpatient status. History and family agree with plan. 2209: Patient is improving on Levophed although adjustments continue. I attest focused exam at this time. Admit, inpatient status. BP 111/71 with heart rate of 88 and O2 sat 99 percent on 2 L. ECG Initial ECG Impression Date: Jun 01, 2016 Initial ECG Impression Time: 18:58 Initial ECG Rate: 92 Initial ECG Rhythm: A Fib/Flutter Comment Atrial fibrillation with normal rate and axis. No evidence of ST elevation MS. Change from previous which was sinus rhythm. Interpreted by me. Diagnostic Imaging Diagonstic Imaging: Xray Plain Films/CT/US/NM/MRI: chest Comments NAME: JOSE ROWLAND [facility] REC#: [id number] PT STATUS: REG ER : 1933 PHYSICIAN: SAM STAPLES MD ADMIT DATE: 06/01/16/ER Signed Date of Exam: 06/01/16 CHEST 1 VIEW, AP/PA ONLY INDICATION: Syncope Upright chest shows normal heart size and vascularity. The lungs are clear. There is no effusion or pneumothorax. IMPRESSION: No acute abnormality is seen with no change from 05/07/16. Dictated by: Dictated on workstation # [id number] <Dictated by TANIA GORDON MD> 06/01/161933 Departure Communication Time/Spoke to Admitting Phy: 21:20 Impression Impression: Primary Impression: Septic shock Additional Impressions: Acute renal failure Qualified Codes: N17.9 - Acute kidney failure, unspecified Volume depletion Urinary tract infection Qualified Codes: N30.00 - Acute cystitis without hematuria Disposition: ADMITTED INPATIENT Condition: Critical Decision to Admit Reason: Admit from ER (General) Decision to Admit/Date: Jun 01, 2016 Time/Decision to Admit Time: 21:20 Departure-Patient Inst. Referrals: NO,LOCAL PHYSICIAN (PCP/Family) Primary Care Physician SAM STAPLES MD Jun 01, 2016 19:16
[2016-06-01 19:25] LABS: BASOPHILS # (AUTO) 0.1 10^3/uL (0.0-0.1); BASOPHILS % (AUTO) 1 % (0-10); EOSINOPHILS # (AUTO) 0.3 10^3/uL (0.0-0.3); EOSINOPHILS % (AUTO) 4 % (0-10); LYMPHOCYTES # (AUTO) 1.3 X 10^3 (1.0-4.0); LYMPHOCYTES % (AUTO) 19 % (12-44); MEAN CORPUSCULAR HEMOGLOBIN 30 PG (25-34); MEAN CORPUSCULAR HGB CONC 32 G/DL (32-36); MEAN CORPUSCULAR VOLUME 92 FL (80-99); MEAN PLATELET VOLUME 9.5 FL (7.4-10.4); MONOCYTES # (AUTO) 1.2 X 10^3 (0.0-1.0); MONOCYTES % (AUTO) 17 % (0-12); NEUTROPHILS # (AUTO) 4.1 X 10^3 (1.8-7.8); NEUTROPHILS % (AUTO) 59 % (42-75); PLATELET COUNT 203 10^3/uL (130-400); RED BLOOD COUNT 3.31 10^6/uL (4.35-5.85); RED CELL DISTRIBUTION WIDTH 19.4 % (10.0-14.5); WHITE BLOOD COUNT 6.9 10^3/uL (4.3-11.0)
--- NOTE | 2016-06-01 19:31 | Diagnostic Imaging Report ---
INDICATION: Syncope Upright chest shows normal heart size and vascularity. The lungs are clear. There is no effusion or pneumothorax. IMPRESSION: No acute abnormality is seen with no change from 05/07/16. Dictated by: Dictated on workstation # [id number]
[2016-06-01 19:46] LABS: ALANINE AMINOTRANSFERASE 56 U/L (0-55); ALBUMIN 2.7 G/DL (3.2-4.5); ANION GAP 14 MMOL/L (5-14); ASPARTATE AMINO TRANSFERASE 194 U/L (5-34); BILIRUBIN,TOTAL 0.4 MG/DL (0.1-1.0); BLOOD UREA NITROGEN 20 MG/DL (7-18); BUN/CREATININE RATIO 10; CALCIUM 8.6 MG/DL (8.5-10.1); CARBON DIOXIDE 25 MMOL/L (21-32); CHLORIDE 91 MMOL/L (98-107); CREATININE SERUM 2.06 MG/DL (0.60-1.30); GFR ESTIMATED 31; GLUCOSE 138 MG/DL (70-105); POTASSIUM 3.9 MMOL/L (3.6-5.0); SODIUM 130 MMOL/L (135-145); TOTAL PROTEIN 5.4 G/DL (6.4-8.2)
[2016-06-01] MEDS: NS IV 1000 ML 2,500 ML IV PRN ×2 (19:47→20:40)
[2016-06-01 19:51] LABS: TROPONIN I < 0.30 NG/ML (<0.30)
[2016-06-01 19:59] LABS: PROTHROMBIN TIME PATIENT 13.2 SEC (12.2-14.7)
[2016-06-01] MEDS ORDERED: D5W 250 ML (IVPB) 250 ML IV ONE (20:50)
[2016-06-01] MEDS ORDERED: NOREPINEPHRINE 4 MG/4 ML (LEVOPHED) AMP IV ONE (20:50)
[2016-06-01] MEDS ORDERED: NOREPINEPHRINE 4 MG in D5W 250 ML (IVPB) 250 ML IV SCH (21:00)
[2016-06-01] MEDS ORDERED: cefTRIAXone INJECTION 1,000 MG in NS (IVPB) 50 ML IV ONE (21:15)
--- NOTE | 2016-06-01 21:22 | Diagnostic Imaging Report ---
INDICATION: Central line placement. EXAMINATION: Portable chest was obtained. FINDINGS: Normal heart size and vascularity. The lungs are clear. There is no effusion or pneumothorax. There has been placement of a line from the right jugular approach. Tip is in the SVC above the right atrium. IMPRESSION: PICC line tip is in the SVC. Dictated by: Dictated on workstation # [id number]
[2016-06-01 21:27] LABS: BILIRUBIN,URINE NEGATIVE (NEGATIVE); KETONES,URINE NEGATIVE (NEGATIVE); LEUKOCYTE ESTERASE ,URINE 1+ (NEGATIVE); NITRITE,URINE NEGATIVE (NEGATIVE); PH,URINE 6 (5-9); PROTEIN,URINE 1+ (NEGATIVE); UROBILINOGEN,URINE NORMAL (NORMAL)
[2016-06-01] MEDS ORDERED: VANCOMYCIN INJECTION 1,000 MG in NS (IVPB) 250 ML IV ONE (21:30)
[2016-06-01 21:46] LABS: HYALINE CASTS, URINE 0-2 /LPF
[2016-06-01] MEDS ORDERED: CATHETER FLUSH 10 ML SYR IV PRN (23:45)
[2016-06-01 23:48] VITALS: BP 122/59
[2016-06-02] VITALS (12 sets, daily range): BP systolic 103–149; BP diastolic 46–96
[2016-06-02] MEDS ORDERED: RT-ALBUTEROL SULF 2.5 MG/3 ML PRE-MIX VIAL IH PRN (00:15)
[2016-06-02] MEDS: CATHETER FLUSH 10 ML SYR IV SCH ×3 (06:00→22:00)
[2016-06-02 06:06] LABS: BASOPHILS # (AUTO) 0.1 10^3/uL (0.0-0.1); BASOPHILS % (AUTO) 1 % (0-10); EOSINOPHILS # (AUTO) 0.3 10^3/uL (0.0-0.3); EOSINOPHILS % (AUTO) 4 % (0-10); LYMPHOCYTES # (AUTO) 1.9 X 10^3 (1.0-4.0); MEAN CORPUSCULAR HEMOGLOBIN 30 PG (25-34); MEAN CORPUSCULAR HGB CONC 33 G/DL (32-36); MEAN CORPUSCULAR VOLUME 92 FL (80-99); MEAN PLATELET VOLUME 9.1 FL (7.4-10.4); MONOCYTES # (AUTO) 1.4 X 10^3 (0.0-1.0); NEUTROPHILS # (AUTO) 4.1 X 10^3 (1.8-7.8); NEUTROPHILS % (AUTO) 53 % (42-75); PLATELET COUNT 216 10^3/uL (130-400); RED BLOOD COUNT 2.72 10^6/uL (4.35-5.85); RED CELL DISTRIBUTION WIDTH 19.3 % (10.0-14.5); WHITE BLOOD COUNT 7.9 10^3/uL (4.3-11.0)
[2016-06-02] MEDS: NS IV 1000 ML 1,000 ML IV SCH ×5 (06:10→20:59)
[2016-06-02 06:14] LABS: LYMPHOCYTES % (AUTO) 25 % (12-44); MONOCYTES % (AUTO) 17 % (0-12)
[2016-06-02] MEDS: NOREPINEPHRINE 4 MG in D5W 250 ML (IVPB) 250 ML IV SCH ×2 (06:33→11:16)
[2016-06-02 06:40] LABS: ALBUMIN 2.3 G/DL (3.2-4.5); BILIRUBIN,TOTAL 0.3 MG/DL (0.1-1.0); CALCIUM 7.8 MG/DL (8.5-10.1); CREATININE SERUM 1.72 MG/DL (0.60-1.30); POTASSIUM 3.5 MMOL/L (3.6-5.0); TOTAL PROTEIN 4.6 G/DL (6.4-8.2)
[2016-06-02] MEDS: POTASSIUM CL 10MEQ/50ML IVPB 50 ML IV SCH (07:56)
--- NOTE | 2016-06-02 08:40 | History & Physicial ---
History of Present Illness History of Present Illness Reason for visit/HPI [facility] recently [facility]. Previous to that patient was in [facility] [address] where he had an AKA and life flighted to [facility]. Patient [facility] to [facility] from where. Patient [facility] 2 [facility] of [facility]ope at [facility] . Patient eyes rolled back and he became pale. In the emergency room patient hypotensive, leukocytosis, potassium 3.1, magnesium 1.7, hyponatremia, renal insufficiency, elevated liver tests, an elevated lactic acid which this morning is coming down to normal. Patient has a history of prostate cancer. Patient has an ostomy in 3 abdominal surgeries. Patient has an acute UTI. Patient has acute renal failure. Patient going in and out of sinus rhythm and atrial fibrillation Date of Admission Jun 01, 2016 at 21:24 I consulted on this patient on 06/02/16 08:34 Attending Physician Kevin Deleon MD Admitting Physician No,Local Physician Consult Allergies and Home Medications Allergies Coded Allergies: Sulfa (Sulfonamide Antibiotics) (Unverified Allergy, Intermediate, HIVES, 04/23/16) clindamycin (Verified Allergy, Unknown, 04/21/16) STATES HE CAN NOT TAKE IT Home Medications Acetaminophen/Diphenhydramine 1 Each Tablet, 1-2 TAB PO HS PRN for PAIN, ( Reported) Alprazolam 0.5 Mg Tablet, 0.5 MG PO Q6H PRN for anxiety for 30 Days Prescribed by: YAS PARTIDA on 04/29/16 1011 Amlodipine Besylate 10 Mg Tablet, 10 MG PO DAILY, (Reported) Aspirin 81 Mg Chew, 81 MG PO HS, (Reported) Carvedilol 6.25 Mg Tablet, 6.25 MG PO BID, (Reported) Clopidogrel Bisulfate 75 Mg Tablet, 75 MG PO DAILY, (Reported) Fentanyl Citrate 100 Mcg/2 Ml Soln, 50 MCG IV Q3H PRN for SEVERE PAIN, #30 Prescribed by: YAS PARTIDA on 04/29/16 1011 Fluticasone Propionate 9.9 Ml [place].susp, 2 SPRAYS NS DAILY PRN for RHINITIS, ( Reported) Gluc/Josh-MSM#2/C/D3/Marcos/Born 1 Each Tablet, 1 TAB PO DAILY, (Reported) Heparin Sodium,Porcine 5,000 Unit/1 Ml Vial, 5,000 UNITS SC Q8H for 90 Days, #90 Prescribed by: KEVIN DELEON on 05/08/16 0833 Hydrocodone/Acetaminophen 1 Each Tablet, 1-2 TAB PO Q6HR PRN for MODERATE PAIN, #30 Prescribed by: YAS PARTIDA on 04/29/16 1011 Ipratropium/Albuterol Sulfate 3 Ml Ampul.neb, 3 ML INH RTQ4HR for 30 Days Prescribed by: YAS PARTIDA on 04/29/16 1011 Levothyroxine Sodium 50 Mcg Tablet, 50 MCG PO DAILY, (Reported) Magnesium Oxide 400 Mg Tablet, 400 MG PO BIDPC for 30 Days, #60 Prescribed by: KEVIN DELEON on 05/08/16 0833 Pantoprazole Sodium 40 Mg Tablet.dr, 40 MG PO HS, (Reported) Tamsulosin HCl 0.4 Mg Cap.er.24h, 0.4 MG PO HS, (Reported) Past Zpfmdwh-Wgskug-Gibnjv Hx Patient Social History Marrital Status: Employed/Student: unemployed Alcohol Use: Denies Use Recreational Drug Use: No Smoking Status: Never a Smoker Physical Abuse Screen: No Sexual Abuse: No Recent Foreign Travel: No Contact w/other who traveled: No Recent Hopitalizations: No Recent Infectious Disease Expo: No Immunizations Up To Date Date of Pneumonia Vaccine: Dec 12, 2015 Date of Influenza Vaccine: Dec 12, 2015 Seasonal Allergies Seasonal Allergies: Yes Surgeries HX Surgeries: Yes (right carotid, right total knee, hernia repair, pvd, prostate seeds, ileost) Surgeries: Eye Surgery, Gallbladder, Orthopedic, Tonsillectomy Respiratory Hx Respiratory Disorders: Yes Respiratory Disorders: COPD, Emphysema, Pneumonia, Sleep Apnea Cardiovascular Hx Cardiovascular Disorders: Yes (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) Cardiac Disorders: Coronary Artery Disease, High Cholesterol, Hypertension Neurological Hx Neurological Disorders: Yes Neurological Disorders: Dementia, Neuropathy Reproductive System Hx Reproductive Disorders: No Sexually Transmitted Disease: No HIV/AIDS: No Genitourinary Hx Genitourinary Disorders: Yes (PROSTATE CA) Genitourinary Disorders: Prostate Problems, Kidney Stones, Renal Failure Gastrointestinal Hx Gastrointestinal Disorders: Yes (ILEOSTOMY) Gastrointestinal Disorders: Abdominal Hernia, Colitis, Gall Bladder Disease Musculoskeletal Hx Musculoskeletal Disorders: Yes (ARTHRITIS) Musculoskeletal Disorders: Chronic Back Pain Endocrine Hx Endocrine Disorders: Yes (DIABETIC FEET-TOLD DM/NO MEDS FOR IT) Endocrine Disorders: Hypothyroidsim, Diabetes, Non-Insulin dep HEENT HX ENT Disorders: No HEENT Disorders: Cataract Loss of Vision: Denies Hearing Impairment: Hard of Hearing Cancer Hx Cancer: Yes Cancer: Prostate, Stomach, Colon Psychosocial Hx Psychiatric Problems: No Integumentary HX Skin/Integumentary Disorder: No Blood Transfusions Hx Blood Disorders: No Adverse Reaction to a Blood Tr: No Reviewed Nursing Assessment Reviewed/Agree w Nursing PMH: Yes Family Medical History Significant Family History: No Pertinent Family Hx Family Hx: BLOOD CLOT 19 FATHER BRAIN CANCER G8 SISTER SISTER BRAIN CANCER G8 SISTER SISTER Constitutional: weakness, other (syncope) EENTM: no symptoms reported Respiratory: no symptoms reported Cardiovascular: other (A. fib to sinus rhythm and back) Gastrointestinal: no symptoms reported Genitourinary: no symptoms reported Physical Exam Vital Signs Vital Sign - Last 12Hours 06/01/16 18:50 Temp 99.6 Pulse 90 Resp 22 B/P (MAP) 78/42 Pulse Ox 95 O2 Delivery Nasal Cannula Capillary Refill : Less Than 3 Seconds General Appearance: No Apparent Distress, WD/WN Eyes: Bilateral Eye Normal Inspection HEENT: Normal ENT Inspection Neck: Normal Inspection Respiratory: Chest Non Tender, Lungs Clear, Normal Breath Sounds, No Accessory Muscle Use, No Respiratory Distress Cardiovascular: Regular Rate, Rhythm Gastrointestinal: Non Tender, Soft Assessment/Plan Assessment and Plan syncope. Sepsis. Acute renal failure. History of A. fib going into sinus rhythm Anemia.. Diabetes. Problems: Clinical Quality Measures DVT/VTE Risk/Contraindication: Risk Factor Score Per Nursin RFS Level Per Nursing on Admit: 4+=Very High LIAM MACHADO DO Jun 02, 2016 08:40
[2016-06-02] MEDS: MAGNESIUM 1 GM/100 ML IVPB 100 ML IV SCH (09:33)
[2016-06-02] MEDS: KCL 20 MEQ TAB (K-DUR) PO SCH (09:33)
[2016-06-02] MEDS: HYDROcodone/APAP 5 MG/325 MG (LORTAB) TAB PO PRN (09:34)
[2016-06-02] MEDS: GABAPENTIN 300 MG (NEURONTIN) CAP PO SCH ×2 (09:34→20:58)
[2016-06-02] MEDS: VANCOMYCIN 750 MG/NS 250 ML IVPB IV SCH ×4 (09:35→20:59)
[2016-06-02] MEDS: ENOXAPARIN 40 MG/0.4 ML (LOVENOX) SYR SC SCH (09:35)
[2016-06-02] MEDS ORDERED: VANCOMYCIN 1 GM/NS 250 ML IVPB IV SCH ×2 (11:00)
--- NOTE | 2016-06-02 11:00 | Diagnostic Imaging Report ---
EXAM: CHEST 1 VIEW, AP/PA ONLY INDICATION: Septic shock. COMPARISON: Chest radiograph 06/01/2016. FINDINGS: Normal heart size and pulmonary vascularity. Right IJ CVC tip mid SVC. Vascular stent and surgical clips in the right base of the neck. Calcified aorta. No consolidation, pleural effusion or pneumothorax. No acute osseous findings. IMPRESSION: No acute cardiopulmonary findings. Dictated by: Dictated on workstation # [id number]
--- NOTE | 2016-06-02 12:07 | Consultation-Cardiology ---
HPI-Cardiology Cardiology Consultation: Date of Consultation 06/02/16 Date of Admission Attending Physician Kevin Deleon MD Admitting Physician No,Local Physician Consulting Physician Margy PICKARD MD HPI: Chief Complaint: possible sepsis this is a 81-year-old gentleman. History is unclear. He does have history of PAD. There is a possible history of coronary artery disease however there is no history of revascularization with either PCI or CABG. The patient was previously on Coumadin and likely has atrial fibrillation. He presents with UTI sepsis. Review of Systems-Cardiology Review of Systems Constitutional: As described under HPI Eyes: No As described under HPI, No no symptoms reported, No blindness, No blurred vision, No contact lenses, No drainage, No decreased acuity, No foreign body sensation, No glasses, No inflammation, No pain, No photophobia, No previous injury, No shadows, No tunnel vision, No other, No vision change Ears/Nose/Throat: No As described under HPI, No no symptoms reported, No chronic hearing loss, No epistaxis, No ear discharge, No ear pain, No loose teeth, No mouth pain, No mouth swelling, No nasal drainage, No nose pain, No recent hearing loss, No throat pain, No throat swelling, No ulcerations, No other Respiratory: no symptoms reported Cardiovascular: No no symptoms reported, No As described under HPI, No chest pain, No edema, No irregular heart rate, No lightheadedness, No palpitations, No syncope, No other Gastrointestinal: No no symptoms reported, No As described under HPI, No abdomen distended, No abdominal pain, No blood streaked bowels, No constipation , No diarrhea, No difficulty swallowing, No nausea, No poor appetite, No poor fluid intake, No rectal bleeding, No vomiting, No other, No nausea/vomiting/ diarrhea, No stool coloration changes Genitourinary: As described under HPI Musculoskeletal: No no symptoms reported, No As describe under HPI, No back pain, No gout, No joint pain, No joint swelling, No muscle pain, No muscle stiffness, No neck pain, No other All Other Systems Reviewed Negative Unless Noted: Yes [id number] Hx Patient Social History Marrital Status: Employed/Student: unemployed Alcohol Use: Denies Use Recreational Drug Use: No Smoking Status: Never a Smoker Recent Foreign Travel: No Recent Infectious Disease Expo: No Physical Abuse Screen: No Sexual Abuse: No Immunizations Up To Date Date of Pneumonia Vaccine: Dec 12, 2015 Date of Influenza Vaccine: Dec 12, 2015 Past Medical History PMH As described under Assessment. Family Medical History Family History: BLOOD CLOT 19 FATHER BRAIN CANCER G8 SISTER SISTER BRAIN CANCER G8 SISTER SISTER Allergies and Home Medications Allergies Coded Allergies: Sulfa (Sulfonamide Antibiotics) (Unverified Allergy, Intermediate, HIVES, 04/23/16) clindamycin (Verified Allergy, Unknown, 04/21/16) STATES HE CAN NOT TAKE IT Home Medications Acetaminophen/Diphenhydramine 1 Each Tablet, 1-2 TAB PO HS PRN for PAIN, ( Reported) Alprazolam 0.5 Mg Tablet, 0.5 MG PO Q6H PRN for anxiety for 30 Days Prescribed by: YAS PARTIDA on 04/29/16 1011 Amlodipine Besylate 10 Mg Tablet, 10 MG PO DAILY, (Reported) Aspirin 81 Mg Chew, 81 MG PO HS, (Reported) Carvedilol 6.25 Mg Tablet, 6.25 MG PO BID, (Reported) Clopidogrel Bisulfate 75 Mg Tablet, 75 MG PO DAILY, (Reported) Fentanyl Citrate 100 Mcg/2 Ml Soln, 50 MCG IV Q3H PRN for SEVERE PAIN, #30 Prescribed by: YAS PARTIDA on 04/29/16 1011 Fluticasone Propionate 9.9 Ml Constantia.susp, 2 SPRAYS NS DAILY PRN for RHINITIS, ( Reported) Gluc/Josh-MSM#2/C/D3/Marcos/Born 1 Each Tablet, 1 TAB PO DAILY, (Reported) Heparin Sodium,Porcine 5,000 Unit/1 Ml Vial, 5,000 UNITS SC Q8H for 90 Days, #90 Prescribed by: KEVIN DELEON on 05/08/16 0833 Hydrocodone/Acetaminophen 1 Each Tablet, 1-2 TAB PO Q6HR PRN for MODERATE PAIN, #30 Prescribed by: YAS PARTIDA on 04/29/16 1011 Ipratropium/Albuterol Sulfate 3 Ml Ampul.neb, 3 ML INH RTQ4HR for 30 Days Prescribed by: YAS PARTIDA on 04/29/16 1011 Levothyroxine Sodium 50 Mcg Tablet, 50 MCG PO DAILY, (Reported) Magnesium Oxide 400 Mg Tablet, 400 MG PO BIDPC for 30 Days, #60 Prescribed by: KEVIN DELEON on 05/08/16 0833 Pantoprazole Sodium 40 Mg Tablet.dr, 40 MG PO HS, (Reported) Tamsulosin HCl 0.4 Mg Cap.er.24h, 0.4 MG PO HS, (Reported) Physical Exam-Cardiology Physical Exam Vital Signs/I&O Vital Sign - Last 12Hours 06/02/16 06/02/16 06/02/16 06/02/16 00:35 00:40 01:15 01:43 Pulse 81 87 86 84 Resp 23 22 B/P (MAP) 119/46 112/53 Pulse Ox 100 96 06/02/16 06/02/16 06/02/16 06/02/16 02:45 03:27 04:00 04:30 Pulse 87 90 92 Resp 14 18 23 B/P (MAP) 127/65 149/72 126/55 Pulse Ox 91 97 98 O2 Delivery Nasal Cannula O2 Flow Rate 2.00 06/02/16 06/02/16 06/02/16 06/02/16 05:30 06:30 07:00 07:00 Pulse 93 93 85 Resp 22 9 B/P (MAP) 119/74 126/72 Pulse Ox 96 93 O2 Delivery Nasal Cannula O2 Flow Rate 2.00 06/02/16 06/02/16 06/02/16 08:15 08:21 11:15 Temp 97.5 Pulse Ox 93 O2 Delivery Nasal Cannula O2 Flow Rate 2.00 2.00 Intake and Output 06/02/16 00:00 Intake Total 2800 ml Balance 2800 ml Capillary Refill : Less Than 3 Seconds Constitutional: No appears stated age, No AAO x 3, No apparent distress, No PERRL, No well-developed, No well-nourished, No other HEENT: No PERRL, No normal ENT inspection, No TMs normal, No pharynx normal, No scleral icterus (R), No scleral icterus (L), No pale conjunctivae (R), No pale conjunctivae (L), No photophobia, No TM abnormal (R), No TM abnormal (L), No pharyngeal erythema, No tonsillar exudate, No other, No discharge, No EOMI, No hearing is well preserved, No hard of hearing, No oral hygience is good, No ulceration, No xanthelasmas are seen Neck: No non-tender, No full range of motion, No supple, No normal inspection, No carotid bruit, No limited range of motion, No lymphadenopathy (R), No lymphadenopathy (L), No tender lateral, No tender midline, No thyromegaly, No other, No carotid pulses are 2 + bilaterally, No with good upstrokes Respiratory: No accessory muscle use, No respiratory distress, No chest tender , No chest expansion is symmetric, No chest is bilaterally symmetric, No lungs clear to percussion, No lungs clear to auscultation, No crackles, No rhonchi, No rales, No stridor, No wheezing, No pleural rub, No other Cardiovascular: No regular rate-rhythm, irregularly irregular, No extra beats, No parasternal heave is noted, No JVD, No edema, No bradycardia, No tachycardia , No point of maximal impulse, No cardiac thrills are palpable, No S1 and S2, No gallop/S3, No gallop/S4, No diastolic murmur, No systolic murmur, No friction rub, No click, No other Gastrointestinal: No tender, No soft, No round, No distended, No pulsatile mass , No organomegaly, No guarding, No rebound, No tenderness, No hernia, No mass, No audible bowel sounds, No abnormal bowel sounds, No abdominal bruits, No spleenomegaly, No other Skin: normal color, warm/dry Data Review Labs Laboratory Tests 06/01/16 19:08: White Blood Count 6.9, Red Blood Count 3.31L, Hemoglobin 9.8L, Hematocrit 30L, Mean Corpuscular Volume 92, Mean Corpuscular Hemoglobin 30, Mean Corpuscular Hemoglobin Concent 32, Red Cell Distribution Width 19.4H, Platelet Count 203, Mean Platelet Volume 9.5, Neutrophils (%) (Auto) 59, Lymphocytes (%) (Auto) 19, Monocytes (%) (Auto) 17H, Eosinophils (%) (Auto) 4, Basophils (%) (Auto) 1, Neutrophils # (Auto) 4.1, Lymphocytes # (Auto) 1.3, Monocytes # (Auto) 1.2H, Eosinophils # (Auto) 0.3, Basophils # (Auto) 0.1, Prothrombin Time 13.2, INR Comment 1.0, Activated Partial Thromboplast Time 26, Sodium Level 130L, Potassium Level 3.9, Chloride Level 91L, Carbon Dioxide Level 25, Anion Gap 14, Blood Urea Nitrogen 20H, Creatinine 2.06H, Estimat Glomerular Filtration Rate 31 , BUN/Creatinine Ratio 10, Glucose Level 138H, Lactic Acid Level 3.87*H, Calcium Level 8.6, Total Bilirubin 0.4, Aspartate Amino Transf (AST/SGOT) 194H, Alanine Aminotransferase (ALT/SGPT) 56H, Alkaline Phosphatase 114, Troponin I < 0.30, Total Protein 5.4L, Albumin 2.7L 06/01/16 21:21: Urine Color YELLOW, Urine Clarity CLEAR, Urine pH 6, Urine Specific [place] 1.010L, Urine Protein 1+H, Urine Glucose (UA) NEGATIVE, Urine Ketones NEGATIVE, Urine Nitrite NEGATIVE, Urine Bilirubin NEGATIVE, Urine Urobilinogen NORMAL, Urine Leukocyte Esterase 1+H, Urine RBC (Auto) 5+H, Urine RBC 10-25H, Urine WBC 5-10H, Urine Squamous Epithelial Cells 10-25H, Urine Crystals NONE, Urine Bacteria TRACE, Urine Casts PRESENT, Urine Hyaline Casts 0-2H, Urine Mucus NEGATIVE, Urine Culture Indicated YES 06/01/16 21:28: Lactic Acid Level 2.48*H 06/02/16 00:34: Glucometer 102 06/02/16 01:36: Glucometer 97 06/02/16 02:00: Lactic Acid Level 1.16 06/02/16 05:50: Lactic Acid Level 1.19, White Blood Count 7.9, Red Blood Count 2.72L, Hemoglobin 8.1L, Hematocrit 25L, Mean Corpuscular Volume 92, Mean Corpuscular Hemoglobin 30, Mean Corpuscular Hemoglobin Concent 33, Red Cell Distribution Width 19.3H, Platelet Count 216, Mean Platelet Volume 9.1, Neutrophils (%) (Auto ) 53, Lymphocytes (%) (Auto) 25, Monocytes (%) (Auto) 17H, Eosinophils (%) (Auto ) 4, Basophils (%) (Auto) 1, Neutrophils # (Auto) 4.1, Lymphocytes # (Auto) 1.9 , Monocytes # (Auto) 1.4H, Eosinophils # (Auto) 0.3, Basophils # (Auto) 0.1, Sodium Level 133L, Potassium Level 3.5L, Chloride Level 97L, Carbon Dioxide Level 25, Anion Gap 11, Blood Urea Nitrogen 18, Creatinine 1.72H, Estimat Glomerular Filtration Rate 38, BUN/Creatinine Ratio 10, Glucose Level 131H, Calcium Level 7.8L, Magnesium Level 1.2L, Total Bilirubin 0.3, Aspartate Amino Transf (AST/SGOT) 143H, Alanine Aminotransferase (ALT/SGPT) 45, Alkaline Phosphatase 89, Total Protein 4.6L, Albumin 2.3L ECG Impression ECG Initial ECG Impression: Atrial Fibrillation Comment A. fib with PVC A/P-Cardiology Assessment/Admission Diagnosis UTI sepsis, History of CAD, PAD, atrial fibrillation. Plan deferred treatment of UTI sepsis to primary team. Restart all medications for PAD/CAD. For now he is on Lovenox for atrial fibrillation. Transition to Coumadin. First set of troponin is negative. Awaiting second set of troponin. Clinical Quality Measures DVT/VTE Risk/Contraindication: Risk Factor Score Per Nursin RFS Level Per Nursing on Admit: 4+=Very High Margy PICKARD MD Jun 02, 2016 12:07 pm
[2016-06-02] MEDS ORDERED: BENA10TA2 PO (16:11)
[2016-06-02] MEDS ORDERED: ROSU20TA PO (16:26)
[2016-06-02] MEDS ORDERED: WARF5TAB PO (16:26)
[2016-06-02] MEDS ORDERED: RIFA550T PO (16:26)
[2016-06-02] MEDS ORDERED: METO-333 PO (16:26)
[2016-06-02] MEDS: inSUlin ASPART (NovoLOG) 1 UNIT/0.01 ML (CHARGE PER UNIT) SC SCH (17:35)
[2016-06-02] MEDS: cefTRIAXone INJECTION 1,000 MG in NS (IVPB) 50 ML IV SCH (20:59)
[2016-06-02] MEDS ORDERED: ASPIRIN 81 MG CHEW (CHILDREN'S ASA) PO SCH (21:00)
[2016-06-03] VITALS (30 sets, daily range): BP systolic 94–129; BP diastolic 44–82
[2016-06-03] MEDS: NS IV 1000 ML 1,000 ML IV SCH ×3 (03:14→19:13)
[2016-06-03] MEDS: NOREPINEPHRINE 4 MG in D5W 250 ML (IVPB) 250 ML IV SCH ×2 (03:15→15:30)
[2016-06-03 04:43] LABS: BASOPHILS % (AUTO) 1 % (0-10); EOSINOPHILS # (AUTO) 0.3 10^3/uL (0.0-0.3); EOSINOPHILS % (AUTO) 4 % (0-10); LYMPHOCYTES # (AUTO) 1.5 X 10^3 (1.0-4.0); LYMPHOCYTES % (AUTO) 26 % (12-44); MEAN CORPUSCULAR HEMOGLOBIN 29 PG (25-34); MEAN CORPUSCULAR HGB CONC 31 G/DL (32-36); MEAN CORPUSCULAR VOLUME 94 FL (80-99); MEAN PLATELET VOLUME 8.9 FL (7.4-10.4); MONOCYTES # (AUTO) 0.9 X 10^3 (0.0-1.0); MONOCYTES % (AUTO) 15 % (0-12); NEUTROPHILS # (AUTO) 3.2 X 10^3 (1.8-7.8); NEUTROPHILS % (AUTO) 54 % (42-75); PLATELET COUNT 193 10^3/uL (130-400); RED BLOOD COUNT 2.46 10^6/uL (4.35-5.85); RED CELL DISTRIBUTION WIDTH 19.2 % (10.0-14.5); WHITE BLOOD COUNT 5.9 10^3/uL (4.3-11.0)
[2016-06-03 05:11] LABS: CALCIUM 7.4 MG/DL (8.5-10.1); CREATININE SERUM 1.28 MG/DL (0.60-1.30); POTASSIUM 3.9 MMOL/L (3.6-5.0)
[2016-06-03] MEDS: POTASSIUM CL 10MEQ/50ML IVPB 50 ML IV SCH (07:07)
[2016-06-03] MEDS: inSUlin ASPART (NovoLOG) 1 UNIT/0.01 ML (CHARGE PER UNIT) SC SCH ×4 (07:07→18:00)
[2016-06-03] MEDS: CATHETER FLUSH 10 ML SYR IV SCH ×2 (07:07→14:00)
[2016-06-03] MEDS: MAGNESIUM 1 GM/100 ML IVPB 100 ML IV SCH ×3 (07:07→11:45)
[2016-06-03] MEDS: KCL 20 MEQ TAB (K-DUR) PO SCH (07:07)
[2016-06-03] MEDS ORDERED: TROUGH ORDER-PHARMACY XX NR (08:00)
[2016-06-03] MEDS ORDERED: NS IV 500 ML 500 ML IV SCH (09:00)
--- NOTE | 2016-06-03 09:05 | Progress Note (SOAP) ---
Subjective Subjective 81 yo M admitted for shock- thought septic but no source found yet- blood culture one of 2 positive for staph but considered contaminant will consider re- checking. Pt and report he is doing better- would like him to be able to eat whatever he wants- Will implement this. Review of Systems General: No Chills, No Night Sweats HEENT: No Head Aches Pulmonary: No Dyspnea, No Cough Cardiovascular: No: Chest Pain Gastrointestinal: No: Abdominal Pain, Nausea, Vomiting Genitourinary: No Dysuria Musculoskeletal: leg pain Neurological: Weakness All Other Systems Reviewed All Other Systems Reviewed: Yes Objective Exam Vital Signs Vital Signs Date Time Temp Pulse Resp B/P (MAP) Pulse Ox O2 Delivery O2 Flow Rate FiO2 06/03/16 08:14 99 2.00 06/03/16 07:39 2.00 06/03/16 07:00 87 06/03/16 06:19 96 15 116/59 95 Nasal Cannula 2.00 06/03/16 05:32 104 20 112/70 95 Nasal Cannula 2.00 06/03/16 04:48 101 15 108/53 96 Nasal Cannula 2.00 06/03/16 04:00 Nasal Cannula 2.00 06/03/16 04:00 98.6 06/03/16 03:25 101 21 94/57 98 Nasal Cannula 2.00 06/03/16 02:40 96 17 101/54 97 Nasal Cannula 2.00 06/03/16 01:26 98 28 111/60 97 Nasal Cannula 2.00 06/03/16 01:00 98 06/03/16 00:26 103 28 107/55 99 Nasal Cannula 2.00 06/03/16 00:00 Nasal Cannula 2.00 06/03/16 00:00 97.9 06/02/16 22:30 76 26 135/96 99 Nasal Cannula 2.00 06/02/16 22:24 96 18 107/59 99 Nasal Cannula 2.00 06/02/16 21:27 92 27 111/56 99 Nasal Cannula 2.00 06/02/16 20:34 98.9 88 28 103/57 97 Nasal Cannula 2.00 06/02/16 20:00 Nasal Cannula 2.00 06/02/16 19:28 92 23 109/53 95 Nasal Cannula 2.00 06/02/16 18:45 91 06/02/16 16:00 Nasal Cannula 2.00 06/02/16 13:00 84 06/02/16 12:53 99.3 06/02/16 11:15 Nasal Cannula 2.00 I & O 06/03/16 07:00 Intake Total 1130 ml Output Total 2100 ml Balance -970 ml General Appearance: No Apparent Distress, WD/WN Eyes: Bilateral Eye Normal Inspection HEENT: Normal ENT Inspection Neck: Normal Inspection Respiratory: Chest Non Tender, Lungs Clear, Normal Breath Sounds, No Accessory Muscle Use, No Respiratory Distress Cardiovascular: Regular Rate, Rhythm Gastrointestinal: Non Tender, Soft Back: Normal Inspection, No CVA Tenderness, No Vertebral Tenderness Extremity: Non Tender (left side), No Calf Tenderness (left side), Other ( right AKA) Neurologic/Psychiatric: Alert, Oriented x3, Normal Mood/Affect Results Lab Laboratory Tests 06/02/16 12:29: Glucometer 136H 06/02/16 17:16: Glucometer 130H 06/03/16 04:30: White Blood Count 5.9, Red Blood Count 2.46L, Hemoglobin 7.2L, Hematocrit 23L, Mean Corpuscular Volume 94, Mean Corpuscular Hemoglobin 29, Mean Corpuscular Hemoglobin Concent 31L, Red Cell Distribution Width 19.2H, Platelet Count 193, Mean Platelet Volume 8.9, Neutrophils (%) (Auto) 54, Lymphocytes (%) (Auto) 26, Monocytes (%) (Auto) 15H, Eosinophils (%) (Auto) 4, Basophils (%) (Auto) 1, Neutrophils # (Auto) 3.2, Lymphocytes # (Auto) 1.5, Monocytes # (Auto) 0.9, Eosinophils # (Auto) 0.3, Basophils # (Auto) 0.0, Sodium Level 135, Potassium Level 3.9, Chloride Level 103, Carbon Dioxide Level 21, Anion Gap 11, Blood Urea Nitrogen 16, Creatinine 1.28, Estimat Glomerular Filtration Rate 54, BUN/ Creatinine Ratio 13, Glucose Level 92, Calcium Level 7.4L Microbiology 06/01/16 Blood Culture - Preliminary, Resulted Staph, Coag Neg (Merchandising Specialist) 06/02/16 MRSA Screen - Final, Complete MRSA not isolated 06/01/16 Urine Culture - Final, Complete NO GROWTH Assessment/Plan Assessment/Plan Assessment/Plan 81 yo M Hypotension- off pressors, cont IVF, monitor Anemia of chronic disease- 2units pRBC 06/03/16- monitor h/h Acute Kidney failure- trend Cr, monitor lytes and Cr/GFR- - avoid nephrotoxic agents (NSAIDS, contrast) Atrial fibrillation- cardiology consulted Acute hypoxic respiratory failure-due to COPD, pneumonia- on baseline oxygen 2L requirement peripheral vascular disease- plavix Dr. David Mathis, Vascular Surgeon at [facility] hypothyroidism- cont levothyroxine hypomagnesemia- replacing HTN- meds held. HLD CAD- stable h/o colitis-- requiring ileostomy- stable- Septic shock due suspected urinary source vs pneumonia- on ceftriaxone. vanc d /c'd 06/03/16 Weakness/deconditioning- PT/OT consulted. Dispo: monitor overnight in ICU- if BP stays stable will transfer to floor in AM. Problems: Clinical Quality Measures DVT/VTE Risk/Contraindication: Risk Factor Score Per Nursin RFS Level Per Nursing on Admit: 4+=Very High TK DELEON MD Jun 03, 2016 09:05
[2016-06-03] MEDS: GABAPENTIN 300 MG (NEURONTIN) CAP PO SCH ×2 (09:37→20:58)
[2016-06-03] MEDS: CLOPIDOGREL 75 MG (PLAVIX) TABLET PO SCH (09:37)
[2016-06-03] MEDS: ASPIRIN 81 MG CHEW (CHILDREN'S ASA) PO SCH (09:37)
[2016-06-03] MEDS: ENOXAPARIN 40 MG/0.4 ML (LOVENOX) SYR SC SCH (09:37)
--- NOTE | 2016-06-03 10:05 | Diagnostic Imaging Report ---
EXAMINATION: CHEST 1 VIEW, AP/PA ONLY INDICATION: Septic shock, followup. COMPARISON: 06/02/2016. FINDINGS: SUPPORT DEVICES: Stable right IJ central venous catheter. CHEST: Stable low lung volume. Patchy left basilar opacities are similar. No pleural effusion or pneumothorax. Stable cardiomegaly. IMPRESSION: 1. Stable support devices. 2. Stable left basilar opacities, likely due to atelectasis. Dictated by: Dictated on workstation # [id number]
--- NOTE | 2016-06-03 10:12 | Cardiology Progress Note ---
Cardiology SOAP Progress Note Subjective: No cardiac complaints Objective: I&O/Vital Signs Vital Sign - Last 12Hours 06/03/16 06/03/16 06/03/16 06/03/16 00:00 00:00 00:26 01:00 Temp 97.9 Pulse 103 98 Resp 28 B/P (MAP) 107/55 Pulse Ox 99 O2 Delivery Nasal Cannula Nasal Cannula O2 Flow Rate 2.00 2.00 06/03/16 06/03/16 06/03/16 06/03/16 01:26 02:40 03:25 04:00 Temp 98.6 Pulse 98 96 101 Resp 28 17 21 B/P (MAP) 111/60 101/54 94/57 Pulse Ox 97 97 98 O2 Delivery Nasal Cannula Nasal Cannula Nasal Cannula O2 Flow Rate 2.00 2.00 2.00 06/03/16 06/03/16 06/03/16 06/03/16 04:00 04:48 05:32 06:19 Pulse 101 104 96 Resp 15 20 15 B/P (MAP) 108/53 112/70 116/59 Pulse Ox 96 95 95 O2 Delivery Nasal Cannula Nasal Cannula Nasal Cannula Nasal Cannula O2 Flow Rate 2.00 2.00 2.00 2.00 06/03/16 06/03/16 06/03/16 06/03/16 07:00 07:39 08:00 08:00 Temp 98.8 Pulse 87 O2 Delivery Nasal Cannula Nasal Cannula O2 Flow Rate 2.00 2.00 2.00 06/03/16 08:14 Pulse Ox 99 O2 Flow Rate 2.00 Intake and Output 06/03/16 00:00 Intake Total 860 ml Output Total 1350 ml Balance -490 ml Weight (Pounds): 208 Weight (Ounces): 10.0 Weight (Calculated Kilograms): [id number] Constitutional: No appears stated age, No AAO x 3, No apparent distress, No PERRL, No well-developed, No well-nourished, No other Respiratory: No accessory muscle use, No respiratory distress, No chest tender , No chest expansion is symmetric, No chest is bilaterally symmetric, No lungs clear to percussion, No lungs clear to auscultation, No crackles, No rhonchi, No rales, No stridor, No wheezing, No pleural rub, No other Cardiovascular: No regular rate-rhythm, irregularly irregular, No extra beats, No parasternal heave is noted, No JVD, No edema, No bradycardia, No tachycardia , No point of maximal impulse, No cardiac thrills are palpable, No S1 and S2, No gallop/S3, No gallop/S4, No diastolic murmur, No systolic murmur, No friction rub, No click, No other Gastrointestional: No tender, No soft, No round, No distended, No pulsatile mass, No organomegaly, No guarding, No rebound, No tenderness, No hernia, No mass, No audible bowel sounds, No abnormal bowel sounds, No abdominal bruits, No spleenomegaly, No other Skin: normal color, warm/dry Results/Procedures: Labs Laboratory Tests 06/02/16 12:29: Glucometer 136H 06/02/16 17:16: Glucometer 130H 06/03/16 04:30: White Blood Count 5.9, Red Blood Count 2.46L, Hemoglobin 7.2L, Hematocrit 23L, Mean Corpuscular Volume 94, Mean Corpuscular Hemoglobin 29, Mean Corpuscular Hemoglobin Concent 31L, Red Cell Distribution Width 19.2H, Platelet Count 193, Mean Platelet Volume 8.9, Neutrophils (%) (Auto) 54, Lymphocytes (%) (Auto) 26, Monocytes (%) (Auto) 15H, Eosinophils (%) (Auto) 4, Basophils (%) (Auto) 1, Neutrophils # (Auto) 3.2, Lymphocytes # (Auto) 1.5, Monocytes # (Auto) 0.9, Eosinophils # (Auto) 0.3, Basophils # (Auto) 0.0, Sodium Level 135, Potassium Level 3.9, Chloride Level 103, Carbon Dioxide Level 21, Anion Gap 11, Blood Urea Nitrogen 16, Creatinine 1.28, Estimat Glomerular Filtration Rate 54, BUN/ Creatinine Ratio 13, Glucose Level 92, Calcium Level 7.4L Microbiology 06/01/16 Blood Culture - Preliminary, Resulted Staph, Coag Neg (Nut Sheller Machine Operator) 06/02/16 MRSA Screen - Final, Complete MRSA not isolated 06/01/16 Urine Culture - Final, Complete NO GROWTH A/P: Assessment/Dx: UTI sepsis, History of CAD, PAD, atrial fibrillation. Plan: deferred treatment of UTI sepsis to primary team. Restarted all medications for PAD/CAD. For now he is on Lovenox for atrial fibrillation. Transition to Coumadin. Serial troponin are negative. Acute coronary syndrome has been ruled out. Thank you for your consultation. Please call me if you have any questions. Trace Hurtado MD, FACP, FACC, FSCAI, FHRS, CCDS Interventional Cardiology Cardiac Electrophysiology Vascular Medicine and Endovascular Interventions Margy HURTADO MD Jun 03, 2016 10:12 am
[2016-06-03] MEDS ORDERED: GLUC-173 PO (10:22)
[2016-06-03] MEDS ORDERED: MESA4ENE4 RC (10:22)
[2016-06-03] MEDS ORDERED: BENA20TA2 PO (10:22)
[2016-06-03] MEDS ORDERED: MELA1TAB10 PO (10:22)
--- NOTE | 2016-06-03 13:58 | Physical Therapy Evaluation ---
PT Evaluation-General Medical Diagnosis Admission Date Jun 01, 2016 at 21:24 Medical Diagnosis: septic shock/ARF Onset Date: Jun 01, 2016 Therapy Diagnosis Therapy Diagnosis: generalized weakness and debility Height/Weight Height (Feet): 5 Height (Inches): 8.00 Weight (Pounds): 208 Weight (Ounces): 10.0 Precautions Precautions/Isolations: Standard Precautions Referral Physician: Schuyler Reason for Referral: Evaluation/Treatment Medical History Pertinent Medical History: Arthritis, CAD, COPD, DM, Dementia, HTN, Hypothroidism, Neuropathy, Prostate CA, PVD Additional Medical History recent dismissal from [employer] to [place] Current History 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 Prior Level of Function Functional Isabella Measure 0=Not Assessed/NA 4=Minimal Assistance 1=Total Assistance 5=Supervision or Setup 2=Maximal Assistance 6=Modified Isabella 3=Moderate Assistance 7=Complete Isabella Bed Mobility: 1 Transfers (B,C,W/C) (FIM): 1 Gait: 0 PT Evaluation-Current Subjective Patient is in bed receiving PRBC. Spouse and patient agrees to PT. Pain Numeric Pain Scale: 0-No Pain Location: No Pain Reported Objective Patient Orientation: Person, Time, Situation Problem Solving: Fair Attachments: Oxygen, Cesar Catheter, IV ROM/Strength ROM Lower Extremities right AKA Strenght Lower Extremities left knee flexion/extension 3-/5; hip flexion 3-/5; ankle dorsi/plantarflexion 3 -/5 Integumentary/Posture Integumentary refer to nursing notes Bladder Incontinence: Cesar Cath Posture slightly kyphotic in sit EOB Neuromuscular (Tone, Coordination, Reflexes) severely diminished coordination secondary to inactivity due to medical condition Transfers Functional Isabella Measure 0=Not Assessed/NA 4=Minimal Assistance 1=Total Assistance 5=Supervision or Setup 2=Maximal Assistance 6=Modified Isabella 3=Moderate Assistance 7=Complete Isabella Transfers (B, C, W/C) (FIM): 1 Scootin Rollin Supine to/from Sit: 1 patient became hypotensive with supine to sit transfers and SAO2 decreased to 59 % with O2 in place Balance Sitting Static: Poor Sitting Dynamic: Poor Assessment/Needs 81 y.o. male, will benefit from skilled PT to address functional strength and mobility to improve current LOF. Patient is limited with functional strength and mobility secondary to inactivity and medical condition. Rehab Potential: Guarded Post Rehab Potential-Barriers: prolonged illness PT Mcfp Goals Mcfp Goals PT Elocution Teacher Goals Time Frame: June 17, 2016 Transfers (B,C,W/C) (FIM): 3 PT Plan Problem List Problem List: Activity Tolerance, Functional Strength, Safety, Balance, Transfer, Bed Mobility Treatment/Plan Treatment Plan: Continue Plan of Care Treatment Plan: Bed Mobility, Education, Functional Activity [place], Functional Strength, Safety, Therapeutic Exercise, Transfers Treatment Duration: June 17, 2016 # of days/week 6 Visits Per Week: 6 Pt/Family Agrees w/Plan: Yes Safety Risks/Education Patient Education: Disease Process, Safety Issues Teaching Recipient: Patient, Significant Other Teaching Methods: Discussion Response to Teaching: Verbalize Understanding Discharge Recommendations Therapy D/C Recommendations: Correction (TCU/NH) Target Placement Patient is established at [facility] for skilled care Time/GCodes Time In: 1300 Time Out: 1325 Total Billed Treatment Time: 25 Total Billed Treatment 1 visit [facility] 25 min CLAUDIA MAYFIELD PT Jun 03, 2016 13:58
--- NOTE | 2016-06-03 15:11 | Occupational Therapy Eval ---
OT Evaluation-General/PLF Medical Diagnosis Admission Date Jun 01, 2016 at 21:24 Medical Diagnosis: septic shock/ARF Onset Date: Jun 01, 2016 Therapy Diagnosis Therapy Diagnosis: Weakness, Decreased ADL skills Height/Weight Height (Feet): 5 Height (Inches): 8.00 Weight (Pounds): 208 Weight (Ounces): 10.0 Precautions Precautions/Isolations: Standard Precautions Safety Interventions: Reorient-PRN Weight Bear Status Weight Bearing Restriction: Weight Bearing/Tolerated Referral Physician: Schuyler Referral Reason: Activity Tolerance, Self Care, Evaluation/Treatment, Strengthening/ROM Medical History Pertinent Medical History: Arthritis, CAD, COPD, DM, Dementia, HTN, Hypothroidism, Neuropathy, Prostate CA, PVD Additional Medical History Right LE amputation, prostate CA, renal failure Current History Pt. was a pt. at [facility]. Was transferred to [place], and then [facility]. From [facility] went to . From to [facility], and then back to [facility]. Previous to original hospitalization, pt. was independent with basic care needs. Reviewed History: Yes Social History Home: Senior Living Current Living Status: Entry Into Home: Level Entry ADL-Prior Level of Function ADL PLOF Comments At this time in skilled nursing, spouse states that pt. was dependent with self care, including feeding self as he was too weak to bring spoon to mouth. Previous to this though, he was independent with self care. DME/Equipment: Grab Bars, Shower, Shower Hose Webbing Supervisor, Tub/Shower DME/Equipment Comments Pt. states that she would like to get a tub transfer bench, to either put in her large walk in shower, or the bathtub. OT Current Status Subjective Pt. getting blood at this time. Was just sitting on side of bed with physical therapy. Began to get dizzy and had blood pressure issues. Therapy felt it best not to get him back up at this time. Appearance Pt. is in bed. In and out of sleep. Able to participate somewhat in evaluation. Spouse in room and able to provide most of information. Mental Status/Objective Patient Orientation: Unable to Assess Current Upper Extremity ROM Pt. is able to flex bilateral shoulders to approximately 80 degrees at bed level. Spouse states that previous to his multiple hospitalizations, he was able to move UE in all planes with no issues. Finger flexion WFL Upper Extremity Coordination impaired due to weakness and strength. Spouse states that pt. has been able to feed self the last two meals, but previous to this had difficulty. Upper Extremity Strength 2+/5 proximally 3/5 distally ADL-Treatment Functional [place] Measure 0=Not Assessed/NA 4=Minimal Assistance 1=Total Assistance 5=Supervision or Setup 2=Maximal Assistance 6=Modified [place] 3=Moderate Assistance 7=Complete IndependenceIRFPAI Quality Coding Scale 6 Independent with activity with or without an assistive device 5 Patient requires set up or clean up by helper. Patient completes activity by themselves 4 Supervision or touching assist (CGA). [place] provide cues , steadying assist 3 The helper provides less than half the effort to complete the activity 2 The helper provides more than half the effort to complete the activity 1 Dependent. The helper does all the effort to complete an activity 7 Patient refused to complete or attempt activity 9 The patient did not perform the activity before the current illness or injury 88 Not attempted due to Medical conditions or safety concerns Lower Body Dressing (FIM): 1 Other Treatments Pt. getting blood and dizzy. Having blood pressure issues and it was felt best to let him rest. OT took spouse to rehab unit and showed her several different options for tub transfer benches, as she is interested in these for home use. Spouse verbalizes understanding, and states that she will begin to look into getting a bench for when he is ready to return home. OT issued pt. 3 lb. dumbbells to start doing bicep curls (per pt. request), and hand sponge to squeeze to assist with edema and strength. Pt. given red theraband as well and educated in bilateral UE exercises to complete to increase overall strength. Education OT Patient Education: Correct positioning, Exercise program, Home exercise program, Instructions to caregiver, Modified ADL techniques, Progress toward Goal/Update tx plan, Purpose of tx/functional activities, Reviewed precautions, Rehab process, Transfer techniques, Use of adapted equipment Teaching Recipient: Patient, Significant Other Teaching Methods: Demonstration, Discussion Response to Teaching: Verbalize Understanding, Return Demonstration OT Short Term Goals Short Term Goals Time Frame: Jun 10, 2016 Eating(FIM): 5 Grooming(FIM): 4 Bathing(FIM): 3 Upper Body Dressing(FIM): 4 Lower Body Dressing(FIM): 3 Toileting(FIM): 4 Transfers (B,C,W/C) (FIM): 4 Toilet/Commode Transfer(FIM): 4 Additional Short Term Goals: 1-Demonstrate ADL Tasks, 2-Verbalize Understanding , 3-ImproveStrength/[place] 1=Demonstrate adherence to instructed precautions during ADL tasks. 2=Patient will verbalize/demonstrate understanding of assistive devices/ modifications for ADL. 3=Patient will improve strength/tolerance for activity to enable patient to perform ADL's. OT Contract Project Manager Goals Contract Project Manager Goals Time Frame: June 24, 2016 Eating (FIM): 6 Grooming(FIM): 5 Bathing(FIM): 4 Upper Body Dressing(FIM): 5 Lower Body Dressing(FIM): 4 Toileting(FIM): 5 Transfers (B,C,W/C) (FIM): 5 Toilet/Commode Transfer(FIM): 5 Shower Transfer(FIM): 5 Additional Goals: 1-Demonstrate ADL Tasks, 2-Verbalize Understanding, 3- ImproveStrength/[place] 1=Demonstrate adherence to instructed precautions during ADL tasks. 2=Patient will verbalize/demonstrate understanding of assistive devices/ modifications for ADL. 3=Patient will improve strength/tolerance for activity to enable patient to perform ADL's. OT Education/Plan Problem List/Assessment Assessment: Decreased Activ Tolerance, Decreased UE Strength, Dependent Transfers, Edema, Impaired Bed Mobility, Impaired Cognition, Impaired Coordination, Impaired Funct Balance, Impaired I ADL's, Impaired Self-Care Skills, Restricted Funct UE ROM Discharge Recommendations Plan/Recommendations: Continue POC Therapy D/C Recommendations: 24 hr Supervision, Detention (TCU/NH) Equpiment Recommendations-D/C: Extended Bath Bench Patient/Family Goals Spouse states that her goal is [facility] and then back home once he is stronger. States that he will need to be able to transfer from wheelchair to bed/toilet/shower. Treatment Plan/Plan of Care Treatment,Training & Education: Yes Patient would benefit from OT for education, treatment and training to promote independence in ADL's, mobility, safety and/or upper extremity function for ADL' s. Plan of Care: ADL Retraining, Functional Mobility, UE Funct Exercise/Act Treatment Duration: June 24, 2016 # of days/week 5-6 Visits Per Week: 5-6 Agreement: Yes Rehab Potential: Fair Time/GCodes Start Time: 13:30 Stop Time: 14:00 Total Time Billed (hr/min): 30 Billed Treatment Time 1, ANDREAS Marley OT Jun 03, 2016 15:11
[2016-06-03] MEDS: HYDROcodone/APAP 5 MG/325 MG (LORTAB) TAB PO PRN (16:09)
[2016-06-03] MEDS: cefTRIAXone INJECTION 1,000 MG in NS (IVPB) 50 ML IV SCH (20:58)
[2016-06-04] VITALS (14 sets, daily range): BP systolic 108–146; BP diastolic 55–99
[2016-06-04] MEDS: inSUlin ASPART (NovoLOG) 1 UNIT/0.01 ML (CHARGE PER UNIT) SC SCH ×4 (00:22→18:00)
[2016-06-04] MEDS: CATHETER FLUSH 10 ML SYR IV SCH ×4 (00:22→21:28)
[2016-06-04] MEDS: NS IV 1000 ML 1,000 ML IV SCH ×3 (02:54→22:02)
[2016-06-04 04:38] LABS: BASOPHILS % (AUTO) 1 % (0-10); EOSINOPHILS # (AUTO) 0.3 10^3/uL (0.0-0.3); EOSINOPHILS % (AUTO) 4 % (0-10); LYMPHOCYTES # (AUTO) 1.5 X 10^3 (1.0-4.0); LYMPHOCYTES % (AUTO) 23 % (12-44); MEAN CORPUSCULAR HEMOGLOBIN 30 PG (25-34); MEAN CORPUSCULAR HGB CONC 33 G/DL (32-36); MEAN CORPUSCULAR VOLUME 92 FL (80-99); MEAN PLATELET VOLUME 8.6 FL (7.4-10.4); MONOCYTES # (AUTO) 1.1 X 10^3 (0.0-1.0); MONOCYTES % (AUTO) 17 % (0-12); NEUTROPHILS # (AUTO) 3.6 X 10^3 (1.8-7.8); NEUTROPHILS % (AUTO) 55 % (42-75); PLATELET COUNT 193 10^3/uL (130-400); RED BLOOD COUNT 3.04 10^6/uL (4.35-5.85); RED CELL DISTRIBUTION WIDTH 18.8 % (10.0-14.5); WHITE BLOOD COUNT 6.6 10^3/uL (4.3-11.0)
[2016-06-04 04:58] LABS: ANION GAP 10 MMOL/L (5-14); BLOOD UREA NITROGEN 14 MG/DL (7-18); BUN/CREATININE RATIO 13; CALCIUM 7.7 MG/DL (8.5-10.1); CARBON DIOXIDE 21 MMOL/L (21-32); CHLORIDE 105 MMOL/L (98-107); CREATININE SERUM 1.04 MG/DL (0.60-1.30); GFR ESTIMATED > 60; GLUCOSE 96 MG/DL (70-105); POTASSIUM 4.3 MMOL/L (3.6-5.0); SODIUM 136 MMOL/L (135-145)
[2016-06-04] MEDS: NOREPINEPHRINE 4 MG in D5W 250 ML (IVPB) 250 ML IV SCH ×2 (05:43→18:37)
[2016-06-04] MEDS: POTASSIUM CL 10MEQ/50ML IVPB 50 ML IV SCH (06:31)
[2016-06-04] MEDS: KCL 20 MEQ TAB (K-DUR) PO SCH (06:32)
[2016-06-04] MEDS: MAGNESIUM 1 GM/100 ML IVPB 100 ML IV SCH ×4 (06:32→21:42)
[2016-06-04] MEDS: ENOXAPARIN 40 MG/0.4 ML (LOVENOX) SYR SC SCH (07:51)
[2016-06-04] MEDS: GABAPENTIN 300 MG (NEURONTIN) CAP PO SCH ×2 (07:51→21:27)
[2016-06-04] MEDS: CLOPIDOGREL 75 MG (PLAVIX) TABLET PO SCH (07:51)
[2016-06-04] MEDS: ASPIRIN 81 MG CHEW (CHILDREN'S ASA) PO SCH (07:51)
--- NOTE | 2016-06-04 08:54 | Progress Note (SOAP) ---
Subjective Subjective 81 yo M admitted for shock- pt doing better- PT noted pt was dizzy with getting him up- Pt reports feeling weird today. Vitals stable. Pt would like his best removed- Review of Systems General: No Chills, No Night Sweats HEENT: No Head Aches Pulmonary: No Dyspnea, No Cough Cardiovascular: No: Chest Pain Gastrointestinal: No: Abdominal Pain, Nausea, Vomiting Genitourinary: No Dysuria Musculoskeletal: leg pain (right leg- stub) Neurological: Weakness All Other Systems Reviewed All Other Systems Reviewed: Yes Objective Exam Vital Signs Vital Signs Date Time Temp Pulse Resp B/P (MAP) Pulse Ox O2 Delivery O2 Flow Rate FiO2 06/04/16 08:00 98.9 117 26 116/81 95 Nasal Cannula 2.00 06/04/16 08:00 Nasal Cannula 2.00 06/04/16 06:00 123 27 124/81 95 Nasal Cannula 2.00 06/04/16 05:00 106 23 130/85 95 Nasal Cannula 2.00 06/04/16 04:00 98.0 06/04/16 04:00 115 13 91 Nasal Cannula 2.00 06/04/16 04:00 Nasal Cannula 2.00 06/04/16 03:00 93 21 113/58 98 Nasal Cannula 2.00 06/04/16 02:00 98 24 144/55 90 Nasal Cannula 2.00 06/04/16 01:00 97 19 130/64 98 Nasal Cannula 2.00 06/04/16 01:00 97 06/04/16 00:00 99.2 06/04/16 00:00 94 25 131/64 97 Nasal Cannula 2.00 06/04/16 00:00 Nasal Cannula 2.00 06/03/16 23:00 99 26 118/60 94 Nasal Cannula 2.00 06/03/16 22:00 92 25 120/55 96 Nasal Cannula 2.00 06/03/16 21:00 95 15 109/58 96 Nasal Cannula 2.00 06/03/16 20:00 Nasal Cannula 2.00 06/03/16 20:00 98.2 89 29 129/82 98 Nasal Cannula 2.00 06/03/16 19:00 94 06/03/16 19:00 94 23 124/44 96 Nasal Cannula 2.00 06/03/16 18:00 93 22 118/50 97 Nasal Cannula 2.00 06/03/16 17:45 98.9 98 18 118/50 94 2.00 06/03/16 17:00 94 20 121/67 Nasal Cannula 2.00 06/03/16 16:00 97.9 Nasal Cannula 2.00 06/03/16 16:00 96 29 118/58 98 Nasal Cannula 2.00 06/03/16 16:00 Nasal Cannula 2.00 06/03/16 15:45 98.9 92 28 121/69 96 2.00 06/03/16 15:30 98.7 100 20 125/68 96 2.00 06/03/16 15:00 90 24 121/69 97 Nasal Cannula 2.00 06/03/16 14:45 98.3 96 20 111/54 95 2.00 06/03/16 14:00 93 32 109/70 93 Nasal Cannula 2.00 06/03/16 13:00 95 20 110/57 98 Nasal Cannula 2.00 06/03/16 13:00 91 06/03/16 12:45 98.4 90 23 115/68 99 2.00 06/03/16 12:30 98.6 93 22 118/77 100 2.00 06/03/16 12:00 98 31 115/68 95 Nasal Cannula 2.00 06/03/16 12:00 Nasal Cannula 2.00 06/03/16 12:00 98.4 Nasal Cannula 2.00 06/03/16 11:00 89 19 121/58 98 Nasal Cannula 2.00 06/03/16 10:00 95 15 116/55 94 Nasal Cannula 2.00 06/03/16 09:00 101 38 105/56 99 Nasal Cannula 2.00 I & O 06/04/16 07:00 Intake Total 4625 ml Output Total 2725 ml Balance 1900 ml General Appearance: No Apparent Distress, WD/WN Eyes: Bilateral Eye Normal Inspection HEENT: Normal ENT Inspection Neck: Normal Inspection Respiratory: Chest Non Tender, Lungs Clear, Normal Breath Sounds, No Accessory Muscle Use, No Respiratory Distress Cardiovascular: Other (irregular rhythm, regular rate) Gastrointestinal: Non Tender, Soft, Other (RLQ ostomy) Genital/Rectal: Other (best) Back: Normal Inspection, No CVA Tenderness, No Vertebral Tenderness Extremity: Non Tender (left side), No Calf Tenderness (left side), Other ( right AKA) Neurologic/Psychiatric: Alert, Oriented x3, Normal Mood/Affect Skin: Warm/Dry Results Lab Laboratory Tests 06/03/16 12:05: Glucometer 133H 06/03/16 18:39: Glucometer 139H 06/04/16 04:30: White Blood Count 6.6, Red Blood Count 3.04L, Hemoglobin 9.1#L, Hematocrit 28L, Mean Corpuscular Volume 92, Mean Corpuscular Hemoglobin 30, Mean Corpuscular Hemoglobin Concent 33, Red Cell Distribution Width 18.8H, Platelet Count 193, Mean Platelet Volume 8.6, Neutrophils (%) (Auto) 55, Lymphocytes (%) (Auto) 23, Monocytes (%) (Auto) 17H, Eosinophils (%) (Auto) 4, Basophils (%) (Auto) 1, Neutrophils # (Auto) 3.6, Lymphocytes # (Auto) 1.5, Monocytes # (Auto) 1.1H, Eosinophils # (Auto) 0.3, Basophils # (Auto) 0.0, Sodium Level 136, Potassium Level 4.3, Chloride Level 105, Carbon Dioxide Level 21, Anion Gap 10, Blood Urea Nitrogen 14, Creatinine 1.04, Estimat Glomerular Filtration Rate > 60, BUN/ Creatinine Ratio 13, Glucose Level 96, Calcium Level 7.7L, Magnesium Level 1.2L Microbiology 06/01/16 Blood Culture - Preliminary, Resulted Staph, Coag Neg (Director Regulatory Affairs) 06/02/16 MRSA Screen - Final, Complete MRSA not isolated 06/01/16 Urine Culture - Final, Complete NO GROWTH Assessment/Plan Assessment/Plan Assessment/Plan 81 yo M Hypotension- off pressors, cont IVF, monitor decreased IVF to 100cc/ hr Anemia of chronic disease- 2units pRBC 06/03/16- monitor h/h hemoglobin 9 Acute Kidney failure- resolved trend Cr, monitor lytes and Cr/GFR- - avoid nephrotoxic agents (NSAIDS, contrast) Atrial fibrillation- cardiology consulted, warfarin restarted 06/04/16 COPD- on baseline oxygen 2L requirement peripheral vascular disease- plavix Dr. David Mathis, Vascular Surgeon at [facility] hypothyroidism- cont levothyroxine hypomagnesemia- replacing HTN- meds held. HLD CAD- stable h/o colitis-- requiring ileostomy- stable- Septic shock due suspected urinary source vs pneumonia- on ceftriaxone. vanc d /c'd 06/03/16 Weakness/deconditioning- PT/OT consulted. Right above knee amputation- pain noted, swelling- sutures/arpita in place- surgery was 05/13/16 in [place]- Dr. Portillo consulted. Dispo: remove best today. d/c ivf to 100cc/hr- transfer to floor. Problems: Clinical Quality Measures DVT/VTE Risk/Contraindication: Risk Factor Score Per Nursin RFS Level Per Nursing on Admit: 4+=Very High TK DELEON MD Jun 04, 2016 08:54
[2016-06-04] MEDS: HYDROcodone/APAP 5 MG/325 MG (LORTAB) TAB PO PRN ×2 (09:38→13:36)
[2016-06-04] MEDS ORDERED: MAGNESIUM 1 GM/100 ML IVPB 100 ML IV NR (10:00)
--- NOTE | 2016-06-04 11:21 | Occupational Ther Daily Note ---
OT Current Status-Daily Note Subjective Pt in bed, agrees to treatment. Pt did not report any pain. Mental Status/Objective Functional [place] Measure 0=Not Assessed/NA 4=Minimal Assistance 1=Total Assistance 5=Supervision or Setup 2=Maximal Assistance 6=Modified [place] 3=Moderate Assistance 7=Complete [place] Other Treatment Pt completed bilateral UE exercises to promote increased strength needed for ADLs and transfers. Pt performed shoulder flexion, abduction, and triceps extension exercises x10 reps with red theraband. Rest breaks between exercises. Pt requires cues for breathing during exercises and cues to not hold breath. Pt performed bilateral biceps curls x10 reps with 3# weights. Bilateral hand supervisor tile and mottle exercises x15 reps with minimal resistance therapy foam. Pt in bed with needs met and spouse present after session. OT Short Term Goals Short Term Goals Time Frame: Jun 10, 2016 Eating(FIM): 5 Grooming(FIM): 4 Bathing(FIM): 3 Upper Body Dressing(FIM): 4 Lower Body Dressing(FIM): 3 Toileting(FIM): 4 Transfers (B,C,W/C) (FIM): 4 Toilet/Commode Transfer(FIM): 4 Additional Short Term Goals: 1-Demonstrate ADL Tasks, 2-Verbalize Understanding , 3-ImproveStrength/[place] 1=Demonstrate adherence to instructed precautions during ADL tasks. 2=Patient will verbalize/demonstrate understanding of assistive devices/ modifications for ADL. 3=Patient will improve strength/tolerance for activity to enable patient to perform ADL's. OT Pinked Edge Sewing Machine Operator Goals Pinked Edge Sewing Machine Operator Goals Time Frame: June 24, 2016 Eating (FIM): 6 Grooming(FIM): 5 Bathing(FIM): 4 Upper Body Dressing(FIM): 5 Lower Body Dressing(FIM): 4 Toileting(FIM): 5 Transfers (B,C,W/C) (FIM): 5 Toilet/Commode Transfer(FIM): 5 Shower Transfer(FIM): 5 Additional Goals: 1-Demonstrate ADL Tasks, 2-Verbalize Understanding, 3- ImproveStrength/[place] 1=Demonstrate adherence to instructed precautions during ADL tasks. 2=Patient will verbalize/demonstrate understanding of assistive devices/ modifications for ADL. 3=Patient will improve strength/tolerance for activity to enable patient to perform ADL's. OT Education/Plan Discharge Recommendations Plan/Recommendations: Continue POC Treatment Plan/Plan of Care Patient would benefit from OT for education, treatment and training to promote independence in ADL's, mobility, safety and/or upper extremity function for ADL' s. Plan of Care: ADL Retraining, Functional Mobility, UE Funct Exercise/Act Treatment Duration: June 24, 2016 Visits Per Week: 5-6 Agreement: Yes Rehab Potential: Fair Time/GCodes Start Time: 10:30 Stop Time: 10:45 Total Time Billed (hr/min): 15 Billed Treatment Time 1 visit, EX(15minutes) HUYEN DANG OT Jun 04, 2016 11:21
--- NOTE | 2016-06-04 11:31 | Cardiology Progress Note ---
Cardiology SOAP Progress Note Subjective: Feeling better. Objective: I&O/Vital Signs Vital Sign - Last 12Hours 06/05/16 06/05/16 06/05/16 06/05/16 00:00 01:00 04:00 07:00 Temp 98.0 98.0 Pulse 109 106 99 94 Resp 20 20 B/P (MAP) 136/97 127/71 Pulse Ox 96 96 O2 Delivery Nasal Cannula Nasal Cannula O2 Flow Rate 2.00 2.00 06/05/16 06/05/16 06/05/16 08:00 08:05 08:25 Temp 97.6 Pulse 96 Resp 18 B/P (MAP) 121/66 Pulse Ox 99 98 96 O2 Delivery Nasal Cannula O2 Flow Rate 2.00 2.00 1.00 Intake and Output 06/05/16 00:00 Intake Total 2400 ml Output Total 1000 ml Balance 1400 ml Weight (Pounds): 220 Weight (Ounces): 10.0 Weight (Calculated Kilograms): 99.323508 Constitutional: No appears stated age, No AAO x 3, No apparent distress, No PERRL, No well-developed, No well-nourished, No other Respiratory: No accessory muscle use, No respiratory distress, No chest tender , No chest expansion is symmetric, No chest is bilaterally symmetric, No lungs clear to percussion, No lungs clear to auscultation, No crackles, No rhonchi, No rales, No stridor, No wheezing, No pleural rub, No other Cardiovascular: No regular rate-rhythm, irregularly irregular, No extra beats, No parasternal heave is noted, No JVD, No edema, No bradycardia, No tachycardia , No point of maximal impulse, No cardiac thrills are palpable, No S1 and S2, No gallop/S3, No gallop/S4, No diastolic murmur, No systolic murmur, No friction rub, No click, No other Gastrointestional: No tender, No soft, No round, No distended, No pulsatile mass, No organomegaly, No guarding, No rebound, No tenderness, No hernia, No mass, No audible bowel sounds, No abnormal bowel sounds, No abdominal bruits, No spleenomegaly, No other Skin: normal color, warm/dry Results/Procedures: Labs Laboratory Tests 06/04/16 11:50: Glucometer 130H 4/18/17 13:40: Magnesium Level 1.3L 06/04/16 18:19: Glucometer 112H 06/05/16 05:00: Magnesium Level 1.9, White Blood Count 6.3, Red Blood Count 2.97L, Hemoglobin 8.9L, Hematocrit 28L, Mean Corpuscular Volume 93, Mean Corpuscular Hemoglobin 30 , Mean Corpuscular Hemoglobin Concent 32, Red Cell Distribution Width 18.7H, Platelet Count 202, Mean Platelet Volume 9.2, Neutrophils (%) (Auto) 58, Lymphocytes (%) (Auto) 20, Monocytes (%) (Auto) 16H, Eosinophils (%) (Auto) 6, Basophils (%) (Auto) 1, Neutrophils # (Auto) 3.7, Lymphocytes # (Auto) 1.3, Monocytes # (Auto) 1.0, Eosinophils # (Auto) 0.4H, Basophils # (Auto) 0.0, Sodium Level 135, Potassium Level 4.1, Chloride Level 105, Carbon Dioxide Level 20L, Anion Gap 10, Blood Urea Nitrogen 13, Creatinine 1.00, Estimat Glomerular Filtration Rate > 60, BUN/Creatinine Ratio 13, Glucose Level 128H, Calcium Level 7.8L Microbiology 06/01/16 Blood Culture - Preliminary, Resulted Staph, Coag Neg (Data Science And Iot Manager) 06/02/16 MRSA Screen - Final, Complete MRSA not isolated 06/01/16 Urine Culture - Final, Complete NO GROWTH A/P: Assessment/Dx: UTI sepsis, History of CAD, PAD, atrial fibrillation. Plan: deferred treatment of UTI sepsis to primary team. Continue all medications for PAD/CAD. atrial fibrillation. Transition to Coumadin. Serial troponin are negative. Acute coronary syndrome has been ruled out. Thank you for your consultation. Please call me if you have any questions. Trace Hurtado MD, FACP, FACC, FSCAI, FHRS, CCDS Interventional Cardiology Cardiac Electrophysiology Vascular Medicine and Endovascular Interventions Margy HURTADO MD Jun 04, 2016 11:31 am
--- NOTE | 2016-06-04 11:55 | Physical Therapy Daily Note ---
PT Daily Note-Current Subjective Patient is more alert and agreeable to participate with PT. Spouse present. Pain Numeric Pain Scale: 0-No Pain Location: No Pain Reported Mental Status Patient Orientation: Person, Time, Situation Attachments: Oxygen, Cesar Catheter, IV Transfers Functional [place] Measure 0=Not Assessed/NA 4=Minimal Assistance 1=Total Assistance 5=Supervision or Setup 2=Maximal Assistance 6=Modified [place] 3=Moderate Assistance 7=Complete IndependenceIRFPAI Quality Coding Scale 6 Independent with activity with or without an assistive device 5 Patient requires set up or clean up by helper. Patient completes activity by themselves 4 Supervision or touching assist (CGA). [place] provide cues , steadying assist 3 The helper provides less than half the effort to complete the activity 2 The helper provides more than half the effort to complete the activity 1 Dependent. The helper does all the effort to complete an activity 7 Patient refused to complete or attempt activity 9 The patient did not perform the activity before the current illness or injury 88 Not attempted due to Medical conditions or safety concerns Transfers (B, C, W/C) (FIM): 1 Scootin Supine to/from Sit: 2 Sit to/from Stand: 1 Bed to/from Chair: 1 Patient's BP and SAO2 maintained at a normal functional rate; Patient requires dependent assist with SPT bed to recliner. Patient requires mod assist to maintain seated EOB. Exercises Seated Therapy Exercises: Ankle pumps, Long arc quads Seated Reps: 20 (left LE) Assessment Patient tolerates minimal activity due to patient has been ill for several weeks. PT to increase activity as patient tolerates. PT Short Term Goals Short Term Goals Transfers (B,C,W/C) (FIM): 4 PT Solar Consultant Goals Solar Consultant Goals PT Assisted Goals Time Frame: June 17, 2016 Transfers (B,C,W/C) (FIM): 3 PT Plan Treatment/Plan Treatment Plan: Continue Plan of Care Treatment Plan: Bed Mobility, Education, Functional Activity [place], Functional Strength, Safety, Therapeutic Exercise, Transfers Treatment Duration: June 17, 2016 Visits Per Week: 6 Time/GCodes Time In: 1055 Time Out: 1118 Total Billed Treatment Time: 23 Total Billed Treatment 1 visit FA 15 min EX 8 min CLAUDIA MAYFIELD PT Jun 04, 2016 11:55
--- NOTE | 2016-06-04 12:12 | Diagnostic Imaging Report ---
EXAMINATION: Portable upright radiograph of the chest. INDICATION: Septic shock. COMPARISON: 06/03/2016. FINDINGS: There is a stent seen and surgical clips in the right side of the neck. The right IJ line is stable. When compared to the prior exam, there is a slight increase in the infrahilar and basilar infiltrates. The heart size is enlarged. There is background vascular congestion. IMPRESSION: Slightly increased infrahilar and basilar infiltrates. Cardiomegaly. The infiltrates could relate to infection or pulmonary edema. Correlate clinically. Dictated by: Dictated on workstation # [id number]
[2016-06-04] MEDS: warFARin 5 MG (COUMADIN) TAB PO SCH (18:34)
[2016-06-04] MEDS: cefTRIAXone INJECTION 1,000 MG in NS (IVPB) 50 ML IV SCH (21:27)
[2016-06-05] VITALS: BP 136/97
[2016-06-05] MEDS: inSUlin ASPART (NovoLOG) 1 UNIT/0.01 ML (CHARGE PER UNIT) SC SCH ×4 (00:59→18:29)
[2016-06-05 04:00] VITALS: BP 127/71
[2016-06-05 05:14] LABS: BASOPHILS % (AUTO) 1 % (0-10); EOSINOPHILS # (AUTO) 0.4 10^3/uL (0.0-0.3); EOSINOPHILS % (AUTO) 6 % (0-10); LYMPHOCYTES # (AUTO) 1.3 X 10^3 (1.0-4.0); LYMPHOCYTES % (AUTO) 20 % (12-44); MEAN CORPUSCULAR HEMOGLOBIN 30 PG (25-34); MEAN CORPUSCULAR HGB CONC 32 G/DL (32-36); MEAN CORPUSCULAR VOLUME 93 FL (80-99); MEAN PLATELET VOLUME 9.2 FL (7.4-10.4); MONOCYTES % (AUTO) 16 % (0-12); NEUTROPHILS # (AUTO) 3.7 X 10^3 (1.8-7.8); NEUTROPHILS % (AUTO) 58 % (42-75); PLATELET COUNT 202 10^3/uL (130-400); RED BLOOD COUNT 2.97 10^6/uL (4.35-5.85); RED CELL DISTRIBUTION WIDTH 18.7 % (10.0-14.5); WHITE BLOOD COUNT 6.3 10^3/uL (4.3-11.0)
[2016-06-05 05:26] LABS: ANION GAP 10 MMOL/L (5-14); BLOOD UREA NITROGEN 13 MG/DL (7-18); CARBON DIOXIDE 20 MMOL/L (21-32); CHLORIDE 105 MMOL/L (98-107); POTASSIUM 4.1 MMOL/L (3.6-5.0); SODIUM 135 MMOL/L (135-145)
[2016-06-05 05:27] LABS: BUN/CREATININE RATIO 13; CALCIUM 7.8 MG/DL (8.5-10.1); GFR ESTIMATED > 60; GLUCOSE 128 MG/DL (70-105); MAGNESIUM 1.9 MG/DL (1.8-2.4)
[2016-06-05] MEDS: KCL 20 MEQ TAB (K-DUR) PO SCH (06:18)
[2016-06-05] MEDS: CATHETER FLUSH 10 ML SYR IV SCH ×3 (06:18→22:00)
[2016-06-05] MEDS: POTASSIUM CL 10MEQ/50ML IVPB 50 ML IV SCH (06:18)
[2016-06-05] MEDS: MAGNESIUM 1 GM/100 ML IVPB 100 ML IV SCH (06:18)
[2016-06-05] MEDS: NOREPINEPHRINE 4 MG in D5W 250 ML (IVPB) 250 ML IV SCH (06:19)
--- NOTE | 2016-06-05 07:59 | CONSULTATION REPORT ---
DATE OF CONSULTATION: 06/04/2016 CHIEF COMPLAINT: Right above knee amputation. HISTORY OF THE PRESENT ILLNESS: Mr. Nieto is an 81-year-old male who on 05/13/2016 underwent an above knee amputation by Dr. Flavio Mathis in [place], [place]. He was life-flighted to and has since come to [facility]. He reports no complaints with the leg today. PHYSICAL EXAM: RIGHT LOWER EXTREMITY: Mr. Nieto has an above knee amputation. His incision site is well approximated without erythema or discharge. He has 1+ edema with intact neurovascular status. IMPRESSION: Right above knee amputation - at this time I will have the nurses remove the sutures and every other staple. Mr. Neito will need to follow-up with Dr. Mathis upon his discharge from this institution for further treatments postoperatively. I will have the nurses call to schedule this appointment. Job ID: [id number] Dictated Date: 06/04/2016 12:16:38 Pilot Boat Operator Date: 06/05/2016 07:52:27/frieda
[2016-06-05 08:00] VITALS: BP 121/66
[2016-06-05] MEDS: ASPIRIN 81 MG CHEW (CHILDREN'S ASA) PO SCH (08:00)
[2016-06-05] MEDS: CLOPIDOGREL 75 MG (PLAVIX) TABLET PO SCH (08:00)
[2016-06-05] MEDS: GABAPENTIN 300 MG (NEURONTIN) CAP PO SCH ×2 (08:00→21:13)
[2016-06-05] MEDS: ENOXAPARIN 40 MG/0.4 ML (LOVENOX) SYR SC SCH (08:00)
[2016-06-05] MEDS: RT-ALBUTEROL SULF 2.5 MG/3 ML PRE-MIX VIAL IH SCH ×3 (08:25→21:18)
[2016-06-05] MEDS: NS IV 1000 ML 1,000 ML IV SCH ×2 (08:48→19:17)
[2016-06-05] MEDS ORDERED: RT-ALBUTEROL SULF 2.5 MG/3 ML PRE-MIX VIAL IH PRN (10:00)
--- NOTE | 2016-06-05 10:03 | Progress Note (SOAP) ---
Subjective Subjective 81 yo M admitted for shock- pt doing better- Pt did better with physical therapy yesterday and today was sitting up with PT. Pt reports he feels crummy , just not right. No overnight events- Pt is wheezing and scored out with RT for TID breathing treatments. Review of Systems General: No Chills, No Night Sweats HEENT: No Head Aches Pulmonary: No Dyspnea, No Cough Cardiovascular: No: Chest Pain Gastrointestinal: No: Abdominal Pain, Nausea, Vomiting Genitourinary: No Dysuria Musculoskeletal: leg pain (right leg- stub) Neurological: Weakness All Other Systems Reviewed All Other Systems Reviewed: Yes Objective Exam Vital Signs Vital Signs Date Time Temp Pulse Resp B/P (MAP) Pulse Ox O2 Delivery O2 Flow Rate FiO2 06/05/16 08:25 96 1.00 06/05/16 08:05 98 2.00 06/05/16 08:00 97.6 96 18 121/66 99 Nasal Cannula 2.00 06/05/16 07:00 94 06/05/16 04:00 98.0 99 20 127/71 96 Nasal Cannula 2.00 06/05/16 01:00 106 06/05/16 00:00 98.0 109 20 136/97 96 Nasal Cannula 2.00 06/04/16 20:01 97 2.00 06/04/16 20:00 97.7 97 18 131/78 99 Nasal Cannula 2.00 06/04/16 20:00 Nasal Cannula 2.00 06/04/16 19:00 91 06/04/16 16:00 Nasal Cannula 2.00 06/04/16 16:00 98.0 112 22 124/89 95 Nasal Cannula 2.00 06/04/16 13:00 95 06/04/16 12:00 Nasal Cannula 2.00 06/04/16 12:00 97.6 06/04/16 12:00 108 24 138/91 93 Nasal Cannula 2.00 06/04/16 11:00 101 17 138/96 94 Nasal Cannula 2.00 06/04/16 10:11 94 2.00 I & O 06/05/16 07:00 Intake Total 4100 ml Output Total 2025 ml Balance 2075 ml General Appearance: No Apparent Distress, WD/WN Eyes: Bilateral Eye Normal Inspection HEENT: Normal ENT Inspection Neck: Normal Inspection Respiratory: Chest Non Tender, Normal Breath Sounds, No Accessory Muscle Use, No Respiratory Distress, Wheezing Cardiovascular: Other (irregular rhythm, regular rate) Gastrointestinal: Non Tender, Soft, Other (RLQ ostomy) Rectal: Deferred Genital/Rectal: Other (best) Back: Normal Inspection, No CVA Tenderness, No Vertebral Tenderness Extremity: Non Tender (left side), No Calf Tenderness (left side), Other ( right AKA) Neurologic/Psychiatric: Alert, Oriented x3, Normal Mood/Affect Skin: Warm/Dry Results Lab Laboratory Tests 06/04/16 11:50: Glucometer 130H 06/04/16 13:40: Magnesium Level 1.3L 06/04/16 18:19: Glucometer 112H 06/05/16 05:00: Magnesium Level 1.9, White Blood Count 6.3, Red Blood Count 2.97L, Hemoglobin 8.9L, Hematocrit 28L, Mean Corpuscular Volume 93, Mean Corpuscular Hemoglobin 30 , Mean Corpuscular Hemoglobin Concent 32, Red Cell Distribution Width 18.7H, Platelet Count 202, Mean Platelet Volume 9.2, Neutrophils (%) (Auto) 58, Lymphocytes (%) (Auto) 20, Monocytes (%) (Auto) 16H, Eosinophils (%) (Auto) 6, Basophils (%) (Auto) 1, Neutrophils # (Auto) 3.7, Lymphocytes # (Auto) 1.3, Monocytes # (Auto) 1.0, Eosinophils # (Auto) 0.4H, Basophils # (Auto) 0.0, Sodium Level 135, Potassium Level 4.1, Chloride Level 105, Carbon Dioxide Level 20L, Anion Gap 10, Blood Urea Nitrogen 13, Creatinine 1.00, Estimat Glomerular Filtration Rate > 60, BUN/Creatinine Ratio 13, Glucose Level 128H, Calcium Level 7.8L Microbiology 06/01/16 Blood Culture - Preliminary, Resulted Staph, Coag Neg (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 David Mathis, Vascular Surgeon at [place] hypothyroidism- cont levothyroxine hypomagnesemia- replacing HTN- meds held. HLD CAD- stable h/o colitis-- requiring ileostomy- stable- Septic shock due to pneumonia- on ceftriaxone. vanc d/c'd 06/03/16 - will complete 7 days on 2nd generation cephalosporin Weakness/deconditioning- PT/OT consulted. Right above knee amputation- pain noted, swelling- sutures removed, arpita every other one removed- surgery was 05/13/16 in [place]- Dr. Portillo consulted. Pt has follow up with Dr. Jean-Baptiste Dispo: transfer to floor- PT / OT to work with pt- pt is getting closer to returning to [facility]- monitor INR. Problems: Clinical Quality Measures DVT/VTE Risk/Contraindication: Risk Factor Score Per Nursin RFS Level Per Nursing on Admit: 4+=Very High TK DELEON MD Jun 05, 2016 10:03
--- NOTE | 2016-06-05 10:07 | Physical Therapy Daily Note ---
PT Daily Note-Current Subjective Patient in bed pre tx, agrees to PT, states he has pain of 4-5/10. Appearance Patient BTB post tx with nurse call, phone, tray, in room, all needs met. Mental Status Patient Orientation: Person, Place, Situation Attachments: Oxygen, IV Transfers Functional [place] Measure 0=Not Assessed/NA 4=Minimal Assistance 1=Total Assistance 5=Supervision or Setup 2=Maximal Assistance 6=Modified [place] 3=Moderate Assistance 7=Complete IndependenceIRFPAI Quality Coding Scale 6 Independent with activity with or without an assistive device 5 Patient requires set up or clean up by helper. Patient completes activity by themselves 4 Supervision or touching assist (CGA). [place] provide cues , steadying assist 3 The helper provides less than half the effort to complete the activity 2 The helper provides more than half the effort to complete the activity 1 Dependent. The helper does all the effort to complete an activity 7 Patient refused to complete or attempt activity 9 The patient did not perform the activity before the current illness or injury 88 Not attempted due to Medical conditions or safety concerns Transfers (B, C, W/C) (FIM): 3 Scootin Rollin Supine to/from Sit: 3 Exercises Seated Therapy Exercises: Ankle pumps, Long arc quads, Hip flexion, Hip abd/add Seated Reps: 20 Treatments Patient sat at the edge of the bed for approx 15 min and performed the exercises above. Patient refused to stand or transfer to a chair this morning. Assessment Current Status: Poor Progress No fregoso in mobility. PT Short Term Goals Short Term Goals Transfers (B,C,W/C) (FIM): 4 PT Senior Living Goals Senior Living Goals PT Senior Living Goals Time Frame: June 17, 2016 Transfers (B,C,W/C) (FIM): 3 PT Plan Problem List Problem List: Activity Tolerance, Functional Strength, Safety, Balance, Gait, Transfer, Bed Mobility, ROM Treatment/Plan Treatment Plan: Continue Plan of Care Treatment Plan: Bed Mobility, Education, Functional Activity [place], Functional Strength, Safety, Therapeutic Exercise, Transfers Treatment Duration: June 17, 2016 Visits Per Week: 6 Safety Risks/Education Patient Education: Transfer Techniques, Correct Positioning, Safety Issues Teaching Recipient: Patient Teaching Methods: Demonstration, Discussion Response to Teaching: Reinforcement Needed Time/GCodes Time In: 940 Time Out: 1000 Total Billed Treatment Time: 20 Total Billed Treatment 1 visit FA 20 min SHUN MULLINS PT Jun 05, 2016 10:07
--- NOTE | 2016-06-05 11:03 | Cardiology Progress Note ---
Cardiology SOAP Progress Note Subjective: No complaints. Wants to go home. Objective: I&O/Vital Signs Vital Sign - Last 12Hours 06/05/16 06/05/16 06/05/16 06/05/16 00:00 01:00 04:00 07:00 Temp 98.0 98.0 Pulse 109 106 99 94 Resp 20 20 B/P (MAP) 136/97 127/71 Pulse Ox 96 96 O2 Delivery Nasal Cannula Nasal Cannula O2 Flow Rate 2.00 2.00 06/05/16 06/05/16 06/05/16 08:00 08:05 08:25 Temp 97.6 Pulse 96 Resp 18 B/P (MAP) 121/66 Pulse Ox 99 98 96 O2 Delivery Nasal Cannula O2 Flow Rate 2.00 2.00 1.00 Intake and Output 06/05/16 00:00 Intake Total 2400 ml Output Total 1000 ml Balance 1400 ml Weight (Pounds): 222 Weight (Ounces): 9.0 Weight (Calculated Kilograms): 100.198883 Constitutional: No appears stated age, No AAO x 3, No apparent distress, No PERRL, No well-developed, No well-nourished, No other Respiratory: No accessory muscle use, No respiratory distress, No chest tender , No chest expansion is symmetric, No chest is bilaterally symmetric, No lungs clear to percussion, No lungs clear to auscultation, No crackles, No rhonchi, No rales, No stridor, No wheezing, No pleural rub, No other Cardiovascular: No regular rate-rhythm, irregularly irregular, No extra beats, No parasternal heave is noted, No JVD, No edema, No bradycardia, No tachycardia , No point of maximal impulse, No cardiac thrills are palpable, No S1 and S2, No gallop/S3, No gallop/S4, No diastolic murmur, No systolic murmur, No friction rub, No click, No other Gastrointestional: No tender, No soft, No round, No distended, No pulsatile mass, No organomegaly, No guarding, No rebound, No tenderness, No hernia, No mass, No audible bowel sounds, No abnormal bowel sounds, No abdominal bruits, No spleenomegaly, No other Skin: normal color, warm/dry Results/Procedures: Labs Laboratory Tests 06/04/16 11:50: Glucometer 130H 06/04/16 13:40: Magnesium Level 1.3L 06/04/16 18:19: Glucometer 112H 06/05/16 05:00: Magnesium Level 1.9, White Blood Count 6.3, Red Blood Count 2.97L, Hemoglobin 8.9L, Hematocrit 28L, Mean Corpuscular Volume 93, Mean Corpuscular Hemoglobin 30 , Mean Corpuscular Hemoglobin Concent 32, Red Cell Distribution Width 18.7H, Platelet Count 202, Mean Platelet Volume 9.2, Neutrophils (%) (Auto) 58, Lymphocytes (%) (Auto) 20, Monocytes (%) (Auto) 16H, Eosinophils (%) (Auto) 6, Basophils (%) (Auto) 1, Neutrophils # (Auto) 3.7, Lymphocytes # (Auto) 1.3, Monocytes # (Auto) 1.0, Eosinophils # (Auto) 0.4H, Basophils # (Auto) 0.0, Sodium Level 135, Potassium Level 4.1, Chloride Level 105, Carbon Dioxide Level 20L, Anion Gap 10, Blood Urea Nitrogen 13, Creatinine 1.00, Estimat Glomerular Filtration Rate > 60, BUN/Creatinine Ratio 13, Glucose Level 128H, Calcium Level 7.8L Microbiology 06/01/16 Blood Culture - Preliminary, Resulted Staph, Coag Neg (Level Designer) 06/02/16 MRSA Screen - Final, Complete MRSA not isolated 06/01/16 Urine Culture - Final, Complete NO GROWTH A/P: Assessment/Dx: UTI sepsis, History of CAD, PAD, atrial fibrillation. Plan: deferred treatment of UTI sepsis to primary team. PAD/CAD: On aspirin, Plavix, statin, lisinopril, beta otis.. atrial fibrillation. BB and Coumadin. Serial troponin are negative. Acute coronary syndrome has been ruled out. Thank you for your consultation. Please call me if you have any questions. Trace Hurtado MD, FACP, FACC, FSCAI, FHRS, CCDS Interventional Cardiology Cardiac Electrophysiology Vascular Medicine and Endovascular Interventions Margy HURTADO MD Jun 05, 2016 11:03 am
--- NOTE | 2016-06-05 11:52 | Occupational Ther Daily Note ---
OT Current Status-Daily Note Subjective Pt alert, lying in bed. Pt's present in room. Pt agreed to therapy. Pt stated that he washed himself up a little with wash clothe. No c/o pain at this time. Mental Status/Objective Patient Orientation: Person, Place, Time, Situation Functional [place] Measure 0=Not Assessed/NA 4=Minimal Assistance 1=Total Assistance 5=Supervision or Setup 2=Maximal Assistance 6=Modified [place] 3=Moderate Assistance 7=Complete [place] Other Treatment Pt required mod A to go from supine to sitting EOB then CGA to SBA for sitting balance. Pt completed UE exercises with 3# hand weights then medium resistance theraband for strength and increase activity tolerance for dressing and other ADL's. Pt then attempted to push and scoot up toward HOB while sitting EOB. Mod A to lay down then min A to scoot self up in bed, pt used HOB hand derrick hand to assist with pulling self up in bed. Then ptt stated that he hadn't gotten a bath since being in the hospital, prior statement that he had washed up before therapy got there. Pt offered to assist pt with sponge bath and pt stated not now he was to tired. After therapy, pt lying in bed with call light/phone in reach. All needs met in room. present in room. OT Short Term Goals Short Term Goals Time Frame: Jun 10, 2016 Eating(FIM): 5 Grooming(FIM): 4 Bathing(FIM): 3 Upper Body Dressing(FIM): 4 Lower Body Dressing(FIM): 3 Toileting(FIM): 4 Transfers (B,C,W/C) (FIM): 4 Toilet/Commode Transfer(FIM): 4 Additional Short Term Goals: 1-Demonstrate ADL Tasks, 2-Verbalize Understanding , 3-ImproveStrength/[place] 1=Demonstrate adherence to instructed precautions during ADL tasks. 2=Patient will verbalize/demonstrate understanding of assistive devices/ modifications for ADL. 3=Patient will improve strength/tolerance for activity to enable patient to perform ADL's. OT Layout Technician Goals Layout Technician Goals Time Frame: June 24, 2016 Eating (FIM): 6 Grooming(FIM): 5 Bathing(FIM): 4 Upper Body Dressing(FIM): 5 Lower Body Dressing(FIM): 4 Toileting(FIM): 5 Transfers (B,C,W/C) (FIM): 5 Toilet/Commode Transfer(FIM): 5 Shower Transfer(FIM): 5 Additional Goals: 1-Demonstrate ADL Tasks, 2-Verbalize Understanding, 3- ImproveStrength/[place] 1=Demonstrate adherence to instructed precautions during ADL tasks. 2=Patient will verbalize/demonstrate understanding of assistive devices/ modifications for ADL. 3=Patient will improve strength/tolerance for activity to enable patient to perform ADL's. OT Education/Plan Discharge Recommendations Plan/Recommendations: Continue POC Treatment Plan/Plan of Care Patient would benefit from OT for education, treatment and training to promote independence in ADL's, mobility, safety and/or upper extremity function for ADL' s. Plan of Care: ADL Retraining, Functional Mobility, UE Funct Exercise/Act Treatment Duration: June 24, 2016 Visits Per Week: 5-6 Agreement: Yes Rehab Potential: Fair Time/GCodes Start Time: 10:35 Stop Time: 10:50 Total Time Billed (hr/min): 15 Billed Treatment Time 1 visit-FA 1 (15 min) CARLEEN TAYLOR Jun 05, 2016 11:52
[2016-06-05 12:00] VITALS: BP 144/72
[2016-06-05 15:35] VITALS: BP 142/90
[2016-06-05] MEDS ORDERED: FUROSEMIDE 40 MG/4 ML INJ (LASIX) IVP NR (15:44)
[2016-06-05] MEDS ORDERED: methylPREDNISolone 125 MG (Solu-MEDROL) VIAL IVP NR (15:45)
[2016-06-05] MEDS: warFARin 5 MG (COUMADIN) TAB PO SCH (17:06)
[2016-06-05 19:35] VITALS: BP 150/84
[2016-06-05] MEDS: ATORVASTATIN 40 MG (LIPITOR) TABLET PO SCH (21:09)
[2016-06-05] MEDS: cefTRIAXone INJECTION 1,000 MG in NS (IVPB) 50 ML IV SCH (21:13)
[2016-06-06 00:57] VITALS: BP 135/77
[2016-06-06 04:07] VITALS: BP 157/82
[2016-06-06] MEDS: NS IV 1000 ML 1,000 ML IV SCH (05:49)
[2016-06-06] MEDS: inSUlin ASPART (NovoLOG) 1 UNIT/0.01 ML (CHARGE PER UNIT) SC SCH ×2 (06:00)
[2016-06-06] MEDS: CATHETER FLUSH 10 ML SYR IV SCH ×3 (06:37→21:44)
[2016-06-06 06:45] LABS: BASOPHILS % (AUTO) 0 % (0-10); EOSINOPHILS % (AUTO) 0 % (0-10); LYMPHOCYTES # (AUTO) 0.5 X 10^3 (1.0-4.0); LYMPHOCYTES % (AUTO) 16 % (12-44); MEAN CORPUSCULAR HEMOGLOBIN 30 PG (25-34); MEAN CORPUSCULAR HGB CONC 32 G/DL (32-36); MEAN CORPUSCULAR VOLUME 92 FL (80-99); MEAN PLATELET VOLUME 9.1 FL (7.4-10.4); MONOCYTES # (AUTO) 0.2 X 10^3 (0.0-1.0); MONOCYTES % (AUTO) 5 % (0-12); NEUTROPHILS # (AUTO) 2.8 X 10^3 (1.8-7.8); NEUTROPHILS % (AUTO) 80 % (42-75); PLATELET COUNT 202 10^3/uL (130-400); RED BLOOD COUNT 3.06 10^6/uL (4.35-5.85); RED CELL DISTRIBUTION WIDTH 18.4 % (10.0-14.5); WHITE BLOOD COUNT 3.5 10^3/uL (4.3-11.0)
[2016-06-06 06:58] LABS: INR 1.3 (0.8-1.4); PROTHROMBIN TIME PATIENT 16.1 SEC (12.2-14.7)
[2016-06-06 07:05] LABS: ANION GAP 10 MMOL/L (5-14); BLOOD UREA NITROGEN 13 MG/DL (7-18); BUN/CREATININE RATIO 12; CARBON DIOXIDE 18 MMOL/L (21-32); CHLORIDE 107 MMOL/L (98-107); CREATININE SERUM 1.05 MG/DL (0.60-1.30); GFR ESTIMATED > 60; GLUCOSE 225 MG/DL (70-105); POTASSIUM 4.6 MMOL/L (3.6-5.0); SODIUM 135 MMOL/L (135-145)
[2016-06-06 07:26] VITALS: BP 132/82
[2016-06-06] MEDS: RT-ALBUTEROL SULF 2.5 MG/3 ML PRE-MIX VIAL IH SCH ×3 (07:30→19:41)
--- NOTE | 2016-06-06 08:07 | Progress Note (SOAP) ---
Subjective Subjective 81 yo M admitted for shock- pt doing better- no overnight events- pt reports continued pain in his right stump since suture and staple removal. Also thinks it is more swollen. He reports his ileostomy is needed dumped. He reports he wants to go home. Review of Systems General: No Chills, No Night Sweats HEENT: No Head Aches Pulmonary: No Dyspnea, No Cough Cardiovascular: No: Chest Pain Gastrointestinal: No: Abdominal Pain, Nausea, Vomiting Genitourinary: No Dysuria Musculoskeletal: leg pain (right leg- stub) Neurological: Weakness All Other Systems Reviewed All Other Systems Reviewed: Yes Objective Exam Vital Signs Vital Signs Date Time Temp Pulse Resp B/P (MAP) Pulse Ox O2 Delivery O2 Flow Rate FiO2 06/06/16 07:30 97 1.00 06/06/16 07:26 98.4 104 20 132/82 96 Nasal Cannula 1.00 06/06/16 04:07 96.0 95 20 157/82 99 Nasal Cannula 1.00 06/06/16 01:00 89 06/06/16 00:57 98.4 102 24 135/77 98 Nasal Cannula 1.00 06/05/16 21:19 94 1.00 06/05/16 20:25 Nasal Cannula 1.00 06/05/16 19:35 98.8 108 20 150/84 98 Nasal Cannula 1.00 06/05/16 19:00 110 06/05/16 15:53 95 2.00 06/05/16 15:35 98.3 120 16 142/90 98 Nasal Cannula 1.00 06/05/16 13:00 99 06/05/16 12:00 98.5 89 24 144/72 95 Nasal Cannula 1.00 06/05/16 09:00 Nasal Cannula 1.00 06/05/16 08:25 96 1.00 06/05/16 08:05 98 2.00 I & O 06/06/16 07:00 Intake Total 5380 ml Output Total 2125 ml Balance 3255 ml General Appearance: No Apparent Distress, WD/WN Eyes: Bilateral Eye Normal Inspection HEENT: PERRL/EOMI Neck: Normal Inspection Respiratory: Chest Non Tender, Normal Breath Sounds, No Accessory Muscle Use, No Respiratory Distress, Wheezing (improved from yesterday) Cardiovascular: Other (irregular rhythm, regular rate) Gastrointestinal: Non Tender, Soft, Other (RLQ ostomy) Rectal: Deferred Genital/Rectal: Other (best) Back: Normal Inspection, No CVA Tenderness, No Vertebral Tenderness Extremity: Non Tender (left side), No Calf Tenderness (left side), Other ( right AKA) Neurologic/Psychiatric: Alert, Oriented x3, Normal Mood/Affect Skin: Warm/Dry Results Lab Laboratory Tests 06/05/16 18:27: Glucometer 139H 06/06/16 01:01: Glucometer 215H 06/06/16 05:06: Glucometer 183H 06/06/16 06:37: White Blood Count 3.5L, Red Blood Count 3.06L, Hemoglobin 9.1L, Hematocrit 28L, Mean Corpuscular Volume 92, Mean Corpuscular Hemoglobin 30, Mean Corpuscular Hemoglobin Concent 32, Red Cell Distribution Width 18.4H, Platelet Count 202, Mean Platelet Volume 9.1, Neutrophils (%) (Auto) 80H, Lymphocytes (%) (Auto) 16 , Monocytes (%) (Auto) 5, Eosinophils (%) (Auto) 0, Basophils (%) (Auto) 0, Neutrophils # (Auto) 2.8, Lymphocytes # (Auto) 0.5L, Monocytes # (Auto) 0.2, Eosinophils # (Auto) 0.0, Basophils # (Auto) 0.0, Prothrombin Time 16.1H, INR Comment 1.3, Sodium Level 135, Potassium Level 4.6, Chloride Level 107, Carbon Dioxide Level 18L, Anion Gap 10, Blood Urea Nitrogen 13, Creatinine 1.05, Estimat Glomerular Filtration Rate > 60, BUN/Creatinine Ratio 12, Glucose Level 225H, Calcium Level 8.0L Microbiology 06/01/16 Blood Culture - Preliminary, Resulted Staph, Coag Neg (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 David Mathis, Vascular Surgeon at [facility] follow up appt June 17 hypothyroidism- cont levothyroxine hypomagnesemia- replacing HTN- monitor CAD- stable, d/c tele h/o colitis-- requiring ileostomy- stable- Septic shock due to pneumonia- on ceftriaxone. vanc d/c'd 06/03/16 - will complete 7 days on 2nd generation cephalosporin Weakness/deconditioning- PT/OT consulted. Right above knee amputation- pain noted, swelling- sutures removed, arpita every other one removed- surgery was 05/13/16 in [place]- Dr. Portillo consulted. Pt has follow up with Dr. Jean-Baptiste June 17, 2016 Inguinal candidiasis- miconazole powder. Dispo: PT / OT to work with pt- plan to d/c to [facility] 06/07/16 - pt will be able to go home from [facility] when he can transfer on his own. monitor INR. Recheck CBC, CMP in 1 week from discharge Problems: Clinical Quality Measures DVT/VTE Risk/Contraindication: Risk Factor Score Per Nursin RFS Level Per Nursing on Admit: 4+=Very High TK DELEON MD Jun 06, 2016 08:07
[2016-06-06] MEDS: lisINopril 5 MG (PRINIVIL) TABLET PO SCH (08:44)
[2016-06-06] MEDS: GABAPENTIN 300 MG (NEURONTIN) CAP PO SCH ×2 (08:44→20:16)
[2016-06-06] MEDS: ASPIRIN 81 MG CHEW (CHILDREN'S ASA) PO SCH (08:44)
[2016-06-06] MEDS: CLOPIDOGREL 75 MG (PLAVIX) TABLET PO SCH (08:44)
[2016-06-06] MEDS: ENOXAPARIN 40 MG/0.4 ML (LOVENOX) SYR SC SCH (08:44)
[2016-06-06] MEDS: MUPIROCIN 2% OINT 22 GM (BACTROBAN) TUBE TOP SCH ×2 (08:53→20:18)
[2016-06-06] MEDS: MICONAZOLE 2% POWDER (DESENEX AF) 90 GM TOP SCH ×2 (08:53→20:17)
--- NOTE | 2016-06-06 11:06 | Physical Therapy Daily Note ---
PT Daily Note-Current Subjective Patient is very agreeable to participate with PT. Patient reports increase c/o LBP. Pain Numeric Pain Scale: 5-Moderate Pain Location: Lower Location Body Site: Back Pain Description: Ache Mental Status Patient Orientation: Normal For Age Attachments: Oxygen (2L) Transfers Functional [place] Measure 0=Not Assessed/NA 4=Minimal Assistance 1=Total Assistance 5=Supervision or Setup 2=Maximal Assistance 6=Modified [place] 3=Moderate Assistance 7=Complete IndependenceIRFPAI Quality Coding Scale 6 Independent with activity with or without an assistive device 5 Patient requires set up or clean up by helper. Patient completes activity by themselves 4 Supervision or touching assist (CGA). [place] provide cues , steadying assist 3 The helper provides less than half the effort to complete the activity 2 The helper provides more than half the effort to complete the activity 1 Dependent. The helper does all the effort to complete an activity 7 Patient refused to complete or attempt activity 9 The patient did not perform the activity before the current illness or injury 88 Not attempted due to Medical conditions or safety concerns Transfers (B, C, W/C) (FIM): 4 Scootin Sit to/from Stand: 4 Sit to Stand (QC): 4 Patient requires minimal assist with sit <> stand transfers secondary to patient utilizes a lift chair at home PLOF Gait Training Does the Patient Walk?: Yes Gait (FIM): 5 Distance (FIM): 3=150 ft Distance: 350' x 2 Walk 50 ft with 2 Turns(QC): 5 Walk 150 ft (QC): 5 Gait Level of Assist: 5 Gait Persons Needed: 1 Gait Assistive Device: FWW assist for O2 tank; steady, safe gait sequence with FWW Exercises Seated Therapy Exercises: Ankle pumps, Long arc quads Seated Reps: 20 Assessment Patient tolerates treatment well and is up in recliner with needs met. PT placed a warm blanket on patient's back for comfort. PT Short Term Goals Short Term Goals Transfers (B,C,W/C) (FIM): 4 PT Cfo Goals Long-Term Goals PT Cfo Goals Time Frame: June 17, 2016 Transfers (B,C,W/C) (FIM): 3 Rollin PT Plan Treatment/Plan Treatment Plan: Continue Plan of Care Treatment Plan: Bed Mobility, Education, Functional Activity [place], Functional Strength, Safety, Therapeutic Exercise, Transfers Treatment Duration: June 17, 2016 Visits Per Week: 6 Time/GCodes Time In: 1015 Time Out: 1030 Total Billed Treatment Time: 15 Total Billed Treatment 1 visit FA 15 min CLAUDIA MAYFIELD PT Jun 06, 2016 11:06
--- NOTE | 2016-06-06 11:13 | Physical Therapy Daily Note ---
PT Daily Note-Current Subjective Patient is in bed and agrees to PT. Spouse present. Pain Numeric Pain Scale: 5-Moderate Pain Location: Right Location Body Site: Thigh Pain Description: Acute Mental Status Patient Orientation: Person, Time, Situation Attachments: Oxygen (2L) Transfers Functional [place] Measure 0=Not Assessed/NA 4=Minimal Assistance 1=Total Assistance 5=Supervision or Setup 2=Maximal Assistance 6=Modified [place] 3=Moderate Assistance 7=Complete IndependenceIRFPAI Quality Coding Scale 6 Independent with activity with or without an assistive device 5 Patient requires set up or clean up by helper. Patient completes activity by themselves 4 Supervision or touching assist (CGA). [place] provide cues , steadying assist 3 The helper provides less than half the effort to complete the activity 2 The helper provides more than half the effort to complete the activity 1 Dependent. The helper does all the effort to complete an activity 7 Patient refused to complete or attempt activity 9 The patient did not perform the activity before the current illness or injury 88 Not attempted due to Medical conditions or safety concerns Transfers (B, C, W/C) (FIM): 2 Scootin Rollin Supine to/from Sit: 3 Sit to/from Stand: 2 Bed to/from Chair: 2 max assist x 2 with sit to stand to FWW with patient unable to weight bear through left LE or bilateral UE's and with HOB elevated max assist x 2 with SPT bed to recliner Exercises Seated Therapy Exercises: Ankle pumps, Long arc quads Seated Reps: 15 (2 sets with use of red theraband) Assessment Patient fatigues with minimal activity. Plan to dismiss to [place] tomorrow. PT Short Term Goals Short Term Goals Transfers (B,C,W/C) (FIM): 4 PT Ammonia Technician Goals Mcc Goals PT Mcc Goals Time Frame: June 17, 2016 Transfers (B,C,W/C) (FIM): 3 PT Plan Treatment/Plan Treatment Plan: Continue Plan of Care Treatment Plan: Bed Mobility, Education, Functional Activity [place], Functional Strength, Safety, Therapeutic Exercise, Transfers Treatment Duration: June 17, 2016 Visits Per Week: 6 Time/GCodes Time In: 1035 Time Out: 1050 Total Billed Treatment Time: 15 Total Billed Treatment 1 visit FA 15 min CLAUDIA MAYFIELD PT Jun 06, 2016 11:13
[2016-06-06 12:00] VITALS: BP 133/67
[2016-06-06 15:45] VITALS: BP 121/71
--- NOTE | 2016-06-06 15:45 | Occupational Ther Daily Note ---
OT Current Status-Daily Note Subjective Pt alert, sitting in recliner. Pt agreed to therapy. present in room. No c/o pain at this time. Mental Status/Objective Patient Orientation: Person, Place, Time, Situation Functional [place] Measure 0=Not Assessed/NA 4=Minimal Assistance 1=Total Assistance 5=Supervision or Setup 2=Maximal Assistance 6=Modified [place] 3=Moderate Assistance 7=Complete [place] Attachments: IV, Oxygen ADL-Treatment Eating (FIM): 5 (Pt's set up lunch tray for pt. Pt demonstrated ability to use regular utensils to feed self.) Other Treatment Pt completed chair pushups 5x's. Pt was only able to use one arm to push up each time. Pt required extended recovery break, SOA. Completed resistive tricep exercises and fine motor strengthening with therapy sponge (yellow). Pt SOA with each exercises and required recovery breaks between each exercise. After therapy, pt eating lunch with present. Sitting in recliner with call light/phone in reach. All needs met in room. OT Short Term Goals Short Term Goals Time Frame: Jun 10, 2016 Eating(FIM): 5 Grooming(FIM): 4 Bathing(FIM): 3 Upper Body Dressing(FIM): 4 Lower Body Dressing(FIM): 3 Toileting(FIM): 4 Transfers (B,C,W/C) (FIM): 4 Toilet/Commode Transfer(FIM): 4 Additional Short Term Goals: 1-Demonstrate ADL Tasks, 2-Verbalize Understanding , 3-ImproveStrength/[place] 1=Demonstrate adherence to instructed precautions during ADL tasks. 2=Patient will verbalize/demonstrate understanding of assistive devices/ modifications for ADL. 3=Patient will improve strength/tolerance for activity to enable patient to perform ADL's. OT Alf Goals Alf Goals Time Frame: June 24, 2016 Eating (FIM): 6 Grooming(FIM): 5 Bathing(FIM): 4 Upper Body Dressing(FIM): 5 Lower Body Dressing(FIM): 4 Toileting(FIM): 5 Transfers (B,C,W/C) (FIM): 5 Toilet/Commode Transfer(FIM): 5 Shower Transfer(FIM): 5 Additional Goals: 1-Demonstrate ADL Tasks, 2-Verbalize Understanding, 3- ImproveStrength/[place] 1=Demonstrate adherence to instructed precautions during ADL tasks. 2=Patient will verbalize/demonstrate understanding of assistive devices/ modifications for ADL. 3=Patient will improve strength/tolerance for activity to enable patient to perform ADL's. OT Education/Plan Discharge Recommendations Plan/Recommendations: Continue POC Treatment Plan/Plan of Care Patient would benefit from OT for education, treatment and training to promote independence in ADL's, mobility, safety and/or upper extremity function for ADL' s. Plan of Care: ADL Retraining, Functional Mobility, UE Funct Exercise/Act Treatment Duration: June 24, 2016 Visits Per Week: 5-6 Agreement: Yes Rehab Potential: Fair Time/GCodes Start Time: 12:30 Stop Time: 13:00 Total Time Billed (hr/min): 30 Billed Treatment Time 1 visit-EX 1 (15 min) FA 1 (15 min) CARLEEN TAYLOR Jun 06, 2016 15:45
[2016-06-06] MEDS: warFARin 5 MG (COUMADIN) TAB PO SCH (17:37)
[2016-06-06 19:45] VITALS: BP 128/79
[2016-06-06] MEDS: ATORVASTATIN 40 MG (LIPITOR) TABLET PO SCH (20:15)
[2016-06-06] MEDS: HYDROcodone/APAP 5 MG/325 MG (LORTAB) TAB PO PRN (20:16)
[2016-06-06] MEDS: cefTRIAXone INJECTION 1,000 MG in NS (IVPB) 50 ML IV SCH (20:16)
[2016-06-07 00:05] VITALS: BP 117/75
[2016-06-07 04:30] VITALS: BP 126/77
[2016-06-07 05:14] LABS: BASOPHILS % (AUTO) 1 % (0-10); EOSINOPHILS # (AUTO) 0.1 10^3/uL (0.0-0.3); EOSINOPHILS % (AUTO) 1 % (0-10); LYMPHOCYTES # (AUTO) 1.2 X 10^3 (1.0-4.0); LYMPHOCYTES % (AUTO) 21 % (12-44); MEAN CORPUSCULAR HEMOGLOBIN 30 PG (25-34); MEAN CORPUSCULAR HGB CONC 32 G/DL (32-36); MEAN CORPUSCULAR VOLUME 93 FL (80-99); MEAN PLATELET VOLUME 9.2 FL (7.4-10.4); MONOCYTES # (AUTO) 0.7 X 10^3 (0.0-1.0); MONOCYTES % (AUTO) 13 % (0-12); NEUTROPHILS # (AUTO) 3.8 X 10^3 (1.8-7.8); NEUTROPHILS % (AUTO) 65 % (42-75); PLATELET COUNT 233 10^3/uL (130-400); RED BLOOD COUNT 3.09 10^6/uL (4.35-5.85); WHITE BLOOD COUNT 5.8 10^3/uL (4.3-11.0)
[2016-06-07 05:30] LABS: INR 1.7 (0.8-1.4); PROTHROMBIN TIME PATIENT 19.6 SEC (12.2-14.7)
[2016-06-07 05:37] LABS: ANION GAP 10 MMOL/L (5-14); BLOOD UREA NITROGEN 14 MG/DL (7-18); BUN/CREATININE RATIO 13; CARBON DIOXIDE 20 MMOL/L (21-32); CHLORIDE 106 MMOL/L (98-107); CREATININE SERUM 1.07 MG/DL (0.60-1.30); GFR ESTIMATED > 60; GLUCOSE 95 MG/DL (70-105); POTASSIUM 4.4 MMOL/L (3.6-5.0); SODIUM 136 MMOL/L (135-145)
[2016-06-07] MEDS: CATHETER FLUSH 10 ML SYR IV SCH (06:30)
[2016-06-07 08:00] VITALS: BP 118/78
[2016-06-07] MEDS ORDERED: SIMETHICONE 80 MG (MYLICON) CHEW PO PRN (08:45)
[2016-06-07] MEDS: ASPIRIN 81 MG CHEW (CHILDREN'S ASA) PO SCH (09:00)
[2016-06-07] MEDS: lisINopril 5 MG (PRINIVIL) TABLET PO SCH (09:00)
[2016-06-07] MEDS: GABAPENTIN 300 MG (NEURONTIN) CAP PO SCH (09:00)
[2016-06-07] MEDS ORDERED: CEFDINIR 300 MG (OMNICEF) CAP PO SCH (09:00)
[2016-06-07] MEDS: CLOPIDOGREL 75 MG (PLAVIX) TABLET PO SCH (09:00)
[2016-06-07] MEDS: ENOXAPARIN 40 MG/0.4 ML (LOVENOX) SYR SC SCH (09:01)
[2016-06-07] MEDS: HYDROcodone/APAP 5 MG/325 MG (LORTAB) TAB PO PRN (09:01)
[2016-06-07] MEDS: MUPIROCIN 2% OINT 22 GM (BACTROBAN) TUBE TOP SCH (09:03)
[2016-06-07] MEDS: MICONAZOLE 2% POWDER (DESENEX AF) 90 GM TOP SCH (09:05)
[2016-06-07] MEDS ORDERED: RT-ALBUINH IH (09:24)
[2016-06-07] MEDS ORDERED: GABA-488 PO (09:24)
[2016-06-07] MEDS ORDERED: HYDR-3812 PO (09:24)
[2016-06-07] MEDS ORDERED: LISI-556 PO (09:24)
[2016-06-07] MEDS ORDERED: MICO90PO TOP (09:24)
--- NOTE | 2016-06-07 09:31 | Discharge Inst-Skilled Nursing ---
Discharge Inst-Skilled NF Patient Instructions Patient Problems: Anemia of chronic disease- 2units pRBC 06/03/16- monitor h/h hemoglobin 9 Acute Kidney failure- Atrial fibrillation- COPD- peripheral vascular disease- hypothyroidism- cont levothyroxine hypomagnesemia- HTN- CAD- h/o colitis-- ileostomy- stable- Septic shock due to pneumonia- Weakness/deconditioning Right above knee amputation- sutures removed, arpita every other one removed- surgery was 05/13/16 in [place] Pt has follow up with Dr. Jean-Baptiste June 17, 2016 Inguinal candidiasis- miconazole powder. Consult/Follow Up/Orders Follow Up Appt.: Follow up in 1 week [facility] 06/13/16 Dr. Jean-Baptiste June 17, 2016 Skilled NF Admit to: [facility] Certification (SNF) I certify that SNF services are required to be given on an inpatient basis because of the above named patient's need for assisted care on a continuing basis for the conditions(s) for which he/she was receiving inpatient hospital services prior to his/her transfer to the SNF. Intermediate Facility Order: Nursing Services, [facility] Director-Evaluate & Treat, Physical Therapy-Evaluate & Treat (consider using slide board for transfers- ) Discharge Diet: Regular Diet Daily Activity as Tolerated: Yes New & Resume Previous Orders New & Resume Previous Orders baseline oxygen 2L requirement Right above knee amputation- Pt has follow up with Dr. Jean-Baptiste June 17, 2016 monitor INR, check INR daily until between 2-3 call Kevin Payan MD [phone] with report. Recheck CBC, CMP in 1 week from discharge 06/14/16 May remove compression dressing or right side of patient's neck 06/08/16. Monitor for bleeding Kevin Payan Jun 07, 2016 09:25 KEVIN PAYAN MD Jun 07, 2016 09:31
--- NOTE | 2016-06-07 09:33 | Discharge Summary ---
Diagnosis/Chief Complaint Date of Admission Jun 01, 2016 at 21:24 Date of Discharge June 07, 2016 Admission Diagnosis Admission Diagnosis syncope. Sepsis. Acute renal failure. History of A. fib going into sinus rhythm Anemia.. Diabetes. Discharge Diagnosis Hypotension- Anemia of chronic disease- Acute Kidney failure- Atrial fibrillation- COPD- peripheral vascular disease- hypothyroidism- hypomagnesemia- HTN- CAD- h/o colitis-- Septic shock due to pneumonia- Weakness/deconditioning- Right above knee amputation- Reason Hospital Visit 81 yo M admitted to [facility] for septic shock- he became hypotension the day following transfer from [facility] to [facility]. Discharge Summary Hospital Course Hospital Course 81 yo M admitted for septic shock- He was placed on IVF and pressors- which he eventually got off of both. One blood culture was noted to be contaminated. He completed a course of 2nd generation cephalosporin to treat his pneumonia which is the suspected etiology of his sepsis. Dehydration was also attributed reason for his hypotension. Patient's blood pressure remain stabled with lisinopril and carvedilol during the remainer of the hospitalization. Of note, pt has anemia of chronic disease- He was given 2units pRBC on 06/03/16- with hemoglobin remaining stable at 9- the last few days of his hospitalization. In regards to his acute renal failure Cr back down to baseline; -avoid nephrotoxic agents (NSAIDS, contrast) Patient also has Atrial fibrillation- cardiology consulted, warfarin restarted 06/04/16 - monitoring INR 1.7 on discharge. Magnesemia was noted to be low and replaced. Pt's levothryoxine was normal. PT/OT were consulted for weakness/decontioning - this is to continue at [facility]. May continue antifungal powder below his belly - incision. Prior to discharge -patient's right IJ central line was removed at 915am 06.07.16- no complications - pressure dressing applied. Patient continues to do great improving everyday. Patient was discharged to [facility] 06/07/16 -pt will be able to go home from [facility] when he can transfer on his own. monitor INR. Recheck CBC, CMP in 1 week from discharge Labs Laboratory Tests 06/05/16 05:00: Red Blood Count 2.97L, Hemoglobin 8.9L, Hematocrit 28L, Red Cell Distribution Width 18.7H, Monocytes (%) (Auto) 16H, Eosinophils # (Auto) 0.4H, Carbon Dioxide Level 20L, Glucose Level 128H, Calcium Level 7.8L 06/05/16 18:27: Glucometer 139H 06/06/16 01:01: Glucometer 215H 06/06/16 05:06: Glucometer 183H 06/06/16 06:37: White Blood Count 3.5L, Red Blood Count 3.06L, Hemoglobin 9.1L, Hematocrit 28L, Red Cell Distribution Width 18.4H, Neutrophils (%) (Auto) 80H, Lymphocytes # ( Auto) 0.5L, Prothrombin Time 16.1H, Carbon Dioxide Level 18L, Glucose Level 225H , Calcium Level 8.0L 06/07/16 05:05: Red Blood Count 3.09L, Hemoglobin 9.3L, Hematocrit 29L, Red Cell Distribution Width 19.0H, Prothrombin Time 19.6H, Carbon Dioxide Level 20L, Calcium Level 8.0L, Monocytes (%) (Auto) 13H, INR Comment 1.7H Procedures None. Consultations Dr. Hurtado, Cardiology Discharge Physical Examination Allergies: Coded Allergies: Sulfa (Sulfonamide Antibiotics) (Unverified Allergy, Intermediate, HIVES, 04/23/16) clindamycin (Verified Allergy, Unknown, 04/21/16) STATES HE CAN NOT TAKE IT Vitals & I&Os Vital Signs Date Time Temp Pulse Resp B/P (MAP) Pulse Ox O2 Delivery O2 Flow Rate FiO2 06/07/16 13:53 96 22 118/78 96 1.00 06/07/16 08:00 96.0 Room Air General Appearance: Alert, Oriented X3, Cooperative HEENT: Atraumatic Respiratory: Clear to Auscultation Cardiovascular: Regular Rate, Other (irregular rhythm) Abdominal: Soft Neuro: Normal Speech Discharge Home Medications Reviewed and agree with Discharge Medication list on patient's Discharge Instruction sheet Condition at Discharge stable Instructions to Patient/Family Please see electronic discharge instructions given to patient. Clinical Quality Measures DVT/VTE Risk/Contraindication: Risk Factor Score Per Nursin RFS Level Per Nursing on Admit: 4+=Very High TK DELEON MD Jun 07, 2016 09:33
[2016-06-07] MEDS: RT-ALBUTEROL SULF 2.5 MG/3 ML PRE-MIX VIAL IH SCH (09:53)
--- NOTE | 2016-06-07 11:34 | Cardiology Progress Note ---
Cardiology SOAP Progress Note Subjective: Stable Objective: I&O/Vital Signs Vital Sign - Last 12Hours 06/07/16 06/07/16 06/07/16 06/07/16 00:05 04:30 08:00 08:00 Temp 97.8 96.0 Pulse 94 102 96 Resp 20 22 22 B/P (MAP) 117/75 126/77 118/78 Pulse Ox 95 95 98 95 O2 Delivery Room Air Room Air Room Air 06/07/16 09:53 Pulse Ox 96 Intake and Output 06/07/16 00:00 Intake Total 1910 ml Output Total 1475 ml Balance 435 ml Weight (Pounds): 225 Weight (Ounces): 8.0 Weight (Calculated Kilograms): 102.490766 Constitutional: No appears stated age, No AAO x 3, No apparent distress, No PERRL, No well-developed, No well-nourished, No other Respiratory: No accessory muscle use, No respiratory distress, No chest tender , No chest expansion is symmetric, No chest is bilaterally symmetric, No lungs clear to percussion, No lungs clear to auscultation, No crackles, No rhonchi, No rales, No stridor, No wheezing, No pleural rub, No other Cardiovascular: No regular rate-rhythm, irregularly irregular, No extra beats, No parasternal heave is noted, No JVD, No edema, No bradycardia, No tachycardia , No point of maximal impulse, No cardiac thrills are palpable, No S1 and S2, No gallop/S3, No gallop/S4, No diastolic murmur, No systolic murmur, No friction rub, No click, No other Gastrointestional: No tender, No soft, No round, No distended, No pulsatile mass, No organomegaly, No guarding, No rebound, No tenderness, No hernia, No mass, No audible bowel sounds, No abnormal bowel sounds, No abdominal bruits, No spleenomegaly, No other Extremities: other (left amputation) Skin: normal color, warm/dry Results/Procedures: Labs Laboratory Tests 06/07/16 05:05: White Blood Count 5.8, Red Blood Count 3.09L, Hemoglobin 9.3L, Hematocrit 29L, Mean Corpuscular Volume 93, Mean Corpuscular Hemoglobin 30, Mean Corpuscular Hemoglobin Concent 32, Red Cell Distribution Width 19.0H, Platelet Count 233, Mean Platelet Volume 9.2, Neutrophils (%) (Auto) 65, Lymphocytes (%) (Auto) 21, Monocytes (%) (Auto) 13H, Eosinophils (%) (Auto) 1, Basophils (%) (Auto) 1, Neutrophils # (Auto) 3.8, Lymphocytes # (Auto) 1.2, Monocytes # (Auto) 0.7, Eosinophils # (Auto) 0.1, Basophils # (Auto) 0.0, Prothrombin Time 19.6H, INR Comment 1.7H, Sodium Level 136, Potassium Level 4.4, Chloride Level 106, Carbon Dioxide Level 20L, Anion Gap 10, Blood Urea Nitrogen 14, Creatinine 1.07, Estimat Glomerular Filtration Rate > 60, BUN/Creatinine Ratio 13, Glucose Level 95, Calcium Level 8.0L Microbiology 06/01/16 Blood Culture - Preliminary, Resulted Staph, Coag Neg (Business Improvement Manager) 06/02/16 MRSA Screen - Final, Complete MRSA not isolated 06/01/16 Urine Culture - Final, Complete NO GROWTH A/P: Assessment/Dx: UTI sepsis, History of CAD, PAD, atrial fibrillation. Plan: deferred treatment of UTI sepsis to primary team. PAD/CAD: On aspirin, Plavix, statin, lisinopril, beta otis.. atrial fibrillation. BB and Coumadin. Patient be transferred to nursing facility today. Patient will follow with his material mover as outpatient in [place]. Dr Valladares. Thank you for your consultation. Please call me if you have any questions. Trace Pickard MD, FACP, FACC, FSCAI, FHRS, CCDS Interventional Cardiology Cardiac Electrophysiology Vascular Medicine and Endovascular Interventions Margy PICKARD MD Jun 07, 2016 11:34 am
[2016-06-07 13:53] VITALS: BP 118/78
[2016-06-20] MEDS ORDERED: HYDR-3812 PO (08:31)
[2016-06-20] MEDS ORDERED: DOXY100T2 PO (08:31)
== END 2016-06-07 14:02 | DRG 871 ==
LOC: EDUNIT# 18:47 → ER 18:49 → ICU 21:24 → 4TH 06-05 15:16
PROVIDERS: ADMIT Family Medicine; ATTEND Family Medicine
PROC: 02HV33Z Insertion of Infusion Device into Superior Vena Cava, Percutaneous Approach (ICD-10-PCS; principal; 2016-06-01)
DX: A41.9 Sepsis, unspecified organism (principal); R65.21 Severe sepsis with septic shock; N30.00 Acute cystitis without hematuria; J44.0 Chronic obstructive pulmonary disease with (acute) lower respiratory infection; J18.9 Pneumonia, unspecified organism; N17.9 Acute kidney failure, unspecified; E87.1 Hypo-osmolality and hyponatremia; E86.9 Volume depletion, unspecified; Z66 Do not resuscitate; E11.51 Type 2 diabetes mellitus with diabetic peripheral angiopathy without gangrene; E11.40 Type 2 diabetes mellitus with diabetic neuropathy, unspecified; I25.10 Atherosclerotic heart disease of native coronary artery without angina pectoris; I10 Essential (primary) hypertension; G47.30 Sleep apnea, unspecified; J45.909 Unspecified asthma, uncomplicated; E03.9 Hypothyroidism, unspecified; D63.8 Anemia in other chronic diseases classified elsewhere; I48.91 Unspecified atrial fibrillation; E78.00 Pure hypercholesterolemia, unspecified; I49.3 Ventricular premature depolarization; F03.90 Unspecified dementia, unspecified severity, without behavioral disturbance, psychotic disturbance, mood disturbance, and anxiety; B37.2 Candidiasis of skin and nail; T87.89 Other complications of amputation stump; Z86.14 Personal history of Methicillin resistant Staphylococcus aureus infection; Z89.612 Acquired absence of left leg above knee; Z93.2 Ileostomy status; Z85.46 Personal history of malignant neoplasm of prostate; Z85.038 Personal history of other malignant neoplasm of large intestine; Z85.028 Personal history of other malignant neoplasm of stomach; Z96.651 Presence of right artificial knee joint
CPT/HCPCS: 36415; 36556; 51701; 71010; 80048; 80053; 81000; 82962; 83605; 83735; 84484; 85025; 85610; 85730; 86850; 86900; 86901; 86920; 87040; 87081; 87088; 93005; 94640; 94760; 96361; 96365; 96366; 96367; 96375

== ENCOUNTER → 2016-06-01 | Outpatient (CLI) | payer MEDICARE ==
[~2016-06-01] MED LIST changes: +ACET-168 PO; +ALBU2.5V4 NEB; +BENA10TA2 PO; +DOXY100T2 PO; +GABA-488 PO; +GLUC-173 PO; +HEPA500017 SC; +LISI-556 PO; +MAGN400T6 PO; +MELA1TAB10 PO; +MESA4ENE4 RC; +METO-333 PO; +MICO90PO TOP; +MICO90PO TP; +ONDN4T PO; +RIFA550T PO; +ROSU20TA PO; +RT-ALBUINH IH; +WARF5TAB PO
[2016-06-01 15:20] LABS: INR 1.1 (0.8-1.4); PROTHROMBIN TIME PATIENT 13.8 SEC (12.2-14.7)
== END ==
PROVIDERS: ATTEND Family Medicine
DX: I48.91 Unspecified atrial fibrillation (principal)
CPT/HCPCS: 85610

== ENCOUNTER → 2016-06-09 | Outpatient (CLI) | payer MEDICARE ==
[~2016-06-09] MED LIST changes: +ACET-168 PO; +ALBU2.5V4 NEB; +BENA10TA2 PO; +DOXY100T2 PO; +GABA-488 PO; +GLUC-173 PO; +LISI-556 PO; +MELA1TAB10 PO; +MESA4ENE4 RC; +METO-333 PO; +MICO90PO TOP; +MICO90PO TP; +ONDN4T PO; +RIFA550T PO; +ROSU20TA PO; +RT-ALBUINH IH; +WARF5TAB PO
[2016-06-09 14:43] LABS: INR 2.4 (0.8-1.4); PROTHROMBIN TIME PATIENT 25.9 SEC (12.2-14.7)
== END ==
PROVIDERS: ATTEND Family Medicine
DX: D47.3 Essential (hemorrhagic) thrombocythemia (principal); D64.9 Anemia, unspecified
CPT/HCPCS: 85610

== ENCOUNTER 2016-06-13 16:36 | Inpatient (IN) | payer MEDICARE ==
[~2016-06-13] VITALS: Ht 172.7 cm; Wt 110.9 kg
[~2016-06-13 16:36] MED LIST changes: -ACET-168 PO; -ALBU2.5V4 NEB; -DOXY100T2 PO; -MICO90PO TP; -ONDN4T PO
[2016-06-13] MEDS ORDERED: RT-ALBUTEROL SULF 2.5 MG/3 ML PRE-MIX VIAL ONE (16:42)
[2016-06-13] MEDS ORDERED: RT-ALBUTEROL/IPRATROPIUM 3 ML (DUONEB) VIAL ONE (16:42)
[2016-06-13] MEDS ORDERED: RT-ALBUTEROL SULF 2.5 MG/3 ML PRE-MIX VIAL INH STA (17:04)
[2016-06-13 17:08] LABS: BASOPHILS # (AUTO) 0.1 10^3/uL (0.0-0.1); BASOPHILS % (AUTO) 1 % (0-10); EOSINOPHILS # (AUTO) 0.7 10^3/uL (0.0-0.3); EOSINOPHILS % (AUTO) 8 % (0-10); LYMPHOCYTES # (AUTO) 1.9 X 10^3 (1.0-4.0); LYMPHOCYTES % (AUTO) 22 % (12-44); MEAN CORPUSCULAR HEMOGLOBIN 30 PG (25-34); MEAN CORPUSCULAR HGB CONC 32 G/DL (32-36); MEAN CORPUSCULAR VOLUME 94 FL (80-99); MEAN PLATELET VOLUME 8.7 FL (7.4-10.4); MONOCYTES # (AUTO) 1.4 X 10^3 (0.0-1.0); MONOCYTES % (AUTO) 16 % (0-12); NEUTROPHILS # (AUTO) 4.6 X 10^3 (1.8-7.8); NEUTROPHILS % (AUTO) 53 % (42-75); PLATELET COUNT 312 10^3/uL (130-400); RED BLOOD COUNT 3.23 10^6/uL (4.35-5.85); RED CELL DISTRIBUTION WIDTH 18.4 % (10.0-14.5); WHITE BLOOD COUNT 8.6 10^3/uL (4.3-11.0)
--- NOTE | 2016-06-13 17:11 | ED Respiratory ---
General Chief Complaint: Respiratory Problems Stated Complaint: SOA Source: patient Exam Limitations: no limitations History of Present Illness Time seen by provider: 16:41 Initial Comments Here with report of shortness of air and fever. He apparently had hypoxia at the [facility] as well. He was seen by his primary care today and was doing okay. He was started on a fentanyl patch 2 days ago. This was removed this afternoon with the hypoxic event. EMS did give treatment in route which did help a little bit but patient still having some challenges. Was noted to have fever. Denies nausea or vomiting. Patient recently seen for septic shock. He had been doing better over the last few days. Timing/Duration: this morning, getting worse Severity: moderate, severe Prior Episodes/Possible Cause: occasional episodes Modifying Factors: Worse With Activity, Improves With Albuterol Nebulizer, Worse With Coughing Associated Symptoms: No chest pain/soreness, cough, fever/chills, nasal congestion, shortness of breath Allergies and Home Medications Allergies Coded Allergies: Sulfa (Sulfonamide Antibiotics) (Unverified Allergy, Intermediate, HIVES, 04/23/16) clindamycin (Verified Allergy, Unknown, 04/21/16) STATES HE CAN NOT TAKE IT Home Medications Albuterol Sulfate 1 Puff Puff, 2 PUFF IH Q4H for 30 Days, #1 Ref 2 1 PUFF = 90 MCG Prescribed by: TK DELEON on 06/07/16 0924 Aspirin 81 Mg Chew, 81 MG PO HS, (Reported) Carvedilol 6.25 Mg Tablet, 6.25 MG PO BID, (Reported) Clopidogrel Bisulfate 75 Mg Tablet, 75 MG PO DAILY, (Reported) Fluticasone Propionate 9.9 Ml Maybee.susp, 2 SPRAYS NS DAILY PRN for RHINITIS, ( Reported) Gabapentin 300 Mg Capsule, 300 MG PO BID, #30 Prescribed by: TK DELEON on 06/07/16 0924 Glucosamine/MSM/Chondroitin A 1 Each Tablet, 1 TAB PO DAILY, (Reported) Hydrocodone/Acetaminophen 1 Each Tablet, 1 TAB PO TID PRN for PAIN-MODERATE, #30 Prescribed by: TK DELEON on 06/07/16 0924 Levothyroxine Sodium 50 Mcg Tablet, 50 MCG PO DAILY, (Reported) Lisinopril 5 Mg Tablet, 5 MG PO DAILY for 30 Days, #30 Ref 11 Prescribed by: TK DELEON on 06/07/16923 Melatonin/Pyridoxine 1 Each Tablet, 3 MG PO HS, (Reported) Miconazole Nitrate 90 Gm Powder, 0 GM TOP BID for 30 Days, #1 Prescribed by: TK DELEON on 06/07/16923 Pantoprazole Sodium 40 Mg Tablet.dr, 40 MG PO DAILY, (Reported) Rifaximin 550 Mg Tablet, 550 MG PO TID, (Reported) Rosuvastatin Calcium 20 Mg Tablet, 20 MG PO HS, (Reported) Tamsulosin HCl 0.4 Mg Cap.er.24h, 0.4 MG PO HS, (Reported) Warfarin Sodium 5 Mg Tablet, 5 MG PO HS, (Reported) Constitutional: see HPI, No chills, fever EENTM: no symptoms reported Respiratory: cough, short of breath, wheezing Cardiovascular: No chest pain, edema Gastrointestinal: no symptoms reported, No nausea, No vomiting Genitourinary: decreased output, No pain Musculoskeletal: no symptoms reported All Other Systems Reviewed Negative Unless Noted: Yes Past Cgdgznt-Ftsbhy-Mflovc Hx Patient Social History Alcohol Use: Denies Use Recreational Drug Use: No Smoking Status: Unknown if Ever Smoked Recent Hopitalizations: No Immunizations Up To Date PED Vaccines UTD: Yes Date of Pneumonia Vaccine: Dec 12, 2015 Date of Influenza Vaccine: Dec 12, 2015 Seasonal Allergies Seasonal Allergies: Yes Surgeries HX Surgeries: Yes (right carotid, right total knee, hernia repair, pvd, prostate seeds, ileost) Surgeries: Eye Surgery, Gallbladder, Orthopedic, Tonsillectomy Respiratory Hx Respiratory Disorders: Yes Respiratory Disorders: Asthma, Sleep Apnea Cardiovascular Hx Cardiac Disorders: Yes (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) Cardiac Disorders: Coronary Artery Disease, High Cholesterol, Hypertension Neurological Hx Neurological Disorders: Yes Neurological Disorders: Dementia, Neuropathy Reproductive System Hx Reproductive Disorders: No Sexually Transmitted Disease: No HIV/AIDS: No Genitourinary Hx Genitourinary Disorders: Yes (PROSTATE CA) Genitourinary Disorders: Prostate Problems, Kidney Stones, Renal Failure Gastrointestinal Hx Gastrointestinal Disorders: Yes (ILEOSTOMY) Gastrointestinal Disorders: Abdominal Hernia, Colitis, Gall Bladder Disease Musculoskeletal Hx Musculoskeletal Disorders: Yes (ARTHRITIS) Musculoskeletal Disorders: Chronic Back Pain Endocrine Hx Endocrine Disorders: Yes (DIABETIC FEET-TOLD DM/NO MEDS FOR IT) Endocrine Disorders: Hypothyroidsim, Diabetes, Non-Insulin dep HEENT HX ENT Disorders: No HEENT Disorders: Cataract Loss of Vision: Denies Hearing Impairment: Hard of Hearing Cancer Hx Cancer: Yes Cancer: Prostate, Stomach, Colon Psychosocial Hx Psychiatric Problems: No Integumentary HX Skin/Integumentary Disorder: No Blood Transfusions Hx Blood Disorders: No Adverse Reaction to a Blood Tr: No Reviewed Nursing Assessment Reviewed/Agree w Nursing PMH: Yes Family Medical History Significant Family History: No Pertinent Family Hx Family Medial History: BLOOD CLOT 19 FATHER BRAIN CANCER G8 SISTER SISTER BRAIN CANCER G8 SISTER SISTER Physical Exam Vital Signs Vital Sign - Last 12Hours Capillary Refill : General Appearance: WD/WN, mild distress HEENT: PERRL/EOMI, pharynx normal Neck: full range of motion, supple Respiratory: respiratory distress, decreased breath sounds, wheezing, expiration Cardiovascular: regular rate, rhythm, no murmur Gastrointestinal: non tender, soft Extremities: non-tender, normal inspection Neurologic/Psychiatric: alert, oriented x 3 Skin: normal color, warm/dry Focused Exam Lactic Acid Level Laboratory Tests Test 06/13/16 17:00 Lactic Acid Level 1.16 MMOL/L (0.50-2.00) Progress/Results/Core Measures Results/Orders Lab Results Laboratory Tests Test 06/13/16 17:00 06/13/16 17:50 Range/Units White Blood Count 8.6 4.3-11.0 10^3/uL Red Blood Count 3.23 L 4.35-5.85 10^6/uL Hemoglobin 9.7 L 13.3-17.7 G/DL Hematocrit 31 L 40-54 % Mean Corpuscular Volume 94 80-99 FL Mean Corpuscular Hemoglobin 30 25-34 PG Mean Corpuscular Hemoglobin Concent 32 32-36 G/DL Red Cell Distribution Width 18.4 H 10.0-14.5 % Platelet Count 312 130-400 10^3/uL Mean Platelet Volume 8.7 7.4-10.4 FL Neutrophils (%) (Auto) 53 42-75 % Lymphocytes (%) (Auto) 22 12-44 % Monocytes (%) (Auto) 16 H 0-12 % Eosinophils (%) (Auto) 8 0-10 % Basophils (%) (Auto) 1 0-10 % Neutrophils # (Auto) 4.6 1.8-7.8 X 10^3 Lymphocytes # (Auto) 1.9 1.0-4.0 X 10^3 Monocytes # (Auto) 1.4 H 0.0-1.0 X 10^3 Eosinophils # (Auto) 0.7 H 0.0-0.3 10^3/uL Basophils # (Auto) 0.1 0.0-0.1 10^3/uL Prothrombin Time 34.8 H 12.2-14.7 SEC INR Comment 3.5 H 0.8-1.4 Activated Partial Thromboplast Time 67 H 24-35 SEC Sodium Level 132 L 135-145 MMOL/L Potassium Level 5.2 H 3.6-5.0 MMOL/L Chloride Level 93 L 98-107 MMOL/L Carbon Dioxide Level 26 21-32 MMOL/L Anion Gap 13 5-14 MMOL/L Blood Urea Nitrogen 17 7-18 MG/DL Creatinine 3.36 H 0.60-1.30 MG/DL Estimat Glomerular Filtration Rate 18 BUN/Creatinine Ratio 5 Glucose Level 102 70-105 MG/DL Lactic Acid Level 1.16 0.50-2.00 MMOL/L Calcium Level 8.0 L 8.5-10.1 MG/DL Total Bilirubin 0.4 0.1-1.0 MG/DL Aspartate Amino Transf (AST/SGOT) 123 H 5-34 U/L Alanine Aminotransferase (ALT/SGPT) 67 H 0-55 U/L Alkaline Phosphatase 73 40-136 U/L Total Protein 5.3 L 6.4-8.2 G/DL Albumin 2.8 L 3.2-4.5 G/DL My Orders Orders - SAM STAPLES MD Albuterol Pre-Mix Nebs (Rt) (Proventil P (06/13/16 16:42) Albuterol/Ipra Inhalation Soln (Duoneb I (06/13/16 16:42) Cbc With Automated Diff (06/13/16 16:48) Comprehensive Metabolic Panel (06/13/16 16:48) Lactic Acid Analyzer (06/13/16 16:48) Blood Culture (06/13/16 16:48) Sputum Culture (06/13/16 16:48) Ua Culture If Indicated (06/13/16 16:48) Protime With Inr (06/13/16 16:48) Partial Thromboplastin Time (06/13/16 16:48) Chest 1 View, Ap/Pa Only (06/13/16 16:48) O2 (06/13/16 16:48) Saline Lock/Iv-Start (06/13/16 16:48) Vital Signs Adult Sepsis Patie Q1HR (06/13/16 16:48) Remove Rings In Anticipation O (06/13/16 16:48) Albuterol Pre-Mix Nebs (Rt) (Proventil P (06/13/16 17:04) Svn Sm Volume Nebulizer Rt-Rfs (06/13/16 17:04) Ceftriaxone Injection (Rocephin Injectio (06/13/16 18:00) Ns Iv 1000 Ml (Sodium Chloride 0.9%) (06/13/16 18:06) Methylprednisolone Sod Succ (Solu-Medrol (06/13/16 18:07) Medications Given in ED Current Medications Medications Dose Ordered Sig/Veto Route Start Time Stop Time Status Last Admin Dose Admin Albuterol Sulfate 2.5 mg STK-MED ONCE .ROUTE 06/13/16 16:42 06/13/16 16:45 DC 06/13/16 16:56 5 MG Albuterol/ Ipratropium 3 ml STK-MED ONCE .ROUTE 06/13/16 16:42 06/13/16 16:45 DC 06/13/16 16:56 3 ML Vital Signs/I&O Vital Sign - Last 12Hours 06/13/16 06/13/16 06/13/16 06/13/16 16:36 16:36 16:57 17:11 Temp 99.5 Pulse 84 Resp 35 B/P (MAP) 124/95 Pulse Ox 100 100 99 O2 Delivery Non Rebreather Nonrebreather O2 Flow Rate 15.00 15.00 15.00 Progress Note : Progress Note Seen and evaluated. IV, labs, chest x-ray, blood cultures, lactic acid and nebulizer treatments initiated with 2 albuterol and a DuoNeb. Continuous 1 hour neb initiated. Patient improved after treatments. Acute renal failure noted. Case discussed with Dr. Deleon at 1743. He accepts patient for admission, inpatient status for acute renal failure and fever. We will initiate Rocephin 1 g IV. He will see the patient later this evening. Discussed with patient with Dr. Deleon who accepts patient for admission, inpatient status. Patient and family agree with plan. Solu-Medrol 125 mg IV ordered. Normal saline 1 L bolus. Diagnostic Imaging Diagonstic Imaging: Xray Plain Films/CT/US/NM/MRI: chest Comments NAME: [facility] REC#: [id number] PT STATUS: REG ER : 1935 PHYSICIAN: SAM STAPLES MD ADMIT DATE: 06/13/16/ER Draft Date of Exam:06/13/16 CHEST 1 VIEW, AP/PA ONLY EXAMINATION: Chest radiograph, portable AP view. DATE: June 13, 2016, at 1729 hours. INDICATION: An 81-year-old male, hypoxia. COMPARISON: June 04, 2016. FINDINGS: Stable overall appearance of the cardiomediastinal silhouette. There are aortic calcifications. There is no identified pneumothorax. There is no large pleural effusion. There is no identified interval focal airspace consolidation. There is a vascular graft in the right neck. The previously noted right internal jugular central venous line has been removed. IMPRESSION: 1. Very mild bilateral interstitial opacities which potentially could reflect mild pulmonary vascular congestion. 2. Interval removal of previously noted right internal jugular central venous line. Dictated on workstation # [id number] Dict: 06/13/16 1759 Trans: 06/13/16 1802 [id number] Departure Communication Time/Spoke to Admitting Phy: 17:43 Impression Impression: Primary Impression: Acute renal failure Qualified Codes: N17.9 - Acute kidney failure, unspecified Additional Impressions: COPD with acute exacerbation Fever Qualified Codes: R50.9 - Fever, unspecified Disposition: 09 ADMITTED INPATIENT Condition: Stable Decision to Admit Reason: Admit from ER (General) Decision to Admit/Date: Jun 13, 2016 Time/Decision to Admit Time: 17:43 Departure-Patient Inst. Referrals: NO,LOCAL PHYSICIAN (PCP/Family) Primary Care Physician SAM STAPLES MD Jun 13, 2016 17:11
[2016-06-13 17:18] LABS: INR 3.5 (0.8-1.4); PROTHROMBIN TIME PATIENT 34.8 SEC (12.2-14.7)
[2016-06-13 17:28] LABS: ALBUMIN 2.8 G/DL (3.2-4.5); BILIRUBIN,TOTAL 0.4 MG/DL (0.1-1.0); CREATININE SERUM 3.36 MG/DL (0.60-1.30); POTASSIUM 5.2 MMOL/L (3.6-5.0); TOTAL PROTEIN 5.3 G/DL (6.4-8.2)
[2016-06-13 17:59] LABS: BILIRUBIN,URINE NEGATIVE (NEGATIVE); KETONES,URINE NEGATIVE (NEGATIVE); LEUKOCYTE ESTERASE ,URINE 3+ (NEGATIVE); NITRITE,URINE NEGATIVE (NEGATIVE); PH,URINE 5 (5-9); PROTEIN,URINE 1+ (NEGATIVE); UROBILINOGEN,URINE NORMAL (NORMAL)
[2016-06-13] MEDS ORDERED: cefTRIAXone INJECTION 1,000 MG in NS (IVPB) 50 ML IV ONE (18:00)
--- NOTE | 2016-06-13 18:03 | Diagnostic Imaging Report ---
EXAMINATION: Chest radiograph, portable AP view. DATE: June 13, 2016, at 1729 hours. INDICATION: An 81-year-old male, hypoxia. COMPARISON: June 04, 2016. FINDINGS: Stable overall appearance of the cardiomediastinal silhouette. There are aortic calcifications. There is no identified pneumothorax. There is no large pleural effusion. There is no identified interval focal airspace consolidation. There is a vascular graft in the right neck. The previously noted right internal jugular central venous line has been removed. IMPRESSION: 1. Very mild bilateral interstitial opacities which potentially could reflect mild pulmonary vascular congestion. 2. Interval removal of previously noted right internal jugular central venous line. Dictated by: Dictated on workstation # [id number]
[2016-06-13] MEDS ORDERED: NS IV 1000 ML 1,000 ML IV ONE (18:06)
[2016-06-13] MEDS ORDERED: methylPREDNISolone 125 MG (Solu-MEDROL) VIAL IV STA (18:07)
[2016-06-13 18:23] LABS: SQUAMOUS EPITHELIAL CELL,UR 0-2 /HPF
[2016-06-13 19:15] VITALS: BP 101/61
[2016-06-13] MEDS ORDERED: ACETAMINOPHEN 500 MG TAB (TYLENOL) PO PRN (21:00)
[2016-06-13] MEDS: RT-ALBUTEROL/IPRATROPIUM 3 ML (DUONEB) VIAL INH SCH (21:12)
--- NOTE | 2016-06-13 21:38 | History & Physical ---
History of Present Illness History of Present Illness Reason for visit/HPI 81-year-old male admitted for acute kidney failure and mild COPD exacerbation. Patient has a history of COPD, anemia chronic disease, peripheral artery disease, colitis with ostomy dependence, atrial fibrillation, coronary artery disease, hypertension, hypothyroidism. Suspect his acute kidney failure is multifactorial including but not limited to decreased by mouth intake, fentanyl patch, potential urinary tract infection and low reserve as he has a history of kidney failure. notes over the last few days has been more lethargic; one big change is a fentanyl patch was applied 06/11/16 as he was reporting increased pain. Patient also has had an increase in his nausea and vomiting. [facility] that his provided helped. Patient has not participated in physical therapy last couple days due to his fatigue. notes he has been more fatigued and also confused. He is able to answer questions appropriately but does weird things. One thing she notes that he traced along the edge of his blanket with his finger. reports he has not urinated since yesterday afternoon. I suspect he has been incontinent- as nursing staff on admssion to [facility] note his backside is irritated from being wet. While at [facility] today his O2 sats were noted to be in the 70s - oxygen did not bring a backup but he was placed on his CPAP which did bring his oxygen back up to the 90s. His notes that he'll do a shaking motion with his arms and his O2 sats have been noted to be lower than 90 when this is noticed likely attributed to hypoxia. I did see patient today in my office for hospital follow-up regarding last week' s hypotensive admission. Patient was a little more confused but overall appeared to be doing well. No fever noted vitals were all stable including oxygen saturation was in the 90s. When patient was returned to [facility] today the above events occurred. [facility] emergency department course of action-patient received IV fluids, 1 g Rocephin, and it was noted his Cr was elevated at 3.3, K was 5.2. Lactic acid 1.3 Patient was admitted to 4th floor for further evaluation and management. Date of Admission Jun 13, 2016 at 18:00 I consulted on this patient on 06/13/16 21:16 Attending Physician Kevin Deleon MD Admitting Physician Kevin Deleon MD Consult Allergies and Home Medications Allergies Coded Allergies: Sulfa (Sulfonamide Antibiotics) (Unverified Allergy, Intermediate, HIVES, 04/23/16) clindamycin (Verified Allergy, Unknown, 04/21/16) STATES HE CAN NOT TAKE IT Home Medications Albuterol Sulfate 1 Puff Puff, 2 PUFF IH Q4H for 30 Days, #1 Ref 2 1 PUFF = 90 MCG Prescribed by: KEVIN DELEON on 06/07/16 0924 Aspirin 81 Mg Chew, 81 MG PO HS, (Reported) Carvedilol 6.25 Mg Tablet, 6.25 MG PO BID, (Reported) Clopidogrel Bisulfate 75 Mg Tablet, 75 MG PO DAILY, (Reported) Fluticasone Propionate 9.9 Ml Powell.susp, 2 SPRAYS NS DAILY PRN for RHINITIS, ( Reported) Gabapentin 300 Mg Capsule, 300 MG PO BID, #30 Prescribed by: KEVIN DELEON on 06/07/16 0924 Glucosamine/MSM/Chondroitin A 1 Each Tablet, 1 TAB PO DAILY, (Reported) Hydrocodone/Acetaminophen 1 Each Tablet, 1 TAB PO TID PRN for PAIN-MODERATE, #30 Prescribed by: KEVIN DELEON on 06/07/16 0924 Levothyroxine Sodium 50 Mcg Tablet, 50 MCG PO DAILY, (Reported) Lisinopril 5 Mg Tablet, 5 MG PO DAILY for 30 Days, #30 Ref 11 Prescribed by: KEVIN DELEON on 06/07/16 0924 Melatonin/Pyridoxine 1 Each Tablet, 3 MG PO HS, (Reported) Miconazole Nitrate 90 Gm Powder, 0 GM TOP BID for 30 Days, #1 Prescribed by: KEVIN DELEON on 06/07/16 0924 Pantoprazole Sodium 40 Mg Tablet.dr, 40 MG PO DAILY, (Reported) Rifaximin 550 Mg Tablet, 550 MG PO TID, (Reported) Rosuvastatin Calcium 20 Mg Tablet, 20 MG PO HS, (Reported) Tamsulosin HCl 0.4 Mg Cap.er.24h, 0.4 MG PO HS, (Reported) Warfarin Sodium 5 Mg Tablet, 5 MG PO HS, (Reported) Past Kavpopz-Vakycs-Kkwpoy Hx Patient Social History Alcohol Use: Denies Use Recreational Drug Use: No Smoking Status: Unknown if Ever Smoked 2nd Hand Smoke Exposure: No Recent Foreign Travel: No Contact w/other who traveled: No Recent Hopitalizations: No Recent Infectious Disease Expo: No Immunizations Up To Date Date of Pneumonia Vaccine: Dec 12, 2015 Date of Influenza Vaccine: Dec 12, 2015 Seasonal Allergies Seasonal Allergies: Yes Surgeries HX Surgeries: Yes (right carotid, right total knee, hernia repair, pvd, prostate seeds, ileost) Surgeries: Eye Surgery, Gallbladder, Orthopedic, Tonsillectomy Respiratory Hx Respiratory Disorders: Yes Respiratory Disorders: COPD, Emphysema, Pneumonia, Sleep Apnea Cardiovascular Hx Cardiovascular Disorders: Yes (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) Cardiac Disorders: Coronary Artery Disease, High Cholesterol, Hypertension Neurological Hx Neurological Disorders: Yes Neurological Disorders: Dementia, Neuropathy Reproductive System Hx Reproductive Disorders: No Sexually Transmitted Disease: No HIV/AIDS: No Genitourinary Hx Genitourinary Disorders: Yes (PROSTATE CA) Genitourinary Disorders: Prostate Problems, Kidney Stones, Renal Failure Gastrointestinal Hx Gastrointestinal Disorders: Yes (ILEOSTOMY) Gastrointestinal Disorders: Abdominal Hernia, Colitis, Gall Bladder Disease Musculoskeletal Hx Musculoskeletal Disorders: Yes (ARTHRITIS) Musculoskeletal Disorders: Chronic Back Pain Endocrine Hx Endocrine Disorders: Yes (DIABETIC FEET-TOLD DM/NO MEDS FOR IT) Endocrine Disorders: Hypothyroidsim, Diabetes, Non-Insulin dep HEENT HX ENT Disorders: No HEENT Disorders: Cataract Loss of Vision: Denies Hearing Impairment: Hard of Hearing Cancer Hx Cancer: Yes Cancer: Prostate, Stomach, Colon Psychosocial Hx Psychiatric Problems: No Integumentary HX Skin/Integumentary Disorder: No Blood Transfusions Hx Blood Disorders: No Adverse Reaction to a Blood Tr: No Reviewed Nursing Assessment Reviewed/Agree w Nursing PMH: Yes Family Medical History Significant Family History: No Pertinent Family Hx Family Hx: BLOOD CLOT 19 FATHER BRAIN CANCER G8 SISTER SISTER BRAIN CANCER G8 SISTER SISTER Review of Systems Review of Systems General: No Chills, No Night Sweats HEENT: No Head Aches Pulmonary: No Dyspnea, No Cough Cardiovascular: No: Chest Pain, Palpitations Gastrointestinal: Vomiting, No: Abdominal Pain, Nausea Genitourinary: No Dysuria, Retention Neurological: Weakness All Other Systems Reviewed All Other Systems Reviewed: Yes Physical Exam Vital Signs Vital Sign - Last 12Hours Capillary Refill : Less Than 3 Seconds General Appearance: No Apparent Distress, Chronically ill HEENT: PERRL/EOMI Neck: Non Tender, Supple Respiratory: Chest Non Tender, Lungs Clear, No Accessory Muscle Use, Decreased Breath Sounds Cardiovascular: Regular Rate, Rhythm Gastrointestinal: Normal Bowel Sounds, Non Tender, Soft Rectal: Deferred Back: No CVA Tenderness Extremity: Non Tender, Other (right above knee stump) Neurologic/Psychiatric: Other (sleeping) Skin: Warm/Dry, Other (see nurses skin exam-) Assessment/Plan Assessment/Plan Assessment/Plan 81 yo M Acute Kidney failure due to UTI, poor po intake, fentanyl patch- 3.3; IVF- monitor lytes and Cr/GFR- - avoid nephrotoxic agents (NSAIDS, contrast) fentanyl patch removed 06/13/2016 Hyperkalemia- rechecking in AM. Atrial fibrillation- INR supratherapeutic- monitoring INR, holding warfarin COPD exacerbation on baseline oxygen 2L requirement peripheral vascular disease- plavix Dr. David Mathis, Vascular Surgeon at [facility] follow up appt June 17 hypothyroidism- cont levothyroxine HTN- monitor CAD- stable, d/c tele- in agreeance not to have tele. h/o colitis-- requiring ileostomy- stable- Weakness/deconditioning- PT/OT consulted. Right above knee amputation- Pt has follow up with Dr. Jean-Baptiste June 17, 2016 Inguinal candidiasis- miconazole powder. Anemia of chronic disease- 2units pRBC on 06/03/16- monitor cbc hemoglobin 9 obstructive sleep apnea- home cpap Dispo: PT / OT to work with pt- plan to d/c to [facility] when he is better. -pt will be able to go home from [facility] when he can transfer on his own. monitor INR. Rechecking CMP, CBC. Problems: KEVIN DELEON MD Jun 13, 2016 21:38
[2016-06-13] MEDS: NS IV 1000 ML 1,000 ML IV SCH (22:30)
[2016-06-13] MEDS ORDERED: inSUlin (REGULAR) HUMAN 1 UNIT/0.01 ML (CHARGE PER UNIT) SC ONE (22:30)
[2016-06-13] MEDS ORDERED: DEXTROSE 50% 50 ML (IMS) SYR IV ONE (22:30)
[2016-06-14 00:30] VITALS: BP 137/76
[2016-06-14] MEDS: RT-ALBUTEROL/IPRATROPIUM 3 ML (DUONEB) VIAL INH SCH ×6 (01:24→22:13)
[2016-06-14] MEDS ORDERED: methylPREDNISolone 40 MG/ML (Solu-MEDROL) VIAL IV SCH (02:00)
[2016-06-14 04:33] VITALS: BP 121/76
[2016-06-14 06:08] LABS: BASOPHILS % (AUTO) 0 % (0-10); EOSINOPHILS % (AUTO) 0 % (0-10); LYMPHOCYTES # (AUTO) 0.7 X 10^3 (1.0-4.0); LYMPHOCYTES % (AUTO) 18 % (12-44); MEAN CORPUSCULAR HEMOGLOBIN 30 PG (25-34); MEAN CORPUSCULAR HGB CONC 32 G/DL (32-36); MEAN CORPUSCULAR VOLUME 93 FL (80-99); MEAN PLATELET VOLUME 9.1 FL (7.4-10.4); MONOCYTES # (AUTO) 0.1 X 10^3 (0.0-1.0); MONOCYTES % (AUTO) 3 % (0-12); NEUTROPHILS # (AUTO) 3.1 X 10^3 (1.8-7.8); NEUTROPHILS % (AUTO) 79 % (42-75); PLATELET COUNT 263 10^3/uL (130-400); RED BLOOD COUNT 2.84 10^6/uL (4.35-5.85); RED CELL DISTRIBUTION WIDTH 17.8 % (10.0-14.5)
[2016-06-14 06:10] LABS: ALBUMIN 2.5 G/DL (3.2-4.5); BILIRUBIN,TOTAL 0.2 MG/DL (0.1-1.0); CALCIUM 7.6 MG/DL (8.5-10.1); CREATININE SERUM 2.75 MG/DL (0.60-1.30); POTASSIUM 4.9 MMOL/L (3.6-5.0); TOTAL PROTEIN 4.7 G/DL (6.4-8.2)
[2016-06-14 06:20] LABS: INR 4.1 (0.8-1.4); PROTHROMBIN TIME PATIENT 39.6 SEC (12.2-14.7)
[2016-06-14] MEDS: NS IV 1000 ML 1,000 ML IV SCH ×3 (06:52→17:21)
[2016-06-14 08:24] VITALS: BP 126/61
--- NOTE | 2016-06-14 08:32 | Progress Note (SOAP) ---
Subjective Subjective 81 yo M with acute kidney failure due to poor po intake, confusion- doing better this AM- Cr improving- INR still elevated- likely due to poor po intake as well. Slept alright most of the night. stays overnight. right stump is oozing a little clear fluid- still has 9 arpita intact- suppose to have follow up appt with Dr. Jean-Baptiste. urinated this AM. Review of Systems General: No Chills, No Night Sweats HEENT: No Head Aches Pulmonary: No Dyspnea, No Cough Cardiovascular: No: Chest Pain, Palpitations Gastrointestinal: Vomiting (none during this hospitalization), No: Abdominal Pain, Nausea Genitourinary: No Dysuria, Retention (improved with IV hydration) Neurological: Weakness All Other Systems Reviewed All Other Systems Reviewed: Yes Objective Exam Vital Signs Vital Signs Date Time Temp Pulse Resp B/P (MAP) Pulse Ox O2 Delivery O2 Flow Rate FiO2 06/14/16 08:24 96.8 70 17 126/61 97 Nasal Cannula 4.00 06/14/16 07:47 96 4.00 06/14/16 04:33 97.4 68 12 121/76 98 Nasal Cannula 4.00 06/14/16 01:25 95 4.00 06/14/16 00:30 96.4 83 16 137/76 99 NIV CPAP 06/13/16 22:35 94 4.00 06/13/16 21:12 93 4.00 06/13/16 19:45 80 06/13/16 19:15 4.00 06/13/16 19:15 99.7 70 24 101/61 91 Nasal Cannula 4.00 06/13/16 18:45 100.8 74 16 98 4.00 06/13/16 17:11 99 06/13/16 16:57 15.00 06/13/16 16:36 100 Nonrebreather 15.00 06/13/16 16:36 99.5 84 35 124/95 100 Non Rebreather 15.00 I & O 06/14/16 07:00 Intake Total 2150 ml Output Total 0 ml Balance 2150 ml General Appearance: No Apparent Distress, Chronically ill Eyes: Bilateral Eye Normal Inspection HEENT: PERRL/EOMI Neck: Non Tender, Supple Respiratory: Chest Non Tender, Lungs Clear, No Accessory Muscle Use, Decreased Breath Sounds Cardiovascular: Other (normal rate, irregular rhythm) Gastrointestinal: Normal Bowel Sounds, Non Tender, Soft, Other (right ostomy) Rectal: Deferred Back: No CVA Tenderness Extremity: Non Tender, Other (right above knee stump- oozing serous fluid) Neurologic/Psychiatric: Other (awake this AM- more alert) Skin: Warm/Dry, Other (see nurses skin exam-) Results Lab Laboratory Tests 06/13/16 17:00: White Blood Count 8.6, Red Blood Count 3.23L, Hemoglobin 9.7L, Hematocrit 31L, Mean Corpuscular Volume 94, Mean Corpuscular Hemoglobin 30, Mean Corpuscular Hemoglobin Concent 32, Red Cell Distribution Width 18.4H, Platelet Count 312, Mean Platelet Volume 8.7, Neutrophils (%) (Auto) 53, Lymphocytes (%) (Auto) 22, Monocytes (%) (Auto) 16H, Eosinophils (%) (Auto) 8, Basophils (%) (Auto) 1, Neutrophils # (Auto) 4.6, Lymphocytes # (Auto) 1.9, Monocytes # (Auto) 1.4H, Eosinophils # (Auto) 0.7H, Basophils # (Auto) 0.1, Prothrombin Time 34.8H, INR Comment 3.5H, Activated Partial Thromboplast Time 67H, Sodium Level 132L, Potassium Level 5.2H, Chloride Level 93L, Carbon Dioxide Level 26, Anion Gap 13 , Blood Urea Nitrogen 17, Creatinine 3.36H, Estimat Glomerular Filtration Rate 18, BUN/Creatinine Ratio 5, Glucose Level 102, Lactic Acid Level 1.16, Calcium Level 8.0L, Total Bilirubin 0.4, Aspartate Amino Transf (AST/SGOT) 123H, Alanine Aminotransferase (ALT/SGPT) 67H, Alkaline Phosphatase 73, Total Protein 5.3L, Albumin 2.8L 06/13/16 17:50: Urine Color YELLOW, Urine Clarity CLEAR, Urine pH 5, Urine Specific [place] 1.025H, Urine Protein 1+H, Urine Glucose (UA) NEGATIVE, Urine Ketones NEGATIVE, Urine Nitrite NEGATIVE, Urine Bilirubin NEGATIVE, Urine Urobilinogen NORMAL, Urine Leukocyte Esterase 3+H, Urine RBC (Auto) NEGATIVE, Urine RBC NONE, Urine WBC 10-25H, Urine Squamous Epithelial Cells 0-2, Urine Crystals NONE, Urine Bacteria FEWH, Urine Casts PRESENT, Urine Hyaline Casts 10-25H, Urine Mucus NEGATIVE, Urine Culture Indicated YES 06/14/16 05:27: White Blood Count 4.0L, Red Blood Count 2.84L, Hemoglobin 8.4L, Hematocrit 27L, Mean Corpuscular Volume 93, Mean Corpuscular Hemoglobin 30, Mean Corpuscular Hemoglobin Concent 32, Red Cell Distribution Width 17.8H, Platelet Count 263, Mean Platelet Volume 9.1, Neutrophils (%) (Auto) 79H, Lymphocytes (%) (Auto) 18 , Monocytes (%) (Auto) 3, Eosinophils (%) (Auto) 0, Basophils (%) (Auto) 0, Neutrophils # (Auto) 3.1, Lymphocytes # (Auto) 0.7L, Monocytes # (Auto) 0.1, Eosinophils # (Auto) 0.0, Basophils # (Auto) 0.0, Prothrombin Time 39.6H, INR Comment 4.1H, Sodium Level 133L, Potassium Level 4.9, Chloride Level 98, Carbon Dioxide Level 22, Anion Gap 13, Blood Urea Nitrogen 20H, Creatinine 2.75H, Estimat Glomerular Filtration Rate 22, BUN/Creatinine Ratio 7, Glucose Level 251H, Calcium Level 7.6L, Total Bilirubin 0.2, Aspartate Amino Transf (AST/SGOT ) 85H, Alanine Aminotransferase (ALT/SGPT) 54, Alkaline Phosphatase 65, Total Protein 4.7L, Albumin 2.5L, Ammonia 18 Assessment/Plan Assessment/Plan Assessment/Plan 81 yo M Acute Kidney failure due to UTI, poor po intake, fentanyl patch- Cr improving; baseline Cr 1.1 -continue IVF- monitor lytes and Cr/GFR- - avoid nephrotoxic agents (NSAIDS, contrast) fentanyl patch removed 06/13/2016 Atrial fibrillation- INR supratherapeutic- due to poor po nutrition monitoring INR, holding warfarin- no bleeding noted COPD exacerbation - baseline oxygen 2L requirement , RT consult, methylpred 60mg IV, currently on 3L oxygen peripheral vascular disease- plavix Dr. David Mathis, Vascular Surgeon at [facility] will need a follow up appt hypothyroidism- cont levothyroxine HTN- monitor cont coreg CAD- stable, d/c tele- in agreeance not to have tele. h/o colitis-- requiring ileostomy- stable- Weakness/deconditioning- PT consulted. Right above knee amputation- Pt has follow up with Dr. Jean-Baptiste June 17, 2016- will have to reschedule Inguinal candidiasis- miconazole powder. Anemia of chronic disease- 2units pRBC on 06/03/16- monitor cbc If hgb <7.5 transfuse 2 units. obstructive sleep apnea- home cpap Hyperkalemia- resolved Dispo: PT to work with pt- plan to d/c to [facility] when he is better. monitor INR. Code: DNR Prognosis- overall poor as he has spent nearly the last 2 months in the hospital ([facility], [facility])- Problems: Clinical Quality Measures DVT/VTE Risk/Contraindication: Risk Factor Score Per Nursin RFS Level Per Nursing on Admit: 4+=Very High Contraindications-Pharm: Other *list below* Other: on warfarin TK DELEON MD Jun 14, 2016 08:32
[2016-06-14] MEDS ORDERED: ALBU2.5V4 NEB (08:38)
[2016-06-14] MEDS ORDERED: HYDR-3812 PO (08:38)
[2016-06-14] MEDS ORDERED: GABA-488 PO (08:38)
[2016-06-14] MEDS ORDERED: RT-ALBUINH IH (08:38)
[2016-06-14] MEDS ORDERED: ACET-168 PO (08:38)
[2016-06-14] MEDS ORDERED: MICO90PO TP (08:38)
[2016-06-14] MEDS ORDERED: LISI-556 PO (08:38)
[2016-06-14] MEDS ORDERED: ONDN4T PO (08:38)
[2016-06-14] MEDS: methylPREDNISolone 40 MG/ML (Solu-MEDROL) VIAL IV SCH ×2 (08:43→20:24)
--- NOTE | 2016-06-14 08:45 | Physical Therapy Evaluation ---
PT Evaluation-General Medical Diagnosis Admission Date Jun 13, 2016 at 18:00 Medical Diagnosis: acute kidney failure and COPD exacerbation Height/Weight Height (Feet): 5 Height (Inches): 8.00 Weight (Pounds): 214 Weight (Ounces): 7.0 Precautions Precautions/Isolations: Contact Isolation, Fall Prevention Referral Physician: Kevin Payan MD Reason for Referral: Evaluation/Treatment Medical History Pertinent Medical History: Arthritis, CAD, COPD, DM, Dementia, HTN, Hypothroidism, Neuropathy, Prostate CA, PVD Additional Medical History emphysema, pneumonia, sleep apnea, high cholesterol, kidney stones, renal failure, colitis, gall bladder disease, chronic back pain, [place], surg (right carotid, right TKA, hernia, tonsillectomy, ileostomy, eye, gall bladder) Current History more lethargic over the last few days and nausea and vomiting Reviewed History: Yes Social History Home: [facility] Entry Into Home: Level Entry Prior/Core FIM Prior Level of Function Functional [place] Measure 0=Not Assessed/NA 4=Minimal Assistance 1=Total Assistance 5=Supervision or Setup 2=Maximal Assistance 6=Modified [place] 3=Moderate Assistance 7=Complete [place] Bed Mobility: 1 Transfers (B,C,W/C) (FIM): 1 Gait: 1 Family member states he has only gotten PT twice during the last month due to illness, no standing PT Evaluation-Current Subjective Patient in bed pre tx, agrees to PT reluctantly, rates pain at 7-8/10 in right residual limb. Patient is having seeping from his right residual limb and he has some bandages on his left foot. Pt/Family Goals "to get around better" Objective Patient Orientation: Person, Confused Attachments: Colostomy/Ileostomy, Oxygen, IV ROM/Strength ROM Lower Extremities WNL Strenght Lower Extremities left lower extremity 4-/5 gross Neuromuscular (Tone, Coordination, Reflexes) NT Sensory Vision: Functional Hearing: Impaired Sensation Right Lower Extremit: Intact Sensation Left Lower Extremity: Intact Transfers Functional [place] Measure 0=Not Assessed/NA 4=Minimal Assistance 1=Total Assistance 5=Supervision or Setup 2=Maximal Assistance 6=Modified [place] 3=Moderate Assistance 7=Complete [place] Transfers (B, C, W/C) (FIM): 2 Scootin Rollin Supine to/from Sit: 3 Patient was able to sit at the edge of the bed for about 10 min, he was retropulsive and needed to keep hands on the edge of the bed to keep from falling backward Balance Sitting Static: Poor Sitting Dynamic: Poor Standing Static: Poor Standing Dynamic: Poor Treatment seated left leg LAQ x20, AP x20 Assessment/Needs Patient had debility, poor balance and endurance, poor mobility post right AKA and recent illness. Rehab Potential: Poor PT Dairy Supplies Sales Representative Goals Dairy Supplies Sales Representative Goals PT [facility] Goals Time Frame: June 21, 2016 Transfers (B,C,W/C) (FIM): 4 Wheelchair (FIM): 2 Distance: 50' Wheelchair Level of Assist: 4 PT Plan Problem List Problem List: Activity Tolerance, Functional Strength, Safety, Balance, Transfer, Bed Mobility, ROM Treatment/Plan Treatment Plan: Continue Plan of Care Treatment Plan: Bed Mobility, Education, Functional Activity [place], Functional Strength, Safety, Therapeutic Exercise, Transfers Treatment Duration: June 21, 2016 # of days/week 5-6 Visits Per Week: 10-11 Minutes/Day (M-F): 15-30 Minutes/Day (Sat/[place]): 15-30 Pt/Family Agrees w/Plan: Yes Safety Risks/Education Patient Education: Transfer Techniques, Correct Positioning, Safety Issues Teaching Recipient: Patient Teaching Methods: Demonstration, Discussion Response to Teaching: Reinforcement Needed Discharge Recommendations Plan Patient will perform bed mobility and transfer training, balance and endurance training, functional strengthening, and education to improve functional mobility and independence at home. Therapy D/C Recommendations: Home w/ Family Support, Senior Living (TCU/NH) Time/GCodes Time In: 820 Time Out: 840 Total Billed Treatment Time: 20 Total Billed Treatment 1 visit [facility] 20' SHUN MULLINS PT Jun 14, 2016 08:45
[2016-06-14] MEDS ORDERED: ONDANSETRON 4 MG (ZOFRAN) ORAL DISSOLVE TAB PO PRN (09:30)
[2016-06-14] MEDS: LEVOTHYROXINE 50 MCG (LEVOTHROID) TAB PO SCH (09:56)
[2016-06-14] MEDS: GABAPENTIN 300 MG (NEURONTIN) CAP PO SCH ×2 (09:56→20:26)
[2016-06-14] MEDS: CLOPIDOGREL 75 MG (PLAVIX) TABLET PO SCH (09:56)
[2016-06-14] MEDS: RIFAXIMIN 550 MG TABLET (XIFAXAN) PO SCH ×3 (09:56→20:26)
[2016-06-14] MEDS: CARVEDILOL 6.25 MG (COREG) TAB PO SCH ×2 (09:58→20:26)
[2016-06-14 12:00] VITALS: BP 109/53
--- NOTE | 2016-06-14 13:15 | Physical Therapy Daily Note ---
PT Daily Note-Current Subjective Pt. in bed agrees to Rx. States pain in right residual limb is 6/10 Pain Numeric Pain Scale: 6 Location: Right Location Body Site: Knee Pain Description: Ache Mental Status Patient Orientation: [place] Attachments: IV Transfers Functional [place] Measure 0=Not Assessed/NA 4=Minimal Assistance 1=Total Assistance 5=Supervision or Setup 2=Maximal Assistance 6=Modified [place] 3=Moderate Assistance 7=Complete IndependenceIRFPAI Quality Coding Scale 6 Independent with activity with or without an assistive device 5 Patient requires set up or clean up by helper. Patient completes activity by themselves 4 Supervision or touching assist (CGA). [place] provide cues , steadying assist 3 The helper provides less than half the effort to complete the activity 2 The helper provides more than half the effort to complete the activity 1 Dependent. The helper does all the effort to complete an activity 7 Patient refused to complete or attempt activity 9 The patient did not perform the activity before the current illness or injury 88 Not attempted due to Medical conditions or safety concerns Transfers (B, C, W/C) (FIM): 3 Scootin Rollin Supine to/from Sit: 3 pt. pulled self up in bed using rails at arms and pushing with left foot x2 successfully with instruction Exercises Supine Ex: Bridging, Ankle pumps, Quad Set, Rolling, Glut sets, Heel Slides, Short Arc Quads, Scooting, Straight leg raise, Hip abd/add Supine Reps: 15 Seated Therapy Exercises: Ankle pumps, Long arc quads, Hip flexion Seated Reps: 15 Treatments at EOB 8mins for LE exercises then sit to sup with SBA onlt Assessment Current Status: Good Progress eems to have some trouble either hearing or staying on task at times. weak PT [place] Goals Care Home Goals PT [place] Goals Time Frame: June 21, 2016 Transfers (B,C,W/C) (FIM): 4 Wheelchair (FIM): 2 Distance: 50' Wheelchair Level of Assist: 4 PT Plan Treatment/Plan Treatment Plan: Continue Plan of Care Treatment Plan: Bed Mobility, Education, Functional Activity [place], Functional Strength, Safety, Therapeutic Exercise, Transfers Treatment Duration: June 21, 2016 Visits Per Week: 10-11 Minutes/Day (M-F): 15-30 Minutes/Day (Sat/[place]): 15-30 Safety Risks/Education Patient Education: Transfer Techniques, Correct Positioning, Disease Process, Safety Issues Teaching Recipient: Patient Teaching Methods: Demonstration, Discussion Response to Teaching: Verbalize Understanding, Return Demonstration, Reinforcement Needed Time/GCodes Time In: 1245 Time Out: 1315 Total Billed Treatment Time: 30 Total Billed Treatment 1,FA15,EX15 G Codes Necessary: GARY Shah SHELTER SUPERVISOR Jun 14, 2016 13:15
[2016-06-14] MEDS: MICONAZOLE 2% POWDER (DESENEX AF) 90 GM TOP SCH ×2 (14:11→20:27)
[2016-06-14 15:25] VITALS: BP 96/55
[2016-06-14] MEDS: cefTRIAXone 1 GM/NS 50 ML IVPB IV SCH ×2 (17:21)
[2016-06-14 19:40] VITALS: BP 92/55
[2016-06-14] MEDS: ALFUZOSIN HCL 10 MG TAB (UROXATRAL) PO SCH (20:26)
[2016-06-14] MEDS: ASPIRIN 81 MG CHEW (CHILDREN'S ASA) PO SCH (20:26)
[2016-06-14] MEDS: MELATONIN 3 MG TABLET PO SCH (20:26)
[2016-06-14] MEDS ORDERED: SOD POLYSTERENE 15 GM/60 ML (KAYEXALATE) UNIT DOSE PO ONE (23:30)
[2016-06-15] VITALS (12 sets, daily range): BP systolic 126–161; BP diastolic 64–81
[2016-06-15] MEDS: HYDROcodone/APAP 5 MG/325 MG (LORTAB) TAB PO PRN ×3 (00:51→14:00)
[2016-06-15] MEDS: RT-ALBUTEROL/IPRATROPIUM 3 ML (DUONEB) VIAL INH SCH ×6 (02:00→22:04)
[2016-06-15] MEDS: NS IV 1000 ML 1,000 ML IV SCH ×2 (03:47→19:19)
[2016-06-15] MEDS: LEVOTHYROXINE 50 MCG (LEVOTHROID) TAB PO SCH (06:37)
[2016-06-15] MEDS: GABAPENTIN 300 MG (NEURONTIN) CAP PO SCH ×2 (08:22→22:05)
[2016-06-15] MEDS: CLOPIDOGREL 75 MG (PLAVIX) TABLET PO SCH (08:22)
[2016-06-15] MEDS: methylPREDNISolone 40 MG/ML (Solu-MEDROL) VIAL IV SCH ×2 (08:22→20:38)
[2016-06-15] MEDS: RIFAXIMIN 550 MG TABLET (XIFAXAN) PO SCH ×3 (08:23→22:05)
[2016-06-15] MEDS: CARVEDILOL 6.25 MG (COREG) TAB PO SCH ×2 (08:23→21:00)
[2016-06-15] MEDS: MICONAZOLE 2% POWDER (DESENEX AF) 90 GM TOP SCH ×2 (08:23→20:39)
[2016-06-15 09:07] LABS: BASOPHILS % (AUTO) 0 % (0-10); EOSINOPHILS % (AUTO) 0 % (0-10); LYMPHOCYTES # (AUTO) 0.6 X 10^3 (1.0-4.0); LYMPHOCYTES % (AUTO) 10 % (12-44); MEAN CORPUSCULAR HEMOGLOBIN 30 PG (25-34); MEAN CORPUSCULAR HGB CONC 32 G/DL (32-36); MEAN CORPUSCULAR VOLUME 93 FL (80-99); MEAN PLATELET VOLUME 9.3 FL (7.4-10.4); MONOCYTES # (AUTO) 0.4 X 10^3 (0.0-1.0); MONOCYTES % (AUTO) 7 % (0-12); NEUTROPHILS # (AUTO) 4.9 X 10^3 (1.8-7.8); NEUTROPHILS % (AUTO) 83 % (42-75); PLATELET COUNT 281 10^3/uL (130-400); RED BLOOD COUNT 2.57 10^6/uL (4.35-5.85); RED CELL DISTRIBUTION WIDTH 17.7 % (10.0-14.5); WHITE BLOOD COUNT 5.9 10^3/uL (4.3-11.0)
[2016-06-15 09:19] LABS: INR 5.5 (0.8-1.4); PROTHROMBIN TIME PATIENT 50.7 SEC (12.2-14.7)
[2016-06-15 09:21] LABS: ALBUMIN 2.6 G/DL (3.2-4.5); CALCIUM 7.6 MG/DL (8.5-10.1); CREATININE SERUM 1.65 MG/DL (0.60-1.30); PHOSPHORUS 3.6 MG/DL (2.3-4.7); POTASSIUM 4.7 MMOL/L (3.6-5.0)
--- NOTE | 2016-06-15 10:01 | Physical Therapy Daily Note ---
PT Daily Note-Current Subjective Pt. states he is very weak this morning and didnt sleep well last night. Wants to try to work but is so weak Pain Numeric Pain Scale: 0-No Pain Comment: c/o fatigue and weakness Mental Status Patient Orientation: Normal For Age Attachments: Oxygen, IV hard of hearing Transfers Functional [place] Measure 0=Not Assessed/NA 4=Minimal Assistance 1=Total Assistance 5=Supervision or Setup 2=Maximal Assistance 6=Modified [place] 3=Moderate Assistance 7=Complete IndependenceIRFPAI Quality Coding Scale 6 Independent with activity with or without an assistive device 5 Patient requires set up or clean up by helper. Patient completes activity by themselves 4 Supervision or touching assist (CGA). [place] provide cues , steadying assist 3 The helper provides less than half the effort to complete the activity 2 The helper provides more than half the effort to complete the activity 1 Dependent. The helper does all the effort to complete an activity 7 Patient refused to complete or attempt activity 9 The patient did not perform the activity before the current illness or injury 88 Not attempted due to Medical conditions or safety concerns Supine to/from Sit: 4 sup to sit x 2 with min assist, but asked to lay back down almost as soon as he got up Exercises Supine Ex: Bridging, Ankle pumps, Quad Set, Rolling, Glut sets, Heel Slides, Short Arc Quads, Scooting, Straight leg raise, Hip abd/add Supine Reps: 12 Assessment Current Status: Fair Progress nursing reports that pts. hgb is 7.7 and INR is 5.5 PT Scalp Treatment Operator Goals Scalp Treatment Operator Goals PT Scalp Treatment Operator Goals Time Frame: June 21, 2016 Transfers (B,C,W/C) (FIM): 4 Wheelchair (FIM): 2 Distance: 50' Wheelchair Level of Assist: 4 PT Plan Treatment/Plan Treatment Plan: Continue Plan of Care Treatment Plan: Bed Mobility, Education, Functional Activity [place], Functional Strength, Safety, Therapeutic Exercise, Transfers Treatment Duration: June 21, 2016 Visits Per Week: 10-11 Minutes/Day (M-F): 15-30 Minutes/Day (Sat/[place]): 15-30 Safety Risks/Education Patient Education: Gait Training, Transfer Techniques Teaching Recipient: Patient Teaching Methods: Demonstration, Discussion Response to Teaching: Verbalize Understanding, Return Demonstration, Reinforcement Needed Time/GCodes Time In: 920 Time Out: 950 Total Billed Treatment Time: 30 Total Billed Treatment 1,FA15m,EX15m G Codes Necessary: GARY Shah MOPHEAD TRIMMER AND WRAPPER Jun 15, 2016 10:01
[2016-06-15] MEDS ORDERED: NS IV 500 ML 500 ML IV SCH (10:43)
[2016-06-15] MEDS ORDERED: FUROSEMIDE 40 MG/4 ML INJ (LASIX) IVP ONE (10:45)
[2016-06-15] MEDS ORDERED: diphenhydrAMINE 50 MG/ML INJ (BENADRYL) IVP PRN (10:45)
--- NOTE | 2016-06-15 10:56 | Progress Note (SOAP) ---
Subjective Subjective/Events-last exam PT REPORTS FEELING VERY FATIGUED THIS MORNING, DIZZINESS WHEN HE WAS SAT UP IN BED WITH PHYSICAL THERAPY. THERAPIST REPORTS THAT HE BECAME SWEATY, WAS SAT BACK IN BED AND SYMPTOMS IMPROVED. PT DENIES CHEST PAIN, JUST SEVERE FATIGUE/WEAKNESS. Review of Systems General: Fatigue, Malaise HEENT: No Head Aches Pulmonary: Dyspnea, No Cough Cardiovascular: No: Chest Pain, Edema Gastrointestinal: No: Abdominal Pain, Nausea Genitourinary: No Other Neurological: Weakness, No: Confusion Objective Exam Vital Signs Date Time Temp Pulse Resp B/P (MAP) Pulse Ox O2 Delivery O2 Flow Rate FiO2 06/15/16 10:26 95 2.00 06/15/16 06:39 94 2.00 06/15/16 04:30 96.9 78 18 126/70 97 Nasal Cannula 3.00 06/15/16 00:00 97.7 83 18 138/78 97 Nasal Cannula 3.00 06/14/16 22:15 97 3.00 06/14/16 20:10 4.00 06/14/16 19:40 97.6 91 19 92/55 95 Nasal Cannula 3.00 06/14/16 18:47 95 3.00 06/14/16 15:25 97.6 89 20 96/55 95 Nasal Cannula 3.00 06/14/16 15:06 95 4.00 06/14/16 12:00 97.9 83 16 109/53 93 Nasal Cannula 4.00 06/14/16 11:05 95 4.00 I & O 06/15/16 07:00 Intake Total 3620 ml Output Total 2300 ml Balance 1320 ml Capillary Refill : Less Than 3 Seconds General Appearance: WD/WN, Mild Distress (FATIGUE) HEENT: PERRL/EOMI, Pale Conjunctivae (L) Neck: Supple Respiratory: Chest Non Tender, Decreased Breath Sounds Cardiovascular: Irregularly Irregular Gastrointestinal: normal bowel sounds, non tender, soft, other (OSTOMY DRESSING C/D/I) Neurologic/Psychiatric: Alert, Oriented x3, Normal Mood/Affect Skin: Cool, Other (ABRASION ON ARM, BLEEDING - DRESSED WITH TELFA AND GAUZE. WOUND ON RIGHT THIGH STUMP MEDIAL ASPECT OF WOUND WITH ESCHAR) Results Lab Laboratory Tests 06/15/16 08:55: White Blood Count 5.9, Red Blood Count 2.57L, Hemoglobin 7.7L, Hematocrit 24L, Mean Corpuscular Volume 93, Mean Corpuscular Hemoglobin 30, Mean Corpuscular Hemoglobin Concent 32, Red Cell Distribution Width 17.7H, Platelet Count 281, Mean Platelet Volume 9.3, Neutrophils (%) (Auto) 83H, Lymphocytes (%) (Auto) 10L , Monocytes (%) (Auto) 7, Eosinophils (%) (Auto) 0, Basophils (%) (Auto) 0, Neutrophils # (Auto) 4.9, Lymphocytes # (Auto) 0.6L, Monocytes # (Auto) 0.4, Eosinophils # (Auto) 0.0, Basophils # (Auto) 0.0, Prothrombin Time 50.7*H, INR Comment 5.5*H, Sodium Level 134L, Potassium Level 4.7, Chloride Level 100, Carbon Dioxide Level 23, Anion Gap 11, Blood Urea Nitrogen 22H, Creatinine 1.65H , Estimat Glomerular Filtration Rate 40, BUN/Creatinine Ratio 13, Glucose Level 189H, Calcium Level 7.6L, Phosphorus Level 3.6, Magnesium Level 1.0*L, Albumin 2.6L Microbiology 06/13/16 Blood Culture - Preliminary, Resulted No growth 06/13/16 Urine Culture - Preliminary, Resulted Probable Enterococcus Species Assessment/Plan Assessment/Plan Assess & Plan/Chief Complaint ACUTE RENAL FAILURE ANEMIA SUPRA-THERAPEUTIC INR ATRIAL FIBRILLATION PAD - POST RIGHT LEG AMPUTATION HYPERTENSION JANIS ILEOSTOMY STATUS (HX OF COLITIS) - GOOD OUTPUT CHRONIC COPD WITH ACUTE EXACERBATION ACUTE RENAL FAILURE - CREATININE IMPROVED TODAY- MONITOR CHEMISTRY PANEL, FOLLOW FOR CONTINUED STABILIZATION OF CREATININE. ANEMIA - HGB 7.7 TODAY - HOWEVER PT SYMPTOMATIC WHEN SITTING AT BEDSIDE ATTEMPTING TO WORK WITH THERAPY - PT BECAME WEAK, DIZZY AND HAD TO LAY BACK IN BED - UNABLE TO WORK WITH THERAPY VERY WELL THIS MORNING. WILL TRANSFUSE PT TODAY DUE TO HIS SYMPTOMATIC STATUS. SUPRA-THERAPEUTIC INR - INR INCREASED TO 5.5 TODAY - REPEAT LABS - CONTINUE TO HOLD COUMADIN ADMINISTRATION. ATRIAL FIBRILLATION - RATE CONTROLLED - SUPPORTIVE CARE, HOLD ANTICOAGULATION AT THIS TIME DUE TO SUPRA-THERAPEUTIC INR. PAD - POST RIGHT LEG AMPUTATION - ESCHAR STARTING ON MEDIAL ASPECT OF WOUND - PT HAS FOLLOW UP WITH SURGEON PLANNED FOR June, WILL NOT MAKE IT DUE TO HIS HOSPITALIZATION, THEREFORE, WILL NEED RESCHEDULED - THERE ARE A FEW MARY STILL IN PLACE ON THE WOUND, PER PT REPORT - DR. BEASLEY WAS TO REMOVE ON FRIDAY - WILL DEFER THE REMOVAL OF THE MARY TO DR. BEASLEY HYPERTENSION - A FEW LOW BLOOD PRESSURE READINGS OVER NIGHT - LIKELY DUE TO HIS ANEMIA, WILL GIVE BLOOD TODAY- MONITOR PRESSURES. JANIS - USE HOME CPAP. ILEOSTOMY STATUS (HX OF COLITIS) - GOOD OUTPUT CHRONIC COPD WITH ACUTE EXACERBATION - CONTINUE WITH SUPPORTIVE CARE, STEROID, WILL DECREASE DOSE, AND OXYGEN HAS BEEN WEANED TO HOME OXYGEN OF 2 LITERS. Clinical Quality Measures DVT/VTE Risk/Contraindication: Risk Factor Score Per Nursin RFS Level Per Nursing on Admit: 4+=Very High Contraindications-Pharm: Other *list below* Other: on warfarin HARRIS CORDERO MD Jun 15, 2016 10:56
[2016-06-15] MEDS: ACETAMINOPHEN 325 MG TABLET/CAPLET (TYLENOL) PO PRN ×2 (11:19→17:31)
[2016-06-15] MEDS: MUPIROCIN 2% OINT 22 GM (BACTROBAN) TUBE TOP SCH ×2 (13:42→20:39)
[2016-06-15] MEDS ORDERED: FUROSEMIDE 40 MG/4 ML INJ (LASIX) ONE (14:38)
[2016-06-15] MEDS: cefTRIAXone 1 GM/NS 50 ML IVPB IV SCH ×2 (16:38)
[2016-06-15] MEDS ORDERED: PROMETHAZINE/ CODEINE SYRUP 5 ML UDC PO PRN (19:15)
[2016-06-15] MEDS ORDERED: ONDANSETRON 4 MG/2 ML (SDV) Z0FRAN IVP PRN (19:30)
[2016-06-15] MEDS ORDERED: PROMETHAZINE INJ 25 MG/ML (PHENERGAN) AMP IVP PRN (20:30)
[2016-06-15] MEDS: MELATONIN 3 MG TABLET PO SCH (20:38)
[2016-06-15] MEDS: PANTOPRAZOLE 40 MG/10 ML (PROTONIX) VIAL IV SCH (20:38)
[2016-06-15] MEDS: MAGNESIUM 1 GM/100 ML IVPB 100 ML IV SCH ×2 (20:38→22:02)
[2016-06-15] MEDS: ALFUZOSIN HCL 10 MG TAB (UROXATRAL) PO SCH (22:05)
[2016-06-15] MEDS: ASPIRIN 81 MG CHEW (CHILDREN'S ASA) PO SCH (22:05)
[2016-06-16] VITALS (7 sets, daily range): BP systolic 151–182; BP diastolic 76–94
[2016-06-16] MEDS: NS IV 1000 ML 1,000 ML IV SCH ×2 (01:52→15:22)
[2016-06-16] MEDS: RT-ALBUTEROL/IPRATROPIUM 3 ML (DUONEB) VIAL INH SCH ×6 (02:09→22:21)
[2016-06-16 06:03] LABS: RED BLOOD COUNT 3.17 10^6/uL (4.35-5.85)
[2016-06-16 06:04] LABS: MEAN PLATELET VOLUME 9.5 FL (7.4-10.4); RED CELL DISTRIBUTION WIDTH 17.8 % (10.0-14.5)
[2016-06-16 06:20] LABS: INR 5.7 (0.8-1.4)
[2016-06-16 06:22] LABS: ALBUMIN 2.7 G/DL (3.2-4.5); BILIRUBIN,TOTAL 0.5 MG/DL (0.1-1.0); CALCIUM 7.8 MG/DL (8.5-10.1); CREATININE SERUM 1.39 MG/DL (0.60-1.30); POTASSIUM 4.6 MMOL/L (3.6-5.0); TOTAL PROTEIN 4.8 G/DL (6.4-8.2)
[2016-06-16] MEDS: LEVOTHYROXINE 50 MCG (LEVOTHROID) TAB PO SCH (06:42)
--- NOTE | 2016-06-16 08:00 | Diagnostic Imaging Report ---
INDICATION: NG tube placement. FINDINGS: KUB shows NG tube in the body of the stomach. Stomach is mildly distended. Colon and small bowel are not distended. No significant stool burden is demonstrated in the colon. There is a tortuous appearing calcified aorta without evidence of aneurysm. IMPRESSION: Satisfactory NG tube placement. Dictated by: Dictated on workstation # [id number]
[2016-06-16] MEDS: PANTOPRAZOLE 40 MG/10 ML (PROTONIX) VIAL IV SCH ×2 (08:24→20:36)
[2016-06-16] MEDS: methylPREDNISolone 40 MG/ML (Solu-MEDROL) VIAL IV SCH ×2 (08:24→20:46)
[2016-06-16] MEDS: MUPIROCIN 2% OINT 22 GM (BACTROBAN) TUBE TOP SCH ×2 (08:24→20:48)
[2016-06-16] MEDS: MICONAZOLE 2% POWDER (DESENEX AF) 90 GM TOP SCH ×2 (08:25→20:48)
[2016-06-16] MEDS: CARVEDILOL 6.25 MG (COREG) TAB PO SCH (10:10)
[2016-06-16] MEDS: GABAPENTIN 300 MG (NEURONTIN) CAP PO SCH ×2 (10:10→20:47)
[2016-06-16] MEDS: CLOPIDOGREL 75 MG (PLAVIX) TABLET PO SCH (10:10)
[2016-06-16] MEDS ORDERED: SALIVA STIMULANT MOUTH SPRAY (BIOTENE) 1.5 OZ MM PRN (10:15)
--- NOTE | 2016-06-16 10:31 | Progress Note (SOAP) ---
Subjective Subjective/Events-last exam THIS MORNING PT REPORTS THAT HE IS FEELING BETTER - HE DENIES CHEST PAIN, SHORTNESS OF BREATH THAT IS BEYOND USUAL. PT HAD A BAD NIGHT YESTERDAY - PERSISTENT EMESIS THAT BECAME WORSE DURING THE EVENING - PT ENDED UP WITH NG PLACED, HE REPORTS THAT AFTER THE NG WAS PLACED HE STARTED TO FEEL BETTER. HIS REPORTS THAT "THIS HAS HAPPENED BEFORE" MEANING THAT HE HAD EMESIS THAT WAS SIMILAR TO HIS OSTOMY OUTPUT AND HAD TO HAVE A NG PLACED. Review of Systems General: No Chills, Fatigue HEENT: No Head Aches, No Dysphasia, Sore Throat Pulmonary: Dyspnea, No Cough Cardiovascular: Edema, No: Chest Pain Gastrointestinal: No: Abdominal Pain, Nausea Genitourinary: Other (CHERRY) Musculoskeletal: leg pain Neurological: Weakness, No: Confusion Objective Exam Vital Signs Date Time Temp Pulse Resp B/P (MAP) Pulse Ox O2 Delivery O2 Flow Rate FiO2 06/16/16 08:30 2.00 06/16/16 08:00 97.1 91 18 152/81 93 Nasal Cannula 3.00 06/16/16 07:46 96 2.00 06/16/16 04:11 97.9 84 16 154/84 95 Nasal Cannula 3.00 06/16/16 02:10 96 2.00 06/16/16 00:30 98.1 77 16 168/82 95 Nasal Cannula 3.00 06/15/16 22:06 96 2.00 06/15/16 20:20 2.00 06/15/16 20:10 97.8 89 20 161/80 95 4.00 06/15/16 19:15 97.5 91 20 144/70 94 Nasal Cannula 3.00 06/15/16 18:25 98 2.00 06/15/16 18:00 97.8 91 22 127/81 96 2.00 06/15/16 17:45 97.5 85 22 131/70 96 2.00 06/15/16 16:35 97.5 85 22 131/70 06/15/16 16:00 97.2 87 18 148/71 95 Nasal Cannula 3.00 06/15/16 14:30 93 2.00 06/15/16 13:58 97.8 90 22 134/64 95 2.00 06/15/16 13:43 97.8 80 22 132/70 94 2.00 06/15/16 12:00 97.0 78 20 136/77 97 Nasal Cannula 3.00 06/15/16 10:26 95 2.00 I & O 06/16/16 07:00 Intake Total 6355 ml Output Total 3125 ml Balance 3230 ml Capillary Refill : Less Than 3 SecondsLess Than 3 Seconds General Appearance: No Apparent Distress, WD/WN HEENT: PERRL/EOMI, Other (NG TUBE IN RIGHT NARE) Neck: Full Range of Motion, Supple Respiratory: Chest Non Tender, Lungs Clear, Normal Breath Sounds, No Accessory Muscle Use, No Respiratory Distress Cardiovascular: Irregularly Irregular Gastrointestinal: normal bowel sounds, non tender, soft, no organomegaly, no pulsatile mass Extremity: Pedal Edema, Other (AMPUTATION RIGHT LEG ABOVE KNEE) Neurologic/Psychiatric: Alert, Oriented x3, No Motor/Sensory Deficits, Normal Mood/Affect Skin: Warm/Dry, Other (ESCHAR RIGHT LEG AMPUTATION AT MEDIAL EDGE OF WOUND) Results Lab Laboratory Tests 06/16/16 05:40: White Blood Count 5.0, Red Blood Count 3.17L, Hemoglobin 9.5#L, Hematocrit 29L, Mean Corpuscular Volume 91, Mean Corpuscular Hemoglobin 30, Mean Corpuscular Hemoglobin Concent 33, Red Cell Distribution Width 17.8H, Platelet Count 269, Mean Platelet Volume 9.5, Prothrombin Time 52.0*H, INR Comment 5.7*H, Sodium Level 137, Potassium Level 4.6, Chloride Level 103, Carbon Dioxide Level 22, Anion Gap 12, Blood Urea Nitrogen 22H, Creatinine 1.39H, Estimat Glomerular Filtration Rate 49, BUN/Creatinine Ratio 16, Glucose Level 162H, Calcium Level 7.8L, Magnesium Level 1.6L, Total Bilirubin 0.5, Aspartate Amino Transf (AST/ SGOT) 164H, Alanine Aminotransferase (ALT/SGPT) 79H, Alkaline Phosphatase 54, Total Protein 4.8L, Albumin 2.7L Microbiology 06/13/16 Blood Culture - Preliminary, Resulted No growth 06/13/16 Urine Culture - Final, Complete Enterococcus Faecium Assessment/Plan Assessment/Plan Assess & Plan/Chief Complaint VRE URINARY TRACT INFECTION ACUTE RENAL FAILURE UNCONTROLLED NAUSEA AND EMESIS ANEMIA SUPRA-THERAPEUTIC INR ATRIAL FIBRILLATION PAD - POST RIGHT LEG AMPUTATION HYPERTENSION JANIS ILEOSTOMY STATUS (HX OF COLITIS) - GOOD OUTPUT CHRONIC COPD WITH ACUTE EXACERBATION VRE URINARY TRACT INFECTION -MULTIPLE DRUG RESISTANCE PATTERN - PT TO BE STARTED ON DOXYCYCLINE - STOP ROCEPHIN - MONITOR PT'S RESPONSE TO TREATMENT - MAY NEED TO START ON GENT OR LINEZOLID - DOXY STARTED TO DUE DECREASED URINE PENETRATION OF LINEZOLID AND PT'S TENUOUS RENAL STATUS PRECLUDING THE GENT THE FIRST CHOICE OF TREATMENT. ACUTE RENAL FAILURE - CREATININE IMPROVED AGAIN TODAY- MONITOR CHEMISTRY PANEL, FOLLOW FOR CONTINUED STABILIZATION OF CREATININE. ANEMIA - HGB 7.7 YESTERDAY - PT WAS GIVEN BLOOD TRANSFUSION DUE TO HIS SYMPTOMS. PT WITH HGB OF 9.5 THIS MORNING. SUPRA-THERAPEUTIC INR - INR INCREASED AGAIN TODAY - REPEAT LABS - CONTINUE TO HOLD COUMADIN ADMINISTRATION. ATRIAL FIBRILLATION - RATE CONTROLLED - SUPPORTIVE CARE, HOLD ANTICOAGULATION AT THIS TIME DUE TO SUPRA-THERAPEUTIC INR. PAD - POST RIGHT LEG AMPUTATION - ESCHAR STARTING ON MEDIAL ASPECT OF WOUND - PT HAS FOLLOW UP WITH SURGEON PLANNED FOR June, WILL NOT MAKE IT DUE TO HIS HOSPITALIZATION, THEREFORE, WILL NEED RESCHEDULED - THERE ARE A FEW MARY STILL IN PLACE ON THE WOUND, PER PT REPORT - DR. BEASLEY WAS TO REMOVE ON FRIDAY - WILL DEFER THE REMOVAL OF THE MARY TO DR. BEASLEY HYPERTENSION - HGB INCREASED - PT UNABLE TO TAKE PO COREG DUE TO NG TUBE AND NPO STATUS - START ON IV LOPRESSOR, MONITOR HEART RATE, BLOOD PRESSURE CLOSELY. JANIS - USE HOME CPAP. ILEOSTOMY STATUS (HX OF COLITIS) - DECREASED OUTPUT CHRONIC COPD WITH ACUTE EXACERBATION - CONTINUE WITH SUPPORTIVE CARE, STEROID, WILL DECREASE DOSE, AND OXYGEN HAS BEEN WEANED TO HOME OXYGEN OF 2 LITERS. Clinical Quality Measures DVT/VTE Risk/Contraindication: Risk Factor Score Per Nursin RFS Level Per Nursing on Admit: 4+=Very High Contraindications-Pharm: Other *list below* Other: on warfarin HARRIS CORDERO MD Jun 16, 2016 10:31
[2016-06-16] MEDS: RIFAXIMIN 550 MG TABLET (XIFAXAN) PO SCH ×3 (10:50→20:47)
[2016-06-16] MEDS: DOXYCYCLINE INJECTION 100 MG in NS (IVPB) 100 ML IV SCH ×2 (10:50→22:58)
[2016-06-16] MEDS: meTOprolol 5 MG/5 ML (LOPRESSOR) VIAL IV SCH ×3 (10:50→23:24)
[2016-06-16] MEDS: MAGNESIUM 1 GM/100 ML IVPB 100 ML IV SCH ×2 (11:32→13:27)
[2016-06-16] MEDS: morphine INJ 4 MG/ML 1 ML (VIAL/SYRINGE) IVP PRN ×2 (11:32→23:24)
--- NOTE | 2016-06-16 11:34 | Consultation ---
History of Present Illness History of Present Illness Patient Consulted On(charissa/time) 06/16/16 11:29 Date of Admission History of Present Illness Surgery asked to consult regarding possible fecal emesis, PSBO. Pt is an 81 yo male who last night started vomiting, appx 5-6 times. stated it looked and smelled like what was in his Ostomy. Pt was complaining of abdominal pain as well last night, 6 out of 10 on a 1-10 scale. NGT was placed last night and 500ml was obtained, nurse states that since 7am she has had another 250ml out of NGT. Brownish looking with flakes of material. When seen now pt states he has no abdominal pain and is not nauseous. He reports he is much better than last night. He and his states he has had episodes of this type of vomiting before and required NGT. Pt has multiple other medical problems which he was admitted for; renal failure, COPD with drop in O2 sats, ASCVD and PVD, HTN. He has also been found to have VRE during this admission. Pt states he doesn't really want surgery on his abdomen, possibly even to save his life. Allergies and Home Medications Allergies Coded Allergies: Sulfa (Sulfonamide Antibiotics) (Unverified Allergy, Intermediate, HIVES, 04/23/16) clindamycin (Verified Allergy, Unknown, 04/21/16) STATES HE CAN NOT TAKE IT Home Medications Acetaminophen 500 Mg Tablet, 500 MG PO Q6H PRN for PAIN-MILD, (Reported) Albuterol Sulfate 1 Puff Puff, 2 PUFF IH Q4H PRN for SHORTNESS OF BREATH, ( Reported) 1 PUFF = 90 MCG Albuterol Sulfate 2.5 Mg/3 Ml Vial.neb, 2.5 MG NEB Q4H PRN for SHORTNESS OF BREATH, (Reported) Aspirin 81 Mg Chew, 81 MG PO HS, (Reported) Carvedilol 6.25 Mg Tablet, 6.25 MG PO BID, (Reported) HOLF FOR HR <60 BPM OR SYSTOLIC BP <90 Clopidogrel Bisulfate 75 Mg Tablet, 75 MG PO DAILY, (Reported) Fluticasone Propionate 9.9 Ml [place].susp, 2 SPRAYS NS DAILY PRN for ALLERGIES, ( Reported) Gabapentin 300 Mg Capsule, 300 MG PO BID, (Reported) Glucosamine/MSM/Chondroitin A 1 Each Tablet, 1 TAB PO DAILY, (Reported) Hydrocodone/Acetaminophen 1 Each Tablet, 1 TAB PO Q8H PRN for PAIN-MODERATE, ( Reported) Levothyroxine Sodium 50 Mcg Tablet, 50 MCG PO DAILY, (Reported) Lisinopril 5 Mg Tablet, 5 MG PO DAILY, (Reported) HOLD FOR HR<60BPM OR SYSTOLIC BP <90 Melatonin/Pyridoxine 1 Each Tablet, 3 MG PO HS, (Reported) Miconazole Nitrate 90 Gm Powder, TP BID, (Reported) Ondansetron HCl 4 Mg Tab, 4 MG PO Q6H PRN for NAUSEA/VOMITING-1ST LINE, ( Reported) Pantoprazole Sodium 40 Mg Tablet.dr, 40 MG PO DAILY, (Reported) Rifaximin 550 Mg Tablet, 550 MG PO TID, (Reported) Rosuvastatin Calcium 20 Mg Tablet, 20 MG PO HS, (Reported) Tamsulosin HCl 0.4 Mg Cap.er.24h, 0.4 MG PO HS, (Reported) Warfarin Sodium 5 Mg Tablet, 5 MG PO HS, (Reported) Past Onemlau-Hwvaij-Snngcc Hx Patient Social History Alcohol Use: Denies Use Recreational Drug Use: No Smoking Status: Unknown if Ever Smoked 2nd Hand Smoke Exposure: No Recent Foreign Travel: No Contact w/Someone Who Travel: No Recent Infectious Disease Expo: No Recent Hopitalizations: No Physical Abuse Screen: No Sexual Abuse: No Immunizations Up To Date PED Vaccines UTD: Yes Date of Pneumonia Vaccine: Dec 12, 2015 Date of Influenza Vaccine: Dec 12, 2015 Seasonal Allergies Seasonal Allergies: Yes Surgeries HX Surgeries: Yes (right carotid, right total knee, hernia repair, pvd, prostate seeds, ileost) Surgeries: Eye Surgery, Gallbladder, Orthopedic, Tonsillectomy Respiratory Hx Respiratory Disorders: Yes Respiratory Disorders: Asthma, Sleep Apnea Cardiovascular Hx Cardiac Disorders: Yes (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) Cardiac Disorders: Coronary Artery Disease, High Cholesterol, Hypertension Neurological Hx Neurological Disorders: Yes Neurological Disorders: Dementia, Neuropathy Reproductive System Hx Reproductive Disorders: No Sexually Transmitted Disease: No HIV/AIDS: No Genitourinary Hx Genitourinary Disorders: Yes (PROSTATE CA) Genitourinary Disorders: Prostate Problems, Kidney Stones, Renal Failure Gastrointestinal Hx Gastrointestinal Disorders: Yes (ILEOSTOMY) Gastrointestinal Disorders: Abdominal Hernia, Colitis, Gall Bladder Disease Musculoskeletal Hx Musculoskeletal Disorders: Yes (ARTHRITIS) Musculoskeletal Disorders: Chronic Back Pain Endocrine Hx Endocrine Disorders: Yes (DIABETIC FEET-TOLD DM/NO MEDS FOR IT) Endocrine Disorders: Hypothyroidsim, Diabetes, Non-Insulin dep HEENT HX ENT Disorders: No HEENT Disorders: Cataract Loss of Vision: Denies Hearing Impairment: Hard of Hearing Cancer Hx Cancer: Yes Cancer: Prostate, Stomach, Colon Psychosocial Hx Psychiatric Problems: No Integumentary HX Skin/Integumentary Disorder: No Blood Transfusions Hx Blood Disorders: No Adverse Reaction to a Blood Tr: No Reviewed Nursing Assessment Reviewed/Agree w Nursing PMH: Yes Family Medical History Significant Family History: No Pertinent Family Hx, Cancer (sister) Family Medial History: BLOOD CLOT 19 FATHER BRAIN CANCER G8 SISTER SISTER BRAIN CANCER G8 SISTER SISTER Review of Systems-General Constitutional: No chills, malaise, weakness EENTM: hearing loss, No blurred vision, No epistaxis, No mouth swelling, No throat pain, No throat swelling Respiratory: cough (pt states non-productive and has been going on for 2-3 weeks), No hemoptysis, No short of breath Cardiovascular: No chest pain, edema, Hx of Intervention, palpitations Gastrointestinal: abdominal pain, No constipation, No hematemesis, No melena Genitourinary: dysuria, frequency, No hematuria Musculoskeletal: joint pain, joint swelling, muscle stiffness Skin: dryness, rash Psychiatric/Neurological: Denies Anxiety, Denies Depressed, Denies Seizure, Other (dementia) Physical Exam-General Problems Physical Exam Vital Signs Vital Sign - Last 12Hours Temp 97.1 HR 91 Resp 18 BP 152/81 Pulse Ox 93% on 3L Capillary Refill : Less Than 3 SecondsLess Than 3 Seconds General Appearance: WD/WN, mild distress, obese Eyes: Bilateral Eye EOMI, Bilateral Eye PERRL HEENT: pharynx normal, No scleral icterus (R), No scleral icterus (L) Neck: non-tender, supple, No thyromegaly Respiratory: chest non-tender, lungs clear, no respiratory distress, no accessory muscle use, crackles (at bases) Cardiovascular: no murmur, irregularly irregular Gastrointestinal: normal bowel sounds, soft, no organomegaly, no pulsatile mass , other (ostomy is pink and functioning) Genital/Rectal: normal genital exam, other (circumcised male, no scrotal swelling) Extremities: no calf tenderness, other (right AKA, with some scabbing along incision, arpita still in place) Neurologic/Psychiatric: yarn examiner skeins II-XII nml as tested, alert, normal mood/affect, oriented x 3 Skin: normal color, warm/dry, other (does have multiple bruising on arms, probably secondary to Coumadin use) Lymphatic: no adenopathy (neck, axilla or groin) Data Review Labs Laboratory Tests 06/16/16 05:40: White Blood Count 5.0, Red Blood Count 3.17L, Hemoglobin 9.5#L, Hematocrit 29L, Mean Corpuscular Volume 91, Mean Corpuscular Hemoglobin 30, Mean Corpuscular Hemoglobin Concent 33, Red Cell Distribution Width 17.8H, Platelet Count 269, Mean Platelet Volume 9.5, Prothrombin Time 52.0*H, INR Comment 5.7*H, Sodium Level 137, Potassium Level 4.6, Chloride Level 103, Carbon Dioxide Level 22, Anion Gap 12, Blood Urea Nitrogen 22H, Creatinine 1.39H, Estimat Glomerular Filtration Rate 49, BUN/Creatinine Ratio 16, Glucose Level 162H, Calcium Level 7.8L, Magnesium Level 1.6L, Total Bilirubin 0.5, Aspartate Amino Transf (AST/ SGOT) 164H, Alanine Aminotransferase (ALT/SGPT) 79H, Alkaline Phosphatase 54, Total Protein 4.8L, Albumin 2.7L Microbiology 06/13/16 Blood Culture - Preliminary, Resulted No growth 06/13/16 Urine Culture - Final, Complete Enterococcus Faecium Assessment/Plan Assessment/Plan Assessment/Plan PSBO- still has increased NGT output, but KUB does not appear to show obstruction, and pt does not complain of abdominal pain. Plus the ostomy is functioning. Would continue NGT and try clamping once the output has decreased. In any case; at this time pt states he doesn't think he would want surgical intervention anyway. I will continue to follow along. VRE UTI - currently being treated ARF - seems to be improing N/V - resolved Anemia-unknown etiology, s/p transfusion Per Medicine: SUPRA-THERAPEUTIC INR ATRIAL FIBRILLATION PAD - POST RIGHT LEG AMPUTATION HYPERTENSION JANIS ILEOSTOMY STATUS (HX OF COLITIS) - GOOD OUTPUT CHRONIC COPD WITH ACUTE EXACERBATION Clinical Quality Measures DVT/VTE Risk/Contraindication: Risk Factor Score Per Nursin RFS Level Per Nursing on Admit: 4+=Very High Contraindications-Pharm: Other *list below* Other: on warfarin ORNI BANDA DO Jun 16, 2016 11:34
[2016-06-16] MEDS ORDERED: VITAMIN K 1 MG/ML ORAL SOLN 1 ML SYRINGE NG ONE (15:45)
[2016-06-16 16:32] LABS: INR 5.2 (0.8-1.4); PROTHROMBIN TIME PATIENT 48.5 SEC (12.2-14.7)
[2016-06-16] MEDS: CATHETER FLUSH 10 ML SYR IV PRN (20:36)
[2016-06-16] MEDS: ALFUZOSIN HCL 10 MG TAB (UROXATRAL) PO SCH (20:47)
[2016-06-16] MEDS: ASPIRIN 81 MG CHEW (CHILDREN'S ASA) PO SCH (20:47)
[2016-06-16] MEDS: MELATONIN 3 MG TABLET PO SCH (20:47)
[2016-06-17] MEDS: RT-ALBUTEROL/IPRATROPIUM 3 ML (DUONEB) VIAL INH SCH ×5 (02:00→22:10)
[2016-06-17] MEDS: NS IV 1000 ML 1,000 ML IV SCH ×3 (02:02→14:33)
[2016-06-17 04:53] LABS: MEAN PLATELET VOLUME 9.5 FL (7.4-10.4); RED BLOOD COUNT 3.14 10^6/uL (4.35-5.85); RED CELL DISTRIBUTION WIDTH 18.4 % (10.0-14.5); WHITE BLOOD COUNT 5.3 10^3/uL (4.3-11.0)
[2016-06-17 04:59] VITALS: BP 167/84
[2016-06-17] MEDS: meTOprolol 5 MG/5 ML (LOPRESSOR) VIAL IV SCH ×3 (05:00→17:19)
[2016-06-17 05:04] LABS: INR 3.9 (0.8-1.4)
[2016-06-17 05:15] LABS: ALBUMIN 2.7 G/DL (3.2-4.5); BILIRUBIN,TOTAL 0.6 MG/DL (0.1-1.0); CALCIUM 8.3 MG/DL (8.5-10.1); CREATININE SERUM 1.24 MG/DL (0.60-1.30); POTASSIUM 4.7 MMOL/L (3.6-5.0); TOTAL PROTEIN 4.7 G/DL (6.4-8.2)
[2016-06-17] MEDS: LEVOTHYROXINE 50 MCG (LEVOTHROID) TAB PO SCH (06:22)
[2016-06-17] MEDS: GABAPENTIN 300 MG (NEURONTIN) CAP PO SCH ×2 (07:36→20:58)
[2016-06-17 08:00] VITALS: BP 196/100
[2016-06-17] MEDS: morphine INJ 4 MG/ML 1 ML (VIAL/SYRINGE) IVP PRN ×2 (08:20→11:12)
[2016-06-17] MEDS: methylPREDNISolone 40 MG/ML (Solu-MEDROL) VIAL IV SCH ×2 (08:23→09:07)
[2016-06-17] MEDS: MUPIROCIN 2% OINT 22 GM (BACTROBAN) TUBE TOP SCH ×2 (08:25→20:58)
[2016-06-17] MEDS: MICONAZOLE 2% POWDER (DESENEX AF) 90 GM TOP SCH ×2 (08:28→20:59)
--- NOTE | 2016-06-17 08:31 | Progress Note (SOAP) ---
Subjective Subjective 81 yo M with acute kidney failure due to poor po intake, confusion, UTI Received pRBC 06/15/16- pSBO -NG tube placed 06/15/16 -Dr. Burt consulted Pt would like the NG tube taken out today. Review of Systems General: No Chills, Fatigue HEENT: No Head Aches, No Dysphasia Pulmonary: Dyspnea, No Cough Cardiovascular: Edema, No: Chest Pain Gastrointestinal: No: Abdominal Pain, Nausea, Vomiting Genitourinary: Other (CHERRY) Musculoskeletal: leg pain (right) Neurological: Weakness, No: Confusion All Other Systems Reviewed All Other Systems Reviewed: Yes Objective Exam Vital Signs Vital Signs Date Time Temp Pulse Resp B/P (MAP) Pulse Ox O2 Delivery O2 Flow Rate FiO2 06/17/16 07:00 90 06/17/16 04:59 97.7 78 20 167/84 94 Nasal Cannula 2.00 06/17/16 01:00 75 06/16/16 23:16 97.6 84 20 151/82 93 Nasal Cannula 2.00 06/16/16 22:21 94 2.00 06/16/16 20:33 98.0 89 18 179/77 93 Nasal Cannula 3.00 06/16/16 20:10 2.00 06/16/16 19:00 91 06/16/16 18:33 92 2.00 06/16/16 16:00 97.2 80 18 156/76 94 Nasal Cannula 3.00 06/16/16 14:42 95 2.00 06/16/16 13:00 89 06/16/16 12:00 97.8 89 20 182/94 95 Nasal Cannula 3.00 06/16/16 10:17 93 2.00 I & O 06/17/16 07:00 Intake Total 2410 ml Output Total 1275 ml Balance 1135 ml General Appearance: Mild Distress Eyes: Bilateral Eye EOMI, Bilateral Eye Normal Inspection, Bilateral Eye PERRL HEENT: PERRL/EOMI, Other (NG TUBE IN RIGHT NARE) Neck: Full Range of Motion, Supple Respiratory: Chest Non Tender, Lungs Clear, Normal Breath Sounds, No Accessory Muscle Use, No Respiratory Distress Cardiovascular: Other (irregular rhythm, regular rate) Gastrointestinal: Normal Bowel Sounds, Non Tender, Soft, Other (right ostomy) Rectal: Deferred Back: No CVA Tenderness Extremity: Pedal Edema, Other (AMPUTATION RIGHT LEG ABOVE KNEE) Neurologic/Psychiatric: Alert, Oriented x3, No Motor/Sensory Deficits, Normal Mood/Affect Skin: Warm/Dry, Other (ESCHAR RIGHT LEG AMPUTATION AT MEDIAL EDGE OF WOUND) Results Lab Laboratory Tests 06/16/16 14:25: Stool Occult Blood Immunoassay POSITIVEH 06/16/16 16:03: Prothrombin Time 48.5*H, INR Comment 5.2*H 06/17/16 04:20: Prothrombin Time 38.0H, INR Comment 3.9H, White Blood Count 5.3, Red Blood Count 3.14L, Hemoglobin 9.4L, Hematocrit 30L, Mean Corpuscular Volume 95, Mean Corpuscular Hemoglobin 30, Mean Corpuscular Hemoglobin Concent 32, Red Cell Distribution Width 18.4H, Platelet Count 257, Mean Platelet Volume 9.5, Sodium Level 138, Potassium Level 4.7, Chloride Level 109H, Carbon Dioxide Level 19L, Anion Gap 10, Blood Urea Nitrogen 20H, Creatinine 1.24, Estimat Glomerular Filtration Rate 56, BUN/Creatinine Ratio 16, Glucose Level 147H, Calcium Level 8.3L, Total Bilirubin 0.6, Aspartate Amino Transf (AST/SGOT) 218H, Alanine Aminotransferase (ALT/SGPT) 121H, Alkaline Phosphatase 52, Total Protein 4.7L, Albumin 2.7L Microbiology 06/13/16 Blood Culture - Preliminary, Resulted No growth 06/13/16 Urine Culture - Final, Complete Enterococcus Faecium Assessment/Plan Assessment/Plan Assessment/Plan 81 yo M VRE UTI- doxycycline, IVF partial Small Bowel Obstruction- NG tube placed 06/15/16 -Dr. Burt consulted Atrial fibrillation- INR supratherapeutic- due to poor po nutrition monitoring INR, holding warfarin- vitamin K 1mg 06/16/16- monitor INR COPD exacerbation - baseline oxygen 2L requirement , RT consult, methylpred 40mg IV, peripheral vascular disease- plavix Dr. David Mathis, Vascular Surgeon at [facility] will need a follow up appt hypothyroidism- cont levothyroxine HTN- monitor cont coreg CAD- stable h/o colitis-- requiring ileostomy- stable- Weakness/deconditioning- PT consulted. Right above knee amputation- Pt has follow up with Dr. Jean-Baptiste June 19, 2016- will have to reschedule Inguinal candidiasis- miconazole powder. Anemia of chronic disease- 2units pRBC on 06/03/16- monitor cbc Transfused 2units- pRBC 06/15/16 as he was symptomatic obstructive sleep apnea- home cpap Hyperkalemia- resolved Hypomagnesemia- replacing Acute Kidney failure due to UTI, poor po intake, fentanyl patch- Cr improving; baseline Cr 1.1 -continue IVF- monitor lytes and Cr/GFR- - avoid nephrotoxic agents (NSAIDS, contrast) fentanyl patch removed 06/13/2016 Dispo: PT to work with pt- [facility]. Code: DNR Prognosis- overall poor as he has spent nearly the last 2 months in the hospital ([facility], [facility])- Problems: Clinical Quality Measures DVT/VTE Risk/Contraindication: Risk Factor Score Per Nursin RFS Level Per Nursing on Admit: 4+=Very High Contraindications-Pharm: Other *list below* Other: on warfarin TK DELEON MD June 17, 2016 08:31
[2016-06-17] MEDS: PANTOPRAZOLE 40 MG/10 ML (PROTONIX) VIAL IV SCH ×2 (08:32→20:57)
[2016-06-17] MEDS ORDERED: meTOprolol 5 MG/5 ML (LOPRESSOR) VIAL IV NR (09:00)
[2016-06-17] MEDS: CLOPIDOGREL 75 MG (PLAVIX) TABLET PO SCH (09:07)
[2016-06-17] MEDS: DOXYCYCLINE INJECTION 100 MG in NS (IVPB) 100 ML IV SCH ×2 (09:15→21:07)
[2016-06-17] MEDS: RIFAXIMIN 550 MG TABLET (XIFAXAN) PO SCH ×2 (09:17→12:13)
[2016-06-17] MEDS: MAGNESIUM 1 GM/100 ML IVPB 100 ML IV SCH ×2 (09:18→11:16)
--- NOTE | 2016-06-17 10:25 | Physical Therapy Daily Note ---
PT Daily Note-Current Subjective Patient reports 7/10 right stump pain with noted redness on distal end of stump. Pain Numeric Pain Scale: 7 Location: Right Location Body Site: Thigh Pain Description: Burning, Sharp Mental Status Patient Orientation: Normal For Age Attachments: Oxygen, IV Transfers Functional [place] Measure 0=Not Assessed/NA 4=Minimal Assistance 1=Total Assistance 5=Supervision or Setup 2=Maximal Assistance 6=Modified [place] 3=Moderate Assistance 7=Complete IndependenceIRFPAI Quality Coding Scale 6 Independent with activity with or without an assistive device 5 Patient requires set up or clean up by helper. Patient completes activity by themselves 4 Supervision or touching assist (CGA). [place] provide cues , steadying assist 3 The helper provides less than half the effort to complete the activity 2 The helper provides more than half the effort to complete the activity 1 Dependent. The helper does all the effort to complete an activity 7 Patient refused to complete or attempt activity 9 The patient did not perform the activity before the current illness or injury 88 Not attempted due to Medical conditions or safety concerns Transfers (B, C, W/C) (FIM): 1 Scootin Rollin Supine to/from Sit: 4 Sit to/from Stand: 1 Bed to/from Chair: 1 bed mobility improved on this date. dependent assist with sit to stand and SPT bed to chair Weight Bearing Weight Bearing Restriction: Weight Bearing/Tolerated Location Restriction: L LE Exercises Supine Ex: Ankle pumps, Quad Set, Heel Slides, Straight leg raise Supine Reps: 10 Seated Therapy Exercises: Ankle pumps, Long arc quads, Hip flexion Seated Reps: 15 left LE exercises Assessment Patient is up in recliner with needs met. Patient has multiple wounds on left LE from transfers at [place]. PT to increase activity as tolerated by patient. PT Legal Transcriber Goals Legal Transcriber Goals PT Senior Living Goals Time Frame: June 21, 2016 Transfers (B,C,W/C) (FIM): 4 Wheelchair (FIM): 2 Distance: 50' Wheelchair Level of Assist: 4 PT Plan Treatment/Plan Treatment Plan: Continue Plan of Care Treatment Plan: Bed Mobility, Education, Functional Activity [place], Functional Strength, Safety, Therapeutic Exercise, Transfers Treatment Duration: June 21, 2016 Visits Per Week: 10-11 Minutes/Day (M-F): 15-30 Minutes/Day (Sat/[place]): 15-30 Time/GCodes Time In: 840 Time Out: 905 Total Billed Treatment Time: 25 Total Billed Treatment 1 visit FA 10 min EX 15 min CLAUDIA MAYFIELD PT June 17, 2016 10:25
[2016-06-17] MEDS ORDERED: RT-ALBUTEROL/IPRATROPIUM 3 ML (DUONEB) VIAL INH PRN (10:45)
[2016-06-17] MEDS: HYDROcodone/APAP 5 MG/325 MG (LORTAB) TAB PO PRN ×2 (11:12→17:22)
[2016-06-17 12:00] VITALS: BP 150/81
--- NOTE | 2016-06-17 12:59 | Physical Therapy Daily Note ---
PT Daily Note-Current Subjective Patient agrees to exercises in bed. Per spouse patient transferred to bed ~ 1 hour prior to PT arrival. Pain Numeric Pain Scale: 5-Moderate Pain Location: Right Location Body Site: Thigh Pain Description: Throbbing Mental Status Patient Orientation: Person, Time, Situation Attachments: Oxygen, IV Transfers Functional [place] Measure 0=Not Assessed/NA 4=Minimal Assistance 1=Total Assistance 5=Supervision or Setup 2=Maximal Assistance 6=Modified [place] 3=Moderate Assistance 7=Complete IndependenceIRFPAI Quality Coding Scale 6 Independent with activity with or without an assistive device 5 Patient requires set up or clean up by helper. Patient completes activity by themselves 4 Supervision or touching assist (CGA). [place] provide cues , steadying assist 3 The helper provides less than half the effort to complete the activity 2 The helper provides more than half the effort to complete the activity 1 Dependent. The helper does all the effort to complete an activity 7 Patient refused to complete or attempt activity 9 The patient did not perform the activity before the current illness or injury 88 Not attempted due to Medical conditions or safety concerns Exercises Supine Ex: Ankle pumps, Quad Set, Heel Slides, Short Arc Quads, Straight leg raise, Hip abd/add Supine Reps: 25 (AAROM left LE x 2 sets) Assessment Patient fatigues with minimal activity. PT educated patient and family on importance of exercising in bed PRN during day and night if he is not sleeping, to increase muscle strength. Patient is to be slide board transfer or lift transfer if staff does not feel safe or comfortable with SPT. PT Newspaper Inserter Goals Newspaper Inserter Goals PT Newspaper Inserter Goals Time Frame: June 21, 2016 Transfers (B,C,W/C) (FIM): 4 Wheelchair (FIM): 2 Distance: 50' Wheelchair Level of Assist: 4 PT Plan Treatment/Plan Treatment Plan: Continue Plan of Care Treatment Plan: Bed Mobility, Education, Functional Activity [place], Functional Strength, Safety, Therapeutic Exercise, Transfers Treatment Duration: June 21, 2016 Visits Per Week: 10-11 Minutes/Day (M-F): 15-30 Minutes/Day (Sat/[place]): 15-30 Time/GCodes Time In: 1230 Time Out: 1253 Total Billed Treatment Time: 23 Total Billed Treatment 1 visit EX x 2 23 min CLAUDIA MAYFIELD PT June 17, 2016 12:59
--- NOTE | 2016-06-17 13:11 | Progress Note ---
Subjective Subjective/Events-last exam Pt seen and examined, events of last night noted- pt had blood in NGT, but was lavaged and no more returned and nothing since then. Pt denies any abdominal pain or nausea. He is hungry and wants the "tube in my nose" out. Review of Systems General: No Chills, No Night Sweats Objective Exam Vital Signs Date Time Temp Pulse Resp B/P (MAP) Pulse Ox O2 Delivery O2 Flow Rate FiO2 06/17/16 10:26 92 06/17/16 10:26 92 2.00 06/17/16 08:00 97.4 100 20 196/100 95 Nasal Cannula 2.00 06/17/16 07:00 90 06/17/16 04:59 97.7 78 20 167/84 94 Nasal Cannula 2.00 06/17/16 01:00 75 06/16/16 23:16 97.6 84 20 151/82 93 Nasal Cannula 2.00 06/16/16 22:21 94 2.00 06/16/16 20:33 98.0 89 18 179/77 93 Nasal Cannula 3.00 06/16/16 20:10 2.00 06/16/16 19:00 91 06/16/16 18:33 92 2.00 06/16/16 16:00 97.2 80 18 156/76 94 Nasal Cannula 3.00 06/16/16 14:42 95 2.00 I & O 06/17/16 07:00 Intake Total 2410 ml Output Total 1275 ml Balance 1135 ml Capillary Refill : Less Than 3 SecondsLess Than 3 Seconds General Appearance: No Apparent Distress, Obese HEENT: PERRL/EOMI, Other (NG TUBE IN RIGHT NARE) Neck: Full Range of Motion, Supple Respiratory: Chest Non Tender, Lungs Clear, Normal Breath Sounds, No Accessory Muscle Use, No Respiratory Distress Cardiovascular: Other (irregular rhythm, regular rate) Gastrointestinal: normal bowel sounds, soft, no organomegaly, no pulsatile mass , other (ostomy is pink and functioning) Extremity: Pedal Edema, Other (AMPUTATION RIGHT LEG ABOVE KNEE) Neurologic/Psychiatric: Alert, Oriented x3, No Motor/Sensory Deficits, Normal Mood/Affect Skin: Warm/Dry, Other (ESCHAR RIGHT LEG AMPUTATION AT MEDIAL EDGE OF WOUND) Results Lab Laboratory Tests 06/16/16 14:25: Stool Occult Blood Immunoassay POSITIVEH 06/16/16 16:03: Prothrombin Time 48.5*H, INR Comment 5.2*H 06/17/16 04:20: Prothrombin Time 38.0H, INR Comment 3.9H, White Blood Count 5.3, Red Blood Count 3.14L, Hemoglobin 9.4L, Hematocrit 30L, Mean Corpuscular Volume 95, Mean Corpuscular Hemoglobin 30, Mean Corpuscular Hemoglobin Concent 32, Red Cell Distribution Width 18.4H, Platelet Count 257, Mean Platelet Volume 9.5, Sodium Level 138, Potassium Level 4.7, Chloride Level 109H, Carbon Dioxide Level 19L, Anion Gap 10, Blood Urea Nitrogen 20H, Creatinine 1.24, Estimat Glomerular Filtration Rate 56, BUN/Creatinine Ratio 16, Glucose Level 147H, Calcium Level 8.3L, Total Bilirubin 0.6, Aspartate Amino Transf (AST/SGOT) 218H, Alanine Aminotransferase (ALT/SGPT) 121H, Alkaline Phosphatase 52, Total Protein 4.7L, Albumin 2.7L Microbiology 06/13/16 Blood Culture - Preliminary, Resulted No growth 06/13/16 Urine Culture - Final, Complete Enterococcus Faecium Assessment/Plan Assessment/Plan Assessment/Plan Partial Small Bowel Obstruction- seems resolved, will D/C NGT and start diet. I will sign off and reconsult as needed; however, pt did not think he wanted any major surgery.....even if he needed it. Remainder per Medicine. VRE UTI- doxycycline, IVF Atrial fibrillation- INR supratherapeutic- due to poor po nutrition monitoring INR, holding warfarin- vitamin K 1mg 06/16/16- monitor INR COPD exacerbation - baseline oxygen 2L requirement , RT consult, methylpred 40mg IV, peripheral vascular disease- plavix Dr. David Mathis, Vascular Surgeon at [facility] will need a follow up appt hypothyroidism- cont levothyroxine HTN- monitor cont coreg CAD- stable h/o colitis-- requiring ileostomy- stable- Weakness/deconditioning- PT consulted. Right above knee amputation- Pt has follow up with Dr. Jean-Baptiste June 19, 2016- will have to reschedule Inguinal candidiasis- miconazole powder. Anemia of chronic disease- 2units pRBC on 06/03/16- monitor cbc Transfused 2units- pRBC 06/15/16 as he was symptomatic obstructive sleep apnea- home cpap Hyperkalemia- resolved Hypomagnesemia- replacing Acute Kidney failure due to UTI, poor po intake, fentanyl patch- Cr improving; baseline Cr 1.1 -continue IVF- monitor lytes and Cr/GFR- - avoid nephrotoxic agents (NSAIDS, contrast) fentanyl patch removed 06/13/2016 Dispo: PT to work with pt- plan to d/c to [facility] when he is better. Code: DNR Prognosis- overall poor as he has spent nearly the last 2 months in the hospital ([facility])- Clinical Quality Measures DVT/VTE Risk/Contraindication: Risk Factor Score Per Nursin RFS Level Per Nursing on Admit: 4+=Very High Contraindications-Pharm: Other *list below* Other: on warfarin RONI BANDA DO June 17, 2016 13:11
[2016-06-17 16:28] VITALS: BP 170/84
[2016-06-17 20:24] VITALS: BP 149/81
[2016-06-17] MEDS: CATHETER FLUSH 10 ML SYR IV PRN (20:57)
[2016-06-17] MEDS: MELATONIN 3 MG TABLET PO SCH (20:58)
[2016-06-17] MEDS: ALFUZOSIN HCL 10 MG TAB (UROXATRAL) PO SCH (20:58)
[2016-06-17] MEDS: ASPIRIN 81 MG CHEW (CHILDREN'S ASA) PO SCH (20:58)
[2016-06-17] MEDS: CARVEDILOL 6.25 MG (COREG) TAB PO SCH (21:07)
[2016-06-18] VITALS: BP 153/75
[2016-06-18 04:00] VITALS: BP 163/87
[2016-06-18 05:00] VITALS: BP 158/74
[2016-06-18 06:15] LABS: MEAN PLATELET VOLUME 9.3 FL (7.4-10.4); RED BLOOD COUNT 2.84 10^6/uL (4.35-5.85); RED CELL DISTRIBUTION WIDTH 17.9 % (10.0-14.5); WHITE BLOOD COUNT 5.3 10^3/uL (4.3-11.0)
[2016-06-18 06:24] LABS: PROTHROMBIN TIME PATIENT 31.4 SEC (12.2-14.7)
[2016-06-18 06:32] LABS: ALBUMIN 2.6 G/DL (3.2-4.5); BILIRUBIN,TOTAL 0.5 MG/DL (0.1-1.0); CALCIUM 8.2 MG/DL (8.5-10.1); CREATININE SERUM 1.19 MG/DL (0.60-1.30); MAGNESIUM 1.9 MG/DL (1.8-2.4); POTASSIUM 4.4 MMOL/L (3.6-5.0); TOTAL PROTEIN 4.4 G/DL (6.4-8.2)
[2016-06-18] MEDS: NS IV 1000 ML 1,000 ML IV SCH ×3 (06:36→23:33)
[2016-06-18] MEDS: LEVOTHYROXINE 50 MCG (LEVOTHROID) TAB PO SCH (06:36)
[2016-06-18] MEDS: methylPREDNISolone 40 MG/ML (Solu-MEDROL) VIAL IV SCH (07:32)
[2016-06-18] MEDS: CLOPIDOGREL 75 MG (PLAVIX) TABLET PO SCH (07:33)
[2016-06-18] MEDS: CARVEDILOL 6.25 MG (COREG) TAB PO SCH ×2 (07:33→20:21)
[2016-06-18] MEDS: lisINopril 5 MG (PRINIVIL) TABLET PO SCH (07:33)
[2016-06-18] MEDS: PANTOPRAZOLE 40 MG/10 ML (PROTONIX) VIAL IV SCH ×2 (07:33→20:20)
[2016-06-18] MEDS: GABAPENTIN 300 MG (NEURONTIN) CAP PO SCH ×2 (07:33→20:22)
[2016-06-18] MEDS: MUPIROCIN 2% OINT 22 GM (BACTROBAN) TUBE TOP SCH ×2 (07:33→20:22)
[2016-06-18] MEDS: MICONAZOLE 2% POWDER (DESENEX AF) 90 GM TOP SCH ×2 (07:34→20:22)
[2016-06-18 08:00] VITALS: BP 131/62
--- NOTE | 2016-06-18 09:09 | Progress Note (SOAP) ---
Subjective Subjective 81 yo M with acute kidney failure due to poor po intake, confusion, UTI No overnight events- pt still has the cough- he would like some cough medicine Pt sitting up in the chair today- PT notes he is weaker today- poorer effort- Review of Systems General: No Chills, No Night Sweats HEENT: No Head Aches, No Dysphasia Pulmonary: Dyspnea, No Cough, Other (shortness of breath with exertion) Cardiovascular: Edema, No: Chest Pain Gastrointestinal: No: Abdominal Pain, Nausea, Vomiting Genitourinary: Other (CHERRY) Musculoskeletal: leg pain (right) Neurological: Weakness, No: Confusion All Other Systems Reviewed All Other Systems Reviewed: Yes Objective Exam Vital Signs Vital Sign - Last 12Hours Capillary Refill : Less Than 3 SecondsLess Than 3 Seconds General Appearance: No Apparent Distress, Obese Eyes: Bilateral Eye EOMI, Bilateral Eye Normal Inspection, Bilateral Eye PERRL HEENT: PERRL/EOMI, Other (NG TUBE IN RIGHT NARE) Neck: Full Range of Motion, Supple Respiratory: Chest Non Tender, Lungs Clear, Normal Breath Sounds, No Accessory Muscle Use, No Respiratory Distress Cardiovascular: Other (irregular rhythm, regular rate) Gastrointestinal: Normal Bowel Sounds, Non Tender, Soft, Other (right ostomy) Rectal: Deferred Back: No CVA Tenderness Extremity: Pedal Edema, Other (AMPUTATION RIGHT LEG ABOVE KNEE) Neurologic/Psychiatric: Alert, Oriented x3, No Motor/Sensory Deficits, Normal Mood/Affect Skin: Warm/Dry, Other (ESCHAR RIGHT LEG AMPUTATION AT MEDIAL EDGE OF WOUND) Results Lab Laboratory Tests 06/17/16 16:16: Lab Scanned Report Transfusion Reaction Form 06/18/16 06:05: White Blood Count 5.3, Red Blood Count 2.84L, Hemoglobin 8.6L, Hematocrit 27L, Mean Corpuscular Volume 95, Mean Corpuscular Hemoglobin 30, Mean Corpuscular Hemoglobin Concent 32, Red Cell Distribution Width 17.9H, Platelet Count 255, Mean Platelet Volume 9.3, Prothrombin Time 31.4H, INR Comment 3.0H, Sodium Level 138, Potassium Level 4.4, Chloride Level 108H, Carbon Dioxide Level 21, Anion Gap 9, Blood Urea Nitrogen 24H, Creatinine 1.19, Estimat Glomerular Filtration Rate 58, BUN/Creatinine Ratio 20, Glucose Level 113H, Calcium Level 8.2L, Magnesium Level 1.9, Total Bilirubin 0.5, Aspartate Amino Transf (AST/SGOT ) 139H, Alanine Aminotransferase (ALT/SGPT) 115H, Alkaline Phosphatase 47, Total Protein 4.4L, Albumin 2.6L Microbiology 06/13/16 Blood Culture - Preliminary, Resulted No growth 06/13/16 Urine Culture - Final, Complete Enterococcus Faecium Assessment/Plan Assessment/Plan Assessment/Plan 81 yo M VRE UTI- improving doxycycline 06/15/16--, IVF partial Small Bowel Obstruction- NG tube placed 06/15/16 -Dr. Burt consulted NG removed 06/17/16- improving- diet advanced. Atrial fibrillation- INR supratherapeutic- due to poor po nutrition monitoring INR, holding warfarin- vitamin K 1mg 06/16/16- monitor INR COPD exacerbation - baseline oxygen 2L requirement , RT consult, methylpred 40mg IV, peripheral vascular disease- plavix Dr. David Mathis, Vascular Surgeon at [facility] will need a follow up appt hypothyroidism- cont levothyroxine HTN- monitor cont coreg, lisinopril CAD- stable h/o colitis-- requiring ileostomy- stable- Weakness/deconditioning- PT consulted. Right above knee amputation- Pt has follow up with Dr. Jean-Baptiste June 19, 2016- will have to reschedule Inguinal candidiasis- miconazole powder. Anemia of chronic disease- 2units pRBC on 06/03/16- Transfused 2units- pRBC as he was symptomatic monitor cbc obstructive sleep apnea- home cpap Hyperkalemia- resolved Hypomagnesemia- replacing Acute Kidney failure due to UTI, poor po intake, fentanyl patch- Cr improving; baseline Cr 1.1 -continue IVF- monitor lytes and Cr/GFR- - avoid nephrotoxic agents (NSAIDS, contrast) fentanyl patch removed 06/13/2016 cough- robitussin with codeine Dispo: PT to work with pt- plan to d/c to [facility] when he is better. Code: DNR Prognosis- overall poor as he has spent nearly the last 2 months in the hospital ([facility])- No surgeries- pt declines any more surgeries- Problems: Clinical Quality Measures DVT/VTE Risk/Contraindication: Risk Factor Score Per Nursin RFS Level Per Nursing on Admit: 4+=Very High Contraindications-Pharm: Other *list below* Other: on warfarin TK DELEON MD June 18, 2016 09:09
[2016-06-18] MEDS ORDERED: guaiFENesin/CODEINE (ROBITUSSIN AC) 10ML UDC PO PRN (09:15)
[2016-06-18] MEDS: DOXYCYCLINE INJECTION 100 MG in NS (IVPB) 100 ML IV SCH ×2 (09:31→21:28)
[2016-06-18] MEDS: RT-ALBUTEROL/IPRATROPIUM 3 ML (DUONEB) VIAL INH SCH ×3 (09:39→18:49)
--- NOTE | 2016-06-18 10:04 | Physical Therapy Daily Note ---
PT Daily Note-Current Subjective Patient is in bed and agrees to PT. Patient states he "feels rough". Pain Numeric Pain Scale: 0-No Pain Location: No Pain Reported Appearance total body edema and increase SOA with O2 in place Mental Status Patient Orientation: Person, Non-Verbal/Aphasic, Situation Attachments: Oxygen, IV Transfers Functional [place] Measure 0=Not Assessed/NA 4=Minimal Assistance 1=Total Assistance 5=Supervision or Setup 2=Maximal Assistance 6=Modified [place] 3=Moderate Assistance 7=Complete IndependenceIRFPAI Quality Coding Scale 6 Independent with activity with or without an assistive device 5 Patient requires set up or clean up by helper. Patient completes activity by themselves 4 Supervision or touching assist (CGA). [place] provide cues , steadying assist 3 The helper provides less than half the effort to complete the activity 2 The helper provides more than half the effort to complete the activity 1 Dependent. The helper does all the effort to complete an activity 7 Patient refused to complete or attempt activity 9 The patient did not perform the activity before the current illness or injury 88 Not attempted due to Medical conditions or safety concerns Transfers (B, C, W/C) (FIM): 1 Scootin Rollin Supine to/from Sit: 2 Sit to/from Stand: 1 Bed to/from Chair: 1 dependent assist x 2 with all mobility. Patient is retropulsive in sit EOB and minimal ability to self correct. Exercises Supine Ex: Ankle pumps, Quad Set, Heel Slides, Short Arc Quads, Straight leg raise, Hip abd/add Supine Reps: 20 Seated Therapy Exercises: Ankle pumps, Long arc quads Seated Reps: 20 Assessment noted increase SOA with minimal activity on this date. Patient also c/o of itching with noted rash on his back. RN notified to assess. PT consulted with Dr. Payan on patient's progress. PT [employer]or Goals [employer]or Goals PT Detention Goals Time Frame: June 21, 2016 Transfers (B,C,W/C) (FIM): 4 Wheelchair (FIM): 2 Distance: 50' Wheelchair Level of Assist: 4 PT Plan Treatment/Plan Treatment Plan: Modify Plan, see comments (PT to decrease to 6/wk treatments due to patient's Poor prognosis) Treatment Plan: Bed Mobility, Education, Functional Activity [place], Functional Strength, Safety, Therapeutic Exercise, Transfers Treatment Duration: June 21, 2016 Visits Per Week: 10-11 Minutes/Day (M-F): 15-30 Minutes/Day (Sat/[place]): 15-30 Time/GCodes Time In: 815 Time Out: 840 Total Billed Treatment Time: 25 Total Billed Treatment 1 visit EX 15 min FA 10 min CLAUDIA MAYFIELD PT June 18, 2016 10:04
--- NOTE | 2016-06-18 10:45 | Physical Therapy Daily Note ---
PT Daily Note-Current Subjective Patient agrees to therapy. Mental Status Patient Orientation: Person, Time Attachments: Oxygen, IV Transfers Functional [place] Measure 0=Not Assessed/NA 4=Minimal Assistance 1=Total Assistance 5=Supervision or Setup 2=Maximal Assistance 6=Modified [place] 3=Moderate Assistance 7=Complete IndependenceIRFPAI Quality Coding Scale 6 Independent with activity with or without an assistive device 5 Patient requires set up or clean up by helper. Patient completes activity by themselves 4 Supervision or touching assist (CGA). [place] provide cues , steadying assist 3 The helper provides less than half the effort to complete the activity 2 The helper provides more than half the effort to complete the activity 1 Dependent. The helper does all the effort to complete an activity 7 Patient refused to complete or attempt activity 9 The patient did not perform the activity before the current illness or injury 88 Not attempted due to Medical conditions or safety concerns Transfers (B, C, W/C) (FIM): 1 Scootin Rollin Supine to/from Sit: 3 Sit to/from Stand: 1 Bed to/from Chair: 1 dependent assist x 2 with sit to stand SPT recliner to bed. Exercises Supine Ex: Ankle pumps, Heel Slides, Straight leg raise Supine Reps: 10 (left LE) Assessment Patient reports he is very fatigued and is repositioned in bed with pillows under bilateral UE's and LE's to elevate secondary to edema. Call light in hand. PT Alf Goals Alf Goals PT Alf Goals Time Frame: June 21, 2016 Transfers (B,C,W/C) (FIM): 4 Wheelchair (FIM): 2 Distance: 50' Wheelchair Level of Assist: 4 PT Plan Treatment/Plan Treatment Plan: Continue Plan of Care Treatment Plan: Bed Mobility, Education, Functional Activity [place], Functional Strength, Safety, Therapeutic Exercise, Transfers Treatment Duration: June 21, 2016 Visits Per Week: 10-11 Minutes/Day (M-F): 15-30 Minutes/Day (Sat/[place]): 15-30 Time/GCodes Time In: 1020 Time Out: 1035 Total Billed Treatment Time: 15 Total Billed Treatment 1 visit FA 15 min CLAUDIA MAYFIELD PT June 18, 2016 10:45
[2016-06-18] MEDS: HYDROcodone/APAP 5 MG/325 MG (LORTAB) TAB PO PRN ×2 (11:51→21:26)
[2016-06-18 16:20] VITALS: BP 140/87
[2016-06-18] MEDS: CATHETER FLUSH 10 ML SYR IV PRN (20:20)
[2016-06-18] MEDS: MELATONIN 3 MG TABLET PO SCH (20:21)
[2016-06-18] MEDS: ALFUZOSIN HCL 10 MG TAB (UROXATRAL) PO SCH (20:21)
[2016-06-18] MEDS: ASPIRIN 81 MG CHEW (CHILDREN'S ASA) PO SCH (20:22)
[2016-06-19] VITALS: BP 166/79
[2016-06-19] MEDS: LEVOTHYROXINE 50 MCG (LEVOTHROID) TAB PO SCH (06:08)
[2016-06-19] MEDS: methylPREDNISolone 40 MG/ML (Solu-MEDROL) VIAL IV SCH (07:18)
[2016-06-19] MEDS: lisINopril 5 MG (PRINIVIL) TABLET PO SCH (07:18)
[2016-06-19] MEDS: PANTOPRAZOLE 40 MG/10 ML (PROTONIX) VIAL IV SCH ×2 (07:18→20:36)
[2016-06-19] MEDS: HYDROcodone/APAP 5 MG/325 MG (LORTAB) TAB PO PRN ×3 (07:18→20:37)
[2016-06-19] MEDS: CLOPIDOGREL 75 MG (PLAVIX) TABLET PO SCH (07:19)
[2016-06-19] MEDS: CARVEDILOL 6.25 MG (COREG) TAB PO SCH ×2 (07:19→20:38)
[2016-06-19] MEDS: GABAPENTIN 300 MG (NEURONTIN) CAP PO SCH ×2 (07:19→20:37)
[2016-06-19] MEDS: MUPIROCIN 2% OINT 22 GM (BACTROBAN) TUBE TOP SCH ×2 (07:19→20:39)
[2016-06-19] MEDS: MICONAZOLE 2% POWDER (DESENEX AF) 90 GM TOP SCH ×2 (07:19→20:39)
[2016-06-19] MEDS: RT-ALBUTEROL/IPRATROPIUM 3 ML (DUONEB) VIAL INH SCH ×3 (08:01→20:27)
[2016-06-19 08:32] VITALS: BP 174/89
[2016-06-19] MEDS: DOXYCYCLINE 100 MG (VIBRAMYCIN) TABLET PO SCH ×2 (08:55→18:09)
--- NOTE | 2016-06-19 08:56 | Progress Note (SOAP) ---
Subjective Subjective 81 yo M with acute kidney failure due to poor po intake, confusion, VRE UTI No overnight events- Pt declined AM labs as he felt there was no point to getting stuck 5-6x . Pt and agreeable to going home with [facility]. Review of Systems General: No Chills, Fatigue HEENT: No Head Aches, No Dysphasia Pulmonary: Dyspnea, No Cough Cardiovascular: Edema, No: Chest Pain Gastrointestinal: No: Abdominal Pain, Nausea, Vomiting Genitourinary: Other (CHERRY) Musculoskeletal: leg pain (right) Neurological: Weakness, No: Confusion All Other Systems Reviewed All Other Systems Reviewed: Yes Objective Exam Vital Signs Vital Signs Date Time Temp Pulse Resp B/P (MAP) Pulse Ox O2 Delivery O2 Flow Rate FiO2 06/19/16 08:32 97.6 60 20 174/89 94 Nasal Cannula 2.00 06/19/16 08:01 92 2.00 06/19/16 00:00 97.3 72 20 166/79 98 Nasal Cannula 2.00 06/18/16 20:10 95 2.00 06/18/16 18:49 95 2.00 06/18/16 16:20 97.9 89 24 140/87 94 Nasal Cannula 2.00 06/18/16 13:23 91 2.00 06/18/16 09:41 93 2.00 I & O 06/19/16 07:00 Intake Total 2440 ml Output Total 875 ml Balance 1565 ml General Appearance: Mild Distress, Other (tearful at times thinking about hospice and the burden that will be on his at home.) Eyes: Bilateral Eye EOMI, Bilateral Eye Normal Inspection, Bilateral Eye PERRL HEENT: PERRL/EOMI, Other (NG TUBE IN RIGHT NARE) Neck: Full Range of Motion, Supple Respiratory: Chest Non Tender, Lungs Clear, Normal Breath Sounds, No Accessory Muscle Use, No Respiratory Distress Cardiovascular: Other (irregular rhythm, regular rate) Gastrointestinal: Normal Bowel Sounds, Non Tender, Soft, Other (right ostomy) Rectal: Deferred Back: No CVA Tenderness Extremity: Pedal Edema, Other (AMPUTATION RIGHT LEG ABOVE KNEE) Neurologic/Psychiatric: Alert, Oriented x3, Normal Mood/Affect Skin: Warm/Dry, Other (ESCHAR RIGHT LEG AMPUTATION AT MEDIAL EDGE OF WOUND) Results Lab Microbiology 06/13/16 Blood Culture - Preliminary, Resulted No growth 06/13/16 Urine Culture - Final, Complete Enterococcus Faecium Assessment/Plan Assessment/Plan Assessment/Plan 81 yo M VRE UTI- improving doxycycline 06/15/16-- 06/27/16- will complete course. partial Small Bowel Obstruction- NG tube placed 06/15/16 -Dr. Burt consulted NG removed 06/17/16- improving- diet advanced. Atrial fibrillation- INR supratherapeutic- due to poor po nutrition monitoring INR, holding warfarin- vitamin K 1mg 06/16/16- monitor INR COPD exacerbation - baseline oxygen 2L requirement , RT consult, methylpred 40mg IV, peripheral vascular disease- plavix follows with Dr. David Mathis, Vascular Surgeon at [facility] hypothyroidism- cont levothyroxine HTN- monitor cont coreg, lisinopril CAD- stable h/o colitis-- requiring ileostomy- stable- Weakness/deconditioning- PT consulted. Right above knee amputation- Pt follows with Dr. Wright Inguinal candidiasis- miconazole powder. Anemia of chronic disease- 2units pRBC on 06/03/16- Transfused 2units- pRBC as he was symptomatic monitor cbc obstructive sleep apnea- home cpap Hyperkalemia- resolved Hypomagnesemia- replacing prn Acute Kidney failure due to UTI, poor po intake, fentanyl patch- Cr improving; baseline Cr 1.1 - avoid nephrotoxic agents (NSAIDS, contrast) fentanyl patch removed 06/13/2016 cough- robitussin with codeine Dispo: Code: DNR Prognosis- overall poor as he has spent nearly the last 2 months in the hospital ([facility], [facility], )- -06/19/16 Placing pt on hospice- has selected [facility]. Plan for afternoon or Friday morning discharge to home. -Plan to continue pt's plavix, and complete course of doxycycline for his VRE UTI. Case Management involved. Problems: Clinical Quality Measures DVT/VTE Risk/Contraindication: Risk Factor Score Per Nursin RFS Level Per Nursing on Admit: 4+=Very High Contraindications-Pharm: Other *list below* Other: on warfarin TK DELEON MD June 19, 2016 08:56
[2016-06-19] MEDS: NS IV 1000 ML 1,000 ML IV SCH (13:08)
[2016-06-19] MEDS: CATHETER FLUSH 10 ML SYR IV SCH ×2 (14:44→20:39)
--- NOTE | 2016-06-19 15:09 | Physical Therapy Progress Note ---
Therapy Progress Note Patient is now on pallative care. Talked with nurse Odalys and she states patient will be discharging tomorrow or the next day and does not need to be seen by PT at this time. Will check back tomorrow just in case. SHUN MULLINS PT June 19, 2016 15:09
[2016-06-19 17:10] VITALS: BP 163/80
[2016-06-19] MEDS: ASPIRIN 81 MG CHEW (CHILDREN'S ASA) PO SCH (20:37)
[2016-06-19] MEDS: ALFUZOSIN HCL 10 MG TAB (UROXATRAL) PO SCH (20:37)
[2016-06-19] MEDS: MELATONIN 3 MG TABLET PO SCH (20:38)
[2016-06-20] VITALS: BP 165/84
[2016-06-20] MEDS: HYDROcodone/APAP 5 MG/325 MG (LORTAB) TAB PO PRN (02:04)
[2016-06-20] MEDS: CATHETER FLUSH 10 ML SYR IV SCH (06:28)
[2016-06-20] MEDS: LEVOTHYROXINE 50 MCG (LEVOTHROID) TAB PO SCH (06:28)
[2016-06-20] MEDS: DOXYCYCLINE 100 MG (VIBRAMYCIN) TABLET PO SCH (06:28)
--- NOTE | 2016-06-20 08:27 | Discharge Summary ---
Diagnosis/Chief Complaint Date of Admission Jun 13, 2016 at 18:00 Date of Discharge June 20, 2016 Admission Diagnosis Admission Diagnosis Acute Kidney failure due to UTI, poor po intake, fentanyl patch- Hyperkalemia- Atrial fibrillation- INR supratherapeutic- COPD exacerbation peripheral vascular disease- hypothyroidism- HTN- CAD- h/o colitis-- Weakness/deconditioning- Right above knee amputation- Inguinal candidiasis- Anemia of chronic disease- obstructive sleep apnea- Discharge Diagnosis VRE UTI- partial Small Bowel Obstruction- Atrial fibrillation- INR supratherapeutic- COPD exacerbation - peripheral vascular disease- hypothyroidism- HTN- CAD- h/o colitis-- Weakness/deconditioning- Right above knee amputation- Inguinal candidiasis Anemia of chronic disease- obstructive sleep apnea- Hyperkalemia- Hypomagnesemia- Acute Kidney failure due to UTI, poor po intake, fentanyl patch- cough- Reason Hospital Visit 81-year-old male admitted for acute kidney failure and mild COPD exacerbation. Patient has a history of COPD, anemia chronic disease, peripheral artery disease, colitis with ostomy dependence, atrial fibrillation, coronary artery disease, hypertension, hypothyroidism. Suspect his acute kidney failure is multifactorial including but not limited to decreased by mouth intake, fentanyl patch, potential urinary tract infection and low reserve as he has a history of kidney failure. notes over the last few days has been more lethargic; one big change is a fentanyl patch was applied 06/11/16 as he was reporting increased pain. Patient also has had an increase in his nausea and vomiting. Nisreen that his provided helped. Patient has not participated in physical therapy last couple days due to his fatigue. notes he has been more fatigued and also confused. He is able to answer questions appropriately but does weird things. One thing she notes that he traced along the edge of his blanket with his finger. reports he has not urinated since yesterday afternoon. I suspect he has been incontinent- as nursing staff on admssion to [facility] note his backside is irritated from being wet. While at [facility] today his O2 sats were noted to be in the 70s - oxygen did not bring a backup but he was placed on his CPAP which did bring his oxygen back up to the 90s. His notes that he'll do a shaking motion with his arms and his O2 sats have been noted to be lower than 90 when this is noticed likely attributed to hypoxia. I did see patient today in my office for hospital follow-up regarding last week' s hypotensive admission. Patient was a little more confused but overall appeared to be doing well. No fever noted vitals were all stable including oxygen saturation was in the 90s. When patient was returned to [facility] today the above events occurred. Via [facility] emergency department course of action-patient received IV fluids, 1 g Rocephin, and it was noted his Cr was elevated at 3.3, K was 5.2. Lactic acid 1.3 Patient was admitted to 4th floor for further evaluation and management. Discharge Summary Hospital Course Hospital Course 81 yo M with multiple co-morbidities admitted for acute on chronic kidney failure- He did improve throughout his hospital stay and his course is as below. VRE UTI- improving doxycycline 06/15/16-- 06/27/16- will complete course. partial Small Bowel Obstruction- NG tube placed 06/15/16 -Dr. Burt consulted NG removed 06/17/16- improving- diet advanced. Atrial fibrillation- INR supratherapeutic- due to poor po nutrition monitoring INR, holding warfarin- vitamin K 1mg 06/16/16- monitored INR COPD exacerbation - baseline oxygen 2L requirement , RT consult, methylpred 40mg IV, peripheral vascular disease- plavix follows with Dr. David Mathis, Vascular Surgeon at [facility] hypothyroidism- cont levothyroxine HTN- monitor cont coreg, lisinopril CAD- stable h/o colitis-- requiring ileostomy- stable- Weakness/deconditioning- PT consulted. Right above knee amputation- Pt follows with Dr. Wright Inguinal candidiasis- miconazole powder. Anemia of chronic disease- 2units pRBC on 06/03/16- Transfused 2units- pRBC as he was symptomatic cbc was monitored obstructive sleep apnea- home cpap Hyperkalemia- resolved Hypomagnesemia- replacing prn Acute Kidney failure due to UTI, poor po intake, fentanyl patch- Cr improving; baseline Cr 1.1 - avoid nephrotoxic agents (NSAIDS, contrast) fentanyl patch removed 06/13/2016 cough- robitussin with codeine Code: DNR Prognosis- overall poor as he has spent nearly the last 2 months in the hospital ([facility], )- -06/19/16 Placing pt on hospice- has selected [facility]. Pt was discharged to home on hospice 06/20/16. He reports he is tired of all the interventions and still require medical care- he is ready to . -Plan to continue pt's plavix, we stopped his warfarin though after a long discussion of risks/benefits, he will complete course of doxycycline for his VRE UTI. See discharge med recommendation- for other continue medications- Pt may decline to take them. Case Management was involved and help in coordinating care for Mr. Nieto. Labs Procedures NG tube Discharge Physical Examination Allergies: Coded Allergies: Sulfa (Sulfonamide Antibiotics) (Unverified Allergy, Intermediate, HIVES, 04/23/16) clindamycin (Verified Allergy, Unknown, 04/21/16) STATES HE CAN NOT TAKE IT Vitals & I&Os Vital Signs Date Time Temp Pulse Resp B/P (MAP) Pulse Ox O2 Delivery O2 Flow Rate FiO2 06/20/16 13:45 89 18 145/79 97 2.00 06/20/16 08:36 95.8 Nasal Cannula General Appearance: Alert, Oriented X3 HEENT: Atraumatic Cardiovascular: Other (irregular rhythm, regular rate.) Abdominal: Normal Bowel Sounds, Soft Neuro: Normal Speech Psych/Mental Status: Mental Status NL Discharge Home Medications Reviewed and agree with Discharge Medication list on patient's Discharge Instruction sheet Condition at Discharge stable, improving- on hospice. Instructions to Patient/Family Please see electronic discharge instructions given to patient. Clinical Quality Measures DVT/VTE Risk/Contraindication: Risk Factor Score Per Nursin RFS Level Per Nursing on Admit: 4+=Very High Contraindications-Pharm: Other *list below* Other: on warfarin Comfort Measures/ Type of Care: Hospice Care (Home) TK DELEON MD June 20, 2016 08:26
[2016-06-20] MEDS: CLOPIDOGREL 75 MG (PLAVIX) TABLET PO SCH (08:28)
[2016-06-20] MEDS: GABAPENTIN 300 MG (NEURONTIN) CAP PO SCH (08:28)
[2016-06-20] MEDS: PANTOPRAZOLE 40 MG/10 ML (PROTONIX) VIAL IV SCH (08:28)
[2016-06-20] MEDS: lisINopril 5 MG (PRINIVIL) TABLET PO SCH (08:28)
[2016-06-20] MEDS: CARVEDILOL 6.25 MG (COREG) TAB PO SCH (08:28)
[2016-06-20] MEDS: MICONAZOLE 2% POWDER (DESENEX AF) 90 GM TOP SCH (08:30)
[2016-06-20] MEDS: MUPIROCIN 2% OINT 22 GM (BACTROBAN) TUBE TOP SCH (08:30)
[2016-06-20] MEDS ORDERED: DOXY100T2 PO (08:31)
[2016-06-20] MEDS ORDERED: HYDR-3812 PO (08:31)
[2016-06-20] MEDS: methylPREDNISolone 40 MG/ML (Solu-MEDROL) VIAL IV SCH (08:32)
--- NOTE | 2016-06-20 08:35 | Discharge Inst-Simple/Standard ---
Discharge Inst-Standard Discharge Medications New, Converted or Re-Newed RX: Other (hydrocodone on chart- doxycycline sent to pharmacy) Patient Instructions/Follow Up Plan of Care/Instructions/FU: Patient will complete course of doxycycline for his urinary tract infection I continued some of his medications- patient may choose to decline to take them. Activity as Tolerated: Yes ( ) Discharge Diet: Regular Diet Return to The Hospital For: Concerns - Patient is going home on [facility]. TK DELEON MD June 20, 2016 08:35
[2016-06-20 08:36] VITALS: BP 145/79
[2016-06-20] MEDS: RT-ALBUTEROL/IPRATROPIUM 3 ML (DUONEB) VIAL INH SCH (08:41)
[2016-06-20 13:45] VITALS: BP 145/79
== END 2016-06-20 14:00 | disposition hospice, home (50) | DRG 683 ==
LOC: EDUNIT# 16:36 → ER 16:37 → 4TH 18:00 → ENPENDDIS 06-20 14:00
PROVIDERS: ADMIT Family Medicine; ATTEND Family Medicine
DX: N17.9 Acute kidney failure, unspecified (principal); N39.0 Urinary tract infection, site not specified; J44.1 Chronic obstructive pulmonary disease with (acute) exacerbation; K56.60 Unspecified intestinal obstruction; J45.909 Unspecified asthma, uncomplicated; I48.91 Unspecified atrial fibrillation; E11.51 Type 2 diabetes mellitus with diabetic peripheral angiopathy without gangrene; E11.40 Type 2 diabetes mellitus with diabetic neuropathy, unspecified; Z66 Do not resuscitate; I10 Essential (primary) hypertension; E03.9 Hypothyroidism, unspecified; I25.10 Atherosclerotic heart disease of native coronary artery without angina pectoris; B37.2 Candidiasis of skin and nail; D63.8 Anemia in other chronic diseases classified elsewhere; G47.33 Obstructive sleep apnea (adult) (pediatric); E78.00 Pure hypercholesterolemia, unspecified; F03.90 Unspecified dementia, unspecified severity, without behavioral disturbance, psychotic disturbance, mood disturbance, and anxiety; M19.91 Primary osteoarthritis, unspecified site; M54.9 Dorsalgia, unspecified; Z16.21 Resistance to vancomycin; Z93.2 Ileostomy status; Z87.19 Personal history of other diseases of the digestive system; Z89.611 Acquired absence of right leg above knee; Z85.46 Personal history of malignant neoplasm of prostate; Z85.038 Personal history of other malignant neoplasm of large intestine; Z85.028 Personal history of other malignant neoplasm of stomach; T40.4X5A Adverse effect of other synthetic narcotics, initial encounter
CPT/HCPCS: 36415; 71010; 74000; 80053; 80069; 81000; 82140; 82274; 83605; 83735; 85025; 85027; 85610; 85730; 86850; 86900; 86901; 86920; 87040; 87077; 87088; 87186; 94640; 94664; 94760; 96365; 96375